=== PATIENT | male | born 1950 | race Caucasian/White ===

== ENCOUNTER → 2018-06-03 13:14 | Outpatient (CLI) | payer MEDICARE, SELFPAY ==
--- NOTE | 2018-06-03 | OV.WND_ITS ---
Progress Note Details Patient Name: Leroy Almonte Patient Number: [id number] PatientPatientDate: 06/03/2018 Clinician: Snow Aguilar Clinician Cosigner: Lily White Physician / Hospital Director: Austin Munoz SUBJECTIVE Chief Complaint This information was obtained from the patient Non-healing wound to right great toe. Allergies azithromycin, lisinopril, simvastatin HPI This information was obtained from the patient 06/03/18. Seen by Dr. Munoz. The patient is new to our clinic and presents with a chronic right 1st toe diabetic ulcer that's been present since about last August. He does not report pain or drainage from the ulcer and feels it's slowly been improving while receiving wound care in [place], [place]. He's also been given an offloading shoe which he states he's not been wearing and he has a vascular intervention/stent placement pending with Dr. Dexter wilkerson for PAD of the right leg. 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 Past Medical History This information was obtained from the patient Patient has a medical history of: A Fib Sleep apnea Abdominal Aortic Aneurysm Diabetes II Hyperlipidemia Hypertension Surgical History This information was obtained from the patient Patient has a surgical history of: cholecystectomy cataract extraction tonsilectomy Complaints and Symptoms This information was obtained from the patient Patient complains of: General Notes: I have reviewed and concur with the Review of Systems and Past Family Social History documents completed by the clinician, I have reviewed and concur with the Wound Assessment document completed by the clinician Cardiovascular (Central/Peripheral): Lower extremity (leg) swelling Hematologic/Lymphatic: Bleeding Tendency Integumentary (Hair/Skin/Nails): Open Sore Musculoskeletal: Assistive Devices Neurological: Loss of Protective Sensation Patient denies complaints or symptoms related to: Cardiovascular (Central/Peripheral): Intermittent Claudication, Lower extremity (leg) resting pain Constitutional Symptoms (General Health): Chills, Fever Ear/Nose/Mouth/Throat: Hearing Loss / Aid Hematologic/Lymphatic: Bleeding / Clotting Disorders Prior Wound History: Drainage, Pain Respiratory: Shortness of Breath General Notes: Up to date per patient Medications gabapentin 800 mg tablet oral tablet oral once daily glipizide 5 mg tablet oral tablet oral once daily Synjardy 12.5 mg-1,000 mg tablet oral tablet oral once daily atorvastatin 40 mg tablet oral tablet oral once daily metoprolol tartrate 50 mg tablet oral tablet oral once daily Xarelto 20 mg tablet oral tablet oral once daily Aspir-81 81 mg tablet,delayed release oral tablet,delayed release (DR/EC) oral once daily omeprazole 20 mg capsule,delayed release oral capsule,delayed release(DR/EC) oral once daily duloxetine 60 mg capsule,delayed release oral capsule,delayed release(DR/EC) oral once daily OBJECTIVE Constitutional Vital signs reviewed and noted. Well developed. Alert. Clean appearing.. Height/ Length: 68 in (172.72 cm), Weight: 204 lbs (92.73 kgs), BMI: 31, Temperature: 98.3 ?F (36.83 ? C), Pulse: 93 bpm, Respiratory Rate: 16 breaths/min, Blood Pressure: 110/77 mmHg, Capillary Blood Glucose: 116 mg/dl, Pulse Oximetry: 98 %. Ears, Nose, Mouth, and Throat: No clinically significant hearing loss on informal examination. Cardiovascular: 1+ dorsalis pedis and posterior tibial on the right. 1+ right lower extremity edema. Musculoskeletal: Approx 4x4mm black, slightly raised irregular lesion over right lateral lower leg. Integumentary (Hair, Skin) Refer to appropriate clinician wound documentation for this visit; right 1st toe ulcer extends to subcut with base partially covered with pink granulation, remainder fibrin and slough. Moderate amount of callus in the periulcer area. Wound #1 Right Great Toe is a chronic Daniel Grade 1 Diabetic Ulcer and has received a status of Not Healed. Initial wound encounter measurements are 0.1cm length x 0.1cm width x 0.1cm depth, with an area of 0.01 sq cm and a volume of 0.001 cubic cm. No tunneling has been noted. No sinus tract has been noted. No undermining has been noted. There is a moderate amount of sanguineous drainage noted which has no odor. The patient reports a wound pain of level 5/10. The wound margin is callus. Wound bed has No epithelialization, No eschar, No slough, No granulation. The periwound skin texture is normal. The periwound skin moisture is normal. The periwound skin color is normal. The temperature of the periwound skin is WNL. Periwound skin does not exhibit signs or symptoms of infection. Local Pulse is Doppler. Neurological: Cranial nerves grossly intact with symmetric function normal by informal observation.. ASSESSMENT Active Problems ICD-10 (Encounter Diagnosis) E11.621 - Type 2 diabetes mellitus with foot ulcer (Encounter Diagnosis) L97.512 - Non-pressure chronic ulcer of other part of right foot with fat layer exposed (Encounter Diagnosis) D48.5 - Neoplasm of uncertain behavior of skin PROCEDURES Wound #1 Wound #1 (Diabetic Ulcer) is located on the right great toe. A skin/ subcutaneous tissue level surgical debridement with a total area debrided of 0.3 sq cm was performed by Austin Munoz MD. Subcutaneous was removed along with devitalized tissue: callus and exudate. The following instrument(s) were used: curette. No anesthetic was required due to loss of sensation. A time out was conducted prior to the start of the procedure. A minimal amount of bleeding was controlled with n/a. The procedure was tolerated well with a loss of sensation throughout and a loss of sensation following the procedure. Post Debridement Measurements: 1cm length x 0.3cm width x 0.2cm depth; with an area of 0.3 sq cm and a volume of 0.06 cubic cm; Additional Information Muscle fascia or bone removed and sent to pathology?: No PLAN Wound Orders: Wound #1 Right Great Toe Cleanser Cleanse Wound: - Normal saline in clinic. May use distilled water at home. May Shower. - Please cover while in shower. Please avoid getting tap water on dressing or in wound. Dressings Primary dressing: - Foam Cover and secure with: - Tape Change Dressing: - Daily Additional Orders: Off-Loading Keep weight off: - Right foot as much as possible. Use/Wear when Walking: - Offloading shoe when walking Follow-Up Appointments Return Appointment: - - One week Other information: If you develop fever, chills, increased pain, drainage, redness or swelling please call our office. If after hours, respond to the ER. Should you experience any significant changes in your wound(s) or have any questions regarding your home care instructions please contact the wound center @ [phone]. If after hours, contact your primary care physician or go to the hospital emergency room. Scribing Attestation I attest, as the nurse, that I scribed these orders for the physician. I've reviewed the clinician's documentation and agree with the evaluation and plan as written. In addition, the patient's ulcer demonstrates evidence of non-viable devitalized tissue which will continue to benefit from sharp debridement to help promote granulation and expedite healing. Also, the patient will be referred to dermatology to review this right lower leg suspicious neoplasm. and he'll follow up with Dr. Renteria as scheduled regarding his PAD. Electronic Signature(s) Signed By: Date: Austin Munoz MD 06/04/2018 09:29:15 Entered By: Austin Munoz on 06/04/2018 09:04:46
== END ==
PROVIDERS: Family Provider Family Medicine; PCP Family Medicine; Visit Provider Internal Medicine
DX: E11.621 Type 2 diabetes mellitus with foot ulcer (principal); L97.512 Non-pressure chronic ulcer of other part of right foot with fat layer exposed; D48.5 Neoplasm of uncertain behavior of skin; I70.238 Atherosclerosis of native arteries of right leg with ulceration of other part of lower leg
CPT/HCPCS: 11042; 99212

== ENCOUNTER → 2018-06-10 10:30 | Outpatient (CLI) | payer MEDICARE, SELFPAY | PROVIDERS: Family Provider Family Medicine; PCP Family Medicine; Visit Provider Internal Medicine | DX: E11.621 Type 2 diabetes mellitus with foot ulcer (principal); L97.512 Non-pressure chronic ulcer of other part of right foot with fat layer exposed; D48.5 Neoplasm of uncertain behavior of skin | CPT/HCPCS: 11042 ==

== ENCOUNTER → 2018-06-17 13:21 | Outpatient (CLI) | payer MEDICARE, SELFPAY ==
--- NOTE | 2018-06-17 | OV.WND_ITS ---
Progress Note Details Patient Name: Leroy Almonte Patient Number: [id number] PatientPatientDate: 06/17/2018 Clinician: Sherron Rao Clinician Cosigner: Lily White Physician / Billposter: Austin Munoz SUBJECTIVE Chief Complaint This information was obtained from the patient Diabetic ulcer to right great toe. Allergies azithromycin, lisinopril, simvastatin HPI This information was obtained from the patient 06/17/18. Seen by Dr. Munoz. The patient does not report increased drainage or pain associated with the chronic right 1st toe diabetic ulcer since his last visit and he's wearing his offloading shoe as recommended. He has a nuclear stress test scheduled next week as pre- surgery screening test prior to possible intervention for his right leg PAD which complicating the healing of the toe ulcer. 06/10/18. Seen by Dr. Munoz. The patient does not report increased drainage or pain associated with the chronic right 1st toe diabetic ulcer since his last visit and he's wearing his offloading shoe as recommended. He's also not yet heard back from dermatology regarding the suspicious right lower leg neoplasm noting his referral was sent after his last visit. 06/03/18. Seen by Dr. Munoz. The patient is new to our clinic and presents with a chronic right 1st toe diabetic ulcer that's been present since about last August. He does not report pain or drainage from the ulcer and feels it's slowly been improving while receiving wound care in [place], [place]. He's also been given an offloading shoe which he states he's not been wearing and he has a vascular intervention/stent placement pending with Dr. Renteria presumably for PAD of the right leg. 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 Past Medical History This information was obtained from the patient Patient has a medical history of: A Fib Sleep apnea Abdominal Aortic Aneurysm Diabetes II Hyperlipidemia Hypertension Complaints and Symptoms This information was obtained from the patient Patient complains of: General Notes: I have reviewed and concur with the Review of Systems and Past Family Social History documents completed by the clinician, I have reviewed and concur with the Wound Assessment document completed by the clinician Cardiovascular (Central/Peripheral): Lower extremity (leg) swelling Hematologic/Lymphatic: Bleeding Tendency Integumentary (Hair/Skin/Nails): Open Sore Musculoskeletal: Assistive Devices Neurological: Loss of Protective Sensation Patient denies complaints or symptoms related to: Cardiovascular (Central/Peripheral): Intermittent Claudication, Lower extremity (leg) resting pain Constitutional Symptoms (General Health): Chills, Fever Ear/Nose/Mouth/Throat: Hearing Loss / Aid Hematologic/Lymphatic: Bleeding / Clotting Disorders Prior Wound History: Drainage, Pain Respiratory: Shortness of Breath OBJECTIVE Constitutional Vital signs reviewed and noted. Well developed. Alert. Clean appearing.. Height/ Length: 68 in (172.72 cm), Weight: 198.4 lbs (90.18 kgs), BMI: 30.2, Temperature: 98.0 ?F ( 36.67 ?C), Pulse: 93 bpm, Respiratory Rate: 16 breaths/min, Blood Pressure: 120/78 mmHg, Capillary Blood Glucose: 121 mg/dl, Pulse Oximetry: 99 %. Vital Signs Notes: Glucose per patient. Cardiovascular: 1+ dorsalis pedis and posterior tibial on the right. Affected extremity exhibits no peripheral edema or cyanosis, is warm, and is well perfused. Capillary refill is less than 2 seconds. Integumentary (Hair, Skin) No periwound erythema, warmth, or significant drainage. No periwound rashes appreciated or noted otherwise.. Refer to appropriate clinician wound documentation for this visit; right 1st toe ulcer extends to subcut with base partially covered with pink granulation, remainder fibrin and slough. Wound #1 Right Great Toe is a chronic Daniel Grade 1 Diabetic Ulcer and has received a status of Not Healed. Subsequent wound encounter measurements are 0.1cm length x 0.1cm width x 0.1cm depth, with an area of 0.01 sq cm and a volume of 0.001 cubic cm. No tunneling has been noted. No sinus tract has been noted. No undermining has been noted. There was no drainage noted. The patient reports a wound pain of level 2/10. The wound margin is callus. Wound bed has Yes epithelialization, No eschar, No slough, No granulation. The periwound skin moisture is normal. The periwound skin color is normal. The periwound skin exhibited: Callus. The periwound skin did not exhibit: Brawny Induration, Edema, Excoriation, Induration, Crepitus, Fluctuance, Friable, Rash. The temperature of the periwound skin is WNL. Periwound skin does not exhibit signs or symptoms of infection. Local Pulse is Doppler. Neurological: Cranial nerves grossly intact with symmetric function normal by informal observation.. ASSESSMENT Active Problems ICD-10 (Encounter Diagnosis) E11.621 - Type 2 diabetes mellitus with foot ulcer (Encounter Diagnosis) L97.512 - Non-pressure chronic ulcer of other part of right foot with fat layer exposed (Encounter Diagnosis) I70.238 - Atherosclerosis of [place] arteries of right leg with ulceration of other part of lower right leg PROCEDURES Wound #1 Wound #1 (Diabetic Ulcer) is located on the right great toe. A skin/ subcutaneous tissue level surgical debridement was performed by Austin Munoz MD. Subcutaneous was removed along with devitalized tissue: callus and exudate. The following instrument(s) were used: curette. No anesthetic was required due to loss of sensation. A time out was conducted prior to the start of the procedure. A minimal amount of bleeding was controlled with pressure. The procedure was tolerated well with a loss of sensation throughout and a loss of sensation following the procedure. Post Debridement Measurements: Additional Information Muscle fascia or bone removed and sent to pathology?: No PLAN Wound Orders: Wound #1 Right Great Toe Anesthetic Topical Xylocaine to wound bed. - Topical lidocaine in clinic. Cleanser Cleanse Wound: - Normal saline in clinic. May use distilled water at home. May Shower. - Please cover while in shower. Please avoid getting tap water on dressing or in wound. Dressings Primary dressing: - [place] donut pad surrounding wound. Cover and secure with: - Telfa to cover, secured with hypafix tape. Change Dressing: - Every 2-3 days. Additional Orders: Off-Loading Keep weight off: - Right foot as much as possible. Use/Wear when Walking: - Offloading shoe when walking. Follow-Up Appointments Return Appointment: - - One week. Other information: If you develop fever, chills, increased pain, drainage, redness or swelling please call our office. If after hours, respond to the ER. Should you experience any significant changes in your wound(s) or have any questions regarding your home care instructions please contact the wound center @ [phone]. If after hours, contact your primary care physician or go to the hospital emergency room. Scribing Attestation I attest, as the nurse, that I scribed these orders for the physician. I've reviewed the clinician's documentation and agree with the evaluation and plan as written. In addition, the patient's ulcer demonstrates evidence of non-viable devitalized tissue which will continue to benefit from sharp debridement to help promote granulation and expedite healing. Also, we'll await feedback from vascular surgery regarding possible intervention for his right leg PAD. Electronic Signature(s) Signed By: Date: Austin Munoz MD 06/18/2018 08:53:09 Entered By: Austin Munoz on 06/18/2018 07:17:54
== END ==
PROVIDERS: Family Provider Family Medicine; PCP Family Medicine; Visit Provider Internal Medicine
DX: E11.621 Type 2 diabetes mellitus with foot ulcer (principal); L97.512 Non-pressure chronic ulcer of other part of right foot with fat layer exposed; I70.238 Atherosclerosis of native arteries of right leg with ulceration of other part of lower leg
CPT/HCPCS: 11042

== ENCOUNTER → 2018-07-06 15:26 | Outpatient (CLI) | payer MEDICARE, SELFPAY ==
--- NOTE | 2018-07-06 | OV.WND_ITS ---
Progress Note Details Patient Name: Leroy Almonte Patient Number: [id number] PatientPatientDate: 07/06/2018 Clinician: Sherron Rao Clinician Cosigner: Lily White Physician / Mining Machinery Assembler: Austin Munoz SUBJECTIVE Chief Complaint This information was obtained from the patient Diabetic ulcer to right great toe. Allergies azithromycin, lisinopril, simvastatin HPI This information was obtained from the patient 07/06/18. Seen by Dr. Munoz. The patient does not report increased drainage or pain associated with the chronic right 1st toe diabetic ulcer since his last visit. 06/17/18. Seen by Dr. Munoz. The patient does not report increased drainage or pain associated with the chronic right 1st toe diabetic ulcer since his last visit and he's wearing his offloading shoe as recommended. He has a nuclear stress test scheduled next week as pre- surgery screening test prior to possible intervention for his right leg PAD which complicating the healing of the toe ulcer. 06/10/18. Seen by Dr. Munoz. The patient does not report increased drainage or pain associated with the chronic right 1st toe diabetic ulcer since his last visit and he's wearing his offloading shoe as recommended. He's also not yet heard back from dermatology regarding the suspicious right lower leg neoplasm noting his referral was sent after his last visit. 06/03/18. Seen by Dr. Munoz. The patient is new to our clinic and presents with a chronic right 1st toe diabetic ulcer that's been present since about last August. He does not report pain or drainage from the ulcer and feels it's slowly been improving while receiving wound care in [place], [place]. He's also been given an offloading shoe which he states he's not been wearing and he has a vascular intervention/stent placement pending with Dr. Renteria presumably for PAD of the right leg. 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 Past Medical History This information was obtained from the patient Patient has a medical history of: A Fib Sleep apnea Abdominal Aortic Aneurysm Diabetes II Hyperlipidemia Hypertension Complaints and Symptoms This information was obtained from the patient Patient complains of: General Notes: I have reviewed and concur with the Review of Systems and Past Family Social History documents completed by the clinician, I have reviewed and concur with the Wound Assessment document completed by the clinician Cardiovascular (Central/Peripheral): Lower extremity (leg) swelling Hematologic/Lymphatic: Bleeding Tendency Integumentary (Hair/Skin/Nails): Open Sore Musculoskeletal: Assistive Devices Neurological: Loss of Protective Sensation Patient denies complaints or symptoms related to: Cardiovascular (Central/Peripheral): Intermittent Claudication, Lower extremity (leg) resting pain Constitutional Symptoms (General Health): Chills, Fever Ear/Nose/Mouth/Throat: Hearing Loss / Aid Hematologic/Lymphatic: Bleeding / Clotting Disorders Prior Wound History: Drainage, Pain Respiratory: Shortness of Breath OBJECTIVE Constitutional Vital signs reviewed and noted. Well developed. Alert. Clean appearing.. Height/ Length: 68 in (172.72 cm), Weight: 198.4 lbs (90.18 kgs), BMI: 30.2, Temperature: 97.4 ?F ( 36.33 ?C), Pulse: 110 bpm, Respiratory Rate: 18 breaths/min, Blood Pressure: 117/77 mmHg, Capillary Blood Glucose: 113 mg/dl, Pulse Oximetry: 98 %. Vital Signs Notes: Glucose per patient. Respiratory: No respiratory distress. Even respirations and without use of accessory muscles.. Integumentary (Hair, Skin) Refer to appropriate clinician wound documentation for this visit.. Wound #1 Right Great Toe is a chronic Adniel Grade 1 Diabetic Ulcer and has received an outcome of Healed - no new wound(s). Subsequent wound encounter measurements are 0cm length x 0cm width x 0cm depth, with an area of 0 sq cm and a volume of 0 cubic cm. No tunneling has been noted. No sinus tract has been noted. No undermining has been noted. There was no drainage noted. The patient reports a wound pain of level 2/10. The wound margin is callus. Wound bed has Yes epithelialization, No eschar, No slough, No granulation. The periwound skin moisture is normal. The periwound skin color is normal. The periwound skin exhibited: Callus. The periwound skin did not exhibit: Brawny Induration, Edema, Excoriation, Induration, Crepitus, Fluctuance, Friable, Rash. The temperature of the periwound skin is WNL. Periwound skin does not exhibit signs or symptoms of infection. Local Pulse is Doppler. General Notes: Dark area noted under callus measures 0.6x0.3cm. Wound healed post mechanical debridement. Neurological: Cranial nerves grossly intact with symmetric function normal by informal observation.. ASSESSMENT Active Problems ICD-10 (Encounter Diagnosis) E11.621 - Type 2 diabetes mellitus with foot ulcer (Encounter Diagnosis) L97.512 - Non-pressure chronic ulcer of other part of right foot with fat layer exposed PROCEDURES Wound #1 Wound #1 (Diabetic Ulcer) is located on the right great toe. A non-selective mechanical debridement with a total area debrided of 0 sq cm was performed by Austin Munoz MD. Non-viable tissue was removed.The procedure was tolerated well with a pain level of 0 throughout and a pain level of 0 following the procedure. Post Debridement Measurements: 0cm length x 0cm width x 0cm depth; with an area of 0 sq cm General Notes: Callus removed, no open area visible post debridement. PLAN Wound Orders: Wound #1 Right Great Toe Anesthetic Topical Xylocaine to wound bed. - Topical lidocaine in clinic. Cleanser Cleanse Wound: - Normal saline in clinic. May use distilled water at home. May Shower. - Please cover while in shower. Please avoid getting tap water on dressing or in wound. Topical Treatments Moisturizing lotion to surround skin. - Kerasal Intensive Foot Repair Ointment to callus (can be purchased at most local pharmacies). Dressings Cover and secure with: - Telfa to cover, secured with hypafix tape. Keep covered for the next week. If no drainage noted on bandage or callus after the week, you may leave uncovered. Change Dressing: - Every other days. Additional Orders: Off-Loading Keep weight off: - Right foot as much as possible. Use/Wear when Walking: - Offloading shoe when walking. Custom diabetic shoes once received. Follow-Up Appointments Discharge from Outpatient Services. - No need for follow-up at this time. If you feel wound has re-opened, please call us. Scribing Attestation I attest, as the nurse, that I scribed these orders for the physician. I've reviewed the clinician's documentation and agree with the evaluation and plan as written. In addition the patient's last remiaining complex wound is now healed. The patient is invited to return to our clinic for treatment of any future complex wounds. Post wound care and strategies to avoid recurrences were discussed. Electronic Signature(s) Signed By: Date: Austin Munoz MD 07/27/2018 08:43:34 Entered By: Austin Munoz on 07/06/2018 16:20:05
== END ==
PROVIDERS: Family Provider Family Medicine; PCP Family Medicine; Visit Provider Internal Medicine
DX: Z48.817 Encounter for surgical aftercare following surgery on the skin and subcutaneous tissue (principal); E11.9 Type 2 diabetes mellitus without complications
CPT/HCPCS: 99212

== ENCOUNTER → 2018-07-27 11:00 | Outpatient (CLI) | payer MEDICARE, SELFPAY ==
--- NOTE | 2018-07-27 | OV.WND_ITS ---
Progress Note Details Patient Name: Leroy Almonte Patient Number: [id number] PatientPatientDate: 07/27/2018 Clinician: Jeniffer Gatica Physician / Lead Enterprise Architect: Austin Munoz SUBJECTIVE Chief Complaint This information was obtained from the patient Diabetic ulcer to right great toe. Allergies azithromycin, lisinopril, simvastatin HPI This information was obtained from the patient 07/27/18. Seen by Dr. Munoz. The patient returns for review of a chronic right 1st toe diabetic ulcer that he wishes to have reviewed prior to leaving for [place] for the next 5 months. 07/06/18. Seen by Dr. Munoz. The patient does not report increased drainage or pain associated with the chronic right 1st toe diabetic ulcer since his last visit. 06/17/18. Seen by Dr. Munoz. The patient does not report increased drainage or pain associated with the chronic right 1st toe diabetic ulcer since his last visit and he's wearing his offloading shoe as recommended. He has a nuclear stress test scheduled next week as pre- surgery screening test prior to possible intervention for his right leg PAD which complicating the healing of the toe ulcer. 06/10/18. Seen by Dr. Munoz. The patient does not report increased drainage or pain associated with the chronic right 1st toe diabetic ulcer since his last visit and he's wearing his offloading shoe as recommended. He's also not yet heard back from dermatology regarding the suspicious right lower leg neoplasm noting his referral was sent after his last visit. 06/03/18. Seen by Dr. Munoz. The patient is new to our clinic and presents with a chronic right 1st toe diabetic ulcer that's been present since about last August. He does not report pain or drainage from the ulcer and feels it's slowly been improving while receiving wound care in [place], [place]. He's also been given an offloading shoe which he states he's not been wearing and he has a vascular intervention/stent placement pending with Dr. Renteria presumably for PAD of the right leg. 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 Past Medical History This information was obtained from the patient Patient has a medical history of: A Fib Sleep apnea Abdominal Aortic Aneurysm Diabetes II Hyperlipidemia Hypertension Complaints and Symptoms This information was obtained from the patient Patient complains of: General Notes: I have reviewed and concur with the Review of Systems and Past Family Social History documents completed by the clinician, I have reviewed and concur with the Wound Assessment document completed by the clinician Cardiovascular (Central/Peripheral): Lower extremity (leg) swelling Hematologic/Lymphatic: Bleeding Tendency Integumentary (Hair/Skin/Nails): Open Sore Musculoskeletal: Assistive Devices Neurological: Loss of Protective Sensation Patient denies complaints or symptoms related to: Cardiovascular (Central/Peripheral): Intermittent Claudication, Lower extremity (leg) resting pain Constitutional Symptoms (General Health): Chills, Fever Ear/Nose/Mouth/Throat: Hearing Loss / Aid Hematologic/Lymphatic: Bleeding / Clotting Disorders Prior Wound History: Drainage, Pain Respiratory: Shortness of Breath OBJECTIVE Constitutional Vital signs reviewed and noted. Well developed. Alert. Clean appearing.. Height/ Length: 68 in (172.72 cm), Weight: 198.4 lbs (90.18 kgs), BMI: 30.2, Temperature: 98.3 ?F ( 36.83 ?C), Pulse: 92 bpm, Respiratory Rate: 18 breaths/min, Blood Pressure: 120/80 mmHg, Capillary Blood Glucose: 128 mg/dl, Pulse Oximetry: 98 %. Vital Signs Notes: Glucose per patient Respiratory: No respiratory distress. Even respirations and without use of accessory muscles.. Cardiovascular: Affected extremity exhibits no peripheral edema or cyanosis, is warm, and is well perfused. Capillary refill is less than 2 seconds. Integumentary (Hair, Skin) Refer to appropriate clinician wound documentation for this visit.. Moderate amount of callus in the now healed periulcer area. Neurological: Cranial nerves grossly intact with symmetric function normal by informal observation.. ASSESSMENT Active Problems ICD-10 (Encounter Diagnosis) E11.621 - Type 2 diabetes mellitus with foot ulcer PLAN Additional Orders: Off-Loading Keep weight off: - Right foot as much as possible. Use/Wear when Walking: - Offloading shoe when walking. Custom diabetic shoes once received. Follow-Up Appointments Discharge from Outpatient Services. - No need for follow-up at this time. If you feel wound has re-opened, please call us. Scribing Attestation I attest, as the nurse, that I scribed these orders for the physician. I've reviewed the clinician's documentation and agree with the evaluation and plan as written. In addition the patient's last remiaining complex wound is now healed. The patient is invited to return to our clinic for treatment of any future complex wounds. Post wound care and strategies to avoid recurrences were discussed. Electronic Signature(s) Signed By: Date: Austin Munoz MD 07/28/2018 06:59:08 Entered By: Austin Munoz on 07/28/2018 06:38:57
== END ==
PROVIDERS: Family Provider Family Medicine; PCP Family Medicine; Visit Provider Internal Medicine
DX: Z48.817 Encounter for surgical aftercare following surgery on the skin and subcutaneous tissue (principal); E11.9 Type 2 diabetes mellitus without complications; L84 Corns and callosities
CPT/HCPCS: 99212

== ENCOUNTER → 2022-04-17 08:43 | Outpatient (CLI) | payer MEDICARE, SELFPAY ==
[2022-04-17 09:20] LABS: Hematocrit 35.9 % (41-53); Mean Corpuscular HGB Conc 33.4 % (30-36); Mean Corpuscular Hemoglobin 28.5 PG (26-34); Mean Corpuscular Volume 85.3 fL (80-100); Platelet Count 163 X10^3/uL (150-400); Red Blood Cell Count 4.21 X10^6/uL (4.5-5.9); Red Cell Distribution Width 18.6 % (11.6-14.8); White Blood Cell Count 6.8 X10^3/uL (4.5-11.0)
[2022-04-17 09:33] LABS: Hemoglobin A1C% w Est Avg Glu 5.9 % (4.0-6.0)
[2022-04-17 09:40] LABS: Alanine Aminotransferase 18 IU/L (<50); Albumin 4.7 g/dL (3.5-5.0); Albumin Globulin Ratio 1.5 (1.0-2.8); Alkaline Phosphatase 72 U/L (38-126); Aspartate Aminotransferase 27 IU/L (17-59); BUN Creatinine Ratio 17.5 (6-22); Blood Urea Nitrogen 14 mg/dL (9-20); Carbon Dioxide 26 mmol/L (22-32); Chloride 103 mmol/L (98-107); Cholesterol 146 mg/dL (140-199); Estimated Glomerular Filt Rate > 60 mL/min (>60); Globulin 3.1 g/dL (1.7-4.1); Glucose 132 mg/dL (80-110); HDL Cholesterol 45 mg/dL (40-60); HEMOLYSIS < 15 (0-50); LDL Cholesterol Calculated 74 mg/dL (<100); Sodium 138 mmol/L (137-145); Total Protein 7.8 g/dL (6.3-8.2); Triglycerides 133 mg/dL (35-150)
[2022-04-17 10:08] LABS: TSH w/ Reflex to FT4 3.15 uIU/mL (0.47-4.68)
[2022-04-17 10:30] LABS: Vitamin B12 338 pg/mL (239-931)
[2022-04-17 10:35] LABS: Creatinine Urine Random 73.7 mg/dL
[2022-04-17 10:39] LABS: Microalbumin Urine Random 3.1 mg/dL (0-1.6)
== END ==
PROVIDERS: Family Provider Family Medicine; PCP Internal Medicine; Referring Provider Internal Medicine; Visit Provider Internal Medicine
DX: I10 Essential (primary) hypertension (principal); E11.42 Type 2 diabetes mellitus with diabetic polyneuropathy; E78.2 Mixed hyperlipidemia; N40.0 Benign prostatic hyperplasia without lower urinary tract symptoms; E53.8 Deficiency of other specified B group vitamins; I48.20 Chronic atrial fibrillation, unspecified
CPT/HCPCS: 36415; 80053; 80061; 82043; 82570; 82607; 83036; 84153; 84443; 85027

== ENCOUNTER → 2022-05-01 12:57 | Outpatient (CLI) | payer MEDICARE, SELFPAY ==
--- NOTE | 2022-05-01 13:00 | DI.CT.S_ITS ---
PROCEDURE: CT ABDOMEN WWO PELVIS W INDICATIONS: AAA follow-up, history of liver mass TECHNIQUE: After the administration of oral contrast, 5 mm thick sections acquired from the diaphragms to the iliac crests. After the administration of intravenous contrast, 5 mm thick sections acquired from the diaphragms to the symphysis. 5 mm thick coronal and sagittal reformats were acquired. For radiation dose reduction, the following was used: automated exposure control, adjustment of mA and/or kV according to patient size. COMPARISON: [facility], , CTA ABDOMEN PELVIS, 05/20/2018, 14:49. FINDINGS: Image quality: Excellent. Lung bases: Lung bases are clear. Heart size is normal. Small left pleural effusion. Solid organs: Liver: The liver has no mass or intrahepatic biliary ductal dilatation. Biliary: Status post cholecystectomy. Pancreas: The pancreas has no mass or ductal dilatation. There is no surrounding inflammation. Spleen: Normal size. There are no masses. Adrenals: No hypertrophy or nodules. Kidneys: No obstructive calculus or hydronephrosis. No solid mass. 1.9 cm exophytic cystic mass of the kidney. Peritoneum and bowel: The distal esophagus and stomach are normal. The small bowel has a normal caliber and appearance. The terminal ileum is normal. The large bowel has a normal caliber and appearance. The appendix is normal. No free fluid or air. Nodes and vessels: No retroperitoneal or mesenteric adenopathy by size criteria. There is an infrarenal abdominal aortic aneurysm measuring 3.9 cm in maximal axial dimension and 4.2 cm in length. On prior CT on 05/20/2018 the aneurysm measured 3.6 cm in maximal axial dimension. Miscellaneous: No abdominal wall mass or hernia. PELVIS: Genitourinary: The bladder has no wall thickening or mass. No bladder calcifications. Bones: No suspicious bony lesions. Healed right-sided rib fractures. No vertebral body compression fractures. IMPRESSION: 1. Infrarenal abdominal aortic aneurysm measuring 3.9 cm in maximal axial dimension compared to 3.6 cm on 05/20/2018. 2. No other significant abnormality. Dictated by: Chaitanya Chavez M.D. on 05/01/2022 at 15:08 Approved by: Chaitanya Chavez M.D. on 05/01/2022 at 15:32
== END ==
PROVIDERS: Family Provider Family Medicine; PCP Internal Medicine; Referring Provider Internal Medicine; Visit Provider Internal Medicine
DX: I71.4 Abdominal aortic aneurysm, without rupture (principal); R16.0 Hepatomegaly, not elsewhere classified; Z90.49 Acquired absence of other specified parts of digestive tract
CPT/HCPCS: 74178; Q9967

== ENCOUNTER → 2022-07-24 14:45 | Outpatient (CLI) | payer MEDICARE, SELFPAY ==
[2022-07-24 17:27] LABS: Hematocrit 33.6 % (41-53); Hemoglobin 10.9 g/dL (13.5-17.5); Mean Corpuscular HGB Conc 32.5 % (30-36); Mean Corpuscular Hemoglobin 28.1 PG (26-34); Mean Corpuscular Volume 86.5 fL (80-100); Platelet Count 152 X10^3/uL (150-400); Red Blood Cell Count 3.88 X10^6/uL (4.5-5.9); Red Cell Distribution Width 17.3 % (11.6-14.8); White Blood Cell Count 6.2 X10^3/uL (4.5-11.0)
[2022-07-24 17:36] LABS: HEMOLYSIS < 15 (0-50); Iron 50 ug/dL (49-181)
[2022-07-24 17:39] LABS: Hemoglobin A1C% w Est Avg Glu 5.7 % (4.0-6.0)
[2022-07-24 17:49] LABS: Percent Iron Saturation 11 % (20-50); Total Iron Binding Capacity 445 ug/dL (261-462); Transferrin 300 mg/dL (206-381)
[2022-07-24 18:08] LABS: Ferritin 15 ng/mL (18-464)
== END ==
PROVIDERS: Family Provider Family Medicine; PCP Internal Medicine; Referring Provider Internal Medicine; Visit Provider Internal Medicine
DX: D64.9 Anemia, unspecified (principal); E11.42 Type 2 diabetes mellitus with diabetic polyneuropathy
CPT/HCPCS: 36415; 82728; 83036; 83540; 83550; 85027

== ENCOUNTER → 2023-04-29 15:08 | Outpatient (CLI) | payer MEDICARE, SELFPAY ==
[2023-04-29 17:21] LABS: Add Manual Diff / Slide Review NO; Basophils Absolute Auto 0 /uL (0-100); Basophils Percent Auto 0.6 % (0-2); Eosinophils Absolute Auto 200 /uL (0-450); Eosinophils Percent Auto 2.6 % (2-4); Hematocrit 35.4 % (41-53); Hemoglobin 11.2 g/dL (13.5-17.5); Lymphocytes Absolute Auto 1400 /uL (1100-4500); Lymphocytes Percent Auto 20.2 % (25-40); Mean Corpuscular HGB Conc 31.8 % (30-36); Mean Corpuscular Hemoglobin 26.3 PG (26-34); Mean Corpuscular Volume 82.8 fL (80-100); Monocytes Absolute Auto 600 /uL (0-900); Monocytes Percent Auto 8.6 % (3-14); Neutrophils Absolute Auto 4900 /uL (1500-7000); Platelet Count 166 X10^3/uL (150-400); Red Blood Cell Count 4.28 X10^6/uL (4.5-5.9); Red Cell Distribution Width 19.4 % (11.6-14.8); White Blood Cell Count 7.1 X10^3/uL (4.5-11.0)
[2023-04-29 18:20] LABS: Alanine Aminotransferase 21 IU/L (<50); Albumin 4.2 g/dL (3.5-5.0); Albumin Globulin Ratio 1.2 (1.0-2.8); Alkaline Phosphatase 80 U/L (38-126); Aspartate Aminotransferase 34 IU/L (17-59); BUN Creatinine Ratio 23.9 (6-22); Blood Urea Nitrogen 16 mg/dL (9-20); Calcium 10.1 mg/dL (8.4-10.2); Carbon Dioxide 29 mmol/L (22-32); Chloride 99 mmol/L (98-107); Cholesterol 164 mg/dL (140-199); Estimated Glomerular Filt Rate > 60 mL/min (>60); Globulin 3.6 g/dL (1.7-4.1); Glucose 101 mg/dL (80-110); HDL Cholesterol 49 mg/dL (40-60); HEMOLYSIS < 15 (0-50); LDL Cholesterol Calculated 71 mg/dL (<100); Potassium 4.6 mmol/L (3.4-5.1); Sodium 138 mmol/L (137-145); Total Protein 7.8 g/dL (6.3-8.2); Triglycerides 221 mg/dL (35-150)
[2023-04-29 18:52] LABS: Creatinine Urine Random 83.5 mg/dL
[2023-04-29 18:57] LABS: Microalbumi Creatinin Ratio Ur 89.8 ug/mg CR (<30); Microalbumin Urine Random 7.5 mg/dL (0-1.6)
[2023-04-30 05:27] LABS: Labcorp Hemoglobin (Hb) A1c 6.1 % (4.8-5.6)
== END ==
PROVIDERS: Family Provider Family Medicine; PCP Internal Medicine; Referring Provider Internal Medicine; Visit Provider Internal Medicine
DX: D64.9 Anemia, unspecified (principal); E11.42 Type 2 diabetes mellitus with diabetic polyneuropathy; I10 Essential (primary) hypertension; E78.2 Mixed hyperlipidemia
CPT/HCPCS: 36415; 80053; 80061; 82043; 82570; 83036; 85025

== ENCOUNTER → 2023-05-19 10:43 | Outpatient (CLI) | payer MEDICARE, SELFPAY ==
[2023-05-19 11:59] LABS: Hematocrit 24.8 % (41-53); Hemoglobin 7.8 g/dL (13.5-17.5); Mean Corpuscular HGB Conc 31.6 % (30-36); Mean Corpuscular Hemoglobin 26.5 PG (26-34); Mean Corpuscular Volume 83.8 fL (80-100); Platelet Count 262 X10^3/uL (150-400); Red Blood Cell Count 2.96 X10^6/uL (4.5-5.9); White Blood Cell Count 10.5 X10^3/uL (4.5-11.0)
[2023-05-19 13:17] LABS: BUN Creatinine Ratio 19.7 (6-22); Blood Urea Nitrogen 14 mg/dL (9-20); Calcium 9.3 mg/dL (8.4-10.2); Carbon Dioxide 25 mmol/L (22-32); Chloride 101 mmol/L (98-107); Estimated Glomerular Filt Rate > 60 mL/min (>60); Glucose 137 mg/dL (80-110); HEMOLYSIS < 15 (0-50); Sodium 134 mmol/L (137-145)
== END ==
PROVIDERS: Family Provider Family Medicine; PCP Internal Medicine; Referring Provider Internal Medicine; Visit Provider Internal Medicine
DX: D64.9 Anemia, unspecified (principal); E11.42 Type 2 diabetes mellitus with diabetic polyneuropathy
CPT/HCPCS: 36415; 80048; 85027

== ENCOUNTER → 2023-05-20 12:11 | Outpatient (CLI) | payer MEDICARE, SELFPAY ==
[2023-05-20 13:00] LABS: HEMOLYSIS < 15 (0-50); Potassium 4.3 mmol/L (3.4-5.1)
== END ==
PROVIDERS: Family Provider Family Medicine; PCP Internal Medicine; Referring Provider Internal Medicine; Visit Provider Internal Medicine
DX: E87.5 Hyperkalemia (principal)
CPT/HCPCS: 36415; 84132

== ENCOUNTER → 2023-05-28 13:08 | Outpatient (CLI) | payer MEDICARE, SELFPAY | PROVIDERS: Family Provider Family Medicine; PCP Internal Medicine; Referring Provider Internal Medicine; Visit Provider Surgery | DX: E11.628 Type 2 diabetes mellitus with other skin complications (principal); S81.811A Laceration without foreign body, right lower leg, initial encounter; R60.0 Localized edema; S81.012A Laceration without foreign body, left knee, initial encounter; E11.621 Type 2 diabetes mellitus with foot ulcer; L97.511 Non-pressure chronic ulcer of other part of right foot limited to breakdown of skin; L53.9 Erythematous condition, unspecified; L84 Corns and callosities | CPT/HCPCS: 11042; 87070; 87075; 87077; 87186; 87205; 99204 ==

== ENCOUNTER → 2023-05-28 15:37 | Outpatient (CLI) | payer MEDICARE, SELFPAY ==
--- NOTE | 2023-05-28 15:40 | DI.US.S_ITS ---
PROCEDURE: US ARTERIAL DUPLEX LE BI INDICATIONS: Non-healing ulcers to bilateral lower extremities TECHNIQUE: Color and pulse Doppler interrogation was performed of both lower extremity arterial systems, with image documentation. COMPARISON: [facility], RG, CTA ABDOMEN PELVIS, 05/20/2018, 14:49. FINDINGS: The patient had bandages at the ankles bilaterally which he did not want to remove. Right lower extremity: Common femoral artery: 240 cm/sec, with triphasic flow. Deep femoral artery: 98 cm/sec, with triphasic flow. Proximal superficial femoral artery: 65 cm/sec, with triphasic flow. Mid superficial femoral artery: 68 cm/sec, with triphasic flow. Distal superficial femoral artery: 38 cm/sec, with triphasic flow. Popliteal artery: 51 cm/sec, with triphasic flow. Posterior tibial artery: Not obtained Anterior tibial artery/dorsalis pedis: Not obtained Jorgensen-scale imaging description: Not obtained Left lower extremity: Common femoral artery: 35 cm/sec, with monophasic flow. Deep femoral artery: 18 cm/sec, with monophasic flow. Proximal superficial femoral artery: 33 cm/sec, with monophasic flow. Mid superficial femoral artery: 29 cm/sec, with monophasic flow. Distal superficial femoral artery: 31 cm/sec, with monophasic flow. Popliteal artery: 21 cm/sec, with monophasic flow. Posterior tibial artery: Not obtained Anterior tibial artery/dorsalis pedis: Not obtained Jorgensen-scale imaging description: Not obtained IMPRESSION: 1. Monophasic waveforms on the left suggest inflow stenosis. No prior CT a in 2018 demonstrated occlusion of the left common iliac artery and external iliac artery. 2. Elevated velocity in the right [employer] may suggest greater than 50 percent stenosis. Dictated by: Chaitanya Chavez M.D. on 05/29/2023 at 15:30 Approved by: Chaitanya Chavez M.D. on 05/29/2023 at 15:38
--- NOTE | 2023-05-28 15:40 | DI.RAD.S_ITS ---
PROCEDURE: XR FOOT RT MIN 3V INDICATIONS: non-healing ulcer right great toe TECHNIQUE: 3 views of the foot were acquired. COMPARISON: None. FINDINGS: Bones: Soft tissue defect in the medial 1st toe noted without soft tissue gas or underlying lytic lesion. No fracture Soft tissues: No tibiotalar joint effusion. Achilles tendon appears normal. IMPRESSION: 1st toe soft tissue ulcer without associated osseous lytic lesion Approved by: Daivd Bauman M.D. on 05/29/2023 at 15:23
[2023-05-28 18:17] LABS: Alanine Aminotransferase 81 IU/L (<50); Albumin 3.9 g/dL (3.5-5.0); Albumin Globulin Ratio 1.3 (1.0-2.8); Alkaline Phosphatase 87 U/L (38-126); Aspartate Aminotransferase 67 IU/L (17-59); BUN Creatinine Ratio 16.9 (6-22); Bilirubin Total 1.3 mg/dL (0.2-1.3); Blood Urea Nitrogen 14 mg/dL (9-20); Calcium 9.1 mg/dL (8.4-10.2); Carbon Dioxide 18 mmol/L (22-32); Chloride 97 mmol/L (98-107); Estimated Glomerular Filt Rate > 60 mL/min (>60); Glucose 94 mg/dL (80-110); HEMOLYSIS < 15 (0-50); Potassium 4.4 mmol/L (3.4-5.1); Sodium 131 mmol/L (137-145); Total Protein 6.9 g/dL (6.3-8.2)
== END ==
PROVIDERS: Family Provider Family Medicine; PCP Internal Medicine; Referring Provider Surgery; Visit Provider Surgery
DX: E11.621 Type 2 diabetes mellitus with foot ulcer (principal); L97.919 Non-pressure chronic ulcer of unspecified part of right lower leg with unspecified severity; L97.829 Non-pressure chronic ulcer of other part of left lower leg with unspecified severity; E11.628 Type 2 diabetes mellitus with other skin complications; S81.811A Laceration without foreign body, right lower leg, initial encounter; S81.012A Laceration without foreign body, left knee, initial encounter; R60.0 Localized edema; L97.511 Non-pressure chronic ulcer of other part of right foot limited to breakdown of skin; L53.9 Erythematous condition, unspecified; L84 Corns and callosities
CPT/HCPCS: 11042; 36415; 73630; 80053; 87070; 87077; 87186; 87205; 93925

== ENCOUNTER → 2023-06-04 13:10 | Outpatient (CLI) | payer MEDICARE, SELFPAY | PROVIDERS: Family Provider Family Medicine; PCP Internal Medicine; Referring Provider Internal Medicine; Visit Provider Surgery | DX: E11.621 Type 2 diabetes mellitus with foot ulcer (principal); E11.628 Type 2 diabetes mellitus with other skin complications; L97.512 Non-pressure chronic ulcer of other part of right foot with fat layer exposed; S81.811A Laceration without foreign body, right lower leg, initial encounter; S81.012A Laceration without foreign body, left knee, initial encounter; R60.0 Localized edema | CPT/HCPCS: 11042; 11045; 97605 ==

== ENCOUNTER → 2023-06-08 09:35 | Outpatient (CLI) | payer MEDICARE, SELFPAY | PROVIDERS: Family Provider Family Medicine; PCP Internal Medicine; Referring Provider Surgery; Visit Provider Surgery | DX: E11.621 Type 2 diabetes mellitus with foot ulcer (principal); L97.512 Non-pressure chronic ulcer of other part of right foot with fat layer exposed | CPT/HCPCS: 97605; 99212 ==

== ENCOUNTER → 2023-06-11 08:41 | Outpatient (CLI) | payer MEDICARE, SELFPAY | PROVIDERS: Family Provider Family Medicine; PCP Internal Medicine; Referring Provider Surgery; Visit Provider Surgery | DX: E11.621 Type 2 diabetes mellitus with foot ulcer (principal); S81.811A Laceration without foreign body, right lower leg, initial encounter; S81.012A Laceration without foreign body, left knee, initial encounter; L97.512 Non-pressure chronic ulcer of other part of right foot with fat layer exposed; L84 Corns and callosities; E11.628 Type 2 diabetes mellitus with other skin complications | CPT/HCPCS: 11042; 11045; 97605; 99214 ==

== ENCOUNTER 2023-06-11 09:38 | Emergency (ER) | payer MEDICARE, SELFPAY ==
[2023-06-11] VITALS (101 sets, daily range): BP systolic 92–159; BP diastolic 54–78; PULSE 99–137; RESP 15–30; TEMP 36.4; O2SAT 91–100; BMI 27.3
--- NOTE | 2023-06-11 09:54 | DI.RAD.S_ITS ---
PROCEDURE: XR CHEST 1V INDICATIONS: Shortness of breath TECHNIQUE: One view of the chest was acquired. COMPARISON: [facility], , CHEST 1 VIEW, 03/12/2016, 18:38. FINDINGS: Surgical changes and devices: None. Lungs and pleura: Lungs are clear. No pleural effusions or pneumothorax. Stable eventration of the left hemidiaphragm. Mediastinum: Mediastinal contours appear normal. Heart size is normal. Bones and chest wall: No suspicious bony lesions. Overlying soft tissues appear unremarkable. IMPRESSION: Stable radiographic evaluation of the chest without acute cardiopulmonary abnormalities or focal airspace disease. Dictated by: Fred Niño M.D. on 06/11/2023 at 10:38 Approved by: Fred Niño M.D. on 06/11/2023 at 10:39
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
[2023-06-11 10:28] LABS: Add Manual Diff / Slide Review NO; Basophils Absolute Auto 100 /uL (0-100); Basophils Percent Auto 0.3 % (0-2); Eosinophils Absolute Auto 100 /uL (0-450); Eosinophils Percent Auto 0.3 % (2-4); Hematocrit 23.6 % (41-53); Hemoglobin 7.1 g/dL (13.5-17.5); Lymphocytes Absolute Auto 1300 /uL (1100-4500); Lymphocytes Percent Auto 5.4 % (25-40); Mean Corpuscular Hemoglobin 23.5 PG (26-34); Mean Corpuscular Volume 78.2 fL (80-100); Monocytes Absolute Auto 900 /uL (0-900); Monocytes Percent Auto 3.7 % (3-14); Neutrophils Absolute Auto 22500 /uL (1500-7000); Neutrophils Percent Auto 90.3 % (50-75); Platelet Count 223 X10^3/uL (150-400); Red Blood Cell Count 3.02 X10^6/uL (4.5-5.9); Red Cell Distribution Width 21.8 % (11.6-14.8)
[2023-06-11 10:42] LABS: Alanine Aminotransferase 33 IU/L (<50); Albumin 3.5 g/dL (3.5-5.0); Alkaline Phosphatase 108 U/L (38-126); Aspartate Aminotransferase 40 IU/L (17-59); BUN Creatinine Ratio 17.5 (6-22); Bilirubin Total 1.6 mg/dL (0.2-1.3); Blood Urea Nitrogen 11 mg/dL (9-20); Calcium 8.7 mg/dL (8.4-10.2); Carbon Dioxide 20 mmol/L (22-32); Chloride 97 mmol/L (98-107); Estimated Glomerular Filt Rate > 60 mL/min (>60); Globulin 3.4 g/dL (1.7-4.1); Glucose 102 mg/dL (80-110); HEMOLYSIS < 15 (0-50); Potassium 3.9 mmol/L (3.4-5.1); Sodium 131 mmol/L (137-145); Total Protein 6.9 g/dL (6.3-8.2)
[2023-06-11 10:47] LABS: INR 6.6 (0.9-1.3); Prothrombin Time 77.3 SECONDS (10.1-12.7)
[2023-06-11 10:50] LABS: Lactate (Lactic Acid) 5.6 mmol/L (0.7-2.1)
[2023-06-11] MEDS: cefTRIAXone 2,000 MG in SODIUM CHLORIDE 0.9% 100 ML 200 MG IV (10:51)
[2023-06-11 10:53] LABS: NT-proBNP (BNP-Adult 18+) 5480 pg/mL (<125); Troponin I < 0.012 ng/mL (0.01-0.034)
[2023-06-11] MEDS: LACTATED RINGERS 2,449.41 ML 816.47 ML IV (10:55)
[2023-06-11 11:04] LABS: Anisocytosis 2+; Microcytosis 1+
[2023-06-11 11:06] LABS: Poikilocytosis 1+
--- NOTE | 2023-06-11 11:32 | DI.RAD.S_ITS ---
PROCEDURE: XR TIBIA FUBULA RT 2V INDICATIONS: wound TECHNIQUE: 2 views of the tibia and fibula were acquired. COMPARISON: None. FINDINGS: Bones: No acute fractures or dislocations. No suspicious bony lesions. No osseous erosions or periosteal reaction. Soft tissues: No suspicious soft tissue calcifications or masses. There is a wound VAC device projecting over the lateral aspect of the right mid calf. No evidence for soft tissue gas. IMPRESSION: Right tibia/fibula without acute fracture or suspicious osseous lesions. No osseous abnormalities underlying area of soft tissue abnormality. Dictated by: Fred Niño M.D. on 06/11/2023 at 12:10 Approved by: Fred Niño M.D. on 06/11/2023 at 12:12
[2023-06-11 12:15] LABS: Bacteria Urine None Seen; Culture Indicated Urine Cult Not Indicated; Hyaline Casts Urine 5-10/LPF; RBC Urine 0-1/HPF (0-5/HPF); Squamous Epithelial Cell Urine 0-1 /HPF (0-5/HPF); WBC Urine 0-1/HPF (0-5/HPF)
[2023-06-11 12:21] LABS: Reflexed Lactate in 2 Hours Y
--- NOTE | 2023-06-11 12:46 | DI.CT.S_ITS ---
PROCEDURE: CT ANGIO LE RT INDICATIONS: NONHEALING WOUND, PAD TECHNIQUE: After the administration of intravenous contrast, 2.5 mm sections acquired from T12 to the feet, with optional delayed image acquisition from the knees to the feet. 3-dimensional maximum intensity projection (MIP) coronal and sagittal reformats, and/or 3-dimensional volume rendering reformatting was then performed. For radiation dose reduction, the following was used: automated exposure control. COMPARISON: [facility], CT, CT ABDOMEN WWO PELVIS W, 05/01/2022, 13:15. FINDINGS: Image quality: Excellent. Extravascular tissues: Limited imaging of the abdomen below the level of the liver and kidney, to the right of midline, not including anterior tissues. No significant abnormality identified in the visualized abdomen and pelvis. Abdominal aorta: Not imaged Right lower extremity: There is a calcified stenosis of the distal common iliac/proximal external iliac which is likely hemodynamically significant. No other common iliac or external iliac lesions. Mild diffuse common femoral disease. Diffuse SFA plaque without focal stenosis. Mild diffuse popliteal stenotic disease. The tibioperoneal trunk has a moderate proximal stenosis just beyond the origin of the anterior tibial artery. The anterior tibial may occlude distally or may be, a diminutive vessel. Posterior tibial is the dominant vessel below the ankle to feed the foot. Posterior tibial and peroneal are continuous runoff vessels. There is diffuse edematous change in the subcutaneous tissues. No soft tissue gas. No abscess. IMPRESSION: 1. There is likely hemodynamically significant stenosis of the distal right common iliac/proximal right external iliac artery. 2. At least 2 vessel continuous runoff. 3. Mild diffuse disease from the common femoral through the popliteal. Moderate proximal tibioperoneal trunk stenosis. 4. Findings consistent with cellulitis. Dictated by: Rip Madera M.D. on 06/11/2023 at 13:55 Approved by: Rip Madera M.D. on 06/11/2023 at 14:00
[2023-06-11 13:13] LABS: Lactate 2HR (Lactic Acid Rflx) 4.7 mmol/L (0.7-2.1)
[2023-06-11 13:24] LABS: Creatine Kinase 50 U/L (55-170)
--- NOTE | 2023-06-11 13:59 | PC.NURSE ---
Able to find dorsal pulse in right foot using doppler and posterior tibial pulse in left foot using doppler.
--- NOTE | 2023-06-11 14:17 | PC.NURSE ---
Pt feeling nauseous, physician aware.
[2023-06-11] MEDS: ONDANSETRON 4 MG/2 ML INJ IV (14:41)
[2023-06-11 15:35] LABS: Lactate (Lactic Acid) 3.4 mmol/L (0.7-2.1)
[2023-06-11 17:17] LABS: Reflexed Lactate in 2 Hours Y
[2023-06-11 17:46] LABS: Ammonia (NH3) 13 umol/L (9-30)
[2023-06-11] MEDS: LACTATED RINGERS 1,000 ML 100 ML IV (21:58)
[2023-06-11] MEDS: VANCOMYCIN 1,000 MG/200 ML PIGGYBACK 200 MG IV (22:06)
[2023-06-11 22:24] LABS: Add Manual Diff / Slide Review NO; Basophils Absolute Auto 100 /uL (0-100); Basophils Percent Auto 0.5 % (0-2); Eosinophils Absolute Auto 0 /uL (0-450); Eosinophils Percent Auto 0.2 % (2-4); Hematocrit 23.1 % (41-53); Hemoglobin 7.3 g/dL (13.5-17.5); Lymphocytes Absolute Auto 1100 /uL (1100-4500); Lymphocytes Percent Auto 6.6 % (25-40); Mean Corpuscular HGB Conc 31.6 % (30-36); Mean Corpuscular Hemoglobin 24.3 PG (26-34); Mean Corpuscular Volume 76.7 fL (80-100); Monocytes Absolute Auto 900 /uL (0-900); Monocytes Percent Auto 4.9 % (3-14); Neutrophils Absolute Auto 15300 /uL (1500-7000); Neutrophils Percent Auto 87.8 % (50-75); Platelet Count 187 X10^3/uL (150-400); Red Blood Cell Count 3.01 X10^6/uL (4.5-5.9); Red Cell Distribution Width 20.7 % (11.6-14.8); White Blood Cell Count 17.4 X10^3/uL (4.5-11.0)
[2023-06-11 22:29] LABS: Fibrinogen 415 mg/dL (211-428); Lactate 2HR (Lactic Acid Rflx) 1.9 mmol/L (0.7-2.1)
[2023-06-11 22:30] LABS: D Dimer 2957 ng/ml (<500)
[2023-06-12] VITALS (7 sets, daily range): BP systolic 118–135; BP diastolic 66–87; PULSE 108–113; RESP 22–25; TEMP 36.8; O2SAT 93–100
[2023-06-12] MEDS: CEFEPIME 2 GM in SODIUM CHLORIDE 0.9% 100 ML IV (02:20)
== END 2023-06-12 03:21 | disposition short-term general hospital (02) ==
PROVIDERS: Emergency Medicine; Emergency Provider Emergency Medicine; Family Provider Family Medicine; PCP Internal Medicine
DX: E11.621 Type 2 diabetes mellitus with foot ulcer (principal); E11.628 Type 2 diabetes mellitus with other skin complications; L97.512 Non-pressure chronic ulcer of other part of right foot with fat layer exposed; S81.811A Laceration without foreign body, right lower leg, initial encounter; S81.012A Laceration without foreign body, left knee, initial encounter; S81.801A Unspecified open wound, right lower leg, initial encounter; A41.9 Sepsis, unspecified organism; D64.9 Anemia, unspecified; G62.9 Polyneuropathy, unspecified; L84 Corns and callosities; Z79.899 Other long term (current) drug therapy
CPT/HCPCS: 11042; 11045; 36415; 36430; 51701; 71045; 73590; 73706; 80053; 81003; 81015; 82140; 82550; 83605; 83880; 84484; 85025; 85379; 85384; 85610; 86850; 86900; 86901; 87040; 93005; 96365; 96367; 96375; 97605; 99285; P9016; J0692; J0696; J2405; Q9967

== ENCOUNTER → 2023-07-09 14:31 | Outpatient (CLI) | payer MEDICARE, SELFPAY | PROVIDERS: Family Provider Family Medicine; PCP Internal Medicine; Referring Provider Surgery; Visit Provider Surgery | DX: E11.621 Type 2 diabetes mellitus with foot ulcer (principal); E11.628 Type 2 diabetes mellitus with other skin complications; L97.512 Non-pressure chronic ulcer of other part of right foot with fat layer exposed; S81.811A Laceration without foreign body, right lower leg, initial encounter; S81.012A Laceration without foreign body, left knee, initial encounter; Z79.01 Long term (current) use of anticoagulants; E11.51 Type 2 diabetes mellitus with diabetic peripheral angiopathy without gangrene; R60.0 Localized edema | CPT/HCPCS: 11042; 99214 ==

== ENCOUNTER 2023-07-09 14:51 | Emergency (ER) | payer MEDICARE, SELFPAY ==
[2023-07-09] VITALS (20 sets, daily range): BP systolic 113–164; BP diastolic 59–91; PULSE 104–143; RESP 20–35; TEMP 36.4; O2SAT 87–98; BMI 25.8
--- NOTE | 2023-07-09 15:18 | DI.RAD.S_ITS ---
PROCEDURE: XR CHEST 1V INDICATIONS: chest pain TECHNIQUE: One view of the chest was acquired. COMPARISON: [facility], CR, CHEST 1 VIEW, 03/12/2016, 18:38. [facility], CT, CT HEAD/BRAIN WO CON, 07/09/2023, 15:26. [facility], CT, CT CERVICAL SPINE WO CON, 07/09/2023, 15:26. [facility], CR, XR CHEST 1V, 06/11/2023, 10:14. FINDINGS: Surgical changes and devices: None. Lungs and pleura: An incomplete inspiratory result is noted, causing a crowded appearance to the lung markings. No pneumothorax or large pleural effusions are seen. Generalized interstitial prominence can be seen. Mediastinum: The cardiac contours are mildly to moderately enlarged. The aorta demonstrates calcification and tortuosity. Bones and chest wall: No suspicious bony lesions. Age-appropriate bony degenerative changes are seen. Overlying soft tissues appear unremarkable. IMPRESSION: [id number] cardiomegaly with generalized interstitial prominence. Please consider mild/early CHF. Dictated by: Vincent Lauren M.D. on 07/09/2023 at 14:45 Approved by: Vincent Lauren M.D. on 07/09/2023 at 14:46
--- NOTE | 2023-07-09 15:19 | DI.CT.S_ITS ---
PROCEDURE: CT CERVICAL SPINE WO CON INDICATIONS: fall on thinners TECHNIQUE: Noncontrast 3 mm thick sections acquired from the skull base to the T4 level. Sagittal and coronal reformats were then constructed. For radiation dose reduction, the following was used: automated exposure control, adjustment of mA and/or kV according to patient size. COMPARISON: [facility], CT, CT HEAD/BRAIN WO CON, 07/09/2023, 15:26. [facility], CR, XR CHEST 1V, 07/09/2023, 15:22. FINDINGS: Image quality: This examination is limited by involuntary motion artifact. Bones: No fractures or dislocations. Visualized superior ribs are intact. Age-appropriate bony degenerative changes are seen. Soft tissues: Prevertebral soft tissues are normal in thickness. No paravertebral hematomas. No apical pneumothoraces. Atherosclerotic calcification is noted. There is partial visualization of a small left-sided pleural effusion. IMPRESSION: Negative for acute fracture. Dictated by: Vincent Lauren M.D. on 07/09/2023 at 14:43 Approved by: Vincent Lauren M.D. on 07/09/2023 at 14:45
--- NOTE | 2023-07-09 15:19 | DI.CT.S_ITS ---
PROCEDURE: CT HEAD/BRAIN WO CON INDICATIONS: fall on thinners TECHNIQUE: Noncontrast 4.5 mm thick angled axial sections acquired from the foramen magnum to the vertex, with coronal and sagittal reformats. For radiation dose reduction, the following was used: automated exposure control, adjustment of mA and/or kV according to patient size. COMPARISON: [facility], CT, CT CERVICAL SPINE WO CON, 07/09/2023, 15:26. [facility], CR, XR CHEST 1V, 07/09/2023, 15:22. FINDINGS: Image quality: Mild streak artifact can be seen through the skull base. CSF spaces: Basal cisterns are patent. No extra-axial fluid collections. The ventricles are symmetric in size and shape. Brain: No intracranial bleeds or masses. There is cerebral volume loss for age, with resultant ventricular and sulcal prominence. There are periventricular and deep white matter chronic small vessel ischemic changes. There is intracranial internal carotid artery atherosclerosis. Skull and face: Calvarium and visualized facial bones appear intact, without suspicious lesions. Sinuses: Visualized sinuses and mastoids are clear. IMPRESSION: No acute intracranial hemorrhage is seen. No acute intracranial process is seen. Dictated by: Vincent Lauren M.D. on 07/09/2023 at 14:41 Approved by: Vincent Lauren M.D. on 07/09/2023 at 14:43
--- NOTE | 2023-07-09 15:39 | DI.CT.S_ITS ---
PROCEDURE: CT FACIAL BONES WO CON INDICATIONS: Right side pain/fall/injury TECHNIQUE: Noncontrast 2.5 mm thick axial images acquired from the mandible through the frontal sinuses, with coronal and sagittal reformatting. For radiation dose reduction, the following was used: automated exposure control, adjustment of mA and/or kV according to patient size. COMPARISON: [facility], CT, CT HEAD/BRAIN WO CON, 07/09/2023, 15:26. [facility], CT, CT CERVICAL SPINE WO CON, 07/09/2023, 15:26. [facility], CR, XR CHEST 1V, 07/09/2023, 15:22. FINDINGS: Image quality: This examination is limited by involuntary motion artifact. There is artifact associated with the metallic hardware. Bones and teeth: Orbital gutiérrez are intact. Sinus gutiérrez show no fracture or deformity. Nasal bones are intact. There is partial absence of the nasal septum anteriorly, as on series 2 image 55. No nasal septal fracture is seen. Chronic mild leftward nasal septal deviation can be seen. Visualized portions of the mandible demonstrate no fractures or subluxation. Zygomatic arches are intact. Pterygoid plates are intact. Visualized portions of the skull base and auditory canals are intact. Sinuses: Paranasal sinuses are aerated, without fluid levels, mucosal thickening, or mucoceles. Mastoid air cells are aerated. Soft tissues: No edema, masses, or fluid collections. No enlarged lymph nodes. No soft tissue lacerations or debris. Vascular: Visualized vascular structures appear normal in the absence of contrast. Bony vascular foramina and canals are intact. Atherosclerotic calcification is noted. IMPRESSION: Motion limited study, without an acute fracture identified. Dictated by: Vincent Lauren M.D. on 07/09/2023 at 15:05 Approved by: Vincent Lauren M.D. on 07/09/2023 at 15:10
[2023-07-09 15:40] LABS: Basophils Absolute Auto 100 /uL (0-100); Basophils Percent Auto 1.3 % (0-2); Eosinophils Absolute Auto 0 /uL (0-450); Eosinophils Percent Auto 0.5 % (2-4); Hematocrit 29.3 % (41-53); Hemoglobin 9.2 g/dL (13.5-17.5); Lymphocytes Absolute Auto 1000 /uL (1100-4500); Lymphocytes Percent Auto 15.1 % (25-40); Mean Corpuscular HGB Conc 31.4 % (30-36); Mean Corpuscular Hemoglobin 25.7 PG (26-34); Mean Corpuscular Volume 81.9 fL (80-100); Monocytes Absolute Auto 800 /uL (0-900); Monocytes Percent Auto 11.9 % (3-14); Neutrophils Absolute Auto 4700 /uL (1500-7000); Neutrophils Percent Auto 71.2 % (50-75); Platelet Count 187 X10^3/uL (150-400); Red Blood Cell Count 3.58 X10^6/uL (4.5-5.9); Red Cell Distribution Width 24.6 % (11.6-14.8); White Blood Cell Count 6.6 X10^3/uL (4.5-11.0)
--- NOTE | 2023-07-09 15:43 | ED.ARRPALP ---
HPI - Arrhythmia/Palpitations <Austin Ochoa MD - Last Filed: 07/24/23 09:03> General Chief Complaint: Arrhythmia/Palpitations Stated Complaint: heart rate high PCP ref needs to be stabilized Time Seen by Provider: 07/09/23 15:32 Source: patient Mode of arrival: Wheelchair History of Present Illness HPI narrative: Patient brought here by from wound care clinic. Patient has been lightheaded dizzy for the past couple of days. He fell yesterday and does not recall how or why. Does not recall awakening up. Patient discharged from [facility] about 1 week ago for skin care while he was there he received mitral clip. Patient uncertain if he has been taking his Xarelto for atrial fibrillation or not. He is not taken his metoprolol today. He is not sure the last time he took Xarelto. He has bruising to the right shoulder and right face. Denies any pain with this. Wound care provider in the office sent patient here for his vital signs and the way patient was feeling. Patient states he does not not not want to be cardioverted. Cardiology service has been paged given EKG does show atrial fibrillation with RVR rate 129. Blood pressure is stable. Patient in no distress Patient denies denies any chest pain or shortness of breath Related Data Home Medications Medication Instructions Recorded Confirmed multivitamin (Multiple Vitamins 1 tab PO QDAY #0 tabs 05/15/16 07/22/23 tablet) ferrous sulfate 325 mg (65 mg 325 mg PO DAILY 07/09/23 07/22/23 iron) tablet,delayed release furosemide 40 mg tablet 40 mg PO BID 07/09/23 07/22/23 magnesium oxide 400 mg (241.3 mg 400 mg PO 2XD 07/09/23 07/22/23 magnesium) tablet potassium chloride 10 mEq 20 meq PO BID 07/09/23 07/22/23 tablet,extended release cyanocobalamin (vitamin B-12) 1,000 mcg PO DAILY 07/22/23 07/22/23 1,000 mcg capsule metoprolol succinate 100 mg 100 mg PO QAM 07/22/23 07/22/23 tablet,extended release 24 hr metoprolol succinate 50 mg 50 mg PO QPM 07/22/23 07/22/23 tablet,extended release 24 hr Previous Rx's Medication Instructions Recorded atorvastatin 80 mg tablet 80 mg PO DAILY #90 tabs 07/23/22 duloxetine 60 mg capsule,delayed 60 mg PO QDAY #90 caps 07/23/22 release (Cymbalta) gabapentin 800 mg tablet 800 mg PO TID #270 tabs 07/23/22 omeprazole 20 mg tablet,delayed 20 mg PO DAILY #90 tabs 07/23/22 release rivaroxaban 20 mg tablet (Xarelto) 20 mg PO QDAY #90 tabs 07/23/22 empagliflozin 12.5 mg-metformin 1 tab PO BID #180 tabs 09/18/22 1,000 mg tablet (Synjardy) levofloxacin 750 mg tablet 750 mg PO DAILY 5 days #5 tabs 07/23/23 Allergies Allergy/AdvReac Type Severity Reaction Status Date / Time azithromycin [AZITHROMYCIN] Allergy Mild RASH Verified 07/22/23 09:28 lisinopril [LISINOPRIL] Allergy Mild COUGH Verified 07/22/23 09:28 simvastatin [SIMVASTATIN] Allergy Mild MYALGIA Verified 07/22/23 09:28 Review of Systems <Austin Ochoa MD - Last Filed: 07/24/23 09:03> Review of Systems Narrative: GENERAL: negative chills, positive fatigue, malaise, negative fever, sweats. HEENT: negative sinus pain, ear pain, sore throat RESPIRATORY: negative dyspnea, cough CARDIOVASCULAR: negative chest pain, positive palpitations GASTROINTESTINAL: negative nausea, vomiting, abdominal pain : negative dysuria, frequency, hematuria MUSCULOSKELETAL: negative muscle or bony pain SKIN: negative rash, skin lesions, positive ecchymosis NEUROLOGIC: negative weakness, numbness ROS Unobtainable: All systems reviewed & are unremarkable except as noted in HPI and below Patient History <Austin Ochoa MD - Last Filed: 07/24/23 09:03> Medical History Renal mass Chronic diastolic (congestive) heart failure Alcohol use disorder Anemia Mumps Measles Chicken pox Peripheral arterial disease AAA (abdominal aortic aneurysm) GERD without esophagitis Diabetic toe ulcer Polyneuropathy, unspecified Type 2 diabetes mellitus with polyneuropathy Surgical History S/P mitral valve repair History of cataract removal with insertion of prosthetic lens Social History details: Partner (Yadi Dong) Smoking Status: Current every day smoker Smoking Status: Current every day smoker tobacco type: cigarettes alcohol intake frequency: holidays/special occasions only Substance Use Type: does not use Exam <Austin Ochoa MD - Last Filed: 07/24/23 09:03> Narrative Exam Narrative: GENERAL: in no distress, not toxic not dyspneic HEAD: Normocephalic. Bruising to the right lateral periorbital and right cheek area. EYES: Pupils equal round PERRLA/EOMI no double vision or blurry vision ENT: Mucous membranes moist. NECK: Trachea midline. CARDIOVASCULAR: Tachycardia with irregular irregular rate and rhythm RESPIRATORY: Clear to auscultation. Breath sounds equal bilaterally. No wheezes, rales, or rhonchi. GASTROINTESTINAL: Abdomen soft, non-tender EXTREMITIES: No gross deformities. There is bruising to the right deltoid area but nontender shoulder. There is a skin tear on the deltoid as well. Has full active range of motion of the right upper extremity shoulder elbow wrist without difficulty or pain. BACK: No flank tenderness. NEURO: AOx4. Clear speech no facial droop light touch intact bilateral face hands and legs strong equal [employer] SKIN: Warm and dry PSYCH: Not anxious, is cooperative Initial Vital Signs Initial Vital Signs: Vital Signs Temperature 97.5 F L 07/09/23 15:10 Pulse Rate 130 H 07/09/23 15:10 Respiratory Rate 07/09/23 15:10 Blood Pressure 113/59 L 07/09/23 15:10 Pulse Oximetry 97 07/09/23 15:10 Oxygen Delivery Method Room Air 07/09/23 15:10 <Zelda Lewis DO - Last Filed: 07/10/23 04:29> Initial Vital Signs Initial Vital Signs: Vital Signs Temperature 97.5 F L 07/09/23 15:10 Pulse Rate 130 H 07/09/23 15:10 Respiratory Rate 07/09/23 15:10 Blood Pressure 113/59 L 07/09/23 15:10 Pulse Oximetry 97 07/09/23 15:10 Oxygen Delivery Method Room Air 07/09/23 15:10 Course <Austin Ochoa MD - Last Filed: 07/24/23 09:03> Orders Ordered: Discontinued Medications Metoprolol Succinate (Metoprolol Er 50 Mg Tablet) 100 mg PO NOW ONE Stop: 07/09/23 15:43 Last Admin: 07/09/23 16:01 Dose: 100 mg Documented By: MINISTERIO Metoprolol Tartrate (Metoprolol Tartrate 5 Mg/5 Ml Inj) 5 mg IV NOW ONE Stop: 07/09/23 15:52 Last Admin: 07/09/23 16:13 Dose: 5 mg Documented By: MINISTERIO Rivaroxaban (Rivaroxaban 10 Mg Tablet) 20 mg PO NOW ONE Stop: 07/09/23 19:55 Last Admin: 07/09/23 20:07 Dose: 20 mg Documented By: MINISTERIO Vital Signs Vital signs: Vital Signs - 8 hr 07/09/23 15:10 07/09/23 15:12 07/09/23 15:13 Temperature 97.5 F L Pulse Rate 130 H 143 H 138 H Respiratory Rate 22 Blood Pressure 113/59 L Pulse Oximetry 97 98 87 L Oxygen Delivery Method Room Air 07/09/23 15:13 07/09/23 15:32 07/09/23 15:33 Temperature Pulse Rate 135 H 134 H Respiratory Rate 25 H 26 H Blood Pressure 132/78 Pulse Oximetry 98 98 Oxygen Delivery Method 07/09/23 15:33 07/09/23 15:50 07/09/23 15:50 Temperature Pulse Rate 133 H Respiratory Rate 22 Blood Pressure 164/68 H 130/81 Pulse Oximetry 98 Oxygen Delivery Method 07/09/23 16:00 07/09/23 16:30 07/09/23 16:30 Temperature Pulse Rate 131 H 112 H Respiratory Rate 23 26 H Blood Pressure 128/74 Pulse Oximetry 98 97 Oxygen Delivery Method 07/09/23 17:00 07/09/23 17:01 07/09/23 17:01 Temperature Pulse Rate 112 H 113 H Respiratory Rate 26 H 35 H Blood Pressure 122/69 Pulse Oximetry 96 95 Oxygen Delivery Method 07/09/23 17:20 07/09/23 17:20 07/09/23 17:30 Temperature Pulse Rate 131 H Respiratory Rate 20 Blood Pressure 146/91 H 135/69 Pulse Oximetry 96 Oxygen Delivery Method 07/09/23 17:30 07/09/23 18:00 07/09/23 18:01 Temperature Pulse Rate 110 H 104 H Respiratory Rate 23 Blood Pressure 164/75 H Pulse Oximetry 98 96 Oxygen Delivery Method 07/09/23 18:01 07/09/23 18:30 Temperature Pulse Rate 104 H 114 H Respiratory Rate 23 Blood Pressure Pulse Oximetry 97 97 Oxygen Delivery Method <Zelda Lewis, - Last Filed: 07/10/23 04:29> Orders Ordered: Discontinued Medications Metoprolol Succinate (Metoprolol Er 50 Mg Tablet) 100 mg PO NOW ONE Stop: 07/09/23 15:43 Last Admin: 07/09/23 16:01 Dose: 100 mg Documented By: MINISTERIO Metoprolol Tartrate (Metoprolol Tartrate 5 Mg/5 Ml Inj) 5 mg IV NOW ONE Stop: 07/09/23 15:52 Last Admin: 07/09/23 16:13 Dose: 5 mg Documented By: MINISTERIO Rivaroxaban (Rivaroxaban 10 Mg Tablet) 20 mg PO NOW ONE Stop: 07/09/23 19:55 Last Admin: 07/09/23 20:07 Dose: 20 mg Documented By: MINISTERIO Vital Signs Vital signs: Vital Signs - 8 hr 07/09/23 15:10 07/09/23 15:12 07/09/23 15:13 Temperature 97.5 F L Pulse Rate 130 H 143 H 138 H Respiratory Rate 22 Blood Pressure 113/59 L Pulse Oximetry 97 98 87 L Oxygen Delivery Method Room Air 07/09/23 15:13 07/09/23 15:32 07/09/23 15:33 Temperature Pulse Rate 135 H 134 H Respiratory Rate 25 H 26 H Blood Pressure 132/78 Pulse Oximetry 98 98 Oxygen Delivery Method 07/09/23 15:33 07/09/23 15:50 07/09/23 15:50 Temperature Pulse Rate 133 H Respiratory Rate 22 Blood Pressure 164/68 H 130/81 Pulse Oximetry 98 Oxygen Delivery Method 07/09/23 16:00 07/09/23 16:30 07/09/23 16:30 Temperature Pulse Rate 131 H 112 H Respiratory Rate 23 26 H Blood Pressure 128/74 Pulse Oximetry 98 97 Oxygen Delivery Method 07/09/23 17:00 07/09/23 17:01 07/09/23 17:01 Temperature Pulse Rate 112 H 113 H Respiratory Rate 26 H 35 H Blood Pressure 122/69 Pulse Oximetry 96 95 Oxygen Delivery Method 07/09/23 17:20 07/09/23 17:20 07/09/23 17:30 Temperature Pulse Rate 131 H Respiratory Rate 20 Blood Pressure 146/91 H 135/69 Pulse Oximetry 96 Oxygen Delivery Method 07/09/23 17:30 07/09/23 18:00 07/09/23 18:01 Temperature Pulse Rate 110 H 104 H Respiratory Rate 23 Blood Pressure 164/75 H Pulse Oximetry 98 96 Oxygen Delivery Method 07/09/23 18:01 07/09/23 18:30 Temperature Pulse Rate 104 H 114 H Respiratory Rate 23 Blood Pressure Pulse Oximetry 97 97 Oxygen Delivery Method MDM - Arrhythmia/Palpitations <Austin Ochoa MD - Last Filed: 07/24/23 09:03> Lab Data 07/09/23 15:20 07/09/23 15:20 Labs: Lab Results 07/09/23 07/09/23 Range/Units 15:20 16:31 WBC 6.6 (4.5-11.0) X10^3/uL RBC 3.58 L (4.5-5.9) X10^6/uL Hgb 9.2 L (13.5-17.5) g/dL Hct 29.3 L (41-53) % MCV 81.9 (80-100) fL MCH 25.7 L (26-34) PG MCHC 31.4 (30-36) % RDW 24.6 H (11.6-14.8) % Plt Count 187 (150-400) X10^3/uL Neut % (Auto) 71.2 (50-75) % Lymph % (Auto) 15.1 L (25-40) % [place] % (Auto) 11.9 (3-14) % Eos % (Auto) 0.5 L (2-4) % Baso % (Auto) 1.3 (0-2) % Neut # (Auto) 4700 (0078-1444) /uL Lymph # (Auto) 1000 L (0860-3177) /uL [place] # (Auto) 800 (0-900) /uL Eos # (Auto) 0 (0-450) /uL Baso # (Auto) 100 (0-100) /uL RBC Morphology See below Polychromasia 1+ H Hypochromasia 1+ H Anisocytosis 2+ H Microcytosis 1+ H Macrocytosis 1+ H Target Cells 1+ H Ovalocytes 1+ H PT 14.6 H (10.1-12.7) SECONDS INR 1.3 (0.9-1.3) APTT 28 (26-36) SECONDS Sodium 137 (137-145) mmol/L Potassium 3.9 (3.4-5.1) mmol/L Chloride 102 (98-107) mmol/L Carbon Dioxide 26 (22-32) mmol/L BUN 17 (9-20) mg/dL Creatinine 0.59 L (0.66-1.25) mg/dL Estimated GFR > 60 (>60) mL/min BUN/Creatinine Ratio 28.8 H (6-22) Glucose 128 H (80-110) mg/dL Calcium 10.1 (8.4-10.2) mg/dL Magnesium 1.9 (1.6-2.3) mg/dL Total Bilirubin 1.2 (0.2-1.3) mg/dL AST 31 (17-59) IU/L ALT 19 (<50) IU/L Alkaline Phosphatase 62 (38-126) U/L Total Creatine Kinase 78 (55-170) U/L Troponin I < 0.012 (0.01-0.034) ng/mL Total Protein 7.6 (6.3-8.2) g/dL Albumin 4.2 (3.5-5.0) g/dL Globulin 3.4 (1.7-4.1) g/dL Albumin/Globulin Ratio 1.2 (1.0-2.8) Lipase 123 (23-300) U/L TSH 3.21 (0.47-4.68) uIU/mL Imaging Data CT facial bones: Radiologist[facility] Impresson: [place] [address] CT Scan Report Signed Patient: Lreoy Almonte V MR#: [id number] : 1950 Acct:[id number] Age/Sex: 73 / M Date of Service: 07/09/23 Loc: ED Accession Number: [id number] ?? Procedure: CT facial bones wo con Ordering Provider: Austin Ochoa MD PROCEDURE:? CT FACIAL BONES WO CON ? INDICATIONS:? Right side pain/fall/injury ? TECHNIQUE:? Noncontrast 2.5 mm thick axial images acquired from the mandible through the frontal sinuses, with coronal and sagittal reformatting.? For radiation dose reduction, the following was used:? automated exposure control, adjustment of mA and/or kV according to patient size.? ? COMPARISON:? [facility], CT, CT HEAD/BRAIN WO CON, 07/09/2023, 15:26.? [facility], CT, CT CERVICAL SPINE WO CON, 07/09/2023, 15:26.? [facility], CR, XR CHEST 1V, 07/09/2023, 15:22. ? FINDINGS:? Image quality:? This examination is limited by involuntary motion artifact.? ? There is artifact associated with the metallic hardware. ? ? Bones and teeth:? Orbital gutiérrez are intact.? Sinus gutiérrez show no fracture or deformity.? Nasal bones are intact.? There is partial absence of the nasal septum anteriorly, as on series 2 image 55. No nasal septal fracture is seen.? Chronic mild leftward nasal septal deviation can be seen.? Visualized portions of the mandible demonstrate no fractures or subluxation.? Zygomatic arches are intact.? Pterygoid plates are intact.? Visualized portions of the skull base and auditory canals are intact.? ? Sinuses:? Paranasal sinuses are aerated, without fluid levels, mucosal thickening, or mucoceles.? Mastoid air cells are aerated.? ? Soft tissues:? No edema, masses, or fluid collections.? No enlarged lymph nodes.? No soft tissue lacerations or debris.? ? Vascular:? Visualized vascular structures appear normal in the absence of contrast.? Bony vascular foramina and canals are intact.? Atherosclerotic calcification is noted.? ? ? IMPRESSION:? Motion limited study, without an acute fracture identified. ? ? Dictated by: Vincent Lauren M.D. on 07/09/2023 at 15:05 ? ? Approved by: Vincent Lauren M.D. on 07/09/2023 at 15:10 ? CT scan - head: [facility]: [address] [address] [address] Scan Report Signed Patient: Leroy Almonte V MR#: [id number] : 1950 Acct:[id number] Age/Sex: 73 / M Date of Service: 07/09/23 Loc: ED Accession Number: [id number] ?? Procedure: CT head/brain wo con Ordering Provider: Austin Ochoa MD PROCEDURE:? CT HEAD/BRAIN WO CON ? INDICATIONS:? fall on thinners ? TECHNIQUE:? Noncontrast 4.5 mm thick angled axial sections acquired from the foramen magnum to the vertex, with coronal and sagittal reformats.? For radiation dose reduction, the following was used:? automated exposure control, adjustment of mA and/or kV according to patient size.? ? COMPARISON:? [facility], CT, CT CERVICAL SPINE WO CON, 07/09/2023, 15:26.? [facility], CR, XR CHEST 1V, 07/09/2023, 15:22. ? FINDINGS:? Image quality:? Mild streak artifact can be seen through the skull base. ? CSF spaces:? Basal cisterns are patent.? No extra-axial fluid collections.? The ventricles are symmetric in size and shape.? ? Brain:? No intracranial bleeds or masses.? There is cerebral volume loss for age, with resultant ventricular and sulcal prominence.? There are periventricular and deep white matter chronic small vessel ischemic changes.? There is intracranial internal carotid artery atherosclerosis.? ? Skull and face:? Calvarium and visualized facial bones appear intact, without suspicious lesions.? ? Sinuses:? Visualized sinuses and mastoids are clear.? IMPRESSION:? No acute intracranial hemorrhage is seen. ? No acute intracranial process is seen. ? Dictated by: Vincent Lauren M.D. on 07/09/2023 at 14:41 ? ? Approved by: Vincent Lauren M.D. on 07/09/2023 at 14:43 ? CT - cervical spine: Rad[facility]: [address] [address] [address] Scan Report Signed Patient: Leroy Almonte V MR#: [id number] : 1950 Acct:[id number] Age/Sex: 73 / M Date of Service: 07/09/23 Loc: ED Accession Number: [id number] ?? Procedure: CT cervical spine wo con Ordering Provider: Austin Ochoa MD PROCEDURE:? CT CERVICAL SPINE WO CON ? INDICATIONS:? fall on thinners ? TECHNIQUE:? Noncontrast 3 mm thick sections acquired from the skull base to the T4 level.? Sagittal and coronal reformats were then constructed.? For radiation dose reduction, the following was used:? automated exposure control, adjustment of mA and/or kV according to patient size.? ? COMPARISON:? [facility], CT, CT HEAD/BRAIN WO CON, 07/09/2023, 15:26.? [facility], CR, XR CHEST 1V, 07/09/2023, 15:22. ? FINDINGS:? Image quality:? This examination is limited by involuntary motion artifact.? ? Bones:? No fractures or dislocations.? Visualized superior ribs are intact.? Age-appropriate bony degenerative changes are seen.? ? Soft tissues:? Prevertebral soft tissues are normal in thickness.? No paravertebral hematomas.? No apical pneumothoraces.? Atherosclerotic calcification is noted.? ? There is partial visualization of a small left-sided pleural effusion. ? ? IMPRESSION:? Negative for acute fracture. ? ? ? Dictated by: Vincent Lauren M.D. on 07/09/2023 at 14:43 ? ? Approved by: Vincent Lauren M.D. on 07/09/2023 at 14:45 ? Chest x-ray: Radiologist's Impresson: [place] [address] XRay Report Signed Patient: Leroy Almonte V MR#: [id number] : 1950 Acct:[id number] Age/Sex: 73 / M Date of Service: 07/09/23 Loc: ED Accession Number: [id number] ?? Procedure: XR chest 1V Ordering Provider: Austin Ochoa MD PROCEDURE:? XR CHEST 1V ? INDICATIONS:? chest pain ? TECHNIQUE:? One view of the chest was acquired.? ? COMPARISON:? [facility], CR, CHEST 1 VIEW, 03/12/2016, 18:38.? [facility], CT, CT HEAD/BRAIN WO CON, 07/09/2023, 15:26.? [facility], CT, CT CERVICAL SPINE WO CON, 07/09/2023, 15:26.? [facility], CR, XR CHEST 1V, 06/11/2023, 10:14. ? FINDINGS:? ? Surgical changes and devices:? None.? ? Lungs and pleura:? An incomplete inspiratory result is noted, causing a crowded appearance to the lung markings.? No pneumothorax or large pleural effusions are seen. ? Generalized interstitial prominence can be seen. ? Mediastinum:? The cardiac contours are mildly to moderately enlarged. The aorta demonstrates calcification and tortuosity. ? Bones and chest wall:? No suspicious bony lesions.? Age-appropriate bony degenerative changes are seen.? Overlying soft tissues appear unremarkable.? ? ? IMPRESSION:? [id number] cardiomegaly with generalized interstitial prominence.? Please consider mild/early CHF. ? ? Dictated by: Vincent Lauren M.D. on 07/09/2023 at 14:45 ? ? Approved by: Vincent Lauren M.D. on 07/09/2023 at 14:46 ? MDM Narrative Medical decision making narrative: Patient brought here by from wound care clinic. Patient has been lightheaded dizzy for the past couple of days. He fell yesterday and does not recall how or why. Does not recall awakening up. Patient discharged from [facility] about 1 week ago for skin care while he was there he received mitral clip. Patient uncertain if he has been taking his Xarelto for atrial fibrillation or not. He is not taken his metoprolol today. He is not sure the last time he took Xarelto. He has bruising to the right shoulder and right face. Denies any pain with this. Wound care provider in the office sent patient here for his vital signs and the way patient was feeling. Patient states he does not not not want to be cardioverted. Cardiology service has been paged given EKG does show atrial fibrillation with RVR rate 129. Blood pressure is stable. Patient in no distress. Patient denies denies any chest pain or shortness of breath After history and exam CBC CMP magnesium TSH EKG chest x-ray metoprolol cardiology consult, CT head CT cervical spine CT facial bone [facility] CC: Weakness dizziness palpitation Complicating co-morbidities: AFib/anticoagulation Data collected from: Patient and Medical records reviewed: No recent visit for this complaint. There is discharge summary I have reviewed from [facility] from last week Differential considered: Includes but not limited to AFib RVR/noncompliant/electrolyte imbalance Exam documented above, pertinent findings include: Tachycardia , magnesium 1.9 Lab Test results independently reviewed as above. Pertinent findings: WBC 6.6 hemoglobin 9.2 platelets 187 sodium 137 potassium 3.9 BUN 17 GFR greater than 60 calcium 10.1 troponin less than 0.012 Independently reviewed EKG AFib with RVR rate 129 Imaging studies independently reviewed: Chest x-ray CT head CT face CT cervical spine no acute finding Consultations: For p.m., spoke with Dr. Arce, [facility] Cardiology on-call, recommends rate control with metoprolol 5 mg IV and metoprolol p.o. 100 mg p.o. extended release, patient does not need admission, rate control and can be discharged home and follow up with his Cardiology with Catina phillips. No echocardiogram indicated at this time. Treatments: Metoprolol IV metoprolol p.o. Re-evaluations: Discussion: Diagnosis: Atrial fibrillation facial contusion shoulder contusion 6:00 p.m.. Brennick: Sign out to Dr Lewis, I have spoken with cardiology and possibly discharge home if rate controlled. <Zelda Lewis, - Last Filed: 07/10/23 04:29> Lab Data Labs: Lab Results 07/09/23 07/09/23 Range/Units 15:20 16:31 WBC 6.6 (4.5-11.0) X10^3/uL RBC 3.58 L (4.5-5.9) X10^6/uL Hgb 9.2 L (13.5-17.5) g/dL Hct 29.3 L (41-53) % MCV 81.9 (80-100) fL MCH 25.7 L (26-34) PG MCHC 31.4 (30-36) % RDW 24.6 H (11.6-14.8) % Plt Count 187 (150-400) X10^3/uL Neut % (Auto) 71.2 (50-75) % Lymph % (Auto) 15.1 L (25-40) % [place] % (Auto) 11.9 (3-14) % Eos % (Auto) 0.5 L (2-4) % Baso % (Auto) 1.3 (0-2) % Neut # (Auto) 4700 (2591-6032) /uL Lymph # (Auto) 1000 L (5098-8013) /uL [place] # (Auto) 800 (0-900) /uL Eos # (Auto) 0 (0-450) /uL Baso # (Auto) 100 (0-100) /uL RBC Morphology See below Polychromasia 1+ H Hypochromasia 1+ H Anisocytosis 2+ H Microcytosis 1+ H Macrocytosis 1+ H Target Cells 1+ H Ovalocytes 1+ H PT 14.6 H (10.1-12.7) SECONDS INR 1.3 (0.9-1.3) APTT 28 (26-36) SECONDS Sodium 137 (137-145) mmol/L Potassium 3.9 (3.4-5.1) mmol/L Chloride 102 (98-107) mmol/L Carbon Dioxide 26 (22-32) mmol/L BUN 17 (9-20) mg/dL Creatinine 0.59 L (0.66-1.25) mg/dL Estimated GFR > 60 (>60) mL/min BUN/Creatinine Ratio 28.8 H (6-22) Glucose 128 H (80-110) mg/dL Calcium 10.1 (8.4-10.2) mg/dL Magnesium 1.9 (1.6-2.3) mg/dL Total Bilirubin 1.2 (0.2-1.3) mg/dL AST 31 (17-59) IU/L ALT 19 (<50) IU/L Alkaline Phosphatase 62 (38-126) U/L Total Creatine Kinase 78 (55-170) U/L Troponin I < 0.012 (0.01-0.034) ng/mL Total Protein 7.6 (6.3-8.2) g/dL Albumin 4.2 (3.5-5.0) g/dL Globulin 3.4 (1.7-4.1) g/dL Albumin/Globulin Ratio 1.2 (1.0-2.8) Lipase 123 (23-300) U/L TSH 3.21 (0.47-4.68) uIU/mL MDM Narrative Medical decision making narrative: Patient brought here by from wound care clinic. Patient has been lightheaded dizzy for the past couple of days. He fell yesterday and does not recall how or why. Does not recall awakening up. Patient discharged from [facility] about 1 week ago for skin care while he was there he received mitral clip. Patient uncertain if he has been taking his Xarelto for atrial fibrillation or not. He is not taken his metoprolol today. He is not sure the last time he took Xarelto. He has bruising to the right shoulder and right face. Denies any pain with this. Wound care provider in the office sent patient here for his vital signs and the way patient was feeling. Patient states he does not not not want to be cardioverted. Cardiology service has been paged given EKG does show atrial fibrillation with RVR rate 129. Blood pressure is stable. Patient in no distress. Patient denies denies any chest pain or shortness of breath After history and exam CBC CMP magnesium TSH EKG chest x-ray metoprolol cardiology consult, CT head CT cervical spine CT facial bone MDM CC: Weakness dizziness palpitation Complicating co-morbidities: AFib/anticoagulation Data collected from: Patient and Medical records reviewed: No recent visit for this complaint. There is discharge summary I have reviewed from [facility] from last week Differential considered: Includes but not limited to AFib RVR/noncompliant/electrolyte imbalance Exam documented above, pertinent findings include: Tachycardia , magnesium 1.9 Lab Test results independently reviewed as above. Pertinent findings: WBC 6.6 hemoglobin 9.2 platelets 187 sodium 137 potassium 3.9 BUN 17 GFR greater than 60 calcium 10.1 troponin less than 0.012 Independently reviewed EKG AFib with RVR rate 129 Imaging studies independently reviewed: Chest x-ray CT head CT face CT cervical spine no acute finding Consultations: For p.m., spoke with Dr. Arce, [facility] on-call, recommends rate control with metoprolol 5 mg IV and metoprolol p.o. 100 mg p.o. extended release, patient does not need admission, rate control and can be discharged home and follow up with his Cardiology with Catina phillips. No echocardiogram indicated at this time. Treatments: Metoprolol IV metoprolol p.o. Re-evaluations: Discussion: Diagnosis: Atrial fibrillation facial contusion shoulder contusion 6:00 p.m.. Gabriela: Sign out to Dr Lewis, I have spoken with cardiology and possibly discharge home if rate controlled. 20:00 Dr. Lewis received sign-out from Dr. Ochoa. I have seen evaluated patient myself. His heart rate is variable but stable. He is completely asymptomatic he has been given metoprolol both IV and p.o. he is given his night dose of Xarelto. He reports that he is not taken his medication for 2 days he does not know why report does indicate alcohol use disorder. No indication of acute intoxication at this time clinically sober. No indication for admission. Cardiology has already been consulted. Patient is quite anxious and ready to go Discharge Plan Departure Patient Disposition: Home Clinical Impression: Atrial fibrillation with RVR Instructions: DI for Atrial Fibrillation Activity Restrictions/Additional Instructions: *You have been diagnosed with atrial fibrillation *What to do: You must take her medication so that your heart rate is controlled *Continue to take medications as directed Please start your medication as previously prescribed tomorrow. You were given a dose of Xarelto tonight. *Follow up with your primary care provider in 2-3 days or call [phone] *Return to ER if you should have increasing chest pain dizziness lightheadedness falling or any new, worsening or concerning symptoms Prescriptions: No Action multivitamin [Multiple Vitamins] 1 EACH tablet 1 tab PO QDAY Qty: 0 Synjardy 12.5-1,000 mg tablet 1 tab PO BID Qty: 180 3RF duloxetine [Cymbalta] 60 mg capsule,delayed release(DR/EC) 60 mg PO QDAY Qty: 90 3RF Xarelto 20 mg tablet 20 mg PO QDAY Qty: 90 3RF gabapentin 800 mg tablet 800 mg PO TID Qty: 270 3RF atorvastatin 80 mg tablet 80 mg PO DAILY Qty: 90 3RF omeprazole 20 mg tablet,delayed release (DR/EC) 20 mg PO DAILY Qty: 90 3RF metoprolol succinate 100 mg tablet extended release 24 hr 100 mg PO QAM metoprolol succinate 50 mg tablet extended release 24 hr 50 mg PO QPM cyanocobalamin (vitamin B-12) 1,000 mcg capsule 1,000 mcg PO DAILY levofloxacin 750 mg tablet 750 mg PO DAILY 5 Days Qty: 5 0RF furosemide 40 mg tablet 40 mg PO BID potassium chloride 10 mEq tablet extended release 20 meq PO BID magnesium oxide 400 mg (241.3 mg magnesium) Tablet 400 mg PO 2XD ferrous sulfate 325 mg (65 mg iron) Tablet,Delayed Release (Dr/Ec) 325 mg PO DAILY Referrals: Freeman Chao MD [Primary Care Provider] - Stand Alone Forms: Patient Portal/API
[2023-07-09 15:46] LABS: INR 1.3 (0.9-1.3); Prothrombin Time 14.6 SECONDS (10.1-12.7)
[2023-07-09 15:49] LABS: PTT Partial Thromboplastin Tim 28 SECONDS (26-36)
[2023-07-09 15:54] LABS: Add Manual Diff / Slide Review SLIDE REVIEW
[2023-07-09 15:57] LABS: Alanine Aminotransferase 19 IU/L (<50); Albumin 4.2 g/dL (3.5-5.0); Albumin Globulin Ratio 1.2 (1.0-2.8); Alkaline Phosphatase 62 U/L (38-126); Aspartate Aminotransferase 31 IU/L (17-59); BUN Creatinine Ratio 28.8 (6-22); Bilirubin Total 1.2 mg/dL (0.2-1.3); Blood Urea Nitrogen 17 mg/dL (9-20); Calcium 10.1 mg/dL (8.4-10.2); Carbon Dioxide 26 mmol/L (22-32); Chloride 102 mmol/L (98-107); Creatine Kinase 78 U/L (55-170); Estimated Glomerular Filt Rate > 60 mL/min (>60); Globulin 3.4 g/dL (1.7-4.1); Glucose 128 mg/dL (80-110); HEMOLYSIS < 15 (0-50); Lipase 123 U/L (23-300); Magnesium 1.9 mg/dL (1.6-2.3); Potassium 3.9 mmol/L (3.4-5.1); Sodium 137 mmol/L (137-145); Total Protein 7.6 g/dL (6.3-8.2)
[2023-07-09] MEDS: METOPROLOL ER 50 MG TABLET 100 MG PO (16:01)
[2023-07-09 16:04] LABS: Anisocytosis 2+; Macrocytosis 1+
[2023-07-09 16:05] LABS: Microcytosis 1+; Ovalocytes 1+
[2023-07-09 16:06] LABS: Hypochromasia 1+; Polychromasia 1+; Target Cells 1+; Troponin I < 0.012 ng/mL (0.01-0.034)
[2023-07-09] MEDS: METOPROLOL TARTRATE 5 MG/5 ML INJ IV (16:13)
[2023-07-09 17:21] LABS: Thyroid Stimulating Hormone 3.21 uIU/mL (0.47-4.68)
[2023-07-09] MEDS: RIVAROXABAN 10 MG TABLET 20 MG PO (20:07)
== END 2023-07-09 20:26 | disposition home or self-care (01) ==
PROVIDERS: Emergency Medicine; Emergency Provider Emergency Medicine; Family Provider Family Medicine; PCP Internal Medicine
DX: I48.20 Chronic atrial fibrillation, unspecified (principal); Z79.01 Long term (current) use of anticoagulants; R00.2 Palpitations; R07.9 Chest pain, unspecified; S09.90XA Unspecified injury of head, initial encounter; W19.XXXA Unspecified fall, initial encounter; E11.621 Type 2 diabetes mellitus with foot ulcer; E11.628 Type 2 diabetes mellitus with other skin complications; L97.512 Non-pressure chronic ulcer of other part of right foot with fat layer exposed; S81.811A Laceration without foreign body, right lower leg, initial encounter; S81.012A Laceration without foreign body, left knee, initial encounter; E11.51 Type 2 diabetes mellitus with diabetic peripheral angiopathy without gangrene; R60.0 Localized edema
CPT/HCPCS: 11042; 36415; 70450; 70486; 71045; 72125; 80053; 82550; 83690; 83735; 84443; 84484; 85025; 85610; 85730; 93005; 96374; 99284

== ENCOUNTER → 2023-07-15 15:05 | Outpatient (CLI) | payer MEDICARE, SELFPAY | PROVIDERS: Family Provider Family Medicine; PCP Internal Medicine; Referring Provider Surgery; Visit Provider Surgery | DX: E11.621 Type 2 diabetes mellitus with foot ulcer (principal); L97.512 Non-pressure chronic ulcer of other part of right foot with fat layer exposed; L84 Corns and callosities; S81.811A Laceration without foreign body, right lower leg, initial encounter; S81.012A Laceration without foreign body, left knee, initial encounter; S80.811A Abrasion, right lower leg, initial encounter; R60.0 Localized edema; E11.40 Type 2 diabetes mellitus with diabetic neuropathy, unspecified; E11.51 Type 2 diabetes mellitus with diabetic peripheral angiopathy without gangrene; I70.203 Unspecified atherosclerosis of native arteries of extremities, bilateral legs; D64.9 Anemia, unspecified; I48.91 Unspecified atrial fibrillation; F17.210 Nicotine dependence, cigarettes, uncomplicated; Z79.01 Long term (current) use of anticoagulants | CPT/HCPCS: 11042; 99212; 99213 ==

== ENCOUNTER → 2023-07-22 10:32 | Outpatient (CLI) | payer MEDICARE, SELFPAY ==
[2023-07-22 12:34] LABS: Hematocrit 33.7 % (41-53); Hemoglobin 10.5 g/dL (13.5-17.5); Mean Corpuscular HGB Conc 31.3 % (30-36); Mean Corpuscular Hemoglobin 26.8 PG (26-34); Mean Corpuscular Volume 85.5 fL (80-100); Platelet Count 198 X10^3/uL (150-400); Red Blood Cell Count 3.94 X10^6/uL (4.5-5.9); Red Cell Distribution Width 25.1 % (11.6-14.8); White Blood Cell Count 6.9 X10^3/uL (4.5-11.0)
[2023-07-22 12:47] LABS: BUN Creatinine Ratio 21.2 (6-22); Blood Urea Nitrogen 14 mg/dL (9-20); Calcium 10.1 mg/dL (8.4-10.2); Carbon Dioxide 24 mmol/L (22-32); Chloride 99 mmol/L (98-107); Estimated Glomerular Filt Rate > 60 mL/min (>60); Glucose 108 mg/dL (80-110); HEMOLYSIS 16 (0-50); Potassium 4.7 mmol/L (3.4-5.1); Sodium 133 mmol/L (137-145)
[2023-07-22 13:00] LABS: Erythrocyte Sedimentation Rate 42 MM/HR (0-15)
== END ==
PROVIDERS: Family Provider Family Medicine; PCP Internal Medicine; Referring Provider Internal Medicine; Visit Provider Internal Medicine
DX: I50.32 Chronic diastolic (congestive) heart failure (principal); D64.9 Anemia, unspecified; B99.9 Unspecified infectious disease
CPT/HCPCS: 36415; 80048; 85027; 85651; 86140

== ENCOUNTER → 2023-07-23 14:12 | Outpatient (CLI) | payer MEDICARE, SELFPAY | PROVIDERS: Family Provider Family Medicine; PCP Internal Medicine; Referring Provider Surgery; Visit Provider Surgery | DX: E11.628 Type 2 diabetes mellitus with other skin complications (principal); E11.621 Type 2 diabetes mellitus with foot ulcer; E11.622 Type 2 diabetes mellitus with other skin ulcer; S81.012A Laceration without foreign body, left knee, initial encounter; S81.811A Laceration without foreign body, right lower leg, initial encounter; L97.812 Non-pressure chronic ulcer of other part of right lower leg with fat layer exposed; S80.811A Abrasion, right lower leg, initial encounter; Z79.01 Long term (current) use of anticoagulants; E11.40 Type 2 diabetes mellitus with diabetic neuropathy, unspecified | CPT/HCPCS: 11042; 97597 ==

== ENCOUNTER 2023-07-23 14:44 | Emergency (ER) | payer MEDICARE, SELFPAY ==
[2023-07-23] VITALS (21 sets, daily range): BP systolic 97–122; BP diastolic 60–72; PULSE 101–126; RESP 18–30; TEMP 36.4; O2SAT 92–98; BMI 26.6
--- NOTE | 2023-07-23 15:01 | DI.RAD.S_ITS ---
PROCEDURE: XR KNEE LT 3V INDICATIONS: knee pain/wound TECHNIQUE: 3 views of the knee were acquired. COMPARISON: None. FINDINGS: Bones: No fractures or dislocations. No suspicious bony lesions. Soft tissues: No joint effusion. No suspicious soft tissue calcifications. Prepatellar soft tissue swelling and laceration. No radiodense foreign body. IMPRESSION: No fracture. No osseous lesion. If symptoms and/or clinical suspicion for pathology persists, further assessment with repeat radiographs (7-10 days) or advanced imaging (e.g. CT, MRI or bone scan) should be considered. Dictated by: Haley Daley MD, PhD on 07/23/2023 at 16:06 Approved by: Haley Daley MD, PhD on 07/23/2023 at 16:07
--- NOTE | 2023-07-23 15:12 | DI.RAD.S_ITS ---
PROCEDURE: XR CHEST 1V INDICATIONS: suspected sepsis TECHNIQUE: One view of the chest was acquired. COMPARISON: [facility], CR, XR CHEST 1V, 06/11/2023, 10:14. [facility], CR, XR CHEST 1V, 07/09/2023, 15:22. FINDINGS: Surgical changes and devices: None. Lungs and pleura: Small left pleural effusion. Left basilar consolidation. Mild bilateral lung interstitial prominence. Mediastinum: Mediastinal contours appear normal. Heart is enlarged. Bones and chest wall: No suspicious bony lesions. Overlying soft tissues appear unremarkable. IMPRESSION: Small left pleural effusion. Left basilar atelectasis, aspiration or pneumonia. Mild bilateral lung interstitial prominence which could represent chronic lung disease or CHF/fluid overload. Cardiomegaly. Dictated by: Haley Daley MD, PhD on 07/23/2023 at 16:04 Approved by: Haley Daley MD, PhD on 07/23/2023 at 16:06
[2023-07-23] MEDS: SODIUM CHLORIDE 0.9% 1,000 ML 1000 ML IV (15:40)
[2023-07-23 16:04] LABS: Add Manual Diff / Slide Review NO; Basophils Absolute Auto 100 /uL (0-100); Basophils Percent Auto 0.8 % (0-2); Eosinophils Absolute Auto 100 /uL (0-450); Eosinophils Percent Auto 0.7 % (2-4); Hematocrit 30.1 % (41-53); Hemoglobin 9.6 g/dL (13.5-17.5); Lymphocytes Absolute Auto 900 /uL (1100-4500); Lymphocytes Percent Auto 12.3 % (25-40); Mean Corpuscular HGB Conc 31.8 % (30-36); Mean Corpuscular Hemoglobin 26.7 PG (26-34); Mean Corpuscular Volume 84.1 fL (80-100); Monocytes Absolute Auto 600 /uL (0-900); Monocytes Percent Auto 7.6 % (3-14); Neutrophils Absolute Auto 5800 /uL (1500-7000); Neutrophils Percent Auto 78.6 % (50-75); Platelet Count 183 X10^3/uL (150-400); Red Blood Cell Count 3.58 X10^6/uL (4.5-5.9); Red Cell Distribution Width 25.5 % (11.6-14.8); White Blood Cell Count 7.4 X10^3/uL (4.5-11.0)
[2023-07-23 16:05] LABS: Alanine Aminotransferase 19 IU/L (<50); Albumin 3.8 g/dL (3.5-5.0); Albumin Globulin Ratio 1.2 (1.0-2.8); Alkaline Phosphatase 66 U/L (38-126); Aspartate Aminotransferase 28 IU/L (17-59); BUN Creatinine Ratio 23.4 (6-22); Blood Urea Nitrogen 15 mg/dL (9-20); Calcium 9.8 mg/dL (8.4-10.2); Carbon Dioxide 23 mmol/L (22-32); Chloride 100 mmol/L (98-107); Estimated Glomerular Filt Rate > 60 mL/min (>60); Globulin 3.2 g/dL (1.7-4.1); Glucose 115 mg/dL (80-110); HEMOLYSIS < 15 (0-50); INR 2.7 (0.9-1.3); Lipase 116 U/L (23-300); Prothrombin Time 31.8 SECONDS (10.1-12.7); Sodium 134 mmol/L (137-145)
[2023-07-23 16:07] LABS: Lactate (Lactic Acid) 4.2 mmol/L (0.7-2.1)
[2023-07-23 16:08] LABS: PTT Partial Thromboplastin Tim 43 SECONDS (26-36)
--- NOTE | 2023-07-23 16:16 | ED_ITS ---
HPI - Extremity Problem General Chief complaint: Extremity Problem,Nontraumatic Stated complaint: sent by wound care Time Seen by Provider: 07/23/23 15:10 Source: patient Mode of arrival: Wheelchair History of Present Illness HPI Narrative: Patient is a 73-year-old male. Wqz-aoyslej-[id number] diabetic. Multiple other chronic medical issues. Several weeks/months ago he sustained a fall where he had some abrasions/cuts to his right banda and left knee. He is being followed by wound care for this. He stated over the past several days he is had increased swelling and redness and pain to the wound above his left knee. He went to the wound care clinic today as a routine visit. He was sent to the emergency department for concerns of cellulitis. He is not currently on antibiotics. He does report left leg swelling. No chest pain or shortness of breath or abdominal pain. Related Data Home Medications Medication Instructions Recorded Confirmed multivitamin (Multiple Vitamins 1 tab PO QDAY #0 tabs 05/15/16 07/22/23 tablet) ferrous sulfate 325 mg (65 mg 325 mg PO DAILY 07/09/23 07/22/23 iron) tablet,delayed release furosemide 40 mg tablet 40 mg PO BID 07/09/23 07/22/23 magnesium oxide 400 mg (241.3 mg 400 mg PO 2XD 07/09/23 07/22/23 magnesium) tablet potassium chloride 10 mEq 20 meq PO BID 07/09/23 07/22/23 tablet,extended release cyanocobalamin (vitamin B-12) 1,000 mcg PO DAILY 07/22/23 07/22/23 1,000 mcg capsule metoprolol succinate 100 mg 100 mg PO QAM 07/22/23 07/22/23 tablet,extended release 24 hr metoprolol succinate 50 mg 50 mg PO QPM 07/22/23 07/22/23 tablet,extended release 24 hr Previous Rx's Medication Instructions Recorded atorvastatin 80 mg tablet 80 mg PO DAILY #90 tabs 07/23/22 duloxetine 60 mg capsule,delayed 60 mg PO QDAY #90 caps 07/23/22 release (Cymbalta) gabapentin 800 mg tablet 800 mg PO TID #270 tabs 07/23/22 omeprazole 20 mg tablet,delayed 20 mg PO DAILY #90 tabs 07/23/22 release rivaroxaban 20 mg tablet (Xarelto) 20 mg PO QDAY #90 tabs 07/23/22 empagliflozin 12.5 mg-metformin 1 tab PO BID #180 tabs 09/18/22 1,000 mg tablet (Synjardy) levofloxacin 750 mg tablet 750 mg PO DAILY 5 days #5 tabs 07/23/23 Allergies Allergy/AdvReac Type Severity Reaction Status Date / Time azithromycin [AZITHROMYCIN] Allergy Mild RASH Verified 07/22/23 09:28 lisinopril [LISINOPRIL] Allergy Mild COUGH Verified 07/22/23 09:28 simvastatin [SIMVASTATIN] Allergy Mild MYALGIA Verified 07/22/23 09:28 Review of Systems Constitutional Constitutional: Reports system reviewed and no additional complaints, except as documented Cardiovascular Cardiovascular: Reports system reviewed and no additional complaints, except as documented Respiratory Respiratory: Reports system reviewed and no additional complaints, except as documented Musculoskeletal Musculoskeletal: Reports system reviewed and no additional complaints, except as documented Integumentary/Breasts Skin/Breast: Reports system reviewed and no additional complaints, except as documented Neurologic Neurologic: Reports system reviewed and no additional complaints, except as documented Hematologic/Lymphatic On Anticoagulants: No Patient History Medical History Renal mass Chronic diastolic (congestive) heart failure Alcohol use disorder Anemia Mumps Measles Chicken pox Peripheral arterial disease AAA (abdominal aortic aneurysm) GERD without esophagitis Diabetic toe ulcer Polyneuropathy, unspecified Type 2 diabetes mellitus with polyneuropathy Surgical History S/P mitral valve repair History of cataract removal with insertion of prosthetic lens Social History details: Partner (Yadi Dong) Smoking Status: Current every day smoker Smoking Status: Current every day smoker tobacco type: cigarettes alcohol intake frequency: holidays/special occasions only Substance Use Type: does not use Exam Initial Vital Signs Initial Vital Signs: Vital Signs Temperature 97.6 F 07/23/23 14:53 Pulse Rate 115 H 07/23/23 14:53 Respiratory Rate 18 07/23/23 14:53 Blood Pressure 106/71 07/23/23 14:53 Pulse Oximetry 98 07/23/23 14:53 Oxygen Delivery Method Room Air 07/23/23 14:53 Const General: cooperative and comfortable HENMT Head: normal to inspection and normocephalic Resp Effort & Inspection: normal respiratory effort Cardio Rate: tachycardic Rhythm: abnormal rhythm Skin Other: Redness and fullness to the anterior portion of the left knee. There was also a 2 cm wound to the anterior left knee that is covered with a bandage from wound care. He also has several superficial wounds to his right anterior banda. No surrounding redness from these areas. Neuro Sensory Exam: no sensory deficits noted Extrem Other: Circumferential swelling left lower extremity. Scores GCS [place] coma scale eye opening: Spontaneous [place] coma scale verbal response: Orientated [place] coma scale motor response: Obey commands [place] coma scale total score: 15 Course Orders Ordered: ED Orders 07/23/23 15:01 XR knee LT 3V Stat 07/23/23 15:12 XR chest 1V Stat EKG-12 Lead Stat RT Consult Eval and Treat NOW 07/23/23 15:36 Complete Blood Count AUTO DIFF Stat Comprehensive Metabolic Panel Stat Lactate (Lactic Acid) Stat Lipase Stat PTT Partial Thromboplastin Bib Stat Procalcitonin Stat Prothrombin Time INR Stat 07/23/23 15:45 Blood Culture Stat 07/23/23 16:12 Urinalysis and Microscopic Stat 07/23/23 16:16 US periph venous low extrem lt Stat 07/23/23 16:49 Wound Culture and Gram Stain Stat Sodium Chloride (Normal Saline 0.9%) 1,000 mls @ 125 mls/hr IV CONT VONDA Last Admin: 07/23/23 17:52 Dose: 125 mls/hr Documented By: RAMÓN Ondansetron HCl (Ondansetron 4 Mg/2 Ml Inj) 4 mg IV NOW PRN PRN Reason: Nausea And Vomiting Ondansetron HCl (Ondansetron 4 Mg Odt) 4 mg SL NOW PRN PRN Reason: Nausea And Vomiting Discontinued Medications Sodium Chloride (Normal Saline 0.9%) 1,000 mls @ 1,000 mls/hr IV BOLUS ONE Stop: 07/23/23 16:11 Last Infusion: 07/23/23 17:05 Dose: Infused Documented By: Admin: 07/23/23 15:40 Dose: 1,000 mls/hr Documented By: RAMÓN Ceftriaxone Sodium 1,000 mg/ (Sodium Chloride) 100 mls @ 200 mls/hr IV NOW ONE Stop: 07/23/23 16:15 Last Infusion: 07/23/23 16:59 Dose: Infused Documented By: Admin: 07/23/23 16:21 Dose: 200 mls/hr Documented By: RAMÓN Vancomycin HCl (Vancomycin) 1,000 mg in 200 mls @ 200 mls/hr IV NOW ONE Stop: 07/23/23 17:13 Last Infusion: 07/23/23 18:10 Dose: Infused Documented By: Admin: 07/23/23 16:59 Dose: 200 mls/hr Documented By: RAMÓN Morphine Sulfate (Morphine 4 Mg/Ml Inj) 4 mg IV NOW ONE Stop: 07/23/23 16:25 Last Admin: 07/23/23 16:31 Dose: 4 mg Documented By: RAMÓN Vital Signs Vital signs: Vital Signs - 8 hr 07/23/23 14:53 07/23/23 15:10 07/23/23 15:11 Temperature 97.6 F Pulse Rate 115 H 111 H Respiratory Rate 18 22 Blood Pressure 106/71 97/61 Pulse Oximetry 98 96 Oxygen Delivery Method Room Air 07/23/23 15:15 07/23/23 15:15 07/23/23 15:30 Temperature Pulse Rate 109 H 107 H Respiratory Rate Blood Pressure 109/72 Pulse Oximetry 95 Oxygen Delivery Method 07/23/23 15:30 07/23/23 15:45 07/23/23 16:00 Temperature Pulse Rate 111 H Respiratory Rate 26 H Blood Pressure 102/65 109/70 Pulse Oximetry 96 Oxygen Delivery Method 07/23/23 16:00 07/23/23 16:15 07/23/23 16:30 Temperature Pulse Rate 110 H 113 H 107 H Respiratory Rate 26 H 24 26 H Blood Pressure Pulse Oximetry 96 98 95 Oxygen Delivery Method 07/23/23 16:30 07/23/23 16:45 07/23/23 17:00 Temperature Pulse Rate 105 H 104 H Respiratory Rate 28 H 21 Blood Pressure 110/66 Pulse Oximetry 94 95 Oxygen Delivery Method 07/23/23 17:00 07/23/23 17:15 07/23/23 17:30 Temperature Pulse Rate 102 H Respiratory Rate 22 Blood Pressure 115/67 110/72 Pulse Oximetry 93 Oxygen Delivery Method 07/23/23 17:30 07/23/23 17:45 07/23/23 18:00 Temperature Pulse Rate 101 H 103 H 105 H Respiratory Rate 22 24 26 H Blood Pressure Pulse Oximetry 93 93 93 Oxygen Delivery Method 07/23/23 18:01 07/23/23 18:01 07/23/23 18:15 Temperature Pulse Rate 104 H 101 H Respiratory Rate 29 H 21 Blood Pressure 122/60 Pulse Oximetry 92 93 Oxygen Delivery Method Room Air 07/23/23 18:29 07/23/23 18:29 07/23/23 18:30 Temperature Pulse Rate 126 H Respiratory Rate 30 H Blood Pressure 116/67 119/60 Pulse Oximetry 96 Oxygen Delivery Method 07/23/23 18:30 Temperature Pulse Rate 123 H Respiratory Rate 29 H Blood Pressure Pulse Oximetry 96 Oxygen Delivery Method MDM - Extremity (Nontraumatic) Lab Data 07/23/23 15:36 07/23/23 15:36 Labs: Lab Results 07/23/23 07/23/23 07/23/23 Range/Units 15:36 16:12 18:10 WBC 7.4 (4.5-11.0) X10^3/uL RBC 3.58 L (4.5-5.9) X10^6/uL Hgb 9.6 L (13.5-17.5) g/dL Hct 30.1 L (41-53) % MCV 84.1 (80-100) fL MCH 26.7 (26-34) PG MCHC 31.8 (30-36) % RDW 25.5 H (11.6-14.8) % Plt Count 183 (150-400) X10^3/uL Neut % (Auto) 78.6 H (50-75) % Lymph % (Auto) 12.3 L (25-40) % [place] % (Auto) 7.6 (3-14) % Eos % (Auto) 0.7 L (2-4) % Baso % (Auto) 0.8 (0-2) % Neut # (Auto) 5800 (6658-9103) /uL Lymph # (Auto) 900 L (0037-5670) /uL [place] # (Auto) 600 (0-900) /uL Eos # (Auto) 100 (0-450) /uL Baso # (Auto) 100 (0-100) /uL RBC Morphology See below Dimorphic RBCs Present Polychromasia 1+ H Hypochromasia 1+ H Microcytosis 1+ H Macrocytosis 1+ H Acanthocytes (Spur) 1+ PT 31.8 H (10.1-12.7) SECONDS INR 2.7 H (0.9-1.3) APTT 43 H (26-36) SECONDS Sodium 134 L (137-145) mmol/L Potassium 4.0 (3.4-5.1) mmol/L Chloride 100 (98-107) mmol/L Carbon Dioxide 23 (22-32) mmol/L BUN 15 (9-20) mg/dL Creatinine 0.64 L (0.66-1.25) mg/dL Estimated GFR > 60 (>60) mL/min BUN/Creatinine Ratio 23.4 H (6-22) Glucose 115 H (80-110) mg/dL Lactate 4.2 H* 2.7 H (0.7-2.1) mmol/L Calcium 9.8 (8.4-10.2) mg/dL Total Bilirubin 1.0 (0.2-1.3) mg/dL AST 28 (17-59) IU/L ALT 19 (<50) IU/L Alkaline Phosphatase 66 (38-126) U/L Total Protein 7.0 (6.3-8.2) g/dL Albumin 3.8 (3.5-5.0) g/dL Globulin 3.2 (1.7-4.1) g/dL Albumin/Globulin Ratio 1.2 (1.0-2.8) Lipase 116 (23-300) U/L Procalcitonin 0.07 (<0.5) ng/mL Urine Color Yellow Urine Appearance Clear Urine pH 5.0 (4.5-8.0) Ur Specific [place] 1.015 (1.000-1.035) Urine Protein Negative (Negative) Urine Glucose (UA) 2+ H (Negative) g/dL Urine Ketones Negative (NEGATIVE) Urine Occult Blood Negative (Negative) Urine Nitrate Negative (Negative) Urine Bilirubin Negative (NEGATIVE) Urine Urobilinogen 0.2 (0.2) E.U./dL Ur Leukocyte Esterase Negative (NEGATIVE) Urine RBC None seen (0-5/HPF) Urine WBC None seen (0-5/HPF) Ur Squamous Epith Cells None seen (0-5/HPF) Urine Bacteria None seen (None) Urine Mucus 1+ H (Negative) Ur Culture Indicated? Cult not indicated Imaging Data Chest x-ray: Radiologist's Impression: PROCEDURE: XR KNEE LT 3V INDICATIONS: knee pain/wound TECHNIQUE: 3 views of the knee were acquired. COMPARISON: None. FINDINGS: Bones: No fractures or dislocations. No suspicious bony lesions. Soft tissues: No joint effusion. No suspicious soft tissue calcifications. Prepatellar soft tissue swelling and laceration. No radiodense foreign body. IMPRESSION: No fracture. No osseous lesion. If symptoms and/or clinical suspicion for pathology persists, further assessment with repeat radiographs (7-10 days) or advanced imaging (e.g. CT, MRI or bone scan) should be considered. Extremity x-ray #1: Radiologist's Impression: ROCEDURE: XR CHEST 1V INDICATIONS: suspected sepsis TECHNIQUE: One view of the chest was acquired. COMPARISON: [facility], CR, XR CHEST 1V, 06/11/2023, 10:14. [facility], CR, XR CHEST 1V, 07/09/2023, 15:22. FINDINGS: Surgical changes and devices: None. Lungs and pleura: Small left pleural effusion. Left basilar consolidation. Mild bilateral lung interstitial prominence. Mediastinum: Mediastinal contours appear normal. Heart is enlarged. Bones and chest wall: No suspicious bony lesions. Overlying soft tissues appear unremarkable. IMPRESSION: Small left pleural effusion. Left basilar atelectasis, aspiration or pneumonia. Mild bilateral lung interstitial prominence which could represent chronic lung disease or CHF/fluid overload. Cardiomegaly. US - DVT: Radiologist's Impression: PROCEDURE: US PERIPH VENOUS LOW EXTREM LT INDICATIONS: Eval for DVT TECHNIQUE: Real-time imaging, as well as color and pulse Doppler interrogation, were performed of the lower extremity deep veins from the inguinal ligament to the popliteal fossa, with documentation of the visualized calf veins. COMPARISON: None. FINDINGS: The common femoral, femoral, popliteal, and the visualized calf veins are normally compressible, and free of intraluminal thrombus. Color and pulse Doppler demonstrate normal phasic intraluminal flow. There is normal augmentation response to distal compression maneuver. There is prominent swelling seen within the region of the distal femoral vein through the popliteal fossa. IMPRESSION: No findings of lower extremity deep venous thrombosis. MDM Narrative Medical decision making narrative: Patient does have what appears to be a cellulitis in his left anterior knee. I have low suspicion for septic bursitis or infected joint. There is no drainage from the area. No defined abscess felt. There has been no wound culture this at least in the medical records that I have access to. The wound cultures from his right leg show Klebsiella and Enterobacter. We did culture his left knee today. Patient was tachycardic but also has AFib. He is at baseline tachycardic. He is never been hypotensive. Initial lactate was elevated. Negative white blood cell count. His lactate improved with fluids and antibiotics. Patient was seen here in the emergency department by Dr. Yoder hospitalist on-call. Patient reports that with the fluids in the antibiotics his symptoms have actually improved somewhat. We had a long discussion with the patient. We did offer admission to the hospital for further evaluation versus discharge home. We discussed risks and benefits of this. After this discussion the patient opted to be discharged. Based on the cultures from his right leg will place him on Levaquin. He is tolerating oral intake. He ambulated. Patient was given strict return precautions. He expressed understanding and agreement with plan. 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 If you start to feel worse, have fevers, worsening pain then you do need to be re-evaluated at the nearest emergency department. Keep all of your scheduled medical appointments. Contact your primary doctor for a follow- up. Prescriptions: New levofloxacin 750 mg tablet 750 mg PO DAILY 5 Days Qty: 5 0RF No Action multivitamin [Multiple Vitamins] 1 EACH tablet 1 tab PO QDAY Qty: 0 Synjardy 12.5-1,000 mg tablet 1 tab PO BID Qty: 180 3RF duloxetine [Cymbalta] 60 mg capsule,delayed release(DR/EC) 60 mg PO QDAY Qty: 90 3RF Xarelto 20 mg tablet 20 mg PO QDAY Qty: 90 3RF gabapentin 800 mg tablet 800 mg PO TID Qty: 270 3RF atorvastatin 80 mg tablet 80 mg PO DAILY Qty: 90 3RF omeprazole 20 mg tablet,delayed release (DR/EC) 20 mg PO DAILY Qty: 90 3RF metoprolol succinate 100 mg tablet extended release 24 hr 100 mg PO QAM metoprolol succinate 50 mg tablet extended release 24 hr 50 mg PO QPM cyanocobalamin (vitamin B-12) 1,000 mcg capsule 1,000 mcg PO DAILY furosemide 40 mg tablet 40 mg PO BID potassium chloride 10 mEq tablet extended release 20 meq PO BID magnesium oxide 400 mg (241.3 mg magnesium) Tablet 400 mg PO 2XD ferrous sulfate 325 mg (65 mg iron) Tablet,Delayed Release (Dr/Ec) 325 mg PO DAILY Referrals: Freeman Chao MD [Primary Care Provider] - Stand Alone Forms: Patient Portal/API
[2023-07-23 16:21] LABS: Procalcitonin 0.07 ng/mL (<0.5)
[2023-07-23] MEDS: cefTRIAXone 1,000 MG in SODIUM CHLORIDE 0.9% 100 ML 200 MG IV (16:21)
[2023-07-23] MEDS: MORPHINE 4 MG/ML INJ IV (16:31)
[2023-07-23 16:49] LABS: Appearance Urine UA CLEAR; Bilirubin Urine UA NEGATIVE (NEGATIVE); Color Urine UA YELLOW; Glucose Urine UA 2+ g/dL (Negative); Ketones Urine UA NEGATIVE (NEGATIVE); Leukocyte Esterase Urine UA NEGATIVE (NEGATIVE); Nitrite Urine UA NEGATIVE (Negative); Occult Blood Urine UA NEGATIVE (Negative); Protein Urine UA NEGATIVE (Negative); Specific Gravity Urine UA 1.015 (1.000-1.035); Urobilinogen Urine UA 0.2 E.U./dL (0.2)
[2023-07-23 16:53] LABS: Acanthocytes 1+; Dimorphic RBC PRESENT; Hypochromasia 1+; Macrocytosis 1+; Microcytosis 1+; Polychromasia 1+
[2023-07-23] MEDS: VANCOMYCIN 1,000 MG/200 ML PIGGYBACK 200 MG IV (16:59)
[2023-07-23 17:09] LABS: Bacteria Urine None Seen; RBC Urine None Seen (0-5/HPF); Squamous Epithelial Cell Urine None Seen (0-5/HPF); WBC Urine None Seen (0-5/HPF)
[2023-07-23 17:10] LABS: Culture Indicated Urine Cult Not Indicated; Mucus Urine 1+ (Negative)
[2023-07-23 17:51] LABS: Reflexed Lactate in 2 Hours Y
[2023-07-23] MEDS: SODIUM CHLORIDE 0.9% 1,000 ML 125 ML IV (17:52)
[2023-07-23 18:31] LABS: Lactate 2HR (Lactic Acid Rflx) 2.7 mmol/L (0.7-2.1)
--- NOTE | 2023-07-23 18:34 | PC.NURSE ---
pt ambulated with walker. Steady gait. denies SOB and pain.
--- NOTE | 2023-07-23 18:39 | PM.CN ---
History of Present Illness Consult details Date Patient Seen: 07/23/23 Time Patient Seen: 18:00 Chief complaint: sent by wound care Reason for consult: left knee cellulitis Requesting provider: Adan Menon Narrative: 73 M with PMH of afib with difficult to control rate (previously in the ER and did not require admission for rate control within the last few week per cardiology), CHFpEF (with mitraclip), chronic toe wounds on the R, alcohol use, DM with neuropathy, HTN, HLD, venous insufficiency, PAD, GERD, AAA, AGNIESZKA who was sent to the ER for evaluation of a left knee reported cellulitis. Patient did not recall any injury, however per PCP note recently there is documentation of a fall with L knee injury. He reported increasing pain over the last few days. He does not report any drainage but did report difficulty walking. Denies fever, chills, nausea, vomiting, chest pain, palpitations, worsening edema or dyspnea. Meds Home Medications and Allergies Home Medications Medication Instructions Recorded Confirmed Type multivitamin (Multiple Vitamins 1 tab PO QDAY #0 tabs 05/15/16 07/22/23 History tablet) atorvastatin 80 mg tablet 80 mg PO DAILY #90 tabs 07/23/22 07/22/23 Rx duloxetine 60 mg capsule,delayed 60 mg PO QDAY #90 caps 07/23/22 07/22/23 Rx release (Cymbalta) gabapentin 800 mg tablet 800 mg PO TID #270 tabs 07/23/22 07/22/23 Rx omeprazole 20 mg tablet,delayed 20 mg PO DAILY #90 tabs 07/23/22 07/22/23 Rx release rivaroxaban 20 mg tablet (Xarelto) 20 mg PO QDAY #90 tabs 07/23/22 07/22/23 Rx empagliflozin 12.5 mg-metformin 1 tab PO BID #180 tabs 09/18/22 07/22/23 Rx 1,000 mg tablet (Synjardy) ferrous sulfate 325 mg (65 mg 325 mg PO DAILY 07/09/23 07/22/23 History iron) tablet,delayed release furosemide 40 mg tablet 40 mg PO BID 07/09/23 07/22/23 History magnesium oxide 400 mg (241.3 mg 400 mg PO 2XD 07/09/23 07/22/23 History magnesium) tablet potassium chloride 10 mEq 20 meq PO BID 07/09/23 07/22/23 History tablet,extended release cyanocobalamin (vitamin B-12) 1,000 mcg PO DAILY 07/22/23 07/22/23 History 1,000 mcg capsule metoprolol succinate 100 mg 100 mg PO QAM 07/22/23 07/22/23 History tablet,extended release 24 hr metoprolol succinate 50 mg 50 mg PO QPM 07/22/23 07/22/23 History tablet,extended release 24 hr levofloxacin 750 mg tablet 750 mg PO DAILY 5 days #5 tabs 07/23/23 Rx Allergies Allergy/AdvReac Type Severity Reaction Status Date / Time azithromycin [AZITHROMYCIN] Allergy Mild RASH Verified 07/22/23 09:28 lisinopril [LISINOPRIL] Allergy Mild COUGH Verified 07/22/23 09:28 simvastatin [SIMVASTATIN] Allergy Mild MYALGIA Verified 07/22/23 09:28 Review of Systems Review of Systems Narrative: All other systems reviewed with the patient and are negative unless otherwise stated. Exam Vital Signs (past 8 hours): - 07/23/23 14:53 07/23/23 15:10 07/23/23 15:11 Temperature 97.6 F Pulse Rate 115 H 111 H Respiratory Rate 18 22 Blood Pressure 106/71 97/61 Pulse Oximetry 98 96 Oxygen Delivery Method Room Air 07/23/23 15:15 07/23/23 15:15 07/23/23 15:30 Temperature Pulse Rate 109 H 107 H Respiratory Rate Blood Pressure 109/72 Pulse Oximetry 95 Oxygen Delivery Method 07/23/23 15:30 07/23/23 15:45 07/23/23 16:00 Temperature Pulse Rate 111 H Respiratory Rate 26 H Blood Pressure 102/65 109/70 Pulse Oximetry 96 Oxygen Delivery Method 07/23/23 16:00 07/23/23 16:15 07/23/23 16:30 Temperature Pulse Rate 110 H 113 H 107 H Respiratory Rate 26 H 24 26 H Blood Pressure Pulse Oximetry 96 98 95 Oxygen Delivery Method 07/23/23 16:30 07/23/23 16:45 07/23/23 17:00 Temperature Pulse Rate 105 H 104 H Respiratory Rate 28 H 21 Blood Pressure 110/66 Pulse Oximetry 94 95 Oxygen Delivery Method 07/23/23 17:00 07/23/23 17:15 07/23/23 17:30 Temperature Pulse Rate 102 H Respiratory Rate 22 Blood Pressure 115/67 110/72 Pulse Oximetry 93 Oxygen Delivery Method 07/23/23 17:30 07/23/23 17:45 07/23/23 18:00 Temperature Pulse Rate 101 H 103 H 105 H Respiratory Rate 22 24 26 H Blood Pressure Pulse Oximetry 93 93 93 Oxygen Delivery Method 07/23/23 18:01 07/23/23 18:01 07/23/23 18:15 Temperature Pulse Rate 104 H 101 H Respiratory Rate 29 H 21 Blood Pressure 122/60 Pulse Oximetry 92 93 Oxygen Delivery Method Room Air 07/23/23 18:29 07/23/23 18:29 07/23/23 18:30 Temperature Pulse Rate 126 H Respiratory Rate 30 H Blood Pressure 116/67 119/60 Pulse Oximetry 96 Oxygen Delivery Method 07/23/23 18:30 Temperature Pulse Rate 123 H Respiratory Rate 29 H Blood Pressure Pulse Oximetry 96 Oxygen Delivery Method Oxygen Delivery Method Room Air Narrative Exam Narrative: General:? Patient is well developed and well nourished, in no distress at this time. HEENT:? Normocephalic, atraumatic, extraocular muscles intact, oral pharynx is clear and mucous membranes are moist. Neck: supple and symmetric, trachea is midline, no cervical adenopathy. Negative for JVD Chest:? Normal AP diameter and contour without kyphoscoliosis, no tachypnea, equal chest rise bilaterally. Lungs:? CTA b/l no wheezing rhonchi or rales. Cardio:?mildly tachy, irregularly irregular. Abdomen: S NT ND. No CVA tenderness. Musculoskeletal:? Muscle strength and tone are equal within normal limits, no deformity. Extremities: Left leg edema, 1+ pitting, worse than R leg. L knee bandaged, there is bruising of the left knee anteriorly, small laceration appears a few days old, no purulence, very minimal surrounding erythema, knee is boggy. There is no proximal or distal erythema. R leg with chronic wounds, also bandaged and patient reports no symptoms. Skin:? Pale,? Warm to touch,dry and intact without rashes, ulcerations or petechiae except as noted above. Neuro:? Alert and orientated x3,? sensation to touch intact in all extremities, no gross deficits noted of cranial nerves. Psych:? Patient has a well-kept appearance, appropriate affect, mental status attitude thought context and judgment are appropriate for age. Objective Labs 07/23/23 15:36 07/23/23 15:36 Labs: Laboratory Results - last 24 hr 07/23/23 07/23/23 07/23/23 15:36 16:12 18:10 WBC 7.4 RBC 3.58 L Hgb 9.6 L Hct 30.1 L MCV 84.1 MCH 26.7 MCHC 31.8 RDW 25.5 H Plt Count 183 Neut % (Auto) 78.6 H Lymph % (Auto) 12.3 L [place] % (Auto) 7.6 Eos % (Auto) 0.7 L Baso % (Auto) 0.8 Neut # (Auto) 5800 Lymph # (Auto) 900 L [place] # (Auto) 600 Eos # (Auto) 100 Baso # (Auto) 100 RBC Morphology See below Dimorphic RBCs Present Polychromasia 1+ H Hypochromasia 1+ H Microcytosis 1+ H Macrocytosis 1+ H Acanthocytes (Spur) 1+ PT 31.8 H INR 2.7 H APTT 43 H Sodium 134 L Potassium 4.0 Chloride 100 Carbon Dioxide 23 BUN 15 Creatinine 0.64 L Estimated GFR > 60 BUN/Creatinine Ratio 23.4 H Glucose 115 H Lactate 4.2 H* 2.7 H Calcium 9.8 Total Bilirubin 1.0 AST 28 ALT 19 Alkaline Phosphatase 66 Total Protein 7.0 Albumin 3.8 Globulin 3.2 Albumin/Globulin Ratio 1.2 Lipase 116 Procalcitonin 0.07 Urine Color Yellow Urine Appearance Clear Urine pH 5.0 Ur Specific [place] 1.015 Urine Protein Negative Urine Glucose (UA) 2+ H Urine Ketones Negative Urine Occult Blood Negative Urine Nitrate Negative Urine Bilirubin Negative Urine Urobilinogen 0.2 Ur Leukocyte Esterase Negative Urine RBC None seen Urine WBC None seen Ur Squamous Epith Cells None seen Urine Bacteria None seen Urine Mucus 1+ H Ur Culture Indicated? Cult not indicated PFSH Medical History Renal mass Chronic diastolic (congestive) heart failure Alcohol use disorder Anemia Mumps Measles Chicken pox Peripheral arterial disease AAA (abdominal aortic aneurysm) GERD without esophagitis Diabetic toe ulcer Polyneuropathy, unspecified Type 2 diabetes mellitus with polyneuropathy Surgical History S/P mitral valve repair History of cataract removal with insertion of prosthetic lens Social History details: Partner (Yadi Dong) Tobacco & Substance Use Smoking Status: Current every day smoker Assessment & Plan Assessment & Plan narrative: 73 year old male with many chronic medical conditions who presented for evaluation from wound care for a possible L knee cellulitis. Labs were unremarkable with no leukocytosis. He has no evidence for sepsis as he has chronic difficult to control afib with RVR for which he was in the ER recently and not recommended for admission at that time due to lack of symptoms and chronic difficulty controlling rate. Lactate was elevated but markedly improved with fluids. On my evaluation, there is minimal erythema and warmth, and he has not had any antibiotics recently. Patient was able to ambulate in the emergency room and was agreeable with discharge home after discussion. He had no knee pain on palpation and exam was not consistent with septic joint. I do not believe there is benefit at this time for observation admission and can discharge home with outpatient treatment for L knee cellulitis with oral antibiotic therapy. Recommend discharge on cefpodoxime based on prior wound cultures for mild L knee cellulitis. If heart rate continues to be elevated, he could go up on his metoprolol as an outpatient. active problems addressed this visit: #L knee cellulitis #chronic atrial fibrillation with RVR. #CHFpEF, no acute component I have utilized all available immediate resources to obtain, update, or review the patient's current medications. Code: Full, surrogate is patient's spouse Dispo: discharge from ER
== END 2023-07-23 19:00 | disposition home or self-care (01) ==
PROVIDERS: Emergency Provider Emergency Medicine; Family Provider Family Medicine; PCP Internal Medicine
DX: L03.115 Cellulitis of right lower limb (principal); Z79.899 Other long term (current) drug therapy
CPT/HCPCS: 36415; 71045; 73562; 80053; 81001; 83605; 83690; 84145; 85025; 85610; 85730; 87040; 87070; 87075; 87077; 87147; 87186; 87205; 93005; 93971; 99284; J0696; J2270

== ENCOUNTER 2023-07-26 12:33 | Inpatient (IN) | payer MEDICARE, SELFPAY ==
[2023-07-26] VITALS (23 sets, daily range): BP systolic 102–128; BP diastolic 58–83; PULSE 91–121; RESP 18–27; TEMP 35.7–36.4; O2SAT 87–99; BMI 25.8
--- NOTE | 2023-07-26 13:03 | DI.RAD.S_ITS ---
PROCEDURE: XR CHEST 1V INDICATIONS: suspected sepsis TECHNIQUE: One view of the chest was acquired. COMPARISON: [facility], , XR CHEST 1V, 07/09/2023, 15:22. [facility], CR, XR CHEST 1V, 07/23/2023, 15:34. FINDINGS: Surgical changes and devices: Clips are seen overlying the heart. Lungs and pleura: On this semiupright portable chest examination, no large pneumothorax can be seen. There is blunting of the left costophrenic angle. Low lung volumes are noted. This causes a crowded appearance to the lung markings and limits evaluation. Mediastinum: Mediastinal contours appear normal. Heart size is normal. Atherosclerotic calcification of the aortic arch is noted. Bones and chest wall: No suspicious bony lesions. Age-appropriate bony degenerative changes are seen. Overlying soft tissues appear unremarkable. IMPRESSION: Low lung volumes with a small left-sided pleural effusion. Dictated by: Vincent Lauren M.D. on 07/26/2023 at 12:30 Approved by: Vincent Lauren M.D. on 07/26/2023 at 12:32
--- NOTE | 2023-07-26 13:33 | ED_ITS ---
HPI - Extremity Problem General Chief complaint: Extremity Problem,Nontraumatic Stated complaint: cellulitis in lt knee Time Seen by Provider: 07/26/23 13:07 Source: patient and family Mode of arrival: Wheelchair History of Present Illness HPI Narrative: 73-year-old gentleman with a history of diabetes, coronary artery disease with valvular disease as well, peripheral vascular disease with poor blood flow to the entire left lower extremity, his a slowly healing wound over his left patella that has been followed by wound care recently concern for cellulitis was seen in the emergency department on July 23 was started on levofloxacin after ceftriaxone and vancomycin were given. There was low suspicion for infected patellar bursa or septic joint. The patient has taken 2 doses of Levaquin since discharge from the hospital on the and is concerned that the pain is getting worse. He is not noticing significantly increased redness. He is in atrial fibrillation and does not have any sensation of his heart rate going fast. He is chronically anticoagulated on rivaroxaban. He does take metoprolol for rate control and was recently increased to 100 mg of metoprolol succinate daily to 100 in the morning and 50 in the evening. He did take his morning metoprolol. He is not complaining of fevers, weakness, palpitation, dyspnea. Related Data Home Medications Medication Instructions Recorded Confirmed multivitamin (Multiple Vitamins 1 tab PO QDAY #0 tabs 05/15/16 07/22/23 tablet) ferrous sulfate 325 mg (65 mg 325 mg PO DAILY 07/09/23 07/22/23 iron) tablet,delayed release furosemide 40 mg tablet 40 mg PO BID 07/09/23 07/22/23 magnesium oxide 400 mg (241.3 mg 400 mg PO 2XD 07/09/23 07/22/23 magnesium) tablet potassium chloride 10 mEq 20 meq PO BID 07/09/23 07/22/23 tablet,extended release cyanocobalamin (vitamin B-12) 1,000 mcg PO DAILY 07/22/23 07/22/23 1,000 mcg capsule metoprolol succinate 100 mg 100 mg PO QAM 07/22/23 07/22/23 tablet,extended release 24 hr metoprolol succinate 50 mg 50 mg PO QPM 07/22/23 07/22/23 tablet,extended release 24 hr Previous Rx's Medication Instructions Recorded atorvastatin 80 mg tablet 80 mg PO DAILY #90 tabs 07/23/22 duloxetine 60 mg capsule,delayed 60 mg PO QDAY #90 caps 07/23/22 release (Cymbalta) gabapentin 800 mg tablet 800 mg PO TID #270 tabs 07/23/22 omeprazole 20 mg tablet,delayed 20 mg PO DAILY #90 tabs 07/23/22 release rivaroxaban 20 mg tablet (Xarelto) 20 mg PO QDAY #90 tabs 07/23/22 empagliflozin 12.5 mg-metformin 1 tab PO BID #180 tabs 09/18/22 1,000 mg tablet (Synjardy) levofloxacin 750 mg tablet 750 mg PO DAILY 5 days #5 tabs 07/23/23 Allergies Allergy/AdvReac Type Severity Reaction Status Date / Time azithromycin [AZITHROMYCIN] Allergy Mild RASH Verified 07/26/23 12:50 lisinopril [LISINOPRIL] Allergy Mild COUGH Verified 07/26/23 12:50 simvastatin [SIMVASTATIN] Allergy Mild MYALGIA Verified 07/26/23 12:50 Review of Systems Review of Systems Narrative: Pertinent positive and negative findings as per HPI Patient History Medical History Renal mass Chronic diastolic (congestive) heart failure Alcohol use disorder Anemia Mumps Measles Chicken pox Peripheral arterial disease AAA (abdominal aortic aneurysm) GERD without esophagitis Diabetic toe ulcer Polyneuropathy, unspecified Type 2 diabetes mellitus with polyneuropathy Surgical History S/P mitral valve repair History of cataract removal with insertion of prosthetic lens Social History details: Partner (Yadi Dong) Smoking Status: Current every day smoker Smoking Status: Current every day smoker tobacco type: cigarettes alcohol intake frequency: holidays/special occasions only Substance Use Type: does not use Exam Initial Vital Signs Initial Vital Signs: Vital Signs Temperature 97.5 F L 07/26/23 12:52 Pulse Rate 120 H 07/26/23 12:52 Respiratory Rate 20 07/26/23 12:52 Blood Pressure 120/73 07/26/23 12:52 Pulse Oximetry 97 07/26/23 12:52 Oxygen Delivery Method Room Air 07/26/23 12:52 General: Chronically ill-appearing but in no acute distress. Able to give a complete and coherent history. Well-nourished well-developed HEENT: Moist mucous membranes, normal sclera with reactive pupils, cheeks are flushed Neck: No JVD, supple Respiratory: Lungs are clear to auscultation, no wheezing no rales no rhonchi. Full and symmetrical air movement Cardiac: Rapid and irregular but otherwise no murmurs no bruits Abdomen: Soft, nontender, good bowel tones, no flank pain Skin: Warm and dry, Neurologic: Grossly neurologically intact with no obvious asymmetries or abnormalities Extremities: He has a small healing wound on the right banda with wound care dressing in place, no sign of infection. He has a 1.5 cm wound over the left patella with nice granulation at the base no significant surrounding erythema. His entire left leg is swollen in comparison to the right leg. He is a moderate left knee effusion with out exquisite tenderness. There is no tenderness with manipulation of his patella. He is able to flex and extend the knee with a mild amount of pain as would be expected secondary to the effusion, far less than 1 would expect should he have a septic joint Psych: Cooperative, appropriate insight and affect Course Orders Ordered: ED Orders 07/26/23 13:03 XR chest 1V Stat EKG-12 Lead Stat RT Consult Eval and Treat NOW 07/26/23 13:55 US periph venous low extrem lt Stat Blood Culture Stat CRP [C-Reactive Protein Quant] Stat Complete Blood Count AUTO DIFF Stat Comprehensive Metabolic Panel Stat Erythrocyte Sedimentation Rate Stat Lactate (Lactic Acid) Stat Lipase Stat PTT Partial Thromboplastin Bib Stat Procalcitonin Stat Prothrombin Time INR Stat 07/26/23 14:23 CT LE LT w con Stat 07/26/23 18:30 Lactate (Lactic Acid) Stat 07/27/23 BMP [Basic Metabolic Panel] Routine 07/28/23 03:30 Vancomycin Trough Urgent 07/28/23 06:00 Vancomycin Peak Urgent Vancomycin HCl (Vancomycin) 1,250 mg in 250 mls @ 250 mls/hr IV Q12H VONDA Ondansetron HCl (Ondansetron 4 Mg/2 Ml Inj) 4 mg IV NOW PRN PRN Reason: Nausea And Vomiting Ondansetron HCl (Ondansetron 4 Mg Odt) 4 mg SL NOW PRN PRN Reason: Nausea And Vomiting Vancomycin HCl (Vancomycin Trough) 1 request MISC NOW ONE Stop: 07/28/23 03:31 Vancomycin HCl (Vancomycin Peak) 1 request MISC NOW ONE Stop: 07/28/23 06:01 Discontinued Medications Acetaminophen (Acetaminophen 325 Mg Tablet) 650 mg PO NOW ONE Stop: 07/26/23 13:43 Last Admin: 07/26/23 14:08 Dose: 650 mg Documented By: SHIVAM Hydrocodone Bitart/Acetaminophen (Hydrocodone/Acet 5/325 Tablet) 1 tab PO NOW ONE Stop: 07/26/23 13:43 Last Admin: 07/26/23 14:09 Dose: 1 tab Documented By: SHIVAM Sodium Chloride (Normal Saline 0.9%) 1,000 mls @ 1,000 mls/hr IV BOLUS ONE Stop: 07/26/23 14:02 Last Infusion: 07/26/23 15:39 Dose: Infused Documented By: Infusion: 07/26/23 15:00 Dose: 1,000 mls/hr Documented By: Admin: 07/26/23 13:47 Dose: 1,000 mls/hr Documented By: AILIN Ceftriaxone Sodium 2,000 mg/ (Sodium Chloride) 100 mls @ 200 mls/hr IV NOW ONE Stop: 07/26/23 14:27 Last Infusion: 07/26/23 15:30 Dose: Infused Documented By: Admin: 07/26/23 14:52 Dose: 200 mls/hr Documented By: SHIVAM Vancomycin HCl/Dextrose (Vancomycin) 1,500 mg in 300 mls @ 200 mls/hr IV NOW ONE Stop: 07/26/23 16:29 Last Admin: 07/26/23 15:30 Dose: 200 mls/hr Documented By: SHIVAM Vancomycin HCl (Vancomycin Per Pharmacy) 1 request MISC NOW ONE Stop: 07/26/23 14:28 Last Admin: 07/26/23 15:39 Dose: Not Given Documented By: SHIVAM Vital Signs Vital signs: Vital Signs - 8 hr 07/26/23 12:52 07/26/23 13:16 07/26/23 13:19 Temperature 97.5 F L Pulse Rate 120 H 116 H 116 H Respiratory Rate 20 26 H Blood Pressure 120/73 Pulse Oximetry 97 97 97 Oxygen Delivery Method Room Air Oxygen Flow Rate 07/26/23 13:19 07/26/23 13:30 07/26/23 13:30 Temperature Pulse Rate 109 H Respiratory Rate 25 H Blood Pressure 103/58 L 108/68 Pulse Oximetry 96 Oxygen Delivery Method Room Air Oxygen Flow Rate 07/26/23 14:00 07/26/23 14:58 07/26/23 15:00 Temperature Pulse Rate 110 H 96 H 100 H Respiratory Rate 27 H 26 H Blood Pressure Pulse Oximetry 96 90 L 91 Oxygen Delivery Method Room Air Room Air Oxygen Flow Rate 07/26/23 15:00 07/26/23 15:10 07/26/23 15:13 Temperature Pulse Rate Respiratory Rate Blood Pressure 128/78 Pulse Oximetry 87 L 94 Oxygen Delivery Method Room Air Nasal Cannula Oxygen Flow Rate 2 07/26/23 15:30 Temperature Pulse Rate 98 H Respiratory Rate 24 Blood Pressure Pulse Oximetry 96 Oxygen Delivery Method Nasal Cannula Oxygen Flow Rate 2 MDM - Extremity (Nontraumatic) Lab Data 07/26/23 13:55 07/26/23 13:55 Labs: Lab Results 07/26/23 07/26/23 Range/Units 13:55 16:25 WBC 6.8 (4.5-11.0) X10^3/uL RBC 3.45 L (4.5-5.9) X10^6/uL Hgb 9.2 L (13.5-17.5) g/dL Hct 29.1 L (41-53) % MCV 84.3 (80-100) fL MCH 26.6 (26-34) PG MCHC 31.6 (30-36) % RDW 24.2 H (11.6-14.8) % Plt Count 208 (150-400) X10^3/uL Neut % (Auto) Not Reportable Lymph % (Auto) Not Reportable [place] % (Auto) Not Reportable Eos % (Auto) Not Reportable Baso % (Auto) Not Reportable Lymph # (Auto) Not Reportable [place] # (Auto) Not Reportable Baso # (Auto) Not Reportable Total Counted 100 Seg Neutrophils % 79.0 H (38-70) % Lymphocytes % (Manual) 17.0 L (25-45) % Monocytes % (Manual) 3.0 (2-11) % Basophils % (Manual) 1.0 (0-1) % Neutrophils # (Manual) 5372 ([id number]) /uL RBC Morphology Not Reportable Poikilocytosis 1+ H Anisocytosis 1+ H ESR 56 H (0-15) MM/HR PT 43.9 H D (10.1-12.7) SECONDS INR 3.8 H (0.9-1.3) APTT 42 H (26-36) SECONDS Sodium 134 L (137-145) mmol/L Potassium 3.6 (3.4-5.1) mmol/L Chloride 99 (98-107) mmol/L Carbon Dioxide 19 L (22-32) mmol/L BUN 23 H (9-20) mg/dL Creatinine 0.65 L (0.66-1.25) mg/dL Estimated GFR > 60 (>60) mL/min BUN/Creatinine Ratio 35.4 H (6-22) Glucose 135 H (80-110) mg/dL Lactate 4.9 H* 3.2 H (0.7-2.1) mmol/L Calcium 9.9 (8.4-10.2) mg/dL Total Bilirubin 1.0 (0.2-1.3) mg/dL AST 29 (17-59) IU/L ALT 21 (<50) IU/L Alkaline Phosphatase 61 (38-126) U/L C-Reactive Protein 2.7 H (<1.0) mg/dL Total Protein 7.1 (6.3-8.2) g/dL Albumin 3.9 (3.5-5.0) g/dL Globulin 3.2 (1.7-4.1) g/dL Albumin/Globulin Ratio 1.2 (1.0-2.8) Lipase 82 (23-300) U/L Procalcitonin 0.08 (<0.5) ng/mL MDM Narrative Medical decision making narrative: CC: Left leg pain Complicating co-morbidities: 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 Congestive heart failure with preserved ejection fraction. Recent admission to [facility] for cardiac surgery with what sounds like a mitral valve repair consideration of a TAVR however with the knee infection appreciated they did not want to put a graft in place. Records for this are not immediately available to me Data collected from: patient, Medical records reviewed: Primary care notes, recent ER note and hospitalist consultation are all reviewed Differential considered: DVT, worsening infection, patellar bursal infection, septic joint, Exam documented above, pertinent findings include: Left leg is somewhat swollen. The wound over the knee does actually appear to be healing nicely with minor erythema, no drainage and based on his exam I do not suspect bursal involvement or septic joint Lab Test results independently reviewed as above. Pertinent findings: Wound culture from July 23 is reviewed he has group G strep as well as E coli light growth of both. Both both are sensitive to levofloxacin. Independently reviewed EKG atrial fibrillation at a rate of 114, nonspecific STT wave abnormality. No acute ischemia Imaging studies independently reviewed: Vascular study on July 23 noted no DVT but also noted prominent swelling within the region of the distal femoral vein through the popliteal fossa. Chest x-ray from today as well as July 23 are both reviewed. Both show a small and unchanging left-sided pleural effusion, no other severe abnormalities Consultations:Dr Mcnulty, orthopedic surgeon will consult in the morning. CT scan and initial presentations are reviewed with him. He did not feel that debridement would likely be necessary and certainly not required this evening. Discussion with hospitalist. Will admit for cellulitis presumably of the left knee without septic joint or septic arthritis, failed outpatient antibiotics Treatments: IV fluids, vancomycin, ondansetron, ceftriaxone, Tylenol and Vicodin for pain control Re-evaluations: As labs returning, his lactic acid elevated at 4.9. He is tachycardic but does have a history of atrial fibrillation with rapid ventricular response. Concerning for deeper infection in the left knee but clinical exam is not as concerning. He did have a DVT study a couple of days ago will repeat that today. X-rays were unremarkable who a couple of days ago. Will extend this to a CT scan of the left lower extremity with contrast to see if there is an abscess that we are not picking up clinically. At this time I am reluctant to try tapping the knee or the patellar bursa. He is meeting criteria for sepsis without severe shock. Because of his history of congestive heart failure morbid reluctant to overload him with fluid but I believe 1 L of fluid to see how he responds with his heart rate rather than adding metoprolol for rate control is going to be appropriate. Antibiotics have already been initiated. Discussion: 73-year-old gentleman with known peripheral vascular disease poor arterial flow to the left leg as a chronic problem with a wound to the prepatellar area back in April. He had been following with [facility] felt that it was getting worse was evaluated in the ER on the and decided against hospitalization at that time. He was given IV antibiotics in the ER and discharged home with Levaquin and in the 48-72 hours since discharge pain has increased, swelling is increased he is feeling worse and he comes in for further evaluation. In the meantime the wound has grown out group G strep and E coli both of which should be sensitive to the Levaquin. He does not have a DVT. His initial lactic acid was significantly elevated and did come down with a L of fluid. He has complicating congestive heart failure so large volumes of fluid are not going to be appropriate. He has chronic COPD as well as atherosclerotic and vascular cardiac disease. Antibiotics were initiated in the emergency department with ceftriaxone and vancomycin. Ceftriaxone is chosen based on cultures available and vancomycin is should MRSA eventually be identified. Patient is amenable to hospitalization at this time MIPS: Severe Sepsis Criteria [ x ] bacterial source of infection suspected and documented [ x] 2 SIRS Criteria met [ ] HR >90 [ ] RR >20 [ ] fever or hypothermia [ ] leukocytosis/leukopenia/bandemia [ ] Evidence of at least 1 organ system dysfunction [ x ] Lactate > 2 [ ] BP < 90 or MAP <65, >40mm decrease from normal baseline [ ] Creat > 2.0 [ ] T. Bili > 2.0 [ ] platelet count < 100k [ ] altered mental status [ ] mechanical ventilation [ ] provider documentation of severe sepsis Severe Sepsis Determination. the patient has been screened and [ x] DOES meet criteria for severe sepsis [ ] DOES NOT meet criteria for severe sepsis Goal directed treatment Within 3 hours [ x ] blood cx drawn prior to abx [ x] broad spectrum abx started [ x] lactic acid level checked [ ] lactic redrawn within 6 hours if >2.0 Septic Shock Criteria [ ] lactic > 4 at any time [ ] SBP ,90 or MAP , 65 [ ] documentation of septic shock Time Septic Shock diagnosed: [ ] Septic Shock Determination. the patient has been screened and [ ] DOES meet criteria for septic shock [ x ] DOES NOT meet criteria for septic shock Discharge Plan Departure Patient Disposition: Admitted As Inpatient Clinical Impression: Abscess or cellulitis of knee, Chronic atrial fibrillation Chronic CHF Qualifiers: Heart failure type: unspecified Qualified Code(s): I50.9 - Heart failure, unspecified Sepsis Qualifiers: Sepsis type: sepsis due to unspecified organism Sepsis acute organ dysfunction status: unspecified Qualified Code(s): A41.9 - Sepsis, unspecified organism Prescriptions: No Action multivitamin [Multiple Vitamins] 1 EACH tablet 1 tab PO QDAY Qty: 0 Synjardy 12.5-1,000 mg tablet 1 tab PO BID Qty: 180 3RF duloxetine [Cymbalta] 60 mg capsule,delayed release(DR/EC) 60 mg PO QDAY Qty: 90 3RF Xarelto 20 mg tablet 20 mg PO QDAY Qty: 90 3RF gabapentin 800 mg tablet 800 mg PO TID Qty: 270 3RF atorvastatin 80 mg tablet 80 mg PO DAILY Qty: 90 3RF omeprazole 20 mg tablet,delayed release (DR/EC) 20 mg PO DAILY Qty: 90 3RF metoprolol succinate 100 mg tablet extended release 24 hr 100 mg PO QAM metoprolol succinate 50 mg tablet extended release 24 hr 50 mg PO QPM cyanocobalamin (vitamin B-12) 1,000 mcg capsule 1,000 mcg PO DAILY levofloxacin 750 mg tablet 750 mg PO DAILY 5 Days Qty: 5 0RF furosemide 40 mg tablet 40 mg PO BID potassium chloride 10 mEq tablet extended release 20 meq PO BID magnesium oxide 400 mg (241.3 mg magnesium) Tablet 400 mg PO 2XD ferrous sulfate 325 mg (65 mg iron) Tablet,Delayed Release (Dr/Ec) 325 mg PO DAILY Referrals: Freeman Chao MD [Primary Care Provider] - Admit Date/Time: 07/26/23 17:19 Admit Provider: Duong Burnett
[2023-07-26] MEDS: SODIUM CHLORIDE 0.9% 1,000 ML 1000 ML IV (13:47)
--- NOTE | 2023-07-26 13:55 | DI.US.S_ITS ---
PROCEDURE: US PERIP VENOUS LOW EXTREM LT INDICATIONS: Lower extremity edema, please evaluate for DVT TECHNIQUE: Real-time imaging, as well as color and pulse Doppler interrogation, were performed of the lower extremity deep veins from the inguinal ligament to the popliteal fossa, with documentation of the visualized calf veins. COMPARISON: [facility], [facility] VENOUS LOW EXTREM LT, 07/23/2023, 16:28. FINDINGS: The common femoral, femoral, popliteal, and the visualized calf veins are normally compressible, and free of intraluminal thrombus. Color and pulse Doppler demonstrate normal phasic intraluminal flow. There is normal augmentation response to distal compression maneuver. IMPRESSION: No findings of lower extremity deep venous thrombosis. Dictated by: Vincent Lauren M.D. on 07/26/2023 at 14:09 Approved by: Vincent Lauren M.D. on 07/26/2023 at 14:10
[2023-07-26] MEDS: ACETAMINOPHEN 325 MG TABLET 650 MG PO (14:08)
[2023-07-26 14:09] LABS: Hematocrit 29.1 % (41-53); Hemoglobin 9.2 g/dL (13.5-17.5); Mean Corpuscular HGB Conc 31.6 % (30-36); Mean Corpuscular Hemoglobin 26.6 PG (26-34); Mean Corpuscular Volume 84.3 fL (80-100); Platelet Count 208 X10^3/uL (150-400); Red Blood Cell Count 3.45 X10^6/uL (4.5-5.9); Red Cell Distribution Width 24.2 % (11.6-14.8); White Blood Cell Count 6.8 X10^3/uL (4.5-11.0)
[2023-07-26] MEDS: HYDROCODONE/ACET 5/325 TABLET 1 TAB PO (14:09)
[2023-07-26 14:10] LABS: Add Manual Diff / Slide Review YES
[2023-07-26 14:15] LABS: INR 3.8 (0.9-1.3); Prothrombin Time 43.9 SECONDS (10.1-12.7)
[2023-07-26 14:18] LABS: PTT Partial Thromboplastin Tim 42 SECONDS (26-36)
[2023-07-26 14:20] LABS: Alanine Aminotransferase 21 IU/L (<50); Albumin 3.9 g/dL (3.5-5.0); Albumin Globulin Ratio 1.2 (1.0-2.8); Alkaline Phosphatase 61 U/L (38-126); Aspartate Aminotransferase 29 IU/L (17-59); BUN Creatinine Ratio 35.4 (6-22); Blood Urea Nitrogen 23 mg/dL (9-20); Calcium 9.9 mg/dL (8.4-10.2); Carbon Dioxide 19 mmol/L (22-32); Chloride 99 mmol/L (98-107); Estimated Glomerular Filt Rate > 60 mL/min (>60); Globulin 3.2 g/dL (1.7-4.1); Glucose 135 mg/dL (80-110); HEMOLYSIS < 15 (0-50); Lactate (Lactic Acid) 4.9 mmol/L (0.7-2.1); Lipase 82 U/L (23-300); Potassium 3.6 mmol/L (3.4-5.1); Sodium 134 mmol/L (137-145); Total Protein 7.1 g/dL (6.3-8.2)
--- NOTE | 2023-07-26 14:23 | DI.CT.S_ITS ---
PROCEDURE: CT LE LT W CON INDICATIONS: knee infection, sepsis TECHNIQUE: After the administration of intravenous contrast, 3 mm axial sections acquired of the left knee, with coronal and sagittal reformats. COMPARISON: [facility], CR, XR KNEE LT 3V, 07/23/2023, 15:34. FINDINGS: Image quality: Excellent. Bones: In this patient with this given history, scrutiny is given to bony involvement within the infection. No findings of lytic lesions or periosteal reactions can be seen. Mild generalized degenerative changes are seen. There is moderate medial femorotibial joint space narrowing seen, with associated remodeling changes including subchondral sclerosis and osteophyte formation along the jointline. No fractures are seen. Soft tissues: Just superficial to the patella, there is focal bony irregularity seen, with poorly defined soft tissue fluid, measuring 25 x 5 mm, as on series 8, image 219. No dong drainable abscess can be seen. Generalized soft tissue swelling can be seen elsewhere within the subcutaneous fat, particularly along the anterior aspect of the patella. No definite underlying muscular involvement is seen. No soft tissue gas is seen. No significant joint effusion. IMPRESSION: Likely phlegmon seen anterior to the patella. Generalized soft tissue cellulitis can be seen, without soft tissue gas or muscular involvement. No findings of osteomyelitis can be seen by CT. If there is strong suspicion for developing osteomyelitis, please consider a dedicated MRI without and with contrast for further evaluation (assuming that there is no contraindication to MRI). Dictated by: Vincent Lauren M.D. on 07/26/2023 at 13:56 Approved by: Vincent Lauren M.D. on 07/26/2023 at 13:59
[2023-07-26 14:24] LABS: Neutrophils Absolute Manual 5372 /uL (3000-5900); Total Cells Counted 100
[2023-07-26 14:25] LABS: Anisocytosis 1+; Poikilocytosis 1+
[2023-07-26 14:36] LABS: Procalcitonin 0.08 ng/mL (<0.5)
[2023-07-26 14:45] LABS: C-Reactive Protein Quant 2.7 mg/dL (<1.0)
[2023-07-26 14:52] LABS: Erythrocyte Sedimentation Rate 56 MM/HR (0-15)
[2023-07-26] MEDS: cefTRIAXone 2,000 MG in SODIUM CHLORIDE 0.9% 100 ML 200 MG IV (14:52)
[2023-07-26] MEDS: VANCOMYCIN 1,500 MG/300 ML PIGGYBACK 200 MG IV (15:30)
[2023-07-26 16:03] LABS: Reflexed Lactate in 2 Hours Y
[2023-07-26 16:44] LABS: Lactate 2HR (Lactic Acid Rflx) 3.2 mmol/L (0.7-2.1)
--- NOTE | 2023-07-26 17:12 | PM.HP.1 ---
History of Present Illness History of Present Illness Chief complaint: celullitis in lt knee Narrative: 73 M with PMH of afib with difficult to control rate (previously in the ER and did not require admission for rate control within the last few week per cardiology), CHFpEF (with mitraclip), chronic toe wounds on the R, alcohol use, DM with neuropathy, HTN, HLD, venous insufficiency, PAD, GERD, AAA, AGNIESZKA who comes back to the ED for ongoing L knee pain after being sent home on po abx for cellulitis on 07/23. Per last medicine note, patient did not recall any injury, however per PCP note recently there is documentation of a fall with L knee injury. He reported increasing pain over the last few days. He does not report any drainage but did report difficulty walking. Denies fever, chills, nausea, vomiting, chest pain, palpitations, worsening edema or dyspnea. Sent home on po levaquin but his L knee continues to bother him so he came back to the ED today. Will be admitted for IV abx. [facility] Medical History Renal mass Chronic diastolic (congestive) heart failure Alcohol use disorder Anemia Mumps Measles Chicken pox Peripheral arterial disease AAA (abdominal aortic aneurysm) GERD without esophagitis Diabetic toe ulcer Polyneuropathy, unspecified Type 2 diabetes mellitus with polyneuropathy Surgical History S/P mitral valve repair History of cataract removal with insertion of prosthetic lens Social History details: Partner (Yadi Dong) household members: significant other Smoking Status: Current every day smoker alcohol intake: current Meds Home Medications and Allergies Home Medications Medication Instructions Recorded Confirmed Type multivitamin (Multiple Vitamins 1 tab PO QDAY #0 tabs 05/15/16 07/22/23 History tablet) atorvastatin 80 mg tablet 80 mg PO DAILY #90 tabs 07/23/22 07/22/23 Rx duloxetine 60 mg capsule,delayed 60 mg PO QDAY #90 caps 07/23/22 07/22/23 Rx release (Cymbalta) gabapentin 800 mg tablet 800 mg PO TID #270 tabs 07/23/22 07/22/23 Rx omeprazole 20 mg tablet,delayed 20 mg PO DAILY #90 tabs 07/23/22 07/22/23 Rx release rivaroxaban 20 mg tablet (Xarelto) 20 mg PO QDAY #90 tabs 07/23/22 07/22/23 Rx empagliflozin 12.5 mg-metformin 1 tab PO BID #180 tabs 09/18/22 07/22/23 Rx 1,000 mg tablet (Synjardy) ferrous sulfate 325 mg (65 mg 325 mg PO DAILY 07/09/23 07/22/23 History iron) tablet,delayed release furosemide 40 mg tablet 40 mg PO BID 07/09/23 07/22/23 History magnesium oxide 400 mg (241.3 mg 400 mg PO 2XD 07/09/23 07/22/23 History magnesium) tablet potassium chloride 10 mEq 20 meq PO BID 07/09/23 07/22/23 History tablet,extended release cyanocobalamin (vitamin B-12) 1,000 mcg PO DAILY 07/22/23 07/22/23 History 1,000 mcg capsule metoprolol succinate 100 mg 100 mg PO QAM 07/22/23 07/22/23 History tablet,extended release 24 hr metoprolol succinate 50 mg 50 mg PO QPM 07/22/23 07/22/23 History tablet,extended release 24 hr levofloxacin 750 mg tablet 750 mg PO DAILY 5 days #5 tabs 07/23/23 Rx Allergies Allergy/AdvReac Type Severity Reaction Status Date / Time azithromycin [AZITHROMYCIN] Allergy Mild RASH Verified 07/26/23 12:50 lisinopril [LISINOPRIL] Allergy Mild COUGH Verified 07/26/23 12:50 simvastatin [SIMVASTATIN] Allergy Mild MYALGIA Verified 07/26/23 12:50 Review of Systems Review of Systems Narrative: All other systems reviewed with the patient and are negative unless otherwise stated. Exam Vital Signs (past 8 hours): - 07/26/23 12:52 07/26/23 13:16 07/26/23 13:19 Temperature 97.5 F L Pulse Rate 120 H 116 H 116 H Respiratory Rate 20 26 H Blood Pressure 120/73 Pulse Oximetry 97 97 97 Oxygen Delivery Method Room Air Oxygen Flow Rate 07/26/23 13:19 07/26/23 13:30 07/26/23 13:30 Temperature Pulse Rate 109 H Respiratory Rate 25 H Blood Pressure 103/58 L 108/68 Pulse Oximetry 96 Oxygen Delivery Method Room Air Oxygen Flow Rate 07/26/23 14:00 07/26/23 14:58 07/26/23 15:00 Temperature Pulse Rate 110 H 96 H 100 H Respiratory Rate 27 H 26 H Blood Pressure Pulse Oximetry 96 90 L 91 Oxygen Delivery Method Room Air Room Air Oxygen Flow Rate 07/26/23 15:00 07/26/23 15:10 07/26/23 15:13 Temperature Pulse Rate Respiratory Rate Blood Pressure 128/78 Pulse Oximetry 87 L 94 Oxygen Delivery Method Room Air Nasal Cannula Oxygen Flow Rate 2 07/26/23 15:30 Temperature Pulse Rate 98 H Respiratory Rate 24 Blood Pressure Pulse Oximetry 96 Oxygen Delivery Method Nasal Cannula Oxygen Flow Rate 2 Oxygen Delivery Method Nasal Cannula Oxygen Flow Rate 2 Narrative Exam Narrative: General:? Patient is well developed and well nourished, in no distress at this time. HEENT:? Normocephalic, atraumatic, extraocular muscles intact, oral pharynx is clear and mucous membranes are moist. Neck: supple and symmetric, trachea is midline, no cervical adenopathy. Negative for JVD Chest:? Normal AP diameter and contour without kyphoscoliosis, no tachypnea, equal chest rise bilaterally. Lungs:? CTA b/l no wheezing rhonchi or rales. Cardio:?mildly tachy, irregularly irregular. Abdomen: S NT ND. No CVA tenderness. Musculoskeletal:? Muscle strength and tone are equal within normal limits, no deformity. Extremities: Left patellar wound with surrounding swelling, increased warmth, erythema and very painful to touch. Right lateral leg wound is without erythema or pain. Skin:? Pale,? Warm to touch,dry and intact without rashes, ulcerations or petechiae except as noted above. Neuro:? Alert and orientated x3,? sensation to touch intact in all extremities, no gross deficits noted of cranial nerves. Psych:? Patient has a well-kept appearance, appropriate affect, mental status attitude thought context and judgment are appropriate for age. Objective Labs 07/26/23 13:55 07/26/23 13:55 Labs: Laboratory Results - last 24 hr 07/26/23 07/26/23 13:55 16:25 WBC 6.8 RBC 3.45 L Hgb 9.2 L Hct 29.1 L MCV 84.3 MCH 26.6 MCHC 31.6 RDW 24.2 H Plt Count 208 Neut % (Auto) Not Reportable Lymph % (Auto) Not Reportable [place] % (Auto) Not Reportable Eos % (Auto) Not Reportable Baso % (Auto) Not Reportable Lymph # (Auto) Not Reportable [place] # (Auto) Not Reportable Baso # (Auto) Not Reportable Total Counted 100 Seg Neutrophils % 79.0 H Lymphocytes % (Manual) 17.0 L Monocytes % (Manual) 3.0 Basophils % (Manual) 1.0 Neutrophils # (Manual) 5372 RBC Morphology Not Reportable Poikilocytosis 1+ H Anisocytosis 1+ H ESR 56 H PT 43.9 H D INR 3.8 H APTT 42 H Sodium 134 L Potassium 3.6 Chloride 99 Carbon Dioxide 19 L BUN 23 H Creatinine 0.65 L Estimated GFR > 60 BUN/Creatinine Ratio 35.4 H Glucose 135 H Lactate 4.9 H* 3.2 H Calcium 9.9 Total Bilirubin 1.0 AST 29 ALT 21 Alkaline Phosphatase 61 C-Reactive Protein 2.7 H Total Protein 7.1 Albumin 3.9 Globulin 3.2 Albumin/Globulin Ratio 1.2 Lipase 82 Procalcitonin 0.08 Assessment & Plan Assessment & Plan narrative: #L knee cellulitis -failed outpatient po abx with levaquin, hot/red/swollen and very painful to touch on exam -rocephin and vanc ordered -no joint involvement per CT -f/up blood cultures # lactic acidosis -LA 4.9 -improved to 3.2 with IVF #chronic atrial fibrillation with RVR. -continue metoprolol and xarelto #CHFpEF, no acute component -metop, potassium supp -lasix and empagliflozin/metformin held # HLD -statin # hypomagnesemia -mag 1.4, given IV mag -replete and monitor # GERD -PPI # depression -continue cymbalta Code status is Full code. DVT prophylaxis with xarelto. Proxy is Dinorah. I have reviewed home meds and used all available resources to reconcile the home meds. Case discussed with ED physician/APC and patient will be admitted to the hospitalist service for further workup and management. This patient will be admitted as obs and will require less than 2 midnights of hospital time to treat L knee cellulitis.
[2023-07-26 17:34] LABS: Magnesium 1.4 mg/dL (1.6-2.3)
[2023-07-26 19:03] LABS: Lactate (Lactic Acid) 1.9 mmol/L (0.7-2.1)
[2023-07-26] MEDS: SODIUM CHLORIDE 0.9% 500 ML IV (19:15)
[2023-07-26] MEDS: OXYCODONE IR 5 MG TABLET PO (19:15)
--- NOTE | 2023-07-26 19:41 | PC.WOUNDPHOT ---
wounds visualized by and yelena dressing applied. Pt states goes to wound care every thursday.
[2023-07-26] MEDS: MAGNESIUM SULFATE 4 GM/100 ML PIGGYBACK IV (19:50)
[2023-07-26] MEDS: METOPROLOL ER 50 MG TABLET PO (22:02)
[2023-07-26] MEDS: ATORVASTATIN 20 MG TABLET 80 MG PO (22:03)
[2023-07-26] MEDS: POTASSIUM CHLORIDE 10 MEQ TAB 20 MEQ PO (22:03)
[2023-07-26] MEDS: GABAPENTIN 400 MG CAPSULE 800 MG PO (22:06)
[2023-07-26] MEDS: MELATONIN 3 MG TABLET 6 MG PO (22:07)
[2023-07-26] MEDS: HYDROMORPHONE 0.5 MG INJ IV (22:19)
[2023-07-27] VITALS (11 sets, daily range): BP systolic 110–133; BP diastolic 73–86; PULSE 83–102; RESP 18–22; TEMP 35.7–36.7; O2SAT 1–95
[2023-07-27] MEDS: VANCOMYCIN 1,250 MG/250 ML PIGGYBACK 250 MG IV ×2 (04:00→15:43)
--- NOTE | 2023-07-27 04:50 | PC.NURSE ---
pt pulled at right sed high school teacher told me to take it the rest of the way out. cath tip intact.
[2023-07-27 05:56] LABS: Basophils Absolute Auto 100 /uL (0-100); Basophils Percent Auto 0.9 % (0-2); Eosinophils Absolute Auto 0 /uL (0-450); Eosinophils Percent Auto 0.5 % (2-4); Hematocrit 30.9 % (41-53); Hemoglobin 9.6 g/dL (13.5-17.5); Lymphocytes Absolute Auto 900 /uL (1100-4500); Lymphocytes Percent Auto 11.8 % (25-40); Mean Corpuscular HGB Conc 31.2 % (30-36); Mean Corpuscular Hemoglobin 26.3 PG (26-34); Mean Corpuscular Volume 84.3 fL (80-100); Monocytes Absolute Auto 500 /uL (0-900); Monocytes Percent Auto 7.3 % (3-14); Neutrophils Absolute Auto 6000 /uL (1500-7000); Neutrophils Percent Auto 79.5 % (50-75); Platelet Count 179 X10^3/uL (150-400); Red Blood Cell Count 3.67 X10^6/uL (4.5-5.9); Red Cell Distribution Width 24.6 % (11.6-14.8); White Blood Cell Count 7.5 X10^3/uL (4.5-11.0)
[2023-07-27 05:59] LABS: Add Manual Diff / Slide Review SLIDE REVIEW
[2023-07-27 06:23] LABS: BUN Creatinine Ratio 35.9 (6-22); Blood Urea Nitrogen 23 mg/dL (9-20); Calcium 9.5 mg/dL (8.4-10.2); Carbon Dioxide 22 mmol/L (22-32); Chloride 101 mmol/L (98-107); Estimated Glomerular Filt Rate > 60 mL/min (>60); Glucose 105 mg/dL (80-110); HEMOLYSIS < 15 (0-50); Magnesium 2.5 mg/dL (1.6-2.3); Potassium 3.7 mmol/L (3.4-5.1); Sodium 135 mmol/L (137-145)
[2023-07-27 07:03] LABS: Anisocytosis 1+
[2023-07-27 07:04] LABS: Poikilocytosis 1+
--- NOTE | 2023-07-27 07:21 | P.PN_ITS ---
Subjective Subjective Interval history: Patient's left knee cellulitis somewhat improved. Less pain and warmth today. Spouse asking about possible osteomyelitis, which CT didn't show. Exam Vital Signs (past 8 hours): - 07/26/23 23:46 07/26/23 23:47 07/27/23 00:12 Temperature 96.3 F L Pulse Rate 121 H 121 H 97 H Respiratory Rate 19 18 Blood Pressure 102/79 102/79 Pulse Oximetry 93 92 Oxygen Delivery Method Room Air Oxygen Flow Rate 2 07/27/23 04:00 Temperature 98.0 F Pulse Rate 102 H Respiratory Rate 22 Blood Pressure 133/86 Pulse Oximetry 93 Oxygen Delivery Method Oxygen Flow Rate 2 Oxygen Delivery Method Room Air Oxygen Flow Rate 2 Narrative Exam Narrative: General:? Patient is well developed and well nourished, in no distress at this time. HEENT:? Normocephalic, atraumatic, extraocular muscles intact, oral pharynx is clear and mucous membranes are moist. Neck: supple and symmetric, trachea is midline, no cervical adenopathy. Negative for JVD Chest:? Normal AP diameter and contour without kyphoscoliosis, no tachypnea, equal chest rise bilaterally. Lungs:? CTA b/l no wheezing rhonchi or rales. Cardio:?mildly tachy, irregularly irregular. Abdomen: S NT ND. No CVA tenderness. Musculoskeletal:? Muscle strength and tone are equal within normal limits, no deformity. Extremities: Left patellar wound with surrounding swelling, warmth, erythema and painful to touch all improving. Right lateral leg wound is without erythema or pain. Skin:? Pale,? Warm to touch,dry and intact without rashes, ulcerations or petechiae except as noted above. Neuro:? Alert and orientated x3,? sensation to touch intact in all extremities, no gross deficits noted of cranial nerves. Psych:? Patient has a well-kept appearance, appropriate affect, mental status attitude thought context and judgment are appropriate for age. Objective Labs 07/27/23 05:34 07/27/23 05:34 Labs: Laboratory Results - last 24 hr 07/26/23 07/26/23 07/26/23 13:55 16:25 18:43 WBC 6.8 RBC 3.45 L Hgb 9.2 L Hct 29.1 L MCV 84.3 MCH 26.6 MCHC 31.6 RDW 24.2 H Plt Count 208 Neut % (Auto) Not Reportable Lymph % (Auto) Not Reportable [place] % (Auto) Not Reportable Eos % (Auto) Not Reportable Baso % (Auto) Not Reportable Neut # (Auto) Lymph # (Auto) Not Reportable [place] # (Auto) Not Reportable Eos # (Auto) Baso # (Auto) Not Reportable Total Counted 100 Seg Neutrophils % 79.0 H Lymphocytes % (Manual) 17.0 L Monocytes % (Manual) 3.0 Basophils % (Manual) 1.0 Neutrophils # (Manual) 5372 RBC Morphology Not Reportable Poikilocytosis 1+ H Anisocytosis 1+ H ESR 56 H PT 43.9 H D INR 3.8 H APTT 42 H Sodium 134 L Potassium 3.6 Chloride 99 Carbon Dioxide 19 L BUN 23 H Creatinine 0.65 L Estimated GFR > 60 BUN/Creatinine Ratio 35.4 H Glucose 135 H Lactate 4.9 H* 3.2 H 1.9 Calcium 9.9 Magnesium 1.4 L Total Bilirubin 1.0 AST 29 ALT 21 Alkaline Phosphatase 61 C-Reactive Protein 2.7 H Total Protein 7.1 Albumin 3.9 Globulin 3.2 Albumin/Globulin Ratio 1.2 Lipase 82 Procalcitonin 0.08 07/27/23 05:34 WBC 7.5 RBC 3.67 L Hgb 9.6 L Hct 30.9 L MCV 84.3 MCH 26.3 MCHC 31.2 RDW 24.6 H Plt Count 179 Neut % (Auto) 79.5 H Lymph % (Auto) 11.8 L [place] % (Auto) 7.3 Eos % (Auto) 0.5 L Baso % (Auto) 0.9 Neut # (Auto) 6000 Lymph # (Auto) 900 L [place] # (Auto) 500 Eos # (Auto) 0 Baso # (Auto) 100 Total Counted Seg Neutrophils % Lymphocytes % (Manual) Monocytes % (Manual) Basophils % (Manual) Neutrophils # (Manual) RBC Morphology See below Poikilocytosis 1+ H Anisocytosis 1+ H ESR PT INR APTT Sodium 135 L Potassium 3.7 Chloride 101 Carbon Dioxide 22 BUN 23 H Creatinine 0.64 L Estimated GFR > 60 BUN/Creatinine Ratio 35.9 H Glucose 105 Lactate Calcium 9.5 Magnesium 2.5 H Total Bilirubin AST ALT Alkaline Phosphatase C-Reactive Protein Total Protein Albumin Globulin Albumin/Globulin Ratio Lipase Procalcitonin REPLACED BY [facility] Medical History Renal mass Chronic diastolic (congestive) heart failure Alcohol use disorder Anemia Mumps Measles Chicken pox Peripheral arterial disease AAA (abdominal aortic aneurysm) GERD without esophagitis Diabetic toe ulcer Polyneuropathy, unspecified Type 2 diabetes mellitus with polyneuropathy Surgical History S/P mitral valve repair History of cataract removal with insertion of prosthetic lens Social History details: Partner (Yadi Dong) household members: significant other Smoking Status: Current every day smoker alcohol intake: current Assessment & Plan Assessment & Plan narrative: #L knee cellulitis, improving -failed outpatient po abx with levaquin, hot/red/swollen and very painful to touch on exam -rocephin and vanc ordered -no joint involvement per CT -blood cultures NG at 24 hours # lactic acidosis, resolved -LA 4.9 -improved to normal with IVF #chronic atrial fibrillation with RVR -continue metoprolol and xarelto #CHFpEF, no acute component -metop, potassium supp -lasix and empagliflozin/metformin held # HLD -statin # hypomagnesemia -mag 1.4, given IV mag -replete and monitor # GERD -PPI # depression -continue cymbalta Code status is Full code. DVT prophylaxis with xarelto. Proxy is Dinorah. I have reviewed home meds and used all available resources to reconcile the home meds. Dispo: Home vs SNF in 1-2 days. Quality VTE Deep Vein Thrombosis/Pulmonary Embolism Present on Admission: No
[2023-07-27] MEDS: POTASSIUM CHLORIDE 10 MEQ TAB 20 MEQ PO ×2 (08:41→21:00)
[2023-07-27] MEDS: GABAPENTIN 400 MG CAPSULE 800 MG PO ×3 (08:41→21:00)
[2023-07-27] MEDS: METOPROLOL ER 50 MG TABLET 100 MG PO (08:41)
[2023-07-27] MEDS: PANTOPRAZOLE DR 20 MG TABLET PO (08:41)
[2023-07-27] MEDS: DULOXETINE 30 MG CAPSULE 60 MG PO (08:41)
[2023-07-27] MEDS: cefTRIAXone 2,000 MG in SODIUM CHLORIDE 0.9% 100 ML 200 MG IV (08:50)
[2023-07-27] MEDS: OXYCODONE IR 5 MG TABLET PO ×2 (13:39→21:00)
--- NOTE | 2023-07-27 13:50 | CM.DANOTE ---
Addendum entered by MARCUS Anne 07/27/23 14:46: ADD: Patient does not have [facility] MCR, he has MCR/AARP. Patient is inpatient from time of admission. March at [facility] following for review of PT notes. GEN Original Note: Initial DCP Assessment Note Pt is a 73 yo male, resident of [place] , arrives w/ongoing L knee pain after being sent home on po abx for cellulitis on 07/23, admitted for IV abx. OBS status expected per Dr Burnett. PCP: Freeman Chao Payer: [facility] Met w/patient and his SO Priscilla P [phone] at bedside, introduced self and role. Patient and SO do not have a home together but have been together for 15+ years and SO visits patient daily. Patient and SO are soon to per SO Priscilla. patient has a brother in law, William, that lives in [place]. No children. No DPOA at this time. Patient completes most ADLs independently, he receives assist with meals, AM/PM meds and driving. SO also assists with wound care which is needed 3 days a week. Patient attends wound care outpatient once a week. SO Priscilla is scheduled to have hip surgery August 04 at . Her daughter will be driving her and assisting in her recovery. SO placed call to [facility] this morning to inquire about a respite stay for patient during this time. Discussed [facility] vs SNF, patient agreeable to either option and requests referral to [facility]. Explained patient would need to be accepted and insurance auth obtained. Meanwhile, requested that SO Priscilla attempt contact again w/[facility] to research this as an option in case SNF does not work. Also discussed patient paying privately at SNF if insurance does not auth. Quoted approx $400 daily and need for one month deposit down. Referral discussed with March at [facility]. PT order entered. Awaiting SNF review and PT recs Plan: Patient may benefit from SNF stay vs Home w/HH and SO w/ patient/family to follow up re respite stay at [facility] CM team will need to follow closely for coordination of DCP. 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 No Advance Directives on File No History Provided By Patient,Significant Other Prior Living Arrangements House Household Members significant other Type of transporation used prior to Relies on Others admit Independent with ADL's Yes: Mod Indp. SO visits daily Is patient alert and oriented? Yes: Some mild confusion noted during assessment Needs Assistance With Managing Medications,Home Chores / Shopping Caregiver for Another No Patient/Family Preference Long-Term Facility Barriers to Discharge Yes Comment Patient typically has assistance from his SO Priscilla. Priscilla is scheduled for hip surgery Aug 04 here at . Patient and SO state he has no one else to assist at this time. Transportation Arrangement TBD Referrals Initiated Long-Term Additional Comment [facility] per patient preference. Medicare Choice List Provided Yes Medicare choice list reviewed on patient,family electronic tablet with SNF/HH Preference [facility]. Has Agency SNF been contacted Yes
[2023-07-27] MEDS: RIVAROXABAN 10 MG TABLET 20 MG PO (16:46)
[2023-07-27] MEDS: ATORVASTATIN 20 MG TABLET 80 MG PO (21:00)
[2023-07-27] MEDS: METOPROLOL ER 50 MG TABLET PO (21:01)
[2023-07-27] MEDS: MELATONIN 3 MG TABLET 6 MG PO (21:06)
[2023-07-28] VITALS (13 sets, daily range): BP systolic 109–130; BP diastolic 64–92; PULSE 78–98; RESP 17–20; TEMP 35.8–36.6; O2SAT 90–94
[2023-07-28] MEDS: VANCOMYCIN TROUGH 1 REQUEST MISC (03:41)
[2023-07-28] MEDS: ACETAMINOPHEN 325 MG TABLET 650 MG PO ×2 (03:41→15:39)
[2023-07-28] MEDS: OXYCODONE IR 5 MG TABLET PO ×3 (03:41→21:23)
[2023-07-28] MEDS: VANCOMYCIN 1,250 MG/250 ML PIGGYBACK 250 MG IV (03:42)
[2023-07-28 04:10] LABS: Basophils Absolute Auto 100 /uL (0-100); Basophils Percent Auto 1.5 % (0-2); Eosinophils Absolute Auto 100 /uL (0-450); Eosinophils Percent Auto 1.7 % (2-4); Hematocrit 30.9 % (41-53); Hemoglobin 9.7 g/dL (13.5-17.5); Lymphocytes Absolute Auto 1200 /uL (1100-4500); Lymphocytes Percent Auto 16.8 % (25-40); Mean Corpuscular HGB Conc 31.4 % (30-36); Mean Corpuscular Hemoglobin 26.2 PG (26-34); Mean Corpuscular Volume 83.4 fL (80-100); Monocytes Absolute Auto 500 /uL (0-900); Monocytes Percent Auto 7.5 % (3-14); Neutrophils Absolute Auto 5000 /uL (1500-7000); Neutrophils Percent Auto 72.5 % (50-75); Platelet Count 194 X10^3/uL (150-400); Red Cell Distribution Width 24.4 % (11.6-14.8); White Blood Cell Count 6.9 X10^3/uL (4.5-11.0)
[2023-07-28 04:12] LABS: Add Manual Diff / Slide Review SLIDE REVIEW
[2023-07-28 04:13] LABS: BUN Creatinine Ratio 32.4 (6-22); Blood Urea Nitrogen 23 mg/dL (9-20); Calcium 9.8 mg/dL (8.4-10.2); Carbon Dioxide 20 mmol/L (22-32); Chloride 101 mmol/L (98-107); Estimated Glomerular Filt Rate > 60 mL/min (>60); Glucose 126 mg/dL (80-110); HEMOLYSIS < 15 (0-50); Potassium 4.4 mmol/L (3.4-5.1); Sodium 131 mmol/L (137-145)
[2023-07-28 05:41] LABS: Anisocytosis 3+
[2023-07-28 05:42] LABS: Ovalocytes 1+
[2023-07-28] MEDS: VANCOMYCIN PEAK 1 REQUEST MISC (05:54)
[2023-07-28 06:43] LABS: Vancomycin Peak 35.1 ug/mL (20-40)
[2023-07-28] MEDS: METOPROLOL ER 50 MG TABLET 100 MG PO (08:34)
[2023-07-28] MEDS: cefTRIAXone 2,000 MG in SODIUM CHLORIDE 0.9% 100 ML 200 MG IV (08:34)
[2023-07-28] MEDS: SENNOSIDES 8.6 MG TABLET PO ×2 (08:34→21:25)
[2023-07-28] MEDS: DULOXETINE 30 MG CAPSULE 60 MG PO (08:35)
[2023-07-28] MEDS: polyethylene glycoL 3350 17 GM POWD.PACK PO (08:35)
[2023-07-28] MEDS: PANTOPRAZOLE DR 20 MG TABLET PO (08:35)
[2023-07-28] MEDS: POTASSIUM CHLORIDE 10 MEQ TAB 20 MEQ PO ×2 (08:35→21:25)
[2023-07-28] MEDS: GABAPENTIN 400 MG CAPSULE 800 MG PO ×3 (08:35→21:24)
[2023-07-28] MEDS: SODIUM CHLORIDE 0.9% FLUSH 10 ML IV ×2 (08:36→21:30)
--- NOTE | 2023-07-28 09:41 | PT.IIE ---
Current Diagnoses Cellulitis of left lower limb (07/26/23) Surgical History (Last Reviewed 07/26/23 @ 13:49 by Brenda Yost MD) History of cataract removal with insertion of prosthetic lens S/P mitral valve repair Medical History (Last Reviewed 07/26/23 @ 13:49 by Brenda Yost MD) AAA (abdominal aortic aneurysm) Alcohol use disorder Anemia Chicken pox Chronic diastolic (congestive) heart failure Diabetic toe ulcer GERD without esophagitis Measles Mumps Peripheral arterial disease Polyneuropathy, unspecified Renal mass Type 2 diabetes mellitus with polyneuropathy Physical Therapy Inpatient Evaluation/Re-Eval M1 PT/OT-IP Prior Functional Status Start: 07/28/23 10:14 Freq: NEEDED Status: Active Protocol: Document 07/28/23 10:14 AB (Rec: 07/28/23 10:38 AB [id number]) Medical Review Prior Functional Status Medical History Reviewed Yes Communication Pt is able to express all needs. Mobility and Gait Pt ambulates with FWW at baseline for both household and community distances. Activities of Daily Living and IADL's Pt reports being IND with ADLs , but requires assistance with IADLs such as cooking and cleaning. Prior Functional Level (Other details) Per pt's partner: pt requires assistance for wound care management, meals and taking medications. Social History Household Members significant other Living Arrangements House Number of Floors (Floors) Two Floors Number of Stairs To Enter/Railing? 4 SARITA without hand rails Home Environment Standard Height Toilet,Walk in Shower Home Equipment Front Wheel Walker,Straight Cane,Raised Toilet Seat Without Armrests,Hand Held Shower Additional Social History Comment Pt reports he and his partner live on first floor and have no needs on second floor, however, his partner is not currently living with him as she is helping to take care of her mother and also has upcoming hip surgery. He also reports he sleeps in a hospital bed. Does not use O2 at baseline. M2 PT-IP Current Condition Start: 07/28/23 10:14 Freq: NEEDED Status: Active Protocol: Document 07/28/23 10:14 AB (Rec: 07/28/23 10:38 AB [id number]) Physical Therapy Current Condition Current Condition Evaluation Date 07/28/23 Treatment Diagnosis cellulitis in left knee; weakness Onset Date 07/26/23 M3 PT-IP Subjective Start: 07/28/23 10:14 Freq: NEEDED Status: Active Protocol: Document 07/28/23 10:14 AB (Rec: 07/28/23 10:38 AB [id number]) Subjective Physical Therapy Visit Type Type Initial Evaluation Visit Start Time 08:58 Visit Stop Time 09:41 Total Visit Minutes 43 Physical Therapy Visit Comments Patient Comments Pt presents seated in recliner chair with 2L of O2 via nasal cannula. He reports having pain in left knee due to wound , but is agreeable to PT evaluation. Therapy Pain Assessment Pain When Pain Assessed At Rest Pain Present Pain Present Pain Reported Location left knee Intensity 8 Scale Used Numeric (0 - 10) M4 PT-IP Mobility and Gait Start: 07/28/23 10:14 Freq: NEEDED Status: Active Protocol: Document 07/28/23 10:14 AB (Rec: 07/28/23 10:38 AB [id number]) PT-Bed Mobility Assessment Rolling Type of Rolling Bilateral Level of Assist Standby Assistance Supine to Sit Supine to Sit Standby Assistance,Head of Bed Elevated Sit to Supine Sit to Supine Contact Guard Assistance,Head of Bed Elevated Scooting Scooting to Edge of Bed Standby Assistance PT-Transfer Assessment Sit to and From Stand Sit to and from Stand Contact Guard Assistance,Use of Upper Extremities Equipment Transfer Assistive Device Gait Belt,Front Wheeled Walker Transfers Transfer Destination Bed,Chair Transfer Technique Stand Step Pivot Transfer Ability Level of Assist Contact Guard Assistance Comments Mobility Comments At rest, pt's O2 desaturates to 87% on RA with increased SOB reported, but improves to 94% on 2L of O2, therefore supplemental O2 was used throughout mobility. Pt is able to perform bed mobility with HOB elevated 15 degrees, as this is typical for his bed at home. He is able to perform STS with CGA, but heavy use of UEs and requires cues for proper hand placement ; no symptoms reported in standing. Pt transfered also with FWW and CGA using stand step pivot. Pt then ambulated as below. At end of session, pt returned to chair with all needs met and call light within reach. Gait Assessment Gait Gait Assistance Required: Contact Guard Assist Distance (Feet) 15 Assistive Devices Assistive Device Gait Belt,Front Wheeled Walker Orthotic/Prosthetic Devices or Brace: No Gait Deviations General Gait Pattern Antalgic,Decreased Stride Length,Decreased Feet Clearance Factors Limiting Gait Function Factors Limiting Gait Function Decreased Activity Tolerance, Decreased Strength,Pain Comments Gait Comments Pt is able to ambulate 15ft in room with FWW and CGA. Decreased stride length and step length are noted, with RLE significantly externally rotated. He requires minor cues for proper use of FWW, specifically to maintain FWW near him. No instances of LOB or imbalance were noted during ambulation this morning. He denies an increase in pain symptoms with ambulation, or an increase in SOB. However, he reports being limited by fatigue, stating that he needs to sit and rest. Stair Climbing Assessment Comments Stair Climbing Comments Not assessed due to weakness and fatigue. PT-Balance Assessment Sitting Balance and Reactions Static Sitting Balance Ability Normal Dynamic Sitting Balance Ability Good Standing Balance and Reactions Static Standing Balance Ability Good Dynamic Standing Balance Ability Good Device Used FWW M5 PT-IP Objective Assessments Start: 07/28/23 10:14 Freq: NEEDED Status: Active Protocol: Document 07/28/23 10:14 AB (Rec: 07/28/23 10:38 AB [id number]) Orientation Orientation/Cognition Level of Alertness Alert Orientation Name,Age,Birthday,Month,Date, Year,Day of Week,Place, Situation Language Function Ability No Deficits Noted Safety Awareness Understands Safety Issues Memory Description No Deficits Noted Gross Range of Motion Upper Extremity ROM Assessment Within Functional Limits Lower Extremity ROM Assessment Left Impaired Strength Upper Extremity Strength Assessment Within Functional Limits Lower Extremity Strength Assessment Left Impaired M6 PT-IP Treatment Start: 07/28/23 10:14 Freq: NEEDED Status: Active Protocol: Document 07/28/23 10:14 AB (Rec: 07/28/23 10:38 AB [id number]) Physical Therapy Treatment Education Education Provided Safety Brace Education Patient M7 PT-IP Assessment and Plan Start: 07/28/23 10:14 Freq: NEEDED Status: Active Protocol: Document 07/28/23 10:14 AB (Rec: 07/28/23 10:38 AB [id number]) PT Summary Assessment and Plan Potential Rehabilitation Potential Good Status of Condition at Evaluation Stable Summary Impairments Pain,ROM,Strength,Balance,Bed Mobility,Transfers,Gait, Activity Tolerance Assessment Summary Leroy Almonte is a 73 year old male patient presenting with increased weakness and mobility deficits secondary to cellulitis in left knee. Today's PT evaluation revealed muscular weakness and endurance impairments which are limiting his ability to perform functional mobility and ADLs independently and safely. The pt currently requires CGA for all functional mobility, and is only able to ambulate 15ft with FWW at this time. He was unable to ascend/descend any steps this session due to weakness and fatigue. Based on these findings and the pt's other medical cormorbidities, PT recommends discharge to SNF to improve his level of function. However, this is subject to change based on progress made during his hospitalization. Goals Bed Mobility Goal Independent Transfer Goal Independent,Front Wheeled Walker Gait Goal Standby Assistance,Front Wheel Walker Gait Distance 100 Other Goals Pt to be able to ascend/ descend 4 steps without use of hand rails and with SBA in order to discharge to home. Pt to be able to ambulate 50ft independently with FWW to show improving tolerance to activity. Days to Meet Goals 10 Frequency of Treatment Frequency Of Treatment Once a Day Treatment Plan Physical Therapy Treatment Plan Bed Mobility Training,Transfer Training,Gait Training, Therapeutic Exercise,Balance Retraining,Post Op Education, Discharge Planning,Hot or Cold Pack,Neuromuscular Re-ed, Coordination Retraining,Manual Therapy Other Recommendations and Next Treatment Assess ability to perform Focus stairs, increase ambulation distance, and trial titrating O2 during mobility. OT evaluation is also recommended and was communicated to keycase assembler. Recommendations To Nursing Amount of Assist Needed Standby Assistance Discharge Recommendations PT Discharge Recommendations SNF Rehab Transportation Needs at Discharge Private Vehicle,Wheelchair/ Cabulance
--- NOTE | 2023-07-28 14:16 | CM.DPC ---
DCP Cont. Reviewed chart for status updates. [facility] reviewing for SNF acceptance, left message for her to call us and update if he's accepted, and that he's anticipated to be inpt 1-2 more days for cont. ABO's and woundcare. Cont. to monitor. PASSAR with facesheet.
[2023-07-28] MEDS: VANCOMYCIN 1,000 MG/200 ML PIGGYBACK 200 MG IV (15:24)
--- NOTE | 2023-07-28 15:28 | PM.PN.1 ---
Subjective Subjective Interval history: Patient sleeping but at bedside and questions were answered. Worked with PT and SNF rec. Warmth and swelling of L kneecap is improving. Exam Vital Signs (past 8 hours): - 07/28/23 07:31 07/28/23 08:00 07/28/23 08:30 Temperature 97.1 F L Pulse Rate 86 Respiratory Rate 17 Blood Pressure 118/92 H Pulse Oximetry 94 92 Oxygen Delivery Method Nasal Cannula Nasal Cannula Oxygen Flow Rate 2 2 Fraction of Inspired Oxygen 28 07/28/23 08:30 07/28/23 08:34 07/28/23 12:00 Temperature 97.0 F L Pulse Rate 93 H 85 Respiratory Rate 17 Blood Pressure 118/92 H 109/75 Pulse Oximetry 94 94 Oxygen Delivery Method Nasal Cannula Oxygen Flow Rate 2 2 Fraction of Inspired Oxygen Fraction of Inspired Oxygen 28 SaO2/FiO2 Ratio 335 Oxygen Delivery Method Nasal Cannula Oxygen Flow Rate 2 Narrative Exam Narrative: General:? Patient is well developed and well nourished, in no distress at this time. HEENT:? Normocephalic, atraumatic, extraocular muscles intact, oral pharynx is clear and mucous membranes are moist. Neck: supple and symmetric, trachea is midline, no cervical adenopathy. Negative for JVD Chest:? Normal AP diameter and contour without kyphoscoliosis, no tachypnea, equal chest rise bilaterally. Lungs:? CTA b/l no wheezing rhonchi or rales. Cardio:?mildly tachy, irregularly irregular. Abdomen: S NT ND. No CVA tenderness. Musculoskeletal:? Muscle strength and tone are equal within normal limits, no deformity. Extremities: Left patellar wound with surrounding swelling, warmth, erythema and painful to touch all improving. Right lateral leg wound is without erythema or pain. Skin:? Pale,? Warm to touch,dry and intact without rashes, ulcerations or petechiae except as noted above. Neuro:? Alert and orientated x3,? sensation to touch intact in all extremities, no gross deficits noted of cranial nerves. Psych:? Patient has a well-kept appearance, appropriate affect, mental status attitude thought context and judgment are appropriate for age. Objective Labs 07/28/23 03:53 07/28/23 03:53 Labs: Laboratory Results - last 24 hr 07/28/23 07/28/23 03:53 05:54 WBC 6.9 RBC 3.70 L Hgb 9.7 L Hct 30.9 L MCV 83.4 MCH 26.2 MCHC 31.4 RDW 24.4 H Plt Count 194 Neut % (Auto) 72.5 Lymph % (Auto) 16.8 L Barron % (Auto) 7.5 Eos % (Auto) 1.7 L Baso % (Auto) 1.5 Neut # (Auto) 5000 Lymph # (Auto) 1200 Barron # (Auto) 500 Eos # (Auto) 100 Baso # (Auto) 100 RBC Morphology See below Anisocytosis 3+ H D Ovalocytes 1+ H Sodium 131 L Potassium 4.4 Chloride 101 Carbon Dioxide 20 L BUN 23 H Creatinine 0.71 Estimated GFR > 60 BUN/Creatinine Ratio 32.4 H Glucose 126 H Calcium 9.8 Magnesium 2.0 Vancomycin Peak 35.1 Vancomycin Trough 15.0 PFSH Medical History Renal mass Chronic diastolic (congestive) heart failure Alcohol use disorder Anemia Mumps Measles Chicken pox Peripheral arterial disease AAA (abdominal aortic aneurysm) GERD without esophagitis Diabetic toe ulcer Polyneuropathy, unspecified Type 2 diabetes mellitus with polyneuropathy Surgical History S/P mitral valve repair History of cataract removal with insertion of prosthetic lens Social History details: Partner (Yadi Dong) household members: significant other Smoking Status: Current every day smoker alcohol intake: current Assessment & Plan Assessment & Plan narrative: #L knee cellulitis, improving -failed outpatient po abx with levaquin, hot/red/swollen and very painful to touch on exam -rocephin and vanc ordered -no joint involvement per CT -blood cultures NG at 24 hours # lactic acidosis, resolved -LA 4.9 -improved to normal with IVF #chronic atrial fibrillation with RVR -continue metoprolol and xarelto #CHFpEF, no acute component -metop, potassium supp -lasix and empagliflozin/metformin held # HLD -statin # hypomagnesemia -mag 1.4, given IV mag -replete and monitor # GERD -PPI # depression -continue cymbalta Code status is Full code. DVT prophylaxis with xarelto. Proxy is Dinorah. I have reviewed home meds and used all available resources to reconcile the home meds. Dispo: [facility] auth. Quality VTE Deep Vein Thrombosis/Pulmonary Embolism Present on Admission: No
--- NOTE | 2023-07-28 15:35 | OT.IP.EVAL ---
Current Diagnoses Cellulitis of left lower limb (07/26/23) Past Medical History (Last Reviewed 07/26/23 @ 13:49 by Brenda Yost MD) AAA (abdominal aortic aneurysm) Alcohol use disorder Anemia Chicken pox Chronic diastolic (congestive) heart failure Diabetic toe ulcer GERD without esophagitis Measles Mumps Peripheral arterial disease Polyneuropathy, unspecified Renal mass Type 2 diabetes mellitus with polyneuropathy Surgical History (Last Reviewed 07/26/23 @ 13:49 by Brenda Yost MD) History of cataract removal with insertion of prosthetic lens S/P mitral valve repair Occupational Therapy Inpatient Evaluation/Re-Eval M1 PT/OT-IP Prior Functional Status Start: 07/28/23 15:36 Freq: NEEDED Status: Active Protocol: Document 07/28/23 15:35 [facility] (Rec: 07/28/23 15:52 [facility] [id number]) Medical Review Prior Functional Status Medical History Reviewed Yes Communication Pt is able to express all needs. Mobility and Gait Pt ambulates with FWW at baseline for both household and community distances. Activities of Daily Living and IADL's Pt reports being IND with ADLs , but requires assistance with IADLs such as cooking, meds, bills, driving and cleaning. Prior Functional Level (Other details) Per pt's partner: pt requires assistance for wound care management, meals and taking medications. Social History Household Members significant other Living Arrangements House Number of Floors (Floors) Two Floors Number of Stairs To Enter/Railing? 4 SARITA without hand rails Home Environment Standard Height Toilet,Walk in Shower,Built-In Shower Seat Home Equipment Front Wheel Walker,Straight Cane,Raised Toilet Seat Without Armrests,Hand Held Shower Additional Social History Comment Pt reports he and his partner live on first floor and have no needs on second floor, however, his partner is not currently living with him as she is helping to take care of her mother and also has upcoming hip surgery. He also reports he sleeps in a hospital bed. Does not use O2 at baseline. M2 OT-IP Current Condition Start: 07/28/23 15:36 Freq: Status: Active Protocol: Document 07/28/23 15:35 [facility] (Rec: 07/28/23 15:52 [facility] [id number]) Occupational Therapy Current Condition Current Condition Evaluation Date 07/28/23 Treatment Diagnosis Cellulutilis of Left lower limb, weakness Diagnosis Onset Date 07/26/23 M3 OT- IP Subjective and Pain Start: 07/28/23 15:36 Freq: Status: Active Protocol: Document 07/28/23 15:35 [facility] (Rec: 07/28/23 15:52 [facility] [id number]) OT- Subjective Occupational Therapy Visit Type Type Initial Evaluation Visit Start Time 15:10 Visit Stop Time 15:35 Total Visit Minutes 25 Occupational Therapy Visit Comments Patient Comments Pt agreed to get up to use the bathroom. OT Pain Assessment Pain When Pain Assessed At Rest Pain Present Pain Present Pain Reported Location left knee Intensity 5 Scale Used Numeric (0 - 10) M4 OT- IP ADL's Start: 07/28/23 15:36 Freq: Status: Active Protocol: Document 07/28/23 15:35 [facility] (Rec: 07/28/23 15:52 [facility] [id number]) OT [id number] Comments OT Self-Feeding Comments Not at meal time. OT ADL-Grooming General Evaluation Grooming Ability Standby Assistance Comments OT Grooming Comments Able to do while standing at the sink with FWW. OT ADL-Oral Care Comments Oral Care Comments Pt states did already. OT ADL-Dressing General Eval Lower Body Dressing Ability Moderate Assistance Comments OT Dressing Comments Pt needing assist to himanshu the brief over his feet and socks on his feet. OT ADL-Toileting General Evaluation Toileting Ability Minimal Assistance Comments OT Toileting Comments Assist for brief management as pt not able to get it over his feet. Pt states usually stands when urinating. OT ADL-Bathing Comments OT Bathing Comments NOt performed. M5 OT- IP IADL's Start: 07/28/23 15:36 Freq: Status: Active Protocol: Document 07/28/23 15:35 [facility] (Rec: 07/28/23 15:52 [facility] [id number]) OT-Instrumental Activities of Daily Living Home Safety Awareness Awareness of Need for Assistance at Home Good Awareness Home Safety Comments At this time pt would need assist especially for FWW and O2 tubing safety and management. Medication Management Medication Management Caregiver Administers Money Management Money Management Caregiver Provides Assistance Meal Preparation Meal Preparation Caregiver Provides Assist Deputy Chief Executive Deputy Chief Executive Caregiver Provides Assist Driving Driving Comments Pt states does not drive anymore. M6 OT- IP Functional Cognition Start: 07/28/23 15:36 Freq: Status: Active Protocol: Document 07/28/23 15:35 [facility] (Rec: 07/28/23 15:52 [facility] [id number]) Cognitive Factors Limiting Selfcare Function Cognitive Ability Level of Alertness Alert Patient Orientation Name,Place,Situation Attention Span Ability Capable of Focused Attention, Capable of Sustained Attention Ability to Follow Commands Able to Follow One Step Commands Memory Description Short Term Impaired Safety Awareness Underestimates Need for Assistance Cognitive Comments Cognitive Assessment Comments Pt states is forgetful and that his significant other is able to assist especially with IADL needs. Pt needing cues to keep the FWW in front of him at all times. Pt needing assist for O2 tubing management needs. OT- Vision and Hearing OT- Vision Assessment Visual Acuity Glasses For Reading M7 OT- IP Mobility and Balance Start: 07/28/23 15:36 Freq: Status: Active Protocol: Document 07/28/23 15:35 [facility] (Rec: 07/28/23 15:52 [facility] [id number]) OT-Transfer Assessment Sit to and From Stand Sit to and from Stand Moderate Assistance Transfers Transfer Ability Standby Assistance,Contact Guard Assistance Technique Transfer Destination Chair,Toilet Transfer Technique Stand Step Pivot Devices Transfer Assistive Devices Gait Belt,Front Wheeled Walker Comments Mobility Comments Pt MODA to stand from lower surfaces and tends to lean on his heel when coming to stand to the FWW. CGA to close SBA with FWW. AT times needing assist to keep the FWW closer to him. Pt on 2L of O2 from 91 -94%. OT- Balance Assessment Sitting Balance and Reactions Static Sitting Balance Ability Normal Dynamic Sitting Balance Ability Good Standing Balance and Reactions Static Standing Balance Ability Good Dynamic Standing Balance Ability Fair M8 OT- IP Objective Assessments Start: 07/28/23 15:36 Freq: Status: Active Protocol: Document 07/28/23 15:35 [facility] (Rec: 07/28/23 15:52 [facility] [id number]) OT Gross Range of Motion Upper Extremity Range of Motion Assessment Within Functional Limits OT Strength Upper Extremity Strength Assessment Within Functional Limits M9 OT- IP Assessment and Plan Start: 07/28/23 15:36 Freq: Status: Active Protocol: Document 07/28/23 15:35 [facility] (Rec: 07/28/23 15:52 [facility] [id number]) OT Summary Assessment and Plan Potential Rehabilitation Potential Good Analytic Complexity at Evaluation Moderate Summary OT Impairments Pain,Strength,Balance, Functional Cognition, Functional Mobility,Dressing, Toileting,Bathing,Toilet Transfers,Shower Transfers, Activity Tolerance Progress Towards Goals Progressing Toward Goals Assessment Summary Pt MOD complexity and main barriers are pain, decreased activity tolerance, needing assist for lower body dressing needs and needing cues for FWW and O2 tubing management needs. At this time pt would benefit from skilled rehab. Goals Self-Feeding Goal Independent Grooming Goal Independent Dressing Goal Independent Toileting Goal Independent Bathing Goal Independent Toilet Transfer Goal Independent Shower Transfer Goal Independent Days to Meet Goals 15 Frequency of Treatment Frequency Of Treatment Once a Day Treatment Plan OT Treatment Plan ADL Training,Functional Cognition Training,Functional Mobility,Patient/Family Education,Discharge Planning Other Treatment Recommendations and Next shower if appropriate Treatment Focus Discharge Recommendations OT Discharge Recommendations SNF Rehab Transportation Needs at Discharge Wheelchair/Cabulance
[2023-07-28] MEDS: RIVAROXABAN 10 MG TABLET 20 MG PO (17:24)
[2023-07-28] MEDS: ATORVASTATIN 20 MG TABLET 80 MG PO (21:23)
[2023-07-28] MEDS: MELATONIN 3 MG TABLET 6 MG PO (21:24)
[2023-07-28] MEDS: METOPROLOL ER 50 MG TABLET PO (21:24)
[2023-07-29] VITALS (11 sets, daily range): BP systolic 115–130; BP diastolic 76–90; PULSE 80–96; RESP 18–22; TEMP 35.7–36.3; O2SAT 91–98
[2023-07-29] MEDS: VANCOMYCIN 1,000 MG/200 ML PIGGYBACK 200 MG IV ×2 (04:18→15:33)
[2023-07-29] MEDS: SODIUM CHLORIDE 0.9% FLUSH 10 ML IV ×3 (04:20→23:00)
[2023-07-29 06:26] LABS: Basophils Absolute Auto 100 /uL (0-100); Basophils Percent Auto 1.1 % (0-2); Eosinophils Absolute Auto 100 /uL (0-450); Eosinophils Percent Auto 1.8 % (2-4); Hemoglobin 10.1 g/dL (13.5-17.5); Lymphocytes Absolute Auto 1300 /uL (1100-4500); Lymphocytes Percent Auto 19.8 % (25-40); Mean Corpuscular HGB Conc 31.6 % (30-36); Mean Corpuscular Hemoglobin 26.4 PG (26-34); Mean Corpuscular Volume 83.4 fL (80-100); Monocytes Absolute Auto 700 /uL (0-900); Monocytes Percent Auto 10.5 % (3-14); Neutrophils Absolute Auto 4300 /uL (1500-7000); Neutrophils Percent Auto 66.8 % (50-75); Platelet Count 173 X10^3/uL (150-400); Red Blood Cell Count 3.84 X10^6/uL (4.5-5.9); Red Cell Distribution Width 24.2 % (11.6-14.8); White Blood Cell Count 6.5 X10^3/uL (4.5-11.0)
[2023-07-29 06:34] LABS: Add Manual Diff / Slide Review SLIDE REVIEW
[2023-07-29 06:40] LABS: BUN Creatinine Ratio 36.2 (6-22); Blood Urea Nitrogen 25 mg/dL (9-20); Calcium 9.8 mg/dL (8.4-10.2); Carbon Dioxide 21 mmol/L (22-32); Chloride 100 mmol/L (98-107); Estimated Glomerular Filt Rate > 60 mL/min (>60); Glucose 96 mg/dL (80-110); HEMOLYSIS < 15 (0-50); Potassium 4.6 mmol/L (3.4-5.1); Sodium 131 mmol/L (137-145)
[2023-07-29 07:04] LABS: Magnesium 1.8 mg/dL (1.6-2.3)
[2023-07-29] MEDS: GABAPENTIN 400 MG CAPSULE 800 MG PO ×3 (08:07→21:19)
[2023-07-29] MEDS: cefTRIAXone 2,000 MG in SODIUM CHLORIDE 0.9% 100 ML 200 MG IV (08:07)
[2023-07-29] MEDS: POTASSIUM CHLORIDE 10 MEQ TAB 20 MEQ PO ×2 (08:07→21:18)
[2023-07-29] MEDS: PANTOPRAZOLE DR 20 MG TABLET PO (08:08)
[2023-07-29] MEDS: METOPROLOL ER 50 MG TABLET 100 MG PO (08:08)
[2023-07-29] MEDS: DULOXETINE 30 MG CAPSULE 60 MG PO (08:08)
[2023-07-29 08:30] LABS: Anisocytosis 2+; Ovalocytes 1+
--- NOTE | 2023-07-29 10:25 | PT.IPTN ---
Current Diagnoses Cellulitis of left lower limb (07/28/23) Physical Therapy Treatment Note M2 PT-IP Current Condition Start: 07/28/23 10:14 Freq: NEEDED Status: Active Protocol: Document 07/28/23 10:14 AB (Rec: 07/28/23 10:38 AB [id number]) Physical Therapy Current Condition Current Condition Evaluation Date 07/28/23 Treatment Diagnosis cellulitis in left knee; weakness Onset Date 07/26/23 M3 PT-IP Subjective Start: 07/28/23 10:14 Freq: NEEDED Status: Active Protocol: Document 07/29/23 11:12 TS (Rec: 07/29/23 11:31 TS [id number]) Subjective Physical Therapy Visit Type Type Treatment Note Visit Start Time 10:25 Visit Stop Time 10:50 Total Visit Minutes 25 Number of COOK FISH EGGS Visits 1 Physical Therapy Visit Comments Patient Comments Pt found resting in bed on 3L of o2. Reports he is feeling tired this morning but is agreeable to PT. Therapy Pain Assessment Pain When Pain Assessed During Mobility Pain Present Pain Present Pain Reported M4 PT-IP Mobility and Gait Start: 07/28/23 10:14 Freq: NEEDED Status: Active Protocol: Document 07/29/23 11:12 TS (Rec: 07/29/23 11:31 TS [id number]) PT-Bed Mobility Assessment Supine to Sit Supine to Sit Standby Assistance,Head of Bed Elevated Sit to Supine Sit to Supine Standby Assistance,Head of Bed Elevated Scooting Scooting to Edge of Bed Standby Assistance PT-Transfer Assessment Sit to and From Stand Sit to and from Stand Contact Guard Assistance,1 Person Assistance,Use of Upper Extremities Equipment Transfer Assistive Device Gait Belt,Front Wheeled Walker Orthotic/Prosthetic Devices or Brace: No Comments Mobility Comments Pt is resting on 3L of o2 at 94% prior to mobility. Supine to sit SBA with HOB elevated and BUE support for uprighting trunk. Sit to stand w/FWW CGA , pt required cues for pushing up from bed not grabbing FWW. He ambulated ~15'CGA/SBA w/ FWW, pt c/o increasing pain in R knee and some dizziness, pt requested to sit in chair. Before pt sat down he was impulsive to sit before it was safe to do so and required cues to keep FWW close. BP taken in sitting 118/76. Pt agreed to ambulate more. He ambulated another ~15' in room with FWW, pt tends to ambulate with L knee ext rotated making him unsteady with gait, Spo2 93%. He requested to use toilet before returning to bed. Sit to supine into bed SBA with use of BUE support. Pt was left back in bed on 3L of o2, bed alarm on, all needs met. Gait Assessment Gait Gait Assistance Required: Contact Guard Assist Distance (Feet) 40 Assistive Devices Assistive Device Gait Belt,Front Wheeled Walker Orthotic/Prosthetic Devices or Brace: No Gait Deviations General Gait Pattern Antalgic,Decreased Stride Length,Decreased Feet Clearance Factors Limiting Gait Function Factors Limiting Gait Function Decreased Activity Tolerance, Decreased Strength,Pain,Poor Balance,Poor Safety Awareness Comments Gait Comments See mobility comments PT-Balance Assessment Sitting Balance and Reactions Static Sitting Balance Ability Normal Dynamic Sitting Balance Ability Good Standing Balance and Reactions Static Standing Balance Ability Good Dynamic Standing Balance Ability Fair Device Used FWW M5 PT-IP Objective Assessments Start: 07/28/23 10:14 Freq: NEEDED Status: Active Protocol: Document 07/28/23 10:14 AB (Rec: 07/28/23 10:38 AB [id number]) Orientation Orientation/Cognition Level of Alertness Alert Orientation Name,Age,Birthday,Month,Date, Year,Day of Week,Place, Situation Language Function Ability No Deficits Noted Safety Awareness Understands Safety Issues Memory Description No Deficits Noted Gross Range of Motion Upper Extremity ROM Assessment Within Functional Limits Lower Extremity ROM Assessment Left Impaired Strength Upper Extremity Strength Assessment Within Functional Limits Lower Extremity Strength Assessment Left Impaired M6 PT-IP Treatment Start: 07/28/23 10:14 Freq: NEEDED Status: Active Protocol: Document 07/29/23 11:12 TS (Rec: 07/29/23 11:31 TS [id number]) Physical Therapy Treatment Education Education Provided Safety M7 PT-IP Assessment and Plan Start: 07/28/23 10:14 Freq: NEEDED Status: Active Protocol: Document 07/29/23 11:12 TS (Rec: 07/29/23 11:31 TS [id number]) PT Summary Assessment and Plan Potential Rehabilitation Potential Good Summary Impairments Pain,ROM,Strength,Balance,Bed Mobility,Transfers,Gait, Activity Tolerance Progress Towards Goals Progressing Toward Goals Assessment Summary Sushil is making some progress with his mobility this session . He continues to bed SBA for bed mobility and CGA for sit to stands w/FWW. He progressed his gait to ~40'CGA/SBA. He continues to ambulate with LLE ext rotated making him unsteady and with poor balance . He lacks good safety awareness with his mobility, requires cues to keep FWW close before sitting down. His activity tolerance remains low due to onging respiratory issues and pain in L knee. Spo2 remained in low 90's throughout session on 3L of o2 with minor complaints of SOB. PT continues to recommend SNF rehab at this time to progress functional mobility and activity tolerance. Goals Bed Mobility Goal Independent Transfer Goal Independent,Front Wheeled Walker Gait Goal Standby Assistance,Front Wheel Walker Gait Distance 100 Other Goals Pt to be able to ascend/ descend 4 steps without use of hand rails and with SBA in order to discharge to home. Pt to be able to ambulate 50ft independently with FWW to show improving tolerance to activity. Days to Meet Goals 10 Frequency of Treatment Frequency Of Treatment Once a Day Treatment Plan Physical Therapy Treatment Plan Bed Mobility Training,Transfer Training,Gait Training, Therapeutic Exercise,Balance Retraining,Post Op Education, Discharge Planning,Hot or Cold Pack,Neuromuscular Re-ed, Coordination Retraining,Manual Therapy Other Recommendations and Next Treatment Assess ability to perform Focus stairs, increase ambulation distance, and trial titrating O2 during mobility. Recommendations To Nursing Amount of Assist Needed Standby Assistance Discharge Recommendations PT Discharge Recommendations SNF Rehab Transportation Needs at Discharge Private Vehicle,Wheelchair/ Cabulance
--- NOTE | 2023-07-29 11:17 | DI.RAD.S_ITS ---
PROCEDURE: XR CHEST 1V INDICATIONS: hypoxia, on 4L TECHNIQUE: One view of the chest was acquired. COMPARISON: [facility], CR, XR CHEST 1V, 07/26/2023, 13:07. FINDINGS: Surgical changes and devices: None. Lungs and pleura: Slightly more prominent appearance of left effusion. Mediastinum: Mediastinal contours appear normal. Heart size is large. Bones and chest wall: No suspicious bony lesions. Overlying soft tissues appear unremarkable. IMPRESSION: Mild left effusion slightly more prominent. Dictated by: Charlotte Wagner M.D. on 07/29/2023 at 11:40 Approved by: Charlotte Wagner M.D. on 07/29/2023 at 11:41
[2023-07-29] MEDS: FUROSEMIDE 40 MG/4 ML VIAL IV (12:47)
--- NOTE | 2023-07-29 14:28 | PM.PN.1 ---
Subjective Subjective Interval history: Patient now on 4L today. Rales on exam and CXR with pleural effusion. Started lasix. Patient L knee still very painful, so will obtain MRI knee to r/o osteo. Exam Vital Signs (past 8 hours): - 07/29/23 07:18 07/29/23 08:00 07/29/23 08:08 Temperature 96.5 F L Pulse Rate 81 83 Respiratory Rate 18 Blood Pressure 119/76 Pulse Oximetry 91 92 Oxygen Delivery Method Nasal Cannula Nasal Cannula Oxygen Flow Rate 4 4 Fraction of Inspired Oxygen 36 07/29/23 08:08 07/29/23 10:45 Temperature Pulse Rate Respiratory Rate Blood Pressure 118/76 Pulse Oximetry 95 Oxygen Delivery Method Nasal Cannula Oxygen Flow Rate 4 Fraction of Inspired Oxygen Fraction of Inspired Oxygen 36 SaO2/FiO2 Ratio 252 Oxygen Delivery Method Nasal Cannula Oxygen Flow Rate 4 Narrative Exam Narrative: General:? Patient is well developed and well nourished, in no distress at this time. HEENT:? Normocephalic, atraumatic, extraocular muscles intact, oral pharynx is clear and mucous membranes are moist. Neck: supple and symmetric, trachea is midline, no cervical adenopathy. Negative for JVD Chest:? Normal AP diameter and contour without kyphoscoliosis, no tachypnea, equal chest rise bilaterally. Lungs:?rales present bilaterally, no wheezes, distant breath sounds Cardio:?mildly tachy, irregularly irregular. Abdomen: S NT ND. No CVA tenderness. Musculoskeletal:? Muscle strength and tone are equal within normal limits, no deformity. Extremities: Left patellar wound with surrounding swelling, warmth, erythema and painful to touch all improving. Right lateral leg wound is without erythema or pain. Skin:? Pale,? Warm to touch,dry and intact without rashes, ulcerations or petechiae except as noted above. Neuro:? Alert and orientated x3,? sensation to touch intact in all extremities, no gross deficits noted of cranial nerves. Psych:? Patient has a well-kept appearance, appropriate affect, mental status attitude thought context and judgment are appropriate for age. Objective Labs 07/29/23 05:53 07/29/23 05:53 Labs: Laboratory Results - last 24 hr 07/29/23 05:53 WBC 6.5 RBC 3.84 L Hgb 10.1 L Hct 32.0 L MCV 83.4 MCH 26.4 MCHC 31.6 RDW 24.2 H Plt Count 173 Neut % (Auto) 66.8 Lymph % (Auto) 19.8 L Hettinger % (Auto) 10.5 Eos % (Auto) 1.8 L Baso % (Auto) 1.1 Neut # (Auto) 4300 Lymph # (Auto) 1300 Hettinger # (Auto) 700 Eos # (Auto) 100 Baso # (Auto) 100 RBC Morphology See below Anisocytosis 2+ H Ovalocytes 1+ H Sodium 131 L Potassium 4.6 Chloride 100 Carbon Dioxide 21 L BUN 25 H Creatinine 0.69 Estimated GFR > 60 BUN/Creatinine Ratio 36.2 H Glucose 96 Calcium 9.8 Magnesium 1.8 PFSH Medical History Renal mass Chronic diastolic (congestive) heart failure Alcohol use disorder Anemia Mumps Measles Chicken pox Peripheral arterial disease AAA (abdominal aortic aneurysm) GERD without esophagitis Diabetic toe ulcer Polyneuropathy, unspecified Type 2 diabetes mellitus with polyneuropathy Surgical History S/P mitral valve repair History of cataract removal with insertion of prosthetic lens Social History details: Partner (Yadi Dong) household members: significant other Smoking Status: Current every day smoker alcohol intake: current Assessment & Plan Assessment & Plan narrative: #L knee cellulitis, improving -failed outpatient po abx with levaquin, hot/red/swollen and very painful to touch on exam -rocephin and vanc ordered -no joint involvement per CT -blood cultures NG at 24 hours -obtain MRI knee w contrast to r/o osteo as knee still painful # acute hypoxic resp failure, not present on admission -likely from volume overload from excess IVF, on 4L NC -start lasix 40mg IV daily -wean O2 as able # lactic acidosis, resolved -LA 4.9 -improved to normal with IVF #chronic atrial fibrillation with RVR -continue metoprolol and xarelto #CHFpEF, no acute component -metop, potassium supp -lasix and empagliflozin/metformin held # HLD -statin # hypomagnesemia -mag 1.4, given IV mag -replete and monitor # GERD -PPI # depression -continue cymbalta Code status is Full code. DVT prophylaxis with xarelto. Proxy is Dinorah. I have reviewed home meds and used all available resources to reconcile the home meds. Dispo: SNF on 07/30. Quality VTE Deep Vein Thrombosis/Pulmonary Embolism Present on Admission: No
--- NOTE | 2023-07-29 14:49 | OT.IPNOTE ---
Attempted OT treatment and pt is bed and wanting to rest, pt on 4L of O2. To check on the pt tomorrow, no charge.
[2023-07-29] MEDS: OXYCODONE IR 5 MG TABLET PO ×2 (15:30→21:19)
[2023-07-29] MEDS: RIVAROXABAN 10 MG TABLET 20 MG PO (17:41)
--- NOTE | 2023-07-29 18:08 | PC.NURSE ---
pt impulsive, takes off his oxygen and goes to the bathroom. voiding but only 100-150cc at a time.
[2023-07-29] MEDS: METOPROLOL ER 50 MG TABLET PO (21:17)
[2023-07-29] MEDS: ATORVASTATIN 20 MG TABLET 80 MG PO (21:18)
[2023-07-30] VITALS (12 sets, daily range): BP systolic 92–147; BP diastolic 42–92; PULSE 83–102; RESP 17–23; TEMP 35.7–36.6; O2SAT 91–97
[2023-07-30] MEDS: VANCOMYCIN TROUGH 1 REQUEST MISC (03:56)
[2023-07-30] MEDS: VANCOMYCIN 1,000 MG/200 ML PIGGYBACK 200 MG IV (03:56)
[2023-07-30 04:00] LABS: Add Manual Diff / Slide Review NO; Basophils Absolute Auto 100 /uL (0-100); Basophils Percent Auto 0.9 % (0-2); Eosinophils Absolute Auto 100 /uL (0-450); Eosinophils Percent Auto 1.2 % (2-4); Hematocrit 34.8 % (41-53); Hemoglobin 10.8 g/dL (13.5-17.5); Lymphocytes Absolute Auto 1200 /uL (1100-4500); Lymphocytes Percent Auto 11.4 % (25-40); Mean Corpuscular HGB Conc 30.9 % (30-36); Mean Corpuscular Hemoglobin 25.9 PG (26-34); Mean Corpuscular Volume 83.9 fL (80-100); Monocytes Absolute Auto 1100 /uL (0-900); Monocytes Percent Auto 10.6 % (3-14); Neutrophils Absolute Auto 7800 /uL (1500-7000); Neutrophils Percent Auto 75.9 % (50-75); Platelet Count 209 X10^3/uL (150-400); Red Blood Cell Count 4.15 X10^6/uL (4.5-5.9); Red Cell Distribution Width 24.1 % (11.6-14.8); White Blood Cell Count 10.2 X10^3/uL (4.5-11.0)
[2023-07-30 04:03] LABS: BUN Creatinine Ratio 34.3 (6-22); Blood Urea Nitrogen 24 mg/dL (9-20); Calcium 9.7 mg/dL (8.4-10.2); Carbon Dioxide 22 mmol/L (22-32); Chloride 98 mmol/L (98-107); Estimated Glomerular Filt Rate > 60 mL/min (>60); Glucose 110 mg/dL (80-110); HEMOLYSIS 31 (0-50); Potassium 4.4 mmol/L (3.4-5.1); Sodium 132 mmol/L (137-145)
[2023-07-30 05:05] LABS: Vancomycin Trough 18.9 ug/mL (10-20)
[2023-07-30] MEDS: OXYCODONE IR 5 MG TABLET PO ×2 (05:26→14:24)
[2023-07-30 06:29] LABS: Vancomycin Peak 30.3 ug/mL (20-40)
[2023-07-30 07:10] LABS: Anisocytosis 2+; Poikilocytosis 1+
[2023-07-30] MEDS: VANCOMYCIN PEAK 1 REQUEST MISC (07:50)
[2023-07-30] MEDS: cefTRIAXone 2,000 MG in SODIUM CHLORIDE 0.9% 100 ML 200 MG IV (08:17)
[2023-07-30] MEDS: DULOXETINE 30 MG CAPSULE 60 MG PO (09:34)
[2023-07-30] MEDS: PANTOPRAZOLE DR 20 MG TABLET PO (09:34)
[2023-07-30] MEDS: GABAPENTIN 400 MG CAPSULE 800 MG PO ×3 (09:34→21:22)
[2023-07-30] MEDS: POTASSIUM CHLORIDE 10 MEQ TAB 20 MEQ PO ×2 (09:35→21:22)
[2023-07-30] MEDS: FUROSEMIDE 40 MG/4 ML VIAL IV (09:35)
[2023-07-30] MEDS: METOPROLOL ER 50 MG TABLET 100 MG PO (09:35)
[2023-07-30] MEDS: SODIUM CHLORIDE 0.9% FLUSH 10 ML IV ×2 (09:36→21:22)
--- NOTE | 2023-07-30 11:56 | PT-IP ANOTE ---
Per RN pt is receiving shower currently, PT will attempt to see later in afternoon.
--- NOTE | 2023-07-30 12:47 | DI.MRI.S_ITS ---
PROCEDURE: MR KNEE LT WO/W CON INDICATIONS: r/o osteo of patella TECHNIQUE: Noncontrast sagittal PD fast spin echo and T2 fast spin echo with fat saturation, sagittal 3-D FLASH with fat saturation; coronal T1 spin echo and PD fast spin echo with fat saturation, and axial T1 spin echo and PD fast spin echo with fat saturation through the knee. Post-contrast axial, coronal, and sagittal T1 spin echo with fat saturation through the knee. COMPARISON: [facility], CT, CT LE LT W CON, 07/26/2023, 14:27. FINDINGS: Image quality: Images are mildly degraded by patient motion despite repeat sequences being acquired. Diagnostic information is obtained. Anterior Cruciate Ligament: Intact. Posterior Cruciate Ligament: Intact. Medial Collateral Ligament: Intact. Lateral Collateral Ligament: Intact. Medial Meniscus: Intact. Lateral Meniscus: Intact. Medial and Lateral Tendons: The semimembranosus tendon insertions and meniscocapsular junction appear intact. Visualized portions of the pes anserinus tendons appear normal. No abnormal bursal fluid. The long and short heads of the biceps femoris tendon appear intact. The popliteus tendon appears intact. No signs of posterolateral corner injury. Iliotibial band appears normal. Anterior Structures: The quadriceps and patellar tendons appear intact. No patellar subluxation. No femoral trochlear dysplasia or ventral trochlear prominence. No edema in the infrapatellar fat pad. Bones: A geographic area of osteonecrosis is seen at the posterior aspect of the medial tibial plateau with peripheral [id number] signal in central fat signal intensity. No collapse of the overlying articular surface. Mild osseous edema and enhancement is seen within the anterior aspect of the patella adjacent to the prepatellar fluid collection. Precontrast T1 images demonstrate normal fatty signal in this location. Articular cartilages: Tricompartmental chondromalacia is seen without a focal full-thickness defect. Soft Tissues: A small amount of joint fluid is present. Small medial popliteal cyst. The musculature surrounding the knee is normal in bulk. Diffuse subcutaneous edema is seen surrounding the knee. A peripherally enhancing prepatellar fluid collection is seen measuring 3.6 x 3.8 x 0.3 cm, suspicious for a small abscess or infected prepatellar bursal effusion. No significant intermuscular fascial edema is seen. No obvious soft tissue gas, although MRI is relatively insensitive for the presence of gas. IMPRESSION: 1. Diffuse subcutaneous edema is seen surrounding the knee, consistent with cellulitis. A small peripherally enhancing fluid collection in the prepatellar subcutaneous tissues may represent an abscess or presumably infected prepatellar bursal effusion. 2. Mild osseous edema and enhancement within the anterior patella without intrinsic T1-weighted signal abnormality or cortical destruction, which are favored to represent reactive osseous edema rather than osteomyelitis. Clinical correlation and follow-up are recommended. 3. Small area of bone infarct at the posterior medial tibial plateau. The overlying subchondral plate is intact. 4. Small knee joint effusion. Small medial popliteal cyst. Approved by: Jose Sharif M.D. on 07/30/2023 at 15:47
--- NOTE | 2023-07-30 13:08 | PT.IPTN ---
Current Diagnoses Cellulitis of left lower limb (07/28/23) Physical Therapy Treatment Note M2 PT-IP Current Condition Start: 07/28/23 10:14 Freq: NEEDED Status: Active Protocol: Document 07/28/23 10:14 AB (Rec: 07/28/23 10:38 AB [id number]) Physical Therapy Current Condition Current Condition Evaluation Date 07/28/23 Treatment Diagnosis cellulitis in left knee; weakness Onset Date 07/26/23 M3 PT-IP Subjective Start: 07/28/23 10:14 Freq: NEEDED Status: Active Protocol: Document 07/30/23 13:34 TS (Rec: 07/30/23 13:51 TS [id number]) Subjective Physical Therapy Visit Type Type Treatment Note Visit Start Time 13:08 Visit Stop Time 13:32 Total Visit Minutes 24 Number of SPR[employer] G[employer] 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 Therapy Pain Assessment Pain When Pain Assessed During Mobility Pain Present Pain Present Pain Reported M4 PT-IP Mobility and Gait Start: 07/28/23 10:14 Freq: NEEDED Status: Active Protocol: Document 07/30/23 13:34 TS (Rec: 07/30/23 13:51 TS [id number]) PT-Bed Mobility Assessment Supine to Sit Supine to Sit Standby Assistance,Head of Bed Elevated Sit to Supine Sit to Supine Standby Assistance,Head of Bed Elevated Scooting Scooting to Edge of Bed Standby Assistance PT-Transfer Assessment Sit to and From Stand Sit to and from Stand Standby Assistance,Use of Upper Extremities Equipment Transfer Assistive Device Gait Belt,Front Wheeled Walker Orthotic/Prosthetic Devices or Brace: No Comments Mobility Comments Pt on RA, Spo2 90% at rest. Pt performed supine to sit SBA with use of handrails. Sit to stand SBA with FWW and BUE support. He ambulated ~100 CGA w/FWW. He ambulates with RLE ext rotated at baseline, he required cues to keep FWW close and to stay inside FWW. Pt c/o some SOB, ambulated back to room, Spo2 high 80's recovered to 94% after ~15 secs. Pt was left sitting EOB with spouse, all needs met. Gait Assessment Gait Gait Assistance Required: Contact Guard Assist Distance (Feet) 100 Assistive Devices Assistive Device Gait Belt,Front Wheeled Walker Orthotic/Prosthetic Devices or Brace: No Gait Deviations General Gait Pattern Antalgic,Decreased Stride Length,Decreased Feet Clearance Factors Limiting Gait Function Factors Limiting Gait Function Decreased Activity Tolerance, Decreased Strength,Pain,Poor Balance,Poor Safety Awareness Comments Gait Comments See mobility comments PT-Balance Assessment Sitting Balance and Reactions Static Sitting Balance Ability Normal Dynamic Sitting Balance Ability Good Standing Balance and Reactions Static Standing Balance Ability Good Dynamic Standing Balance Ability Fair Device Used FWW M5 PT-IP Objective Assessments Start: 07/28/23 10:14 Freq: NEEDED Status: Active Protocol: Document 07/28/23 10:14 AB (Rec: 07/28/23 10:38 AB [id number]) Orientation Orientation/Cognition Level of Alertness Alert Orientation Name,Age,Birthday,Month,Date, Year,Day of Week,Place, Situation Language Function Ability No Deficits Noted Safety Awareness Understands Safety Issues Memory Description No Deficits Noted Gross Range of Motion Upper Extremity ROM Assessment Within Functional Limits Lower Extremity ROM Assessment Left Impaired Strength Upper Extremity Strength Assessment Within Functional Limits Lower Extremity Strength Assessment Left Impaired M6 PT-IP Treatment Start: 07/28/23 10:14 Freq: NEEDED Status: Active Protocol: Document 07/30/23 13:34 TS (Rec: 07/30/23 13:51 TS [id number]) Physical Therapy Treatment Education Education Provided Safety M7 PT-IP Assessment and Plan Start: 07/28/23 10:14 Freq: NEEDED Status: Active Protocol: Document 07/30/23 13:34 TS (Rec: 07/30/23 13:51 TS [id number]) PT Summary Assessment and Plan Potential Rehabilitation Potential Good Summary Impairments Pain,ROM,Strength,Balance,Bed Mobility,Transfers,Gait, Activity Tolerance Progress Towards Goals Progressing Toward Goals Assessment Summary Sushil continues to make progress with his mobility. He continues to be SBA for all for bed mobility. He progressed his gait to ~100' CGA w/FWW. He is unsteady with gait and lacks good safety awareness. He requires cues to stay inside of the FWW and keep it close. He is currently on RA with Spo2 ranging from high 80's to mid 90's, he does have some SOB with gait and required a standing resting break before continuing back to room. PT continues to recommend SNF rehab progress functional mobility and activity tolerance. Goals Bed Mobility Goal Independent Transfer Goal Independent,Front Wheeled Walker Gait Goal Standby Assistance,Front Wheel Walker Gait Distance 100 Other Goals Pt to be able to ascend/ descend 4 steps without use of hand rails and with SBA in order to discharge to home. Pt to be able to ambulate 50ft independently with FWW to show improving tolerance to activity. Days to Meet Goals 10 Frequency of Treatment Frequency Of Treatment Once a Day Treatment Plan Physical Therapy Treatment Plan Bed Mobility Training,Transfer Training,Gait Training, Therapeutic Exercise,Balance Retraining,Post Op Education, Discharge Planning,Hot or Cold Pack,Neuromuscular Re-ed, Coordination Retraining,Manual Therapy Other Recommendations and Next Treatment Assess ability to perform Focus stairs, increase ambulation distance. Recommendations To Nursing Amount of Assist Needed Standby Assistance Discharge Recommendations PT Discharge Recommendations SNF Rehab Transportation Needs at Discharge Private Vehicle,Wheelchair/ Cabulance
[2023-07-30] MEDS: LORazepam 1 MG TABLET PO (13:56)
--- NOTE | 2023-07-30 15:50 | OT.IPNOTE ---
Pt tired from going to get an MRI for his knee, and just wanting to rest. TO check on the pt tomorrow for OT.
--- NOTE | 2023-07-30 16:51 | PC.NURSE ---
when awake pt was on RA 91%. goal is 90% or greater. while sleeping tho, he was in the low 80's. he does snore. probably nehemiah, placed patient on 3.5L NC 89-91% while sleeping.
--- NOTE | 2023-07-30 16:56 | P.PN_ITS ---
Subjective Subjective Interval history: He was on 4L O2, appeared comfortable and cannula was out of his nose. No longer requiring supplemental oxygen this afternoon. Continues to have L knee pain. He did not stay still for MRI, had some anxiety. Able to obtain later with ativan ordered. Shows probable bursitis but no osteo likely. Exam Vital Signs (past 8 hours): - 07/30/23 09:02 07/30/23 09:35 07/30/23 12:00 Temperature 96.2 F L Pulse Rate 89 Respiratory Rate 17 Blood Pressure 113/63 Pulse Oximetry 93 91 Oxygen Delivery Method Nasal Cannula Nasal Cannula Oxygen Flow Rate 4 0 Fraction of Inspired Oxygen 36 07/30/23 16:00 Temperature 97.1 F L Pulse Rate 89 Respiratory Rate 19 Blood Pressure 123/66 Pulse Oximetry 92 Oxygen Delivery Method Oxygen Flow Rate 0 Fraction of Inspired Oxygen Fraction of Inspired Oxygen 36 SaO2/FiO2 Ratio 258 Oxygen Delivery Method Nasal Cannula Oxygen Flow Rate 0 Narrative Exam Narrative: General:? Patient is well developed and well nourished, in no distress at this time. HEENT:? Normocephalic, atraumatic, extraocular muscles intact, oral pharynx is clear and mucous membranes are moist. Neck: supple and symmetric, trachea is midline, no cervical adenopathy. Negative for JVD Chest:? Normal AP diameter and contour without kyphoscoliosis, no tachypnea, equal chest rise bilaterally. Lungs:?rales present bilaterally, no wheezes, distant breath sounds Cardio:?mildly tachy, irregularly irregular. Abdomen: S NT ND. No CVA tenderness. Musculoskeletal:? Muscle strength and tone are equal within normal limits, no deformity. Extremities: Left patellar wound with surrounding swelling, warmth, erythema and painful to touch all improving. Right lateral leg wound is without erythema or pain. Skin:? Pale,? Warm to touch,dry and intact without rashes, ulcerations or petechiae except as noted above. Neuro:? Alert and orientated x3,? sensation to touch intact in all extremities, no gross deficits noted of cranial nerves. Psych:? Patient has a well-kept appearance, appropriate affect, mental status attitude thought context and judgment are appropriate for age. Objective Labs 07/30/23 03:36 07/30/23 03:36 Labs: Laboratory Results - last 24 hr 07/30/23 07/30/23 03:36 05:59 WBC 10.2 D RBC 4.15 L Hgb 10.8 L Hct 34.8 L MCV 83.9 MCH 25.9 L MCHC 30.9 RDW 24.1 H Plt Count 209 Neut % (Auto) 75.9 H Lymph % (Auto) 11.4 L [place] % (Auto) 10.6 Eos % (Auto) 1.2 L Baso % (Auto) 0.9 Neut # (Auto) 7800 H Lymph # (Auto) 1200 [place] # (Auto) 1100 H Eos # (Auto) 100 Baso # (Auto) 100 RBC Morphology See below Poikilocytosis 1+ H Anisocytosis 2+ H Sodium 132 L Potassium 4.4 Chloride 98 Carbon Dioxide 22 BUN 24 H Creatinine 0.70 Estimated GFR > 60 BUN/Creatinine Ratio 34.3 H Glucose 110 Calcium 9.7 Vancomycin Peak 30.3 Vancomycin Trough 18.9 PFSH Medical History Renal mass Chronic diastolic (congestive) heart failure Alcohol use disorder Anemia Mumps Measles Chicken pox Peripheral arterial disease AAA (abdominal aortic aneurysm) GERD without esophagitis Diabetic toe ulcer Polyneuropathy, unspecified Type 2 diabetes mellitus with polyneuropathy Surgical History S/P mitral valve repair History of cataract removal with insertion of prosthetic lens Social History details: Partner (Yadi Dong) household members: significant other Smoking Status: Current every day smoker alcohol intake: current Assessment & Plan Assessment & Plan narrative: #L knee cellulitis with pre-patellar bursitis, improving -failed outpatient po abx with levaquin, hot/red/swollen and very painful to touch on exam -rocephin and vanc ordered -no joint involvement per CT -blood cultures NG at 24 hours -MRI showed no osteo, but probable bursitis. -will treat with 21 days of total therapy upon discharge as long as continued improvement. If lack of improvement as outpatient, should follow up with orthopedics for possible drainage. # acute hypoxic resp failure, not present on admission -likely from volume overload from excess IVF, on 4L NC yesterday. -started lasix 40mg IV daily -wean O2 as able # lactic acidosis, resolved -LA 4.9 -improved to normal with IVF #chronic atrial fibrillation with RVR -continue metoprolol and xarelto #CHFpEF, no acute component -metop, potassium supp -lasix and empagliflozin/metformin initially. Now resumed. # HLD -statin # hypomagnesemia -mag 1.4, given IV mag -replete and monitor # GERD -PPI # depression -continue cymbalta Code status is Full code. DVT prophylaxis with xarelto. Proxy is Dinorah. I have reviewed home meds and used all available resources to reconcile the home meds. Dispo: SNF, likely tomorrow. Quality VTE Deep Vein Thrombosis/Pulmonary Embolism Present on Admission: No
[2023-07-30] MEDS: RIVAROXABAN 10 MG TABLET 20 MG PO (17:06)
[2023-07-30] MEDS: ACETAMINOPHEN 325 MG TABLET 650 MG PO (17:06)
[2023-07-30] MEDS: METOPROLOL ER 50 MG TABLET PO (21:21)
[2023-07-30] MEDS: ATORVASTATIN 20 MG TABLET 80 MG PO (21:22)
[2023-07-31] VITALS (10 sets, daily range): BP systolic 111–139; BP diastolic 69–94; PULSE 85–97; RESP 19–26; TEMP 35.8–36.6; O2SAT 88–98
[2023-07-31 06:57] LABS: Add Manual Diff / Slide Review NO; Basophils Absolute Auto 100 /uL (0-100); Eosinophils Absolute Auto 100 /uL (0-450); Eosinophils Percent Auto 1.9 % (2-4); Hematocrit 31.8 % (41-53); Lymphocytes Absolute Auto 800 /uL (1100-4500); Lymphocytes Percent Auto 11.2 % (25-40); Mean Corpuscular HGB Conc 31.4 % (30-36); Mean Corpuscular Hemoglobin 26.3 PG (26-34); Mean Corpuscular Volume 83.6 fL (80-100); Monocytes Absolute Auto 800 /uL (0-900); Monocytes Percent Auto 11.1 % (3-14); Neutrophils Absolute Auto 5400 /uL (1500-7000); Neutrophils Percent Auto 74.8 % (50-75); Platelet Count 170 X10^3/uL (150-400); Red Cell Distribution Width 23.9 % (11.6-14.8); White Blood Cell Count 7.2 X10^3/uL (4.5-11.0)
[2023-07-31 07:29] LABS: BUN Creatinine Ratio 30.2 (6-22); Blood Urea Nitrogen 19 mg/dL (9-20); Calcium 10.2 mg/dL (8.4-10.2); Carbon Dioxide 23 mmol/L (22-32); Chloride 100 mmol/L (98-107); Estimated Glomerular Filt Rate > 60 mL/min (>60); Glucose 104 mg/dL (80-110); HEMOLYSIS < 15 (0-50); Potassium 4.9 mmol/L (3.4-5.1); Sodium 134 mmol/L (137-145)
[2023-07-31 07:42] LABS: Magnesium 1.7 mg/dL (1.6-2.3)
[2023-07-31 08:11] LABS: Anisocytosis 2+
[2023-07-31] MEDS: cefTRIAXone 2,000 MG in SODIUM CHLORIDE 0.9% 100 ML 200 MG IV (08:32)
[2023-07-31] MEDS: GABAPENTIN 400 MG CAPSULE 800 MG PO ×3 (08:33→21:15)
[2023-07-31] MEDS: PANTOPRAZOLE DR 20 MG TABLET PO (08:33)
[2023-07-31] MEDS: DULOXETINE 30 MG CAPSULE 60 MG PO (08:33)
[2023-07-31] MEDS: SODIUM CHLORIDE 0.9% FLUSH 10 ML IV (08:34)
[2023-07-31] MEDS: POTASSIUM CHLORIDE 10 MEQ TAB 20 MEQ PO (08:34)
[2023-07-31] MEDS: METOPROLOL ER 50 MG TABLET 100 MG PO (08:34)
[2023-07-31] MEDS: FUROSEMIDE 40 MG/4 ML VIAL IV (08:34)
[2023-07-31] MEDS: OXYCODONE IR 5 MG TABLET PO ×3 (08:52→22:38)
[2023-07-31] MEDS: ACETAMINOPHEN 325 MG TABLET 650 MG PO ×2 (08:52→15:23)
--- NOTE | 2023-07-31 11:03 | PT.IPTN ---
Current Diagnoses Cellulitis of left lower limb (07/28/23) Physical Therapy Treatment Note M2 PT-IP Current Condition Start: 07/28/23 10:14 Freq: NEEDED Status: Active Protocol: Document 07/28/23 10:14 AB (Rec: 07/28/23 10:38 AB [id number]) Physical Therapy Current Condition Current Condition Evaluation Date 07/28/23 Treatment Diagnosis cellulitis in left knee; weakness Onset Date 07/26/23 M3 PT-IP Subjective Start: 07/28/23 10:14 Freq: NEEDED Status: Active Protocol: Document 07/31/23 11:28 TS (Rec: 07/31/23 11:48 TS [id number]) Subjective Physical Therapy Visit Type Type Treatment Note Visit Start Time 11:03 Visit Stop Time 11:27 Total Visit Minutes 24 Notes Spo2 90% on RA. 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 Still has some confusion with responses to questions, agreeable to PT. Therapy Pain Assessment Pain When Pain Assessed During Mobility Pain Present Pain Present Pain Reported M4 PT-IP Mobility and Gait Start: 07/28/23 10:14 Freq: NEEDED Status: Active Protocol: Document 07/31/23 11:28 TS (Rec: 07/31/23 11:48 TS [id number]) PT-Bed Mobility Assessment Supine to Sit Supine to Sit Standby Assistance,Head of Bed Elevated Sit to Supine Sit to Supine Standby Assistance,Head of Bed Elevated Scooting Scooting to Edge of Bed Standby Assistance Scooting Up and Down in Bed Standby Assistance PT-Transfer Assessment Sit to and From Stand Sit to and from Stand Contact Guard Assistance,1 Person Assistance,Use of Upper Extremities Equipment Transfer Assistive Device Gait Belt,Front Wheeled Walker Orthotic/Prosthetic Devices or Brace: No Comments Mobility Comments Spo2 90% on RA prior to mobility. Supine to sit SBA with HOB elevated and BUE support. He performed sit to stand x1 with BUE support on FWW, pt tipping FWW backwards. He attempted sit to stand x1 with FWW and cues for pushing up from bed CGA, pt is more stable coming into standing. He ambulated ~2x75' in hallway with FWW. He requires cues to stay in FWW and to keep close throughout session, demonstrated some improvements in stability with increased gait. Sit to supine into bed SBA with use of handrails and HOB elevated. pt was left in bed with SO in room, all needs met, RN notified of confusion . Gait Assessment Gait Gait Assistance Required: Contact Guard Assist Distance (Feet) 150 Assistive Devices Assistive Device Gait Belt,Front Wheeled Walker Orthotic/Prosthetic Devices or Brace: No Gait Deviations General Gait Pattern Antalgic,Decreased Stride Length,Decreased Feet Clearance,Flexed Trunk,Wide Based Gait Factors Limiting Gait Function Factors Limiting Gait Function Decreased Activity Tolerance, Decreased Strength,Difficulty Following Directions,Pain,Poor Balance,Poor Safety Awareness Comments Gait Comments See mobility comments PT-Balance Assessment Sitting Balance and Reactions Static Sitting Balance Ability Normal Dynamic Sitting Balance Ability Good Standing Balance and Reactions Static Standing Balance Ability Good Dynamic Standing Balance Ability Fair Device Used FWW M5 PT-IP Objective Assessments Start: 07/28/23 10:14 Freq: NEEDED Status: Active Protocol: Document 07/28/23 10:14 AB (Rec: 07/28/23 10:38 AB [id number]) Orientation Orientation/Cognition Level of Alertness Alert Orientation Name,Age,Birthday,Month,Date, Year,Day of Week,Place, Situation Language Function Ability No Deficits Noted Safety Awareness Understands Safety Issues Memory Description No Deficits Noted Gross Range of Motion Upper Extremity ROM Assessment Within Functional Limits Lower Extremity ROM Assessment Left Impaired Strength Upper Extremity Strength Assessment Within Functional Limits Lower Extremity Strength Assessment Left Impaired M6 PT-IP Treatment Start: 07/28/23 10:14 Freq: NEEDED Status: Active Protocol: Document 07/31/23 11:28 TS (Rec: 07/31/23 11:48 TS [id number]) Physical Therapy Treatment Education Education Provided Safety M7 PT-IP Assessment and Plan Start: 07/28/23 10:14 Freq: NEEDED Status: Active Protocol: Document 07/31/23 11:28 TS (Rec: 07/31/23 11:48 TS [id number]) PT Summary Assessment and Plan Potential Rehabilitation Potential Good Summary Impairments Pain,ROM,Strength,Balance,Bed Mobility,Transfers,Gait, Activity Tolerance Progress Towards Goals Progressing Toward Goals Assessment Summary Sushil continues to make some progress with his mobility. He continues to be SBA for all bed mobility with HOB elevated . He performed sit to stand x2 with FWW, has poor balance on first attempt requiring cues to push off from bed instead of grasping onto FWW. He progressed his ambulation to 2x75'. He lacks good safety awareness with gait and FWW management. He requires cues to stay close to FWW and keep inside for improved gait. PT continues to recommend SNF to progress functional mobility and activity tolerance. Goals Bed Mobility Goal Independent Transfer Goal Independent,Front Wheeled Walker Gait Goal Standby Assistance,Front Wheel Walker Gait Distance 100 Other Goals Pt to be able to ascend/ descend 4 steps without use of hand rails and with SBA in order to discharge to home. Pt to be able to ambulate 50ft independently with FWW to show improving tolerance to activity. Days to Meet Goals 10 Frequency of Treatment Frequency Of Treatment Once a Day Treatment Plan Physical Therapy Treatment Plan Bed Mobility Training,Transfer Training,Gait Training, Therapeutic Exercise,Balance Retraining,Post Op Education, Discharge Planning,Hot or Cold Pack,Neuromuscular Re-ed, Coordination Retraining,Manual Therapy Other Recommendations and Next Treatment Assess ability to perform Focus stairs, increase ambulation distance. Recommendations To Nursing Amount of Assist Needed 1 Person Assist Discharge Recommendations PT Discharge Recommendations SNF Rehab Transportation Needs at Discharge Private Vehicle,Wheelchair/ Cabulance
--- NOTE | 2023-07-31 12:54 | PM.DS.1 ---
History of Present Illness History of Present Illness Date Patient Seen: 07/31/23 Time Patient Seen: 12:55 Chief complaint: celullitis in lt knee Narrative: 73 M with PMH of afib with difficult to control rate (previously in the ER and did not require admission for rate control within the last few week per cardiology), CHFpEF (with mitraclip), chronic toe wounds on the R, alcohol use, DM with neuropathy, HTN, HLD, venous insufficiency, PAD, GERD, AAA, AGNIESZKA who comes back to the ED for ongoing L knee pain after being sent home on po abx for cellulitis on 07/23. Per last medicine note, patient did not recall any injury, however per PCP note recently there is documentation of a fall with L knee injury. He reported increasing pain over the last few days. He does not report any drainage but did report difficulty walking. Denies fever, chills, nausea, vomiting, chest pain, palpitations, worsening edema or dyspnea. Sent home on po levaquin but his L knee continues to bother him so he came back to the ED today. Will be admitted for IV abx. Discharge Providers Provider Date of admission: 07/28/23 09:55 Primary care physician: Freeman Chao MD Consults: 07/26/23 17:25 Consult to Orthopedic Surgery Routine Comment: Consulting Provider: Petros Mcnulty Reason for consultation: knee cellulitis Has provider been notified: Yes 07/27/23 13:41 Consult to Physical Therapy Evaluate & Treat Comment: Physician Instructions: Evaluate and Treat 07/28/23 12:11 Consult to Occupational Therapy Evaluate & Treat Comment: Physician Instructions: Evaluate and treat Discharge provider: Mirza Yoder DO Summary Hospital Course Discharge Diagnosis: #L knee cellulitis with pre-patellar bursitis, improving -failed outpatient po abx with levaquin, hot/red/swollen and very painful to touch on exam -rocephin and vanc ordered -no joint involvement per CT -blood cultures NG at 24 hours -MRI showed no osteo, but probable bursitis. -will treat with 21 days of total therapy upon discharge as long as continued improvement. If lack of improvement as outpatient, should follow up with orthopedics for possible drainage. # acute hypoxic resp failure, not present on admission -likely from volume overload from excess IVF, on 4L NC yesterday. -started lasix 40mg IV daily -wean O2 as able # lactic acidosis, resolved -LA 4.9 -improved to normal with IVF #chronic atrial fibrillation with RVR -continue metoprolol and xarelto #CHFpEF, no acute component -metop, potassium supp -lasix and empagliflozin/metformin initially. Now resumed. # HLD -statin # hypomagnesemia -mag 1.4, given IV mag -replete and monitor # GERD -PPI # depression -continue cymbalta Exam Vital Signs (past 8 hours): - 07/31/23 07:30 07/31/23 08:21 07/31/23 12:00 Temperature 97 F L 97 F L Pulse Rate 97 H 90 Respiratory Rate 19 19 Blood Pressure 129/81 111/69 Pulse Oximetry 98 98 92 Oxygen Delivery Method Nasal Cannula Oxygen Flow Rate 4 4 0 Fraction of Inspired Oxygen 36 SaO2/FiO2 Ratio 258 Oxygen Delivery Method Nasal Cannula Oxygen Flow Rate 0 Objective Labs 07/31/23 06:30 07/31/23 06:30 Labs: Laboratory Results - last 24 hr 07/31/23 06:30 WBC 7.2 RBC 3.80 L Hgb 10.0 L Hct 31.8 L MCV 83.6 MCH 26.3 MCHC 31.4 RDW 23.9 H Plt Count 170 Neut % (Auto) 74.8 Lymph % (Auto) 11.2 L [place] % (Auto) 11.1 Eos % (Auto) 1.9 L Baso % (Auto) 1.0 Neut # (Auto) 5400 Lymph # (Auto) 800 L [place] # (Auto) 800 Eos # (Auto) 100 Baso # (Auto) 100 RBC Morphology See below Anisocytosis 2+ H Sodium 134 L Potassium 4.9 Chloride 100 Carbon Dioxide 23 BUN 19 Creatinine 0.63 L Estimated GFR > 60 BUN/Creatinine Ratio 30.2 H Glucose 104 Calcium 10.2 Magnesium 1.7 PFSH Medical History Renal mass Chronic diastolic (congestive) heart failure Alcohol use disorder Anemia Mumps Measles Chicken pox Peripheral arterial disease AAA (abdominal aortic aneurysm) GERD without esophagitis Diabetic toe ulcer Polyneuropathy, unspecified Type 2 diabetes mellitus with polyneuropathy Surgical History S/P mitral valve repair History of cataract removal with insertion of prosthetic lens Social History details: Partner (Yadi Dong) household members: significant other Smoking Status: Current every day smoker alcohol intake: current Discharge Plan Discharge orders & Medications Prescriptions: No Action Synjardy 12.5-1,000 mg tablet 1 tab PO BID Qty: 180 3RF duloxetine [Cymbalta] 60 mg capsule,delayed release(DR/EC) 60 mg PO QDAY Qty: 90 3RF Xarelto 20 mg tablet 20 mg PO QDAY Qty: 90 3RF gabapentin 800 mg tablet 800 mg PO TID Qty: 270 3RF atorvastatin 80 mg tablet 80 mg PO DAILY Qty: 90 3RF cyanocobalamin (vitamin B-12) 1,000 mcg capsule 1,000 mcg PO DAILY furosemide 40 mg tablet 40 mg PO BID potassium chloride 10 mEq tablet extended release 20 meq PO BID magnesium oxide 400 mg (241.3 mg magnesium) Tablet 400 mg PO 2XD ferrous sulfate 325 mg (65 mg iron) Tablet,Delayed Release (Dr/Ec) 325 mg PO DAILY metoprolol succinate 100 mg tablet extended release 24 hr 100 mg PO DAILY Follow up/Referrals: Freeman Chao MD [Primary Care Provider] - Discharge Data Primary Care Provider: Freeman Chao V Quality VTE Deep Vein Thrombosis/Pulmonary Embolism Present on Admission: No
--- NOTE | 2023-07-31 13:02 | PM.PN.1 ---
Subjective Subjective Interval history: Having hallucinations overnight and into the morning, he is getting put on supplemental oxygen overnight. After I remove it he begins to improve, his O2 saturations are typically in the mid 90s on room air.. He has improved this morning. I suspect this is related to either hospital delirium, medication effects, or transient hypercapnea in setting of over oxygenation. Exam Vital Signs (past 8 hours): - 07/31/23 07:30 07/31/23 07:40 07/31/23 07:40 Temperature Pulse Rate Respiratory Rate Blood Pressure Pulse Oximetry 98 94 Oxygen Delivery Method Nasal Cannula Nasal Cannula Nasal Cannula Oxygen Flow Rate 4 2 07/31/23 08:21 07/31/23 12:00 Temperature 97 F L 97 F L Pulse Rate 97 H 90 Respiratory Rate 19 19 Blood Pressure 129/81 111/69 Pulse Oximetry 98 92 Oxygen Delivery Method Oxygen Flow Rate 4 0 Fraction of Inspired Oxygen 36 SaO2/FiO2 Ratio 258 Oxygen Delivery Method Nasal Cannula Oxygen Flow Rate 0 Narrative Exam Narrative: General:? Patient is well developed and well nourished, in no distress at this time. HEENT:? Normocephalic, atraumatic, extraocular muscles intact, oral pharynx is clear and mucous membranes are moist. Neck: supple and symmetric, trachea is midline, no cervical adenopathy. Negative for JVD Chest:? Normal AP diameter and contour without kyphoscoliosis, no tachypnea, equal chest rise bilaterally. Lungs:?rales present bilaterally, no wheezes, distant breath sounds Cardio:regular rate, irregularly irregular. Abdomen: S NT ND. No CVA tenderness. Musculoskeletal:? Muscle strength and tone are equal within normal limits, no deformity. Extremities: Left patellar wound with no surrounding erythema, mildly swollen, no warmth. Improving daily. Skin:? Pale,? Warm to touch,dry and intact without rashes, ulcerations or petechiae except as noted above. Neuro:? Alert and orientated x3,? sensation to touch intact in all extremities, no gross deficits noted of cranial nerves. Psych:? Patient has a well-kept appearance, appropriate affect, mental status attitude thought context and judgment are appropriate for age. Objective Labs 07/31/23 06:30 07/31/23 06:30 Labs: Laboratory Results - last 24 hr 07/31/23 06:30 WBC 7.2 RBC 3.80 L Hgb 10.0 L Hct 31.8 L MCV 83.6 MCH 26.3 MCHC 31.4 RDW 23.9 H Plt Count 170 Neut % (Auto) 74.8 Lymph % (Auto) 11.2 L [place] % (Auto) 11.1 Eos % (Auto) 1.9 L Baso % (Auto) 1.0 Neut # (Auto) 5400 Lymph # (Auto) 800 L [place] # (Auto) 800 Eos # (Auto) 100 Baso # (Auto) 100 RBC Morphology See below Anisocytosis 2+ H Sodium 134 L Potassium 4.9 Chloride 100 Carbon Dioxide 23 BUN 19 Creatinine 0.63 L Estimated GFR > 60 BUN/Creatinine Ratio 30.2 H Glucose 104 Calcium 10.2 Magnesium 1.7 PFSH Medical History Renal mass Chronic diastolic (congestive) heart failure Alcohol use disorder Anemia Mumps Measles Chicken pox Peripheral arterial disease AAA (abdominal aortic aneurysm) GERD without esophagitis Diabetic toe ulcer Polyneuropathy, unspecified Type 2 diabetes mellitus with polyneuropathy Surgical History S/P mitral valve repair History of cataract removal with insertion of prosthetic lens Social History details: Partner (Yadi Dong) household members: significant other Smoking Status: Current every day smoker alcohol intake: current Assessment & Plan Assessment & Plan narrative: #L knee cellulitis with pre-patellar bursitis, improving -failed outpatient po abx with levaquin, hot/red/swollen and very painful to touch on exam -rocephin and vanc ordered, will narrow to cefdinir based on recent cultures with strep and e.coli -no joint involvement per CT -blood cultures NG at 24 hours -MRI showed no osteo, but probable bursitis. -will treat with 21 days of total therapy upon discharge for bursitis given presentation, as long as continued improvement. If lack of improvement as outpatient, should follow up with orthopedics for possible drainage. # acute hypoxic resp failure, not present on admission -likely from volume overload from excess IVF, on 4L NC but suspect more waveform related. #acute metabolic vs toxic encephalopathy - patient with confusion and hallucinations this morning (unclear if actual hallucinations vs confusion) - improved over the course of the day, and after oxygen removed - may be component of over oxygenation with hypercapnea, pain medication, or hospital delirium - continue to monitor - no supplemental O2 unless oxygenation is persistently below 88% with good waveform. - try to limit pain medications overnight. - consider seroquel at night # lactic acidosis, resolved -LA 4.9 -improved to normal with IVF #chronic atrial fibrillation with RVR -continue metoprolol and xarelto #CHFpEF, no acute component -metop, potassium supp -lasix and empagliflozin/metformin initially. Now resumed. # HLD -statin # hypomagnesemia -mag 1.4, given IV mag -replete and monitor # GERD -PPI # depression -continue cymbalta Code status is Full code. DVT prophylaxis with xarelto. Proxy is Dinorah. Dispo: SNF, ready today but no bed available until tomorrow now. Quality VTE Deep Vein Thrombosis/Pulmonary Embolism Present on Admission: No
--- NOTE | 2023-07-31 13:06 | CM.DPNOTE ---
DCP Note According to Glenis at [facility], bed will be available for patient tomorrow. Updated DR Yoder. P: Discharge to [facility] via wheelchair van expected tomorrow. GEN
--- NOTE | 2023-07-31 13:33 | OT.IP.TRT ---
Current Diagnoses Cellulitis of left lower limb (07/28/23) Occupational Therapy Treatment Note M2 OT-IP Current Condition Start: 07/28/23 15:36 Freq: Status: Active Protocol: Document 07/28/23 15:35 [facility] (Rec: 07/28/23 15:52 [facility] [id number]) Occupational Therapy Current Condition Current Condition Evaluation Date 07/28/23 Treatment Diagnosis Cellulutilis of Left lower limb, weakness Diagnosis Onset Date 07/26/23 M3 OT- IP Subjective and Pain Start: 07/28/23 15:36 Freq: Status: Active Protocol: Document 07/31/23 13:48 [facility] (Rec: 07/31/23 13:59 [facility] [id number]) OT- Subjective Occupational Therapy Visit Type Type Treatment Note Visit Start Time 13:15 Visit Stop Time 13:33 Total Visit Minutes 18 Occupational Therapy Visit Comments Patient Comments Pt wanting to get up to use the bathroom. Patient/Caregiver Goals TO get better. OT Pain Assessment Pain When Pain Assessed At Rest Pain Present Pain Present Pain Reported M4 OT- IP ADL's Start: 07/28/23 15:36 Freq: Status: Active Protocol: Document 07/31/23 13:48 [facility] (Rec: 07/31/23 13:59 [facility] [id number]) OT [id number] Comments OT Self-Feeding Comments Not at meal time. OT ADL-Grooming General Evaluation Grooming Ability Standby Assistance Comments OT Grooming Comments Pt needing cues to point out items on the sink for grooming needs. OT ADL-Oral Care General Eval Oral Care Ability Standby Assistance Comments Oral Care Comments Pt able to do while standing at this the sink with FWW. OT ADL-Dressing General Eval Lower Body Dressing Ability Moderate Assistance Comments OT Dressing Comments Assist to himanshu the brief over his feet, and pull up over his hips. OT ADL-Toileting General Evaluation Toileting Ability Minimal Assistance Areas Needing Assistance Manage Clothing Comments OT Toileting Comments Pt needing assist for completeness as pt appears groggy today. OT ADL-Bathing Comments OT Bathing Comments NOt performed. M5 OT- IP IADL's Start: 07/28/23 15:36 Freq: Status: Active Protocol: Document 07/28/23 15:35 [facility] (Rec: 07/28/23 15:52 [facility] [id number]) OT-Instrumental Activities of Daily Living Home Safety Awareness Awareness of Need for Assistance at Home Good Awareness Home Safety Comments At this time pt would need assist especially for FWW and O2 tubing safety and management. Medication Management Medication Management Caregiver Administers Money Management Money Management Caregiver Provides Assistance Meal Preparation Meal Preparation Caregiver Provides Assist Primary Substance Abuse Counselor Primary Substance Abuse Counselor Caregiver Provides Assist Driving Driving Comments Pt states does not drive anymore. M6 OT- IP Functional Cognition Start: 07/28/23 15:36 Freq: Status: Active Protocol: Document 07/31/23 13:48 [facility] (Rec: 07/31/23 13:59 [facility] [id number]) Cognitive Factors Limiting Selfcare Function Cognitive Ability Level of Alertness Alert,Confusional State Attention Span Ability Capable of Focused Attention, Unable to Sustain Attention Ability to Follow Commands Able to Follow One Step Commands with Increased Time, Able to Follow One Step Commands with Repetition Memory Description Short Term Impaired,Working Impaired Safety Awareness Underestimates Need for Assistance Cognitive Comments Cognitive Assessment Comments Pt needing more step by step instructions for grooming and toileting needs today. Pt needing increased time to figure out the hair brush was not the toothbrush. Increased time to find the appropriate items to use for oral care needs. M7 OT- IP Mobility and Balance Start: 07/28/23 15:36 Freq: Status: Active Protocol: Document 07/31/23 13:48 [facility] (Rec: 07/31/23 13:59 [facility] [id number]) OT- Bed Mobility Assessment Supine to Sit Supine to Sit Assist Standby Assistance OT-Transfer Assessment Sit to and From Stand Sit to and from Stand Minimal Assistance,Moderate Assistance Transfers Transfer Ability Contact Guard Assistance Technique Transfer Destination Bed,Toilet Transfer Technique Stand Step Pivot Devices Transfer Assistive Devices Gait Belt,Front Wheeled Walker Comments Mobility Comments Pt continues to need cues to scoot forwards, to be sure his feet are on the ground, and push up from surfaces to sit up. MODA from lower surfaces to stand.CGA with FWW for his balance as at times the FWW is too far away from him. Pt appears SOB but not able to get a reading from his hand. left pt with nursing aid. OT- Balance Assessment Sitting Balance and Reactions Static Sitting Balance Ability Good Dynamic Sitting Balance Ability Fair Standing Balance and Reactions Static Standing Balance Ability Fair Dynamic Standing Balance Ability Fair M8 OT- IP Objective Assessments Start: 07/28/23 15:36 Freq: Status: Active Protocol: Document 07/28/23 15:35 [facility] (Rec: 07/28/23 15:52 [facility] [id number]) OT Gross Range of Motion Upper Extremity Range of Motion Assessment Within Functional Limits OT Strength Upper Extremity Strength Assessment Within Functional Limits M9 OT- IP Assessment and Plan Start: 07/28/23 15:36 Freq: Status: Active Protocol: Document 07/31/23 13:48 [facility] (Rec: 07/31/23 13:59 [facility] [id number]) OT Summary Assessment and Plan Potential Rehabilitation Potential Good Analytic Complexity at Evaluation Moderate Summary OT Impairments Pain,Strength,Balance, Functional Cognition, Functional Mobility,Dressing, Toileting,Bathing,Toilet Transfers,Shower Transfers, Activity Tolerance Progress Towards Goals Slow Progress due to Pain,Slow Progress due to Activity Tolerance,Slow Progress due to Cognition Assessment Summary Pt MOD complexity and a bit groggy today but with assist able to use the bathroom and do oral care needs. Pt needing more assist with cues to help sequence through ADL needs today. Pt to go to skilled rehab when medically stable. Goals Self-Feeding Goal Independent Grooming Goal Independent Dressing Goal Independent Toileting Goal Independent Bathing Goal Independent Toilet Transfer Goal Independent Shower Transfer Goal Independent Days to Meet Goals 15 Frequency of Treatment Frequency Of Treatment Once a Day Treatment Plan OT Treatment Plan ADL Training,Functional Cognition Training,Functional Mobility,Patient/Family Education,Discharge Planning Other Treatment Recommendations and Next shower if appropriate Treatment Focus Discharge Recommendations OT Discharge Recommendations SNF Rehab Transportation Needs at Discharge Wheelchair/Cabulance
[2023-07-31] MEDS: RIVAROXABAN 10 MG TABLET 20 MG PO (18:23)
[2023-07-31] MEDS: METOPROLOL ER 50 MG TABLET PO (21:15)
[2023-07-31] MEDS: CEFDINIR 300 MG CAPSULE PO (21:15)
[2023-07-31] MEDS: ATORVASTATIN 20 MG TABLET 80 MG PO (21:15)
[2023-08-01] VITALS: BP 126/64; PULSE 84; RESP 24; TEMP 36.4; O2SAT 89
[2023-08-01 04:00] VITALS: BP 116/86; PULSE 86; RESP 18; TEMP 36.2; O2SAT 90
[2023-08-01 06:45] LABS: Add Manual Diff / Slide Review NO; Basophils Absolute Auto 100 /uL (0-100); Basophils Percent Auto 0.8 % (0-2); Eosinophils Absolute Auto 100 /uL (0-450); Eosinophils Percent Auto 1.4 % (2-4); Hematocrit 32.5 % (41-53); Hemoglobin 10.2 g/dL (13.5-17.5); Lymphocytes Absolute Auto 900 /uL (1100-4500); Lymphocytes Percent Auto 11.4 % (25-40); Mean Corpuscular HGB Conc 31.5 % (30-36); Mean Corpuscular Hemoglobin 26.1 PG (26-34); Mean Corpuscular Volume 82.8 fL (80-100); Monocytes Absolute Auto 800 /uL (0-900); Neutrophils Absolute Auto 5900 /uL (1500-7000); Neutrophils Percent Auto 76.4 % (50-75); Platelet Count 183 X10^3/uL (150-400); Red Blood Cell Count 3.92 X10^6/uL (4.5-5.9); Red Cell Distribution Width 23.3 % (11.6-14.8); White Blood Cell Count 7.7 X10^3/uL (4.5-11.0)
[2023-08-01 07:36] LABS: BUN Creatinine Ratio 33.3 (6-22); Blood Urea Nitrogen 21 mg/dL (9-20); Carbon Dioxide 23 mmol/L (22-32); Chloride 98 mmol/L (98-107); Estimated Glomerular Filt Rate > 60 mL/min (>60); Glucose 128 mg/dL (80-110); HEMOLYSIS < 15 (0-50); Sodium 132 mmol/L (137-145)
[2023-08-01 07:37] LABS: Magnesium 1.6 mg/dL (1.6-2.3)
[2023-08-01 07:38] LABS: Potassium 5.9 mmol/L (3.4-5.1)
[2023-08-01 07:49] LABS: Anisocytosis 2+
[2023-08-01 07:50] LABS: Poikilocytosis 1+
[2023-08-01 08:00] VITALS: BP 124/89; PULSE 87; RESP 18; TEMP 35.9; O2SAT 97
[2023-08-01 08:38] VITALS: O2SAT 90
[2023-08-01] MEDS: CEFDINIR 300 MG CAPSULE PO (08:40)
[2023-08-01] MEDS: PANTOPRAZOLE DR 20 MG TABLET PO (08:40)
[2023-08-01] MEDS: OXYCODONE IR 5 MG TABLET PO (08:40)
[2023-08-01] MEDS: ACETAMINOPHEN 325 MG TABLET 650 MG PO (08:40)
[2023-08-01] MEDS: METOPROLOL ER 50 MG TABLET 100 MG PO (08:40)
[2023-08-01] MEDS: GABAPENTIN 400 MG CAPSULE 800 MG PO (08:41)
[2023-08-01] MEDS: DULOXETINE 30 MG CAPSULE 60 MG PO (08:41)
[2023-08-01 08:46] LABS: HEMOLYSIS 17 (0-50); Potassium 4.4 mmol/L (3.4-5.1)
[2023-08-01] MEDS: FUROSEMIDE 40 MG TABLET PO (08:53)
--- NOTE | 2023-08-01 12:27 | CM.DPNOTE ---
DC Note Discharge to [facility] today, w/c van grape picker arranged for 1300. RN and patient updated, agreeable to plan. RN to call report. Faxed completed and signed DC med list, Rx and PASRR to March at [facility]. GEN
--- NOTE | 2023-08-01 12:46 | PT-IP ANOTE ---
Pt not appropriate for PT at this time. Pt is having confusion, appears lethargic and delirious. PT will check back in later in the afternoon.
[2023-08-01] MEDS: MAGNESIUM CHLORIDE 64 MG TABLET 128 MG PO (13:18)
--- NOTE | 2023-08-01 13:26 | PM.DS.1 ---
History of Present Illness History of Present Illness Date Patient Seen: 08/01/23 Time Patient Seen: 13:26 Chief complaint: celullitis in lt knee Narrative: 73 M with PMH of afib with difficult to control rate (previously in the ER and did not require admission for rate control within the last few week per cardiology), CHFpEF (with mitraclip), chronic toe wounds on the R, alcohol use, DM with neuropathy, HTN, HLD, venous insufficiency, PAD, GERD, AAA, AGNIESZKA who comes back to the ED for ongoing L knee pain after being sent home on po abx for cellulitis on 07/23. Per last medicine note, patient did not recall any injury, however per PCP note recently there is documentation of a fall with L knee injury. He reported increasing pain over the last few days. He does not report any drainage but did report difficulty walking. Denies fever, chills, nausea, vomiting, chest pain, palpitations, worsening edema or dyspnea. Sent home on po levaquin but his L knee continues to bother him so he came back to the ED today. Will be admitted for IV abx. Discharge Providers Provider Date of admission: 07/28/23 09:55 Discharge Date: 08/01/23 Primary care physician: Freeman Chao MD Consults: 07/26/23 17:25 Consult to Orthopedic Surgery Routine Comment: Consulting Provider: Petros Mcnulty Reason for consultation: knee cellulitis Has provider been notified: Yes 07/27/23 13:41 Consult to Physical Therapy Evaluate & Treat Comment: Physician Instructions: Evaluate and Treat 07/28/23 12:11 Consult to Occupational Therapy Evaluate & Treat Comment: Physician Instructions: Evaluate and treat Discharge provider: Mirza Yoder DO Summary Hospital Course Discharge Diagnosis: Please see hospital course by problem list noted below Hospital Course: #L knee cellulitis with pre-patellar bursitis, improving -failed outpatient po abx with levaquin, hot/red/swollen and very painful to touch on exam initially. He was started on rocephin and vanc initially and narrowed to cefdinir based on recent cultures with strep and e.coli and after MRI results noted below. -no joint involvement per CT imaging. -blood cultures were without growth this admission. -MRI performed for ongoing pain showed no osteo, but probable bursitis. -will continue to treat with 21 days of total therapy upon discharge for bursitis with the above antibiotics given presentation, as long as continued improvement. If lack of improvement as outpatient, should follow up with orthopedics for possible drainage. # acute hypoxic resp failure, not present on admission -likely from volume overload from excess IVF, on 4L NC but suspect more waveform related. He improved and was no longer requiring oxygen supplementation at the time of discharge. #acute metabolic vs toxic encephalopathy - patient with confusion and hallucinations for 3 consecutive mornings (unclear if actual hallucinations vs confusion) prior to discharge - each day he improved over the course of the day, and after oxygen removed - may be component of over oxygenation with hypercapnea, pain medication, or hospital delirium. Infectious etiologies were not apparent and his knee continued to improve. - no supplemental O2 unless oxygenation is persistently below 88% with good waveform. - try to limit pain medications overnight, and discontinued opiates on discharge. - consider seroquel at night if this continues at SNF. # lactic acidosis, resolved -LA 4.9 -improved to normal with IVF #chronic atrial fibrillation with RVR -continue metoprolol and xarelto #CHFpEF, no acute component -metop, potassium supp -lasix and empagliflozin/metformin held initially. Now resumed. # HLD -statin # hypomagnesemia -mag 1.4, given IV mag x1 with improvement. # GERD - continued on home PPI # depression -continued cymbalta He was discharged with Time Spent with Patient Time spent: Greater than 30 minutes Exam Vital Signs (past 8 hours): - 08/01/23 08:00 Temperature 96.7 F L Pulse Rate 87 Respiratory Rate 18 Blood Pressure 124/89 Pulse Oximetry 97 Oxygen Flow Rate 0 Fraction of Inspired Oxygen 36 SaO2/FiO2 Ratio 258 Oxygen Delivery Method Room Air Oxygen Flow Rate 0 Narrative Exam Narrative: General:? Patient is well developed and well nourished, in no distress at this time. HEENT:? Normocephalic, atraumatic, extraocular muscles intact, oral pharynx is clear and mucous membranes are moist. Neck: supple and symmetric, trachea is midline, no cervical adenopathy. Negative for JVD Chest:? Normal AP diameter and contour without kyphoscoliosis, no tachypnea, equal chest rise bilaterally. Lungs:?rales present bilaterally, no wheezes, distant breath sounds Cardio:regular rate, irregularly irregular. Abdomen: S NT ND. No CVA tenderness. Musculoskeletal:? Muscle strength and tone are equal within normal limits, no deformity. Extremities: Left patellar wound with no surrounding erythema, mildly swollen, no warmth. Improving daily. Skin:? Pale,? Warm to touch,dry and intact without rashes, ulcerations or petechiae except as noted above. Neuro:? Alert and orientated x3,? sensation to touch intact in all extremities, no gross deficits noted of cranial nerves. Psych:? Patient has a well-kept appearance, appropriate affect, mental status attitude thought context and judgment are appropriate for age. Objective Labs 08/01/23 06:30 08/01/23 08:30 Labs: Laboratory Results - last 24 hr 08/01/23 08/01/23 06:30 08:30 WBC 7.7 RBC 3.92 L Hgb 10.2 L Hct 32.5 L MCV 82.8 MCH 26.1 MCHC 31.5 RDW 23.3 H Plt Count 183 Neut % (Auto) 76.4 H Lymph % (Auto) 11.4 L [place] % (Auto) 10.0 Eos % (Auto) 1.4 L Baso % (Auto) 0.8 Neut # (Auto) 5900 Lymph # (Auto) 900 L [place] # (Auto) 800 Eos # (Auto) 100 Baso # (Auto) 100 RBC Morphology See below Poikilocytosis 1+ H Anisocytosis 2+ H Sodium 132 L Potassium 5.9 H 4.4 D Chloride 98 Carbon Dioxide 23 BUN 21 H Creatinine 0.63 L Estimated GFR > 60 BUN/Creatinine Ratio 33.3 H Glucose 128 H Calcium 10.0 Magnesium 1.6 PFSH Medical History Renal mass Chronic diastolic (congestive) heart failure Alcohol use disorder Anemia Mumps Measles Chicken pox Peripheral arterial disease AAA (abdominal aortic aneurysm) GERD without esophagitis Diabetic toe ulcer Polyneuropathy, unspecified Type 2 diabetes mellitus with polyneuropathy Surgical History S/P mitral valve repair History of cataract removal with insertion of prosthetic lens Social History details: Partner (Yadi Dong) household members: significant other Smoking Status: Current every day smoker alcohol intake: current Discharge Plan Discharge Plan Patient Disposition: SNF Transfer to: [facility] Rehabilitation and Healthcare Provider Discharge Comment: 73 M admitted with L knee pain. Diagnosed with L knee cellulitis and MRI showed pre-patellar bursitis. Overall slow improvement with antibiotics. Keep on antibiotics for 3 week total course with cefdinir based on wound culture from recent ER visit. He is confused during the morning. This has been consistent over the past 3 days. No infectious etiologies or metabolic etiologies have been apparent. This is likely due to a hospital delirium or non-compliance with sleep apnea. I have stopped his narcotic pain medications to see if this will help. Discharge orders & Medications Prescriptions: New polyethylene glycol 3350 17 gram Powder In Packet 17 g PO DAILY PRN (Reason: Constipation) 7 Days Qty: 14 0RF sennosides [senna] 8.6 mg Tablet 8.6 mg PO BID PRN (Reason: Constipation) Qty: 30 0RF acetaminophen 325 mg Tablet 650 mg PO Q6H PRN (Reason: Fever/Mild Pain (1-3)) Qty: 30 0RF metoprolol succinate 50 mg Tablet Extended Release 24 Hr 50 mg PO BEDTIME Qty: 30 0RF pantoprazole 20 mg Tablet,Delayed Release (Dr/Ec) 20 mg PO DAILY Qty: 30 0RF cefdinir 300 mg capsule 300 mg PO BID 15 Days Qty: 30 0RF empagliflozin 25 mg tablet 25 mg PO DAILY 30 Days Qty: 30 0RF metformin 1,000 mg tablet 1,000 mg PO BIDWMEAL 30 Days Qty: 60 0RF Continued duloxetine [Cymbalta] 60 mg capsule,delayed release(DR/EC) 60 mg PO QDAY Qty: 90 3RF Xarelto 20 mg tablet 20 mg PO QDAY Qty: 90 3RF gabapentin 800 mg tablet 800 mg PO TID Qty: 270 3RF atorvastatin 80 mg tablet 80 mg PO DAILY Qty: 90 3RF cyanocobalamin (vitamin B-12) 1,000 mcg capsule 1,000 mcg PO DAILY furosemide 40 mg tablet 40 mg PO BID potassium chloride 10 mEq tablet extended release 20 meq PO BID magnesium oxide 400 mg (241.3 mg magnesium) Tablet 400 mg PO 2XD ferrous sulfate 325 mg (65 mg iron) Tablet,Delayed Release (Dr/Ec) 325 mg PO DAILY metoprolol succinate 100 mg tablet extended release 24 hr 100 mg PO DAILY Discontinued Synjardy 12.5-1,000 mg tablet 1 tab PO BID Qty: 180 3RF Follow up/Referrals: Freeman Chao MD [Primary Care Provider] - Diet/Activity/Treatments Diet: Diet as Tolerated and Carb-consistent/Diabetic Liquid consistency: Normal/Thin Food texture: Regular Activity: As tolerated, no restrictions Visit Report/Discharge Packet Stand Alone Forms: Patient Portal/API Discharge Data Primary Care Provider: Freeman Chao V Discharges patient from system. Discharge Date/Time: 08/01/23 13:30 Quality VTE Deep Vein Thrombosis/Pulmonary Embolism Present on Admission: No
--- NOTE | 2023-08-01 14:06 | PC.NURSE ---
Transfer: Pt Transfered to Rehab and reports given to Izzy, admitting nurse. Reviewed mental status, pt having auditory and visual hallucinations. Yesterday he though a murder occured in his room, today he is more oriented than yesterday but still thought he saw and heard his Priscilla. Discussed mobility, pt is able to amb with a fww and assist of one. had various concerns about pt's LOC and did speak with Dr. Yoder for a long time. She is in agreement with the transfer. Reviewed pt's adl's and hospital course. Pt transfered to facility via there van.
== END 2023-08-01 13:30 | DRG 602 ==
LOC: ED 13:07 → AC 17:25
PROVIDERS: Internal Medicine; Admitting Provider Student in an Organized Health Care Education/Training Program; Emergency Provider Emergency Medicine; Family Provider Family Medicine; PCP Internal Medicine; Referring Provider Emergency Medicine; Visit Provider Student in an Organized Health Care Education/Training Program
DX: L03.116 Cellulitis of left lower limb (principal); G92.8 Other toxic encephalopathy; J96.01 Acute respiratory failure with hypoxia; E87.20 Acidosis, unspecified; I48.20 Chronic atrial fibrillation, unspecified; I50.32 Chronic diastolic (congestive) heart failure; I11.0 Hypertensive heart disease with heart failure; E78.5 Hyperlipidemia, unspecified; E83.42 Hypomagnesemia; K21.9 Gastro-esophageal reflux disease without esophagitis; F32.A Depression, unspecified; M70.42 Prepatellar bursitis, left knee; D64.9 Anemia, unspecified; F17.210 Nicotine dependence, cigarettes, uncomplicated; Z79.899 Other long term (current) drug therapy; Z79.01 Long term (current) use of anticoagulants
CPT/HCPCS: 36415; 71045; 73562; 73701; 73723; 80048; 80053; 80202; 81001; 81003; 83605; 83690; 83735; 84132; 84145; 85007; 85025; 85610; 85651; 85730; 86140; 87040; 87070; 87075; 87077; 87147; 87186; 87205; 93005; 93971; 94760; 96365; 96367; 96375; 97116; 97162; 97166; 97530; 97535; 99284; 99285; G0378; J0696; J1170; J1940; J2270; J3475; Q9967

== ENCOUNTER 2023-08-02 12:36 | Inpatient (IN) | payer MEDICARE, SELFPAY ==
[2023-07-26 17:35] VITALS: BMI 25.8
[2023-08-02] VITALS (49 sets, daily range): BP systolic 102–155; BP diastolic 62–101; PULSE 65–98; RESP 15–35; TEMP 36.1–36.3; O2SAT 81–100; BMI 30.4
--- NOTE | 2023-08-02 12:54 | DI.CT.S_ITS ---
PROCEDURE: CT HEAD/BRAIN WO CON INDICATIONS: confusion TECHNIQUE: Noncontrast 4.5 mm thick angled axial sections acquired from the foramen magnum to the vertex, with coronal and sagittal reformats. For radiation dose reduction, the following was used: automated exposure control, adjustment of mA and/or kV according to patient size. COMPARISON: [facility], CT, CT HEAD/BRAIN WO CON, 07/09/2023, 15:26. FINDINGS: Image quality: Mild streak artifact can be seen through the skull base. CSF spaces: Basal cisterns are patent. No extra-axial fluid collections. The ventricles are symmetric in size and shape. Brain: No intracranial bleeds or masses. There is cerebral volume loss for age, with resultant ventricular and sulcal prominence. There are periventricular and deep white matter chronic small vessel ischemic changes. There is intracranial internal carotid artery atherosclerosis. Skull and face: Calvarium and visualized facial bones appear intact, without suspicious lesions. Sinuses: Visualized sinuses and mastoids are clear. IMPRESSION: Unremarkable noncontrast head CT for age, stable from prior. Dictated by: Vincent Lauren M.D. on 08/02/2023 at 13:32 Approved by: Vincent Lauren M.D. on 08/02/2023 at 13:32
--- NOTE | 2023-08-02 12:54 | DI.RAD.S_ITS ---
PROCEDURE: XR CHEST 1V INDICATIONS: confusion TECHNIQUE: One view of the chest was acquired. COMPARISON: [facility], CT, CT HEAD/BRAIN WO CON, 08/02/2023, 13:53. [facility], CR, XR CHEST 1V, 07/26/2023, 13:07. [facility], CR, XR CHEST 1V, 07/29/2023, 11:19. FINDINGS: Surgical changes and devices: None. Lungs and pleura: Generalized interstitial prominence can be seen. No pneumothorax is seen. Blunting of the costophrenic angles can be seen, Mediastinum: Mediastinal contours appear normal. Heart size is moderately enlarged. Bones and chest wall: No suspicious bony lesions. Age-appropriate bony degenerative changes are seen. Overlying soft tissues appear unremarkable. IMPRESSION: Cardiomegaly and interstitial prominence, with small bilateral pleural effusions. Please consider CHF. Dictated by: Vincent Lauren M.D. on 08/02/2023 at 13:33 Approved by: Vincent Lauren M.D. on 08/02/2023 at 13:34
--- NOTE | 2023-08-02 12:57 | ED_ITS ---
HPI - Altered Mental Status General Chief Complaint: Altered Mental Status Stated Complaint: confusion Time Seen by Provider: 08/02/23 12:52 Source: patient, family, EMS and old records reviewed Mode of arrival: EMS History of Present Illness HPI narrative: 73-year-old male with history of atrial fibrillation to quite on Xarelto, prior ablation, CHF with mitraclip, chronic wounds of the right calf and left knee, diabetes with neuropathy, hypertension, dyslipidemia, PND, GERD, AAA, AGNIESZKA who presents for confusion. Patient denies fevers, he denies headache denies chest pain or shortness of breath, denies abdominal back or flank pain, denies any nausea or vomiting, denies any diarrhea constipation. States he has been stooling. Denies dysuria urgency or frequency. States his wounds have been healing well. States he feels confused his speech is off. He states he feels lightheaded like he might pass out. Patient denies any injuries or falls. Home medication list from we [facility] facility is negative for any narcotics. Patient was discharged home yesterday from our facility for no left knee cellulitis with prepatellar bursitis and changed to cefdinir based on cultures, acute hypoxic respiratory failure likely from volume overload, acute metabolic versus toxic encephalopathy with 3 days of consecutive hallucinations versus confusion and would improve over the course of the day and when oxygen was removed. Appears they suspected hypercapnia, pain medication or hospital delirium. Patient states he is had prior tonsil surgery. Had prior cardiac surgery. Has allergies to azithromycin, lisinopril and simvastatin. States he was smoking before it is hospitalizations, was drinking regularly prior to hospitalizations but not since, no recreational drugs. Primary care is Dr. Chao lives on [place]. Dr. Ron Bah at [facility] is his amusement park ride mechanic/interventionalist who placed his mitraclip. Related Data Home Medications Medication Instructions Recorded Confirmed ferrous sulfate 325 mg (65 mg 325 mg PO DAILY 07/09/23 08/02/23 iron) tablet,delayed release furosemide 40 mg tablet 40 mg PO BID 07/09/23 08/02/23 magnesium oxide 400 mg (241.3 mg 400 mg PO 2XD 07/09/23 08/02/23 magnesium) tablet potassium chloride 10 mEq 20 meq PO BID 07/09/23 08/02/23 tablet,extended release cyanocobalamin (vitamin B-12) 1,000 mcg PO DAILY 07/22/23 08/02/23 1,000 mcg capsule metoprolol succinate 100 mg 100 mg PO DAILY 07/27/23 08/02/23 tablet,extended release 24 hr Previous Rx's Medication Instructions Recorded atorvastatin 80 mg tablet 80 mg PO DAILY #90 tabs 07/23/22 duloxetine 60 mg capsule,delayed 60 mg PO QDAY #90 caps 07/23/22 release (Cymbalta) gabapentin 800 mg tablet 800 mg PO TID #270 tabs 07/23/22 rivaroxaban 20 mg tablet (Xarelto) 20 mg PO QDAY #90 tabs 07/23/22 acetaminophen 325 mg tablet 650 mg (2 x 325 mg) PO Q6H PRN 07/31/23 Fever/Mild Pain (1-3) #30 tabs polyethylene glycol 3350 17 gram 17 g PO DAILY PRN Constipation 7 07/31/23 oral powder packet days #14 ea sennosides 8.6 mg tablet (senna) 8.6 mg PO BID PRN Constipation #30 07/31/23 tabs cefdinir 300 mg capsule 300 mg PO BID 15 days #30 caps 08/01/23 empagliflozin 25 mg tablet 25 mg PO DAILY 30 days #30 tabs 08/01/23 metformin 1,000 mg tablet 1,000 mg PO BIDWMEAL 30 days #60 08/01/23 tabs metoprolol succinate 50 mg 50 mg PO BEDTIME #30 tabs 08/01/23 tablet,extended release 24 hr pantoprazole 20 mg tablet,delayed 20 mg PO DAILY #30 tabs 08/01/23 release Allergies Allergy/AdvReac Type Severity Reaction Status Date / Time azithromycin [AZITHROMYCIN] Allergy Mild RASH Verified 08/02/23 13:04 lisinopril [LISINOPRIL] AdvReac Mild COUGH Verified 08/02/23 13:39 simvastatin [SIMVASTATIN] AdvReac Mild MYALGIA Verified 08/02/23 13:39 Review of Systems Review of Systems ROS Unobtainable: All systems reviewed & are unremarkable except as noted in HPI and below Patient History Medical History Renal mass Chronic diastolic (congestive) heart failure Alcohol use disorder Anemia Mumps Measles Chicken pox Peripheral arterial disease AAA (abdominal aortic aneurysm) GERD without esophagitis Diabetic toe ulcer Polyneuropathy, unspecified Type 2 diabetes mellitus with polyneuropathy Surgical History S/P mitral valve repair History of cataract removal with insertion of prosthetic lens Social History details: Partner (Yadi Dong) household members: significant other Smoking Status: Current every day smoker alcohol intake: current Smoking Status: Current every day smoker tobacco type: cigarettes alcohol intake frequency: a few times a month Substance Use Type: does not use Exam Narrative Exam Narrative: GEN: Ill-appearing male, alert and oriented to self and able to answer medical questions, confused about the year and knows he is at a hospital but not which 1, patient appears to be in mild distress. HEENT: Atraumatic, pupils are equal round reactive to light, extraocular movements are intact, nares are clear, TMs are clear with no fluid, there is no conjunctival pallor. Throat is clear without any exudates, erythema, tonsillar enlargement or uvular deviation, no facial droop. HEART: Regular rate and rhythm without murmur, clicks, rubs. Pulses are equal in upper and lower extremities LUNGS:Lungs clear to auscultation, no wheezes, rales, crackles, chest moves symmetrically, no tachypnea, no accessory muscle use ABD:bowel sounds normal, soft, non-tender, no guarding, rebound, rigidity, no masses noted, no hepatosplenomegaly :No CVA tenderness MSCL: Non-tender, no muscle atrophy, muscles strength 5/5 upper and lower extremities, full range of motion, normal gait NEURO:CN 2-12 intact, sensation normal, reflexes 2/4 upper and lower extremities. finger nose finger test abnormal bilaterally, little worse on the right, patient has difficulty with heel-banda and slight weakness left lower extremity compared to right. Patient has some dysarthria but no aphasia. Is conversant on examination. Initial Vital Signs Initial Vital Signs: Vital Signs Pulse Rate 88 08/02/23 12:39 Blood Pressure 140/87 08/02/23 12:39 Pulse Oximetry 98 08/02/23 12:39 Scores GCS Pino coma scale eye opening: Spontaneous Pino coma scale verbal response: Confused Pino coma scale motor response: Obey commands Pino coma scale total score: 14 Course Orders Ordered: ED Orders 08/02/23 12:45 Urinalysis and Microscopic Stat Urine Culture Stat Urine Drug Screen, Rapid Stat 08/02/23 12:54 CT head/brain wo con Stat XR chest 1V Stat 08/02/23 13:15 ABG [Arterial Blood Gas] Stat 08/02/23 13:17 Respiratory Panel (Film Array) Stat 08/02/23 13:21 EKG-12 Lead Stat 08/02/23 13:30 Acetaminophen Stat Ammonia (NH3) Stat Complete Blood Count AUTO DIFF Stat Comprehensive Metabolic Panel Stat Ethanol (ETOH) Stat Free T4, Direct Thyroxine Stat Lactate (Lactic Acid) Stat Lipase Stat PTT Partial Thromboplastin Bib Stat Procalcitonin Stat Prolactin Stat Prothrombin Time INR Stat Salicylate Stat Thyroid Stimulating Hormone Stat Troponin & CK Cardiac Panel Stat 08/02/23 14:05 BNP [NT-proBNP (BNP-Adult 18+)] Stat Blood Culture Stat Prothrombin Time INR Stat 08/02/23 16:23 Consult to Occupational Therapy Evaluate & Treat Consult to Physical Therapy Evaluate & Treat 08/03/23 05:00 Complete Blood Count AUTO DIFF DAILY Comprehensive Metabolic Panel DAILY Magnesium DAILY 08/04/23 05:00 Complete Blood Count AUTO DIFF DAILY Comprehensive Metabolic Panel DAILY Magnesium DAILY 08/05/23 05:00 Complete Blood Count AUTO DIFF DAILY Comprehensive Metabolic Panel DAILY Magnesium DAILY Acetaminophen (Acetaminophen 325 Mg Tablet) 650 mg PO Q6H PRN PRN Reason: Fever/Mild Pain (1-3) Amoxicillin/Clavulanate Potassium (Amoxicillin/Clav 875/125 Mg) 1 tab PO BID [facility] Cyanocobalamin (Cyanocobalamin (Vitamin B-12) 500 Mcg Tablet) 1,000 mcg PO DAILY VONDA Duloxetine HCl (Duloxetine 30 Mg Capsule) 60 mg PO DAILY VONDA Ferrous Sulfate (Ferrous Sulfate 325 Mg Tablet) 325 mg PO DAILY@1200 VONDA Furosemide 60 mg/ Sodium (Chloride) 56 mls @ 112 mls/hr IV 0800,1700 VONDA Furosemide 60 mg/ Sodium (Chloride) 56 mls @ 112 mls/hr IV 2000 ONE Stop: 08/02/23 20:01 Lactulose (Lactulose 20 Gm/30 Ml Solution) 10 gm PO BID [facility] Metoprolol Succinate (Metoprolol Er 50 Mg Tablet) 100 mg PO DAILY [facility] Metoprolol Succinate (Metoprolol Er 50 Mg Tablet) 50 mg PO BEDTIME VONDA Naloxone HCl (Naloxone 0.4 Mg/Ml Vial) 0.2 mg IV Q2MIN PRN PRN Reason: Opiate Reversal Empagliflozin 25 Mg (Tablet) 25 mg PO DAILY [facility] Ondansetron HCl (Ondansetron 4 Mg Odt) 4 mg PO Q8HR PRN PRN Reason: Nausea And Vomiting Pantoprazole Sodium (Pantoprazole Dr 20 Mg Tablet) 20 mg PO 0700 [facility] Quetiapine Fumarate (Quetiapine 25 Mg Tablet) 12.5 mg PO BEDTIME VONDA Discontinued Medications Cefdinir (Cefdinir 300 Mg Capsule) 300 mg PO BID VONDA Stop: 08/16/23 20:59 Furosemide (Furosemide 40 Mg/4 Ml Vial) 40 mg IV NOW ONE Stop: 08/02/23 13:37 Last Admin: 08/02/23 14:02 Dose: 40 mg Documented By: DANYA Vital Signs Vital signs: Vital Signs - 8 hr 08/02/23 12:39 08/02/23 12:39 08/02/23 12:40 Temperature Pulse Rate 88 85 Respiratory Rate Blood Pressure 140/87 Pulse Oximetry 98 95 Oxygen Delivery Method Oxygen Flow Rate 08/02/23 12:41 08/02/23 12:45 08/02/23 12:50 Temperature 97.1 F L Pulse Rate 80 80 83 Respiratory Rate 20 19 20 Blood Pressure 140/87 Pulse Oximetry 87 L 88 L 89 L Oxygen Delivery Method Room Air Room Air Nasal Cannula Oxygen Flow Rate 08/02/23 12:55 08/02/23 13:00 08/02/23 13:03 Temperature Pulse Rate 82 80 82 Respiratory Rate 20 20 21 Blood Pressure Pulse Oximetry 96 81 L 89 L Oxygen Delivery Method Nasal Cannula Room Air Oxygen Flow Rate 4 4 08/02/23 13:03 08/02/23 13:05 08/02/23 13:10 Temperature Pulse Rate 79 80 Respiratory Rate 20 21 Blood Pressure 128/71 Pulse Oximetry 94 92 Oxygen Delivery Method Oxygen Flow Rate 4 08/02/23 13:15 08/02/23 13:16 08/02/23 13:16 Temperature Pulse Rate 88 85 Respiratory Rate 24 21 Blood Pressure 153/87 H Pulse Oximetry 89 L 88 L Oxygen Delivery Method Nasal Cannula Oxygen Flow Rate 4 08/02/23 13:20 08/02/23 13:25 08/02/23 13:30 Temperature Pulse Rate 83 82 Respiratory Rate 21 20 Blood Pressure 124/101 H Pulse Oximetry 88 L 94 Oxygen Delivery Method Oxygen Flow Rate 4 4 08/02/23 13:30 08/02/23 13:35 08/02/23 13:40 Temperature Pulse Rate 82 85 87 Respiratory Rate 19 27 H 22 Blood Pressure Pulse Oximetry 97 99 94 Oxygen Delivery Method Oxygen Flow Rate 4 4 08/02/23 13:45 08/02/23 13:50 08/02/23 13:52 Temperature Pulse Rate 86 84 87 Respiratory Rate 23 21 26 H Blood Pressure Pulse Oximetry 94 95 94 Oxygen Delivery Method Oxygen Flow Rate 4 08/02/23 13:52 08/02/23 13:55 08/02/23 14:00 Temperature Pulse Rate 82 80 Respiratory Rate 19 19 Blood Pressure 143/100 H Pulse Oximetry 95 95 Oxygen Delivery Method Nasal Cannula Oxygen Flow Rate 4 08/02/23 14:21 08/02/23 14:25 08/02/23 14:26 Temperature Pulse Rate 91 H 84 Respiratory Rate 19 Blood Pressure 152/76 H Pulse Oximetry 98 97 Oxygen Delivery Method Oxygen Flow Rate 08/02/23 14:26 08/02/23 14:30 08/02/23 14:35 Temperature Pulse Rate 84 98 H 88 Respiratory Rate 22 25 H 24 Blood Pressure Pulse Oximetry 97 92 93 Oxygen Delivery Method Nasal Cannula Oxygen Flow Rate 4 08/02/23 14:38 08/02/23 14:38 08/02/23 14:40 Temperature Pulse Rate 84 83 Respiratory Rate 22 20 Blood Pressure 135/65 Pulse Oximetry 95 95 Oxygen Delivery Method Oxygen Flow Rate 4 08/02/23 14:45 08/02/23 14:50 08/02/23 14:55 Temperature Pulse Rate 93 H 93 H 82 Respiratory Rate 24 27 H 17 Blood Pressure Pulse Oximetry 92 93 97 Oxygen Delivery Method Oxygen Flow Rate 4 4 MDM - Altered Mental Status Lab Data 08/02/23 13:30 08/02/23 13:30 Labs: Lab Results 08/02/23 08/02/23 08/02/23 Range/Units 12:45 13:15 13:17 WBC (4.5-11.0) X10^3/uL RBC (4.5-5.9) X10^6/uL Hgb (13.5-17.5) g/dL Hct (41-53) % MCV (80-100) fL MCH (26-34) PG MCHC (30-36) % RDW (11.6-14.8) % Plt Count (150-400) X10^3/uL Neut % (Auto) (50-75) % Lymph % (Auto) (25-40) % [place] % (Auto) (3-14) % Eos % (Auto) (2-4) % Baso % (Auto) (0-2) % Neut # (Auto) (7341-2987) /uL Lymph # (Auto) (6104-1531) /uL [place] # (Auto) (0-900) /uL Eos # (Auto) (0-450) /uL Baso # (Auto) (0-100) /uL RBC Morphology Poikilocytosis Anisocytosis PT (10.1-12.7) SECONDS INR (0.9-1.3) APTT (26-36) SECONDS ABG Sample Site Right radial ABG pH 7.43 (7.35-7.45) ABG pCO2 30.0 L (35-45) mmHg ABG pO2 55 L (80-100) mmHg ABG HCO3 20 L (23-27) mmol/L ABG Total CO2 21 L (23-27) mmol/L ABG O2 Saturation 90 L (95-100) % ABG Base Excess -4.0 L (-2-3) mmol/L FiO2 21 Sodium (137-145) mmol/L Potassium (3.4-5.1) mmol/L Chloride (98-107) mmol/L Carbon Dioxide (22-32) mmol/L BUN (9-20) mg/dL Creatinine (0.66-1.25) mg/dL Estimated GFR (>60) mL/min BUN/Creatinine Ratio (6-22) Glucose (80-110) mg/dL Serum Osmolality Lactate (0.7-2.1) mmol/L Calcium (8.4-10.2) mg/dL Total Bilirubin (0.2-1.3) mg/dL AST (17-59) IU/L ALT (<50) IU/L Alkaline Phosphatase (38-126) U/L Ammonia (9-30) umol/L Total Creatine Kinase (55-170) U/L Troponin I (0.01-0.034) ng/mL NT-Pro-B Natriuret Pep (<450) pg/mL Total Protein (6.3-8.2) g/dL Albumin (3.5-5.0) g/dL Globulin (1.7-4.1) g/dL Albumin/Globulin Ratio (1.0-2.8) Lipase (23-300) U/L Procalcitonin (<0.5) ng/mL TSH (0.47-4.68) uIU/mL Free T4 (0.78-2.19) ng/dL Prolactin (3.7-17.9) ng/mL Urine Color Yellow Urine Appearance Clear Urine pH 5.5 (4.5-8.0) Ur Specific [place] 1.020 (1.000-1.035) Urine Protein Negative (Negative) Urine Glucose (UA) Trace H (Negative) g/dL Urine Ketones Negative (NEGATIVE) Urine Occult Blood Negative (Negative) Urine Nitrate Negative (Negative) Urine Bilirubin Negative (NEGATIVE) Urine Urobilinogen 0.2 (0.2) E.U./dL Ur Leukocyte Esterase Negative (NEGATIVE) Urine RBC 0-1/hpf (0-5/HPF) Urine WBC 1-5/hpf (0-5/HPF) Ur Squamous Epith Cells 0-1 /hpf (0-5/HPF) Urine Bacteria Occasional (0-1) (None) Salicylates (<20) mg/dL U Opiates 300ng/mL cut Negative (Negative) Ur Oxycodone Screen Positive H (Negative) Urine Methadone Screen Negative (Negative) Acetaminophen (10-30) ug/mL Ur Barbiturates Screen Negative (Negative) U Tricyclic Antidepress Negative (Negative) Ur Phencyclidine Scrn Negative (Negative) Ur Amphetamines Screen Negative (Negative) U Methamphetamines Scrn Negative (Negative) Ur MDMA Scrn (Ecstasy) Negative (Negative) U Benzodiazepines Scrn Negative (Negative) Urine Cocaine Screen Negative (Negative) U Marijuana (THC) Screen Negative (Negative) Ethyl Alcohol ( - 10) mg/dL Chlamy pneumoniae PCR Not detected (Not Detect) Adenovirus (PCR) Not detected (Not Detect) B.parapertussis DNA PCR Not detected (Not Detecte) Coronavirus OC43 (PCR) Not detected (Not Detect) Coronavirus HKU1 (PCR) Not detected (Not Detect) Coronavirus 229E (PCR) Not detected (Not Detect) SARS-CoV-2 (PCR) Not detected (Not Detecte) Coronavirus NL63 (PCR) Not detected (Not Detect) Human Metapneumovir PCR Not detected (Not Detect) Influenza Type A (PCR) Not detected (Not Detect) Influenza Type B (PCR) Not detected (Not Detect) M. pneumoniae (PCR) Not detected (Not Detect) Parainfluenza 1 (PCR) Not detected (Not Detect) Parainfluenza 2 (PCR) Not detected (Not Detect) Parainfluenza 3 (PCR) Not detected (Not Detect) Parainfluenza 4 (PCR) Not detected (Not Detect) RSV (PCR) Not detected (Not Detect) Entero/Rhino (PCR) Not detected (Not Detect) 08/02/23 08/02/23 Range/Units 13:30 14:05 WBC 7.4 (4.5-11.0) X10^3/uL RBC 4.09 L (4.5-5.9) X10^6/uL Hgb 10.6 L (13.5-17.5) g/dL Hct 33.9 L (41-53) % MCV 82.9 (80-100) fL MCH 26.0 (26-34) PG MCHC 31.4 (30-36) % RDW 23.3 H (11.6-14.8) % Plt Count 188 (150-400) X10^3/uL Neut % (Auto) 69.0 (50-75) % Lymph % (Auto) 15.7 L (25-40) % [place] % (Auto) 12.4 (3-14) % Eos % (Auto) 2.0 (2-4) % Baso % (Auto) 0.9 (0-2) % Neut # (Auto) 5100 (9211-4717) /uL Lymph # (Auto) 1200 (6956-6954) /uL [place] # (Auto) 900 (0-900) /uL Eos # (Auto) 200 (0-450) /uL Baso # (Auto) 100 (0-100) /uL RBC Morphology See below Poikilocytosis 1+ H Anisocytosis 2+ H PT 74.9 H D 80.1 H D (10.1-12.7) SECONDS INR 6.4 H* 6.8 H* (0.9-1.3) APTT 48 H (26-36) SECONDS ABG Sample Site ABG pH (7.35-7.45) ABG pCO2 (35-45) mmHg ABG pO2 (80-100) mmHg ABG HCO3 (23-27) mmol/L ABG Total CO2 (23-27) mmol/L ABG O2 Saturation (95-100) % ABG Base Excess (-2-3) mmol/L FiO2 Sodium 133 L (137-145) mmol/L Potassium 4.7 (3.4-5.1) mmol/L Chloride 99 (98-107) mmol/L Carbon Dioxide 20 L (22-32) mmol/L BUN 22 H (9-20) mg/dL Creatinine 0.67 (0.66-1.25) mg/dL Estimated GFR > 60 (>60) mL/min BUN/Creatinine Ratio 32.8 H (6-22) Glucose 107 (80-110) mg/dL Serum Osmolality Cancelled Lactate 2.0 (0.7-2.1) mmol/L Calcium 10.2 (8.4-10.2) mg/dL Total Bilirubin 1.2 (0.2-1.3) mg/dL AST 407 H (17-59) IU/L ALT 242 H (<50) IU/L Alkaline Phosphatase 111 D (38-126) U/L Ammonia < 9 L (9-30) umol/L Total Creatine Kinase 60 (55-170) U/L Troponin I < 0.012 (0.01-0.034) ng/mL NT-Pro-B Natriuret Pep 4080 H (<450) pg/mL Total Protein 7.5 (6.3-8.2) g/dL Albumin 4.0 (3.5-5.0) g/dL Globulin 3.5 (1.7-4.1) g/dL Albumin/Globulin Ratio 1.1 (1.0-2.8) Lipase 44 (23-300) U/L Procalcitonin 0.12 (<0.5) ng/mL TSH 7.26 H (0.47-4.68) uIU/mL Free T4 1.30 (0.78-2.19) ng/dL Prolactin 10.2 (3.7-17.9) ng/mL Urine Color Urine Appearance Urine pH (4.5-8.0) Ur Specific [place] (1.000-1.035) Urine Protein (Negative) Urine Glucose (UA) (Negative) g/dL Urine Ketones (NEGATIVE) Urine Occult Blood (Negative) Urine Nitrate (Negative) Urine Bilirubin (NEGATIVE) Urine Urobilinogen (0.2) E.U./dL Ur Leukocyte Esterase (NEGATIVE) Urine RBC (0-5/HPF) Urine WBC (0-5/HPF) Ur Squamous Epith Cells (0-5/HPF) Urine Bacteria (None) Salicylates < 1.0 (<20) mg/dL U Opiates 300ng/mL cut (Negative) Ur Oxycodone Screen (Negative) Urine Methadone Screen (Negative) Acetaminophen < 10 (10-30) ug/mL Ur Barbiturates Screen (Negative) U Tricyclic Antidepress (Negative) Ur Phencyclidine Scrn (Negative) Ur Amphetamines Screen (Negative) U Methamphetamines Scrn (Negative) Ur MDMA Scrn (Ecstasy) (Negative) U Benzodiazepines Scrn (Negative) Urine Cocaine Screen (Negative) U Marijuana (THC) Screen (Negative) Ethyl Alcohol < 10 ( - 10) mg/dL Chlamy pneumoniae PCR (Not Detect) Adenovirus (PCR) (Not Detect) B.parapertussis DNA PCR (Not Detecte) Coronavirus OC43 (PCR) (Not Detect) Coronavirus HKU1 (PCR) (Not Detect) Coronavirus 229E (PCR) (Not Detect) SARS-CoV-2 (PCR) (Not Detecte) Coronavirus NL63 (PCR) (Not Detect) Human Metapneumovir PCR (Not Detect) Influenza Type A (PCR) (Not Detect) Influenza Type B (PCR) (Not Detect) M. pneumoniae (PCR) (Not Detect) Parainfluenza 1 (PCR) (Not Detect) Parainfluenza 2 (PCR) (Not Detect) Parainfluenza 3 (PCR) (Not Detect) Parainfluenza 4 (PCR) (Not Detect) RSV (PCR) (Not Detect) Entero/Rhino (PCR) (Not Detect) Point of Care Testing Glucose POC [address] scan - head: Radiologist's Impression: [address] [address] [address] Scan Report Signed Patient: Leroy Almonte V MR#: [id number] : 1950 Acct:[id number] Age/Sex: 73 / M Date of Service: 08/02/23 Loc: ED Accession Number: [id number] Procedure: CT head/brain wo con Ordering Provider: Jodi Ignacio D.O. PROCEDURE: CT HEAD/BRAIN WO CON INDICATIONS: confusion TECHNIQUE: Noncontrast 4.5 mm thick angled axial sections acquired from the foramen magnum to the vertex, with coronal and sagittal reformats. For radiation dose reduction, the following was used: automated exposure control, adjustment of mA and/or kV according to patient size. COMPARISON: [facility], CT, CT HEAD/BRAIN WO CON, 07/09/2023, 15:26. FINDINGS: Image quality: Mild streak artifact can be seen through the skull base. CSF spaces: Basal cisterns are patent. No extra-axial fluid collections. The ventricles are symmetric in size and shape. Brain: No intracranial bleeds or masses. There is cerebral volume loss for age, with resultant ventricular and sulcal prominence. There are periventricular and deep white matter chronic small vessel ischemic changes. There is intracranial internal carotid artery atherosclerosis. Skull and face: Calvarium and visualized facial bones appear intact, without suspicious lesions. Sinuses: Visualized sinuses and mastoids are clear. IMPRESSION: Unremarkable noncontrast head CT for age, stable from prior. Dictated by: Vincent Lauren M.D. on 08/02/2023 at 13:32 Approved by: Vincent Lauren M.D. on 08/02/2023 at 13:32 Chest x-ray: Radiologist's Impression: Close Head CT (Signed) Vincent Lauren - 08/02/23 Chest X-Ray (Signed) Vincent Lauren - 08/02/23 Knee MRI (Signed) Jose Sharif - 07/30/23 Chest X-Ray (Signed) Charlotte Wagner - 07/29/23 Telemetry Strips 07/28/[address] (Signed) Vincent Lauren - 07/26/23 Vascular Ultrasound (Signed) Vincent Lauren - 07/26/23 Chest X-Ray (Signed) Vincent Lauren - 07/26/23 Vascular Ultrasound (Signed) Vincent Lauren - 07/23/23 Chest X-Ray (Signed) Haley Daley - 07/23/23 Knee X-Ray (Signed) Haley Daley - 07/23/[address] (Signed) Vincent Lauren - 07/09/[address] (Signed) Leonidas,Vincent - 07/09/[address] (Signed) Vincent Lauren - 07/09/23 Chest X-Ray (Signed) Vincent Lauren - 07/09/23 Lower Extremity CTA (Signed) SantyRip - 06/11/23 Tibia/Fibula X-Ray (Signed) Fred Niño - 06/11/23 Chest X-Ray (Signed) NiñoFred - 06/11/23 Foot X-Ray (Signed) David Bauman - 05/28/23 Duplex Scan Lower Extremity Artery (Signed) Chaitanya Chavez - 05/28/23 Abdomen/Pelvis CT (Signed) Chaitanya Chavez - 05/01/22 Launch?[place] [address] XRay Report Signed Patient: Leroy Almonte V MR#: [id number] : 1950 Acct:[id number] Age/Sex: 73 / M Date of Service: 08/02/23 Loc: ED Accession Number: [id number] Procedure: XR chest 1V Ordering Provider: Jodi Ignacio D.O. PROCEDURE: XR CHEST 1V INDICATIONS: confusion TECHNIQUE: One view of the chest was acquired. COMPARISON: [facility], CT, CT HEAD/BRAIN WO CON, 08/02/2023, 13:53. [facility], CR, XR CHEST 1V, 07/26/2023, 13:07. [facility], CR, XR CHEST 1V, 07/29/2023, 11:19. FINDINGS: Surgical changes and devices: None. Lungs and pleura: Generalized interstitial prominence can be seen. No pneumothorax is seen. Blunting of the costophrenic angles can be seen, Mediastinum: Mediastinal contours appear normal. Heart size is moderately enlarged. Bones and chest wall: No suspicious bony lesions. Age-appropriate bony degenerative changes are seen. Overlying soft tissues appear unremarkable. IMPRESSION: Cardiomegaly and interstitial prominence, with small bilateral pleural effusions. Please consider CHF. Dictated by: Vincent Lauren M.D. on 08/02/2023 at 13:33 Approved by: Vincent Lauren M.D. on 08/02/2023 at 13:34 ECG Data Attestation: I personally reviewed and interpreted this ECG as follows: Prior ECG tracings: available for review Interpretation: Atrial fibrillation rate of 79. He 6 QRS of 444. No acute ST elevation depression noted. Lead V2 has what appears to be motion artifact. MDM Narrative Medical decision making narrative: 73-year-old male who presents with increased confusion, after discussion with he is had possibly delirium versus other causes for several days prior to his discharge but improved typically during the day. notes that this has not always been the case he also had episodes when he was at [facility]. She thought it might be medications causing symptoms and she notes patient receiving oral narcotics here in the hospital but was discharged to rehab without any narcotics. She also notes his legs are significantly more swollen today and his weight has gone up and she is concerned about fluid overload as well. Patient clinically does appear fluid overloaded. Fluids for medics were stopped. Patient given a dose of Lasix, is hypoxic, they noted patient has sometimes seemed to have increased confusion with oxygen so ABG was obtained to evaluate for hypercapnia. Patient has a mcc smoker and quit during his most recent hospitalizations. and patient both note that he was drinking regularly but has not since he has been hospitalized. Discussed with will evaluate for multiple causes for his altered mental although sounds like this has been waxing and waning intermittently. He does not appear fluid overloaded, imaging, labs, EKG, ABG, Lasix and O2 restarted. CT shows no acute change, chest x-ray shows changes consistent with CHF, hemoglobin stable at 10, no leukocytosis normal platelets. INR is trending upwards and 6 today was repeated in his 6.8 from a separate blood draws. Patient scant sequela of Xarelto in the hospital, was discharged yesterday even if given the wrong medication for at outside facility would not be this elevated suspect possible hepatic disease. AST ALT are elevated at 407 and 242 but normal bilirubin, alk-phos 111- ammonia, lipase is negative. Sodium is 133 with a CO2 of 28 BUN 22, negative troponin BNP of 4000, procalcitonin 0.12 with a negative prolactin. Urine shows trace glucose, positive for oxycodone on tox screen, negative Tylenol and salicylate. Respiratory panel is negative. ABG patient is 7.43 pCO2 of 30, PO2 is 55 on room air was placed on 4 L patient does not appear to be hypercapnic. Spoke with Dr. Yoder hospitalist: Accepts for admission. Suspects hepatic issue secondary to congestive heart failure. We will keep for inpatient admission for diuresis, monitoring of LFTs. Patient's ammonia is not elevated but he has been getting some oxycodone prior to discharge and if his liver function is not working appropriately this might be contributing to his altered mental status no other clear source is found currently. Reviewed all findings with patient as well as his bedside. He is full code at this time. Patient did have several bowel movements they have been well formed not black not bloody. Patient's state he typically will have a bowel movement when he receives Lasix. Patient has had 1025mL out since arrival with some also in his brief. Discharge Plan Departure Patient Disposition: Admitted As Inpatient Clinical Impression: Congestive heart failure (CHF), Elevated INR Admit Date/Time: 08/02/23 15:27 Admit Provider: Mirza Yoder
[2023-08-02 13:09] LABS: Appearance Urine UA CLEAR; Bilirubin Urine UA NEGATIVE (NEGATIVE); Color Urine UA YELLOW; Glucose Urine UA TRACE g/dL (Negative); Ketones Urine UA NEGATIVE (NEGATIVE); Leukocyte Esterase Urine UA NEGATIVE (NEGATIVE); Nitrite Urine UA NEGATIVE (Negative); Occult Blood Urine UA NEGATIVE (Negative); Protein Urine UA NEGATIVE (Negative); Urobilinogen Urine UA 0.2 E.U./dL (0.2); pH Urine UA 5.5 (4.5-8.0)
[2023-08-02 13:14] LABS: UR Morphine/Opiate cutoff 300 Negative (Negative); Ur Creatinine Normal (Normal); Ur Specific Gravity Normal (Normal); Urine Amphetamines Negative (Negative); Urine Barbiturates Negative (Negative); Urine Benzodiazepines Negative (Negative); Urine Cocaine Negative (Negative); Urine MDMA Negative (Negative); Urine Methadone Negative (Negative); Urine Methamphetamines Negative (Negative); Urine Phencyclidine Negative (Negative); Urine Tetrahydrocannabinol Negative (Negative); Urine Tricyclic Antidepressant Negative (Negative); Urine pH Normal (Normal)
[2023-08-02 13:24] LABS: WBC Urine 1-5/HPF (0-5/HPF)
[2023-08-02 13:25] LABS: RBC Urine 0-1/HPF (0-5/HPF)
[2023-08-02 13:26] LABS: Bacteria Urine Occasional (0-1)
[2023-08-02 13:27] LABS: Squamous Epithelial Cell Urine 0-1 /HPF (0-5/HPF)
[2023-08-02 13:45] LABS: Fractionated Inspired Oxygen 21; HCO3 ABG 20 mmol/L (23-27); Oxygen Saturation ABG 90 % (95-100); PO2 ABG 55 mmHg (80-100); TCO2 ABG 21 mmol/L (23-27); pH ABG 7.43 (7.35-7.45)
[2023-08-02 13:46] LABS: Allen Test for ABG Passed? Yes, Passed; Blood Gas Collection Site Right Radial
[2023-08-02 13:58] LABS: Add Manual Diff / Slide Review NO; Basophils Absolute Auto 100 /uL (0-100); Basophils Percent Auto 0.9 % (0-2); Eosinophils Absolute Auto 200 /uL (0-450); Hematocrit 33.9 % (41-53); Hemoglobin 10.6 g/dL (13.5-17.5); Lymphocytes Absolute Auto 1200 /uL (1100-4500); Lymphocytes Percent Auto 15.7 % (25-40); Mean Corpuscular HGB Conc 31.4 % (30-36); Mean Corpuscular Volume 82.9 fL (80-100); Monocytes Absolute Auto 900 /uL (0-900); Monocytes Percent Auto 12.4 % (3-14); Neutrophils Absolute Auto 5100 /uL (1500-7000); Platelet Count 188 X10^3/uL (150-400); Red Blood Cell Count 4.09 X10^6/uL (4.5-5.9); Red Cell Distribution Width 23.3 % (11.6-14.8); White Blood Cell Count 7.4 X10^3/uL (4.5-11.0)
[2023-08-02 13:58] LABS: Urine Oxycodone Positive (Negative)
--- NOTE | 2023-08-02 13:59 | PC.NURSE ---
corrected urine tox (+ oxy) reported to Dr. Ignacio.
[2023-08-02 14:01] LABS: Ammonia (NH3) < 9 umol/L (9-30)
[2023-08-02] MEDS: FUROSEMIDE 40 MG/4 ML VIAL IV (14:02)
[2023-08-02 14:06] LABS: PTT Partial Thromboplastin Tim 48 SECONDS (26-36)
[2023-08-02 14:10] LABS: Alanine Aminotransferase 242 IU/L (<50); Albumin Globulin Ratio 1.1 (1.0-2.8); Alkaline Phosphatase 111 U/L (38-126); Aspartate Aminotransferase 407 IU/L (17-59); BUN Creatinine Ratio 32.8 (6-22); Bilirubin Total 1.2 mg/dL (0.2-1.3); Blood Urea Nitrogen 22 mg/dL (9-20); Calcium 10.2 mg/dL (8.4-10.2); Carbon Dioxide 20 mmol/L (22-32); Chloride 99 mmol/L (98-107); Creatine Kinase 60 U/L (55-170); Estimated Glomerular Filt Rate > 60 mL/min (>60); Ethanol (ETOH) < 10 mg/dL; Globulin 3.5 g/dL (1.7-4.1); Glucose 107 mg/dL (80-110); HEMOLYSIS 19 (0-50); Potassium 4.7 mmol/L (3.4-5.1); Sodium 133 mmol/L (137-145); Total Protein 7.5 g/dL (6.3-8.2)
[2023-08-02 14:11] LABS: Acetaminophen < 10 ug/mL (10-30); Prothrombin Time 74.9 SECONDS (10.1-12.7); Salicylate < 1.0 mg/dL (<20)
[2023-08-02 14:12] LABS: INR 6.4 (0.9-1.3)
[2023-08-02 14:19] LABS: Anisocytosis 2+; Lipase 44 U/L (23-300); Poikilocytosis 1+
[2023-08-02 14:22] LABS: Prothrombin Time 80.1 SECONDS (10.1-12.7)
[2023-08-02 14:23] LABS: Troponin I < 0.012 ng/mL (0.01-0.034)
[2023-08-02 14:24] LABS: INR 6.8 (0.9-1.3)
[2023-08-02 14:27] LABS: Procalcitonin 0.12 ng/mL (<0.5); Prolactin 10.2 ng/mL (3.7-17.9)
[2023-08-02 14:31] LABS: NT-proBNP (BNP-Adult 18+) 4080 pg/mL (<450)
[2023-08-02 14:40] LABS: Thyroid Stimulating Hormone 7.26 uIU/mL (0.47-4.68)
[2023-08-02 15:12] LABS: Adenovirus Not Detected (Not Detect); B. parapertussis Not Detected (Not Detecte); Bordetella pertussis Not Detected (Not Detect); Chlamydophila pneumoniae Not Detected (Not Detect); Coronavirus 229E Not Detected (Not Detect); Coronavirus HKU1 Not Detected (Not Detect); Coronavirus NL 63 Not Detected (Not Detect); Coronavirus OC43 Not Detected (Not Detect); Human Metapneumovirus Not Detected (Not Detect); Human Rhinovirus/Enterovirus Not Detected (Not Detect); Influenza A Not Detected (Not Detect); Influenza B Not Detected (Not Detect); Mycoplasma pneumoniae Not Detected (Not Detect); Parainfluenza Virus 1 Not Detected (Not Detect); Parainfluenza Virus 2 Not Detected (Not Detect); Parainfluenza Virus 3 Not Detected (Not Detect); Parainfluenza Virus 4 Not Detected (Not Detect); Respiratory Syncytial Virus Not Detected (Not Detect); SARS- CoV-2 Not Detected (Not Detecte)
--- NOTE | 2023-08-02 15:16 | PC.NURSE ---
PREHEMMER note: this cigarette lighter repairer and rachael Palacios assisted pt. with elimination. pt stated i need to use both. pt. placed on bedpan while this cigarette lighter repairer and rachael palacios stayed at bedside. after two minutes pt. rolled towards the right side with rachael palacios assistance as this cigarette lighter repairer wiped pt. prabhakar area and bottom until clean with wipes. this cigarette lighter repairer removed bedpan from under pt. with rachael palacios assistance rotated pt. to put new lg brief on pt. boosted pt up in the bed. lowered the bed to the lowest position, [address], blankets applied to pt. left call light within reach and encouraged pt to use call light for needs or assistance.
--- NOTE | 2023-08-02 15:54 | P.HP_ITS ---
History of Present Illness History of Present Illness Date Patient Seen: 08/02/23 Time Patient Seen: 15:54 Chief complaint: confusion Narrative: 73 M with PMH of afib with difficult to control rate (previously in the ER and did not require admission for rate control within the last few week per cardiology), CHFpEF (with mitraclip), chronic toe wounds on the R, alcohol use, DM with neuropathy, HTN, HLD, venous insufficiency, PAD, GERD, AAA, AGNIESZKA who was discharged yesterday to SNF after admission for pre-patellar bursitis. During that admission he had waxing and waning confusion for which hypoxia due to AGNIESZKA, encephalopathy due to pain medication, and hospital delirium were considered. His confused worsened even further according to his spouse today and he was sent to the ER for further evaluation. He was noted to be hypoxic, with worsened edema compared to prior days. His chest xray was consistent with volume overload. He was given 40 mg IV lasix in the ER. Labs were notable for elevated ast/alt and INR. He was re-admitted for acute on chronic diastolic heart failure. [facility] Medical History Renal mass Chronic diastolic (congestive) heart failure Alcohol use disorder Anemia Mumps Measles Chicken pox Peripheral arterial disease AAA (abdominal aortic aneurysm) GERD without esophagitis Diabetic toe ulcer Polyneuropathy, unspecified Type 2 diabetes mellitus with polyneuropathy Surgical History S/P mitral valve repair History of cataract removal with insertion of prosthetic lens Social History details: Partner (Yadi Dong) household members: significant other Smoking Status: Current every day smoker alcohol intake: current Meds Home Medications and Allergies Home Medications Medication Instructions Recorded Confirmed Type atorvastatin 80 mg tablet 80 mg PO DAILY #90 tabs 07/23/22 08/02/23 Rx duloxetine 60 mg capsule,delayed 60 mg PO QDAY #90 caps 07/23/22 08/02/23 Rx release (Cymbalta) gabapentin 800 mg tablet 800 mg PO TID #270 tabs 07/23/22 08/02/23 Rx rivaroxaban 20 mg tablet (Xarelto) 20 mg PO QDAY #90 tabs 07/23/22 07/27/23 Rx ferrous sulfate 325 mg (65 mg 325 mg PO DAILY 07/09/23 08/02/23 History iron) tablet,delayed release furosemide 40 mg tablet 40 mg PO BID 07/09/23 08/02/23 History magnesium oxide 400 mg (241.3 mg 400 mg PO 2XD 07/09/23 08/02/23 History magnesium) tablet potassium chloride 10 mEq 20 meq PO BID 07/09/23 07/27/23 History tablet,extended release cyanocobalamin (vitamin B-12) 1,000 mcg PO DAILY 07/22/23 08/02/23 History 1,000 mcg capsule metoprolol succinate 100 mg 100 mg PO DAILY 07/27/23 08/02/23 History tablet,extended release 24 hr acetaminophen 325 mg tablet 650 mg (2 x 325 mg) PO Q6H PRN 07/31/23 08/02/23 Rx Fever/Mild Pain (1-3) #30 tabs polyethylene glycol 3350 17 gram 17 g PO DAILY PRN Constipation 7 07/31/23 Rx oral powder packet days #14 ea sennosides 8.6 mg tablet (senna) 8.6 mg PO BID PRN Constipation #30 07/31/23 Rx tabs cefdinir 300 mg capsule 300 mg PO BID 15 days #30 caps 08/01/23 08/02/23 Rx empagliflozin 25 mg tablet 25 mg PO DAILY 30 days #30 tabs 08/01/23 08/02/23 Rx metformin 1,000 mg tablet 1,000 mg PO BIDWMEAL 30 days #60 08/01/23 08/02/23 Rx tabs metoprolol succinate 50 mg 50 mg PO BEDTIME #30 tabs 08/01/23 08/02/23 Rx tablet,extended release 24 hr pantoprazole 20 mg tablet,delayed 20 mg PO DAILY #30 tabs 08/01/23 Rx release Allergies Allergy/AdvReac Type Severity Reaction Status Date / Time azithromycin [AZITHROMYCIN] Allergy Mild RASH Verified 08/02/23 13:04 lisinopril [LISINOPRIL] AdvReac Mild COUGH Verified 08/02/23 13:39 simvastatin [SIMVASTATIN] AdvReac Mild MYALGIA Verified 08/02/23 13:39 Review of Systems Review of Systems Narrative: All other systems reviewed with the patient and are negative unless otherwise stated. Exam Vital Signs (past 8 hours): - 08/02/23 12:39 08/02/23 12:39 08/02/23 12:40 Temperature Pulse Rate 88 85 Respiratory Rate Blood Pressure 140/87 Pulse Oximetry 98 95 Oxygen Delivery Method Oxygen Flow Rate 08/02/23 12:41 08/02/23 12:45 08/02/23 12:50 Temperature 97.1 F L Pulse Rate 80 80 83 Respiratory Rate 20 19 20 Blood Pressure 140/87 Pulse Oximetry 87 L 88 L 89 L Oxygen Delivery Method Room Air Room Air Nasal Cannula Oxygen Flow Rate 08/02/23 12:55 08/02/23 13:00 08/02/23 13:03 Temperature Pulse Rate 82 80 82 Respiratory Rate 20 20 21 Blood Pressure Pulse Oximetry 96 81 L 89 L Oxygen Delivery Method Nasal Cannula Room Air Oxygen Flow Rate 4 4 08/02/23 13:03 08/02/23 13:05 08/02/23 13:10 Temperature Pulse Rate 79 80 Respiratory Rate 20 21 Blood Pressure 128/71 Pulse Oximetry 94 92 Oxygen Delivery Method Oxygen Flow Rate 4 08/02/23 13:15 08/02/23 13:16 08/02/23 13:16 Temperature Pulse Rate 88 85 Respiratory Rate 24 21 Blood Pressure 153/87 H Pulse Oximetry 89 L 88 L Oxygen Delivery Method Nasal Cannula Oxygen Flow Rate 4 08/02/23 13:20 08/02/23 13:25 08/02/23 13:30 Temperature Pulse Rate 83 82 Respiratory Rate 21 20 Blood Pressure 124/101 H Pulse Oximetry 88 L 94 Oxygen Delivery Method Oxygen Flow Rate 4 4 08/02/23 13:30 08/02/23 13:35 08/02/23 13:40 Temperature Pulse Rate 82 85 87 Respiratory Rate 19 27 H 22 Blood Pressure Pulse Oximetry 97 99 94 Oxygen Delivery Method Oxygen Flow Rate 4 4 08/02/23 13:45 08/02/23 13:50 08/02/23 13:52 Temperature Pulse Rate 86 84 87 Respiratory Rate 23 21 26 H Blood Pressure Pulse Oximetry 94 95 94 Oxygen Delivery Method Oxygen Flow Rate 4 08/02/23 13:52 08/02/23 13:55 08/02/23 14:00 Temperature Pulse Rate 82 80 Respiratory Rate 19 19 Blood Pressure 143/100 H Pulse Oximetry 95 95 Oxygen Delivery Method Nasal Cannula Oxygen Flow Rate 4 08/02/23 14:21 08/02/23 14:25 08/02/23 14:26 Temperature Pulse Rate 91 H 84 Respiratory Rate 19 Blood Pressure 152/76 H Pulse Oximetry 98 97 Oxygen Delivery Method Oxygen Flow Rate 08/02/23 14:26 08/02/23 14:30 08/02/23 14:35 Temperature Pulse Rate 84 98 H 88 Respiratory Rate 22 25 H 24 Blood Pressure Pulse Oximetry 97 92 93 Oxygen Delivery Method Nasal Cannula Oxygen Flow Rate 4 08/02/23 14:38 08/02/23 14:38 08/02/23 14:40 Temperature Pulse Rate 84 83 Respiratory Rate 22 20 Blood Pressure 135/65 Pulse Oximetry 95 95 Oxygen Delivery Method Oxygen Flow Rate 4 08/02/23 14:45 08/02/23 14:50 08/02/23 14:55 Temperature Pulse Rate 93 H 93 H 82 Respiratory Rate 24 27 H 17 Blood Pressure Pulse Oximetry 92 93 97 Oxygen Delivery Method Oxygen Flow Rate 4 4 Oxygen Delivery Method Nasal Cannula Oxygen Flow Rate 4 Narrative Exam Narrative: General:? Patient is well developed and well nourished, in no distress at this time. HEENT:? Normocephalic, atraumatic, extraocular muscles intact, oral pharynx is clear and mucous membranes are moist. Neck: supple and symmetric, trachea is midline, no cervical adenopathy. Negative for JVD Chest:? Normal AP diameter and contour without kyphoscoliosis, no tachypnea, equal chest rise bilaterally. Lungs:?rales present bilaterally (worsened compared to yesterday), no wheezes, distant breath sounds Cardio:regular rate, irregularly irregular. Abdomen: S NT ND. No CVA tenderness. Musculoskeletal:? Muscle strength and tone are equal within normal limits, no deformity. Extremities: Left patellar wound with no surrounding erythema, mildly swollen, no warmth Extremities with 2 + pitting edema. Skin:? Pale,? Warm to touch,dry and intact without rashes, ulcerations or petechiae except as noted above. Neuro:? Alert and orientated to name, confused,?slightly slurred speech, sensation to touch intact in all extremities, no gross deficits noted of cranial nerves. Psych:? Patient has a well-kept appearance, appropriate affect, mental status attitude thought context and judgment are appropriate for age. Objective Labs 08/02/23 13:30 08/02/23 13:30 Labs: Laboratory Results - last 24 hr 08/02/23 08/02/23 08/02/23 12:45 13:15 13:17 WBC RBC Hgb Hct MCV MCH MCHC RDW Plt Count Neut % (Auto) Lymph % (Auto) Stephenson % (Auto) Eos % (Auto) Baso % (Auto) Neut # (Auto) Lymph # (Auto) Stephenson # (Auto) Eos # (Auto) Baso # (Auto) RBC Morphology Poikilocytosis Anisocytosis PT INR APTT ABG Sample Site Right radial ABG pH 7.43 ABG pCO2 30.0 L ABG pO2 55 L ABG HCO3 20 L ABG Total CO2 21 L ABG O2 Saturation 90 L ABG Base Excess -4.0 L FiO2 21 Sodium Potassium Chloride Carbon Dioxide BUN Creatinine Estimated GFR BUN/Creatinine Ratio Glucose Serum Osmolality Lactate Calcium Total Bilirubin AST ALT Alkaline Phosphatase Ammonia Total Creatine Kinase Troponin I NT-Pro-B Natriuret Pep Total Protein Albumin Globulin Albumin/Globulin Ratio Lipase Procalcitonin TSH Free T4 Prolactin Urine Color Yellow Urine Appearance Clear Urine pH 5.5 Ur Specific [place] 1.020 Urine Protein Negative Urine Glucose (UA) Trace H Urine Ketones Negative Urine Occult Blood Negative Urine Nitrate Negative Urine Bilirubin Negative Urine Urobilinogen 0.2 Ur Leukocyte Esterase Negative Urine RBC 0-1/hpf Urine WBC 1-5/hpf Ur Squamous Epith Cells 0-1 /hpf Urine Bacteria Occasional (0-1) Salicylates U Opiates 300ng/mL cut Negative Ur Oxycodone Screen Positive H Urine Methadone Screen Negative Acetaminophen Ur Barbiturates Screen Negative U Tricyclic Antidepress Negative Ur Phencyclidine Scrn Negative Ur Amphetamines Screen Negative U Methamphetamines Scrn Negative Ur MDMA Scrn (Ecstasy) Negative U Benzodiazepines Scrn Negative Urine Cocaine Screen Negative U Marijuana (THC) Screen Negative Ethyl Alcohol Chlamy pneumoniae PCR Not detected Adenovirus (PCR) Not detected B.parapertussis DNA PCR Not detected Coronavirus OC43 (PCR) Not detected Coronavirus HKU1 (PCR) Not detected Coronavirus 229E (PCR) Not detected SARS-CoV-2 (PCR) Not detected Coronavirus NL63 (PCR) Not detected Human Metapneumovir PCR Not detected Influenza Type A (PCR) Not detected Influenza Type B (PCR) Not detected M. pneumoniae (PCR) Not detected Parainfluenza 1 (PCR) Not detected Parainfluenza 2 (PCR) Not detected Parainfluenza 3 (PCR) Not detected Parainfluenza 4 (PCR) Not detected RSV (PCR) Not detected Entero/Rhino (PCR) Not detected 08/02/23 08/02/23 13:30 14:05 WBC 7.4 RBC 4.09 L Hgb 10.6 L Hct 33.9 L MCV 82.9 MCH 26.0 MCHC 31.4 RDW 23.3 H Plt Count 188 Neut % (Auto) 69.0 Lymph % (Auto) 15.7 L Stephenson % (Auto) 12.4 Eos % (Auto) 2.0 Baso % (Auto) 0.9 Neut # (Auto) 5100 Lymph # (Auto) 1200 Stephenson # (Auto) 900 Eos # (Auto) 200 Baso # (Auto) 100 RBC Morphology See below Poikilocytosis 1+ H Anisocytosis 2+ H PT 74.9 H D 80.1 H D INR 6.4 H* 6.8 H* APTT 48 H ABG Sample Site ABG pH ABG pCO2 ABG pO2 ABG HCO3 ABG Total CO2 ABG O2 Saturation ABG Base Excess FiO2 Sodium 133 L Potassium 4.7 Chloride 99 Carbon Dioxide 20 L BUN 22 H Creatinine 0.67 Estimated GFR > 60 BUN/Creatinine Ratio 32.8 H Glucose 107 Serum Osmolality Cancelled Lactate 2.0 Calcium 10.2 Total Bilirubin 1.2 AST 407 H ALT 242 H Alkaline Phosphatase 111 D Ammonia < 9 L Total Creatine Kinase 60 Troponin I < 0.012 NT-Pro-B Natriuret Pep 4080 H Total Protein 7.5 Albumin 4.0 Globulin 3.5 Albumin/Globulin Ratio 1.1 Lipase 44 Procalcitonin 0.12 TSH 7.26 H Free T4 1.30 Prolactin 10.2 Urine Color Urine Appearance Urine pH Ur Specific [place] Urine Protein Urine Glucose (UA) Urine Ketones Urine Occult Blood Urine Nitrate Urine Bilirubin Urine Urobilinogen Ur Leukocyte Esterase Urine RBC Urine WBC Ur Squamous Epith Cells Urine Bacteria Salicylates < 1.0 U Opiates 300ng/mL cut Ur Oxycodone Screen Urine Methadone Screen Acetaminophen < 10 Ur Barbiturates Screen U Tricyclic Antidepress Ur Phencyclidine Scrn Ur Amphetamines Screen U Methamphetamines Scrn Ur MDMA Scrn (Ecstasy) U Benzodiazepines Scrn Urine Cocaine Screen U Marijuana (THC) Screen Ethyl Alcohol < 10 Chlamy pneumoniae PCR Adenovirus (PCR) B.parapertussis DNA PCR Coronavirus OC43 (PCR) Coronavirus HKU1 (PCR) Coronavirus 229E (PCR) SARS-CoV-2 (PCR) Coronavirus NL63 (PCR) Human Metapneumovir PCR Influenza Type A (PCR) Influenza Type B (PCR) M. pneumoniae (PCR) Parainfluenza 1 (PCR) Parainfluenza 2 (PCR) Parainfluenza 3 (PCR) Parainfluenza 4 (PCR) RSV (PCR) Entero/Rhino (PCR) Assessment & Plan Assessment & Plan narrative: #acute metabolic vs toxic encephalopathy - patient with waxing and waning confusion over the past few days. On discharge the thought was confusion was most likely due to pain medications or hospital delirium and would improve after discharge. However he is worsened today and he appears much more encephalopathic today compared to discharge exam. CT head unremarkable in the ER today. He acts clinically today like someone with hepatic encephalopathy, but ammonia in <9. - Will trial lactulose to see if improvement. - may be due to CHF exacerbation, but etiology is not entirely clear. - Patient PCO2 on ABG is 55, though pH is normal consistent with chronic hypercapnea and doubtful this is the cause. - no supplemental O2 unless oxygenation is persistently below 88% with good waveform. - discontinued opiates at discharge yesterday - add low dose seroquel tonight as well given possible hospital delirium. - continue management of heart failure noted below. - discontinue gabapentin, high dose at 800 mg TID may be contributing as well. - consider MRI if persistently encephalopathic. # acute hypoxic resp failure on chronic hypercapnic respiratory failure - suspect due to CHF exacerbation - diurese with 80 mg furosemide IV BID. - on my exam, when awake patient is >92% on room air. When he falls asleep he desaturates. There is definite component of AGNIESZKA. - Respiratory evaluation ordered - consider [employer] consultation, though aspiration seems less likely with no fever and congestive appearance on imaging. #acute on chronic HFpEF -patient was being diuresed due to hypoxia prior to discharge yesterday to SNF. discharged on 40 mg PO BID, however notable for volume overload on CXR. He was not hypoxic on discharge yesterday. -continue home beta kemi -continue empagaflozin -diurese with 60 mg IV BID, as during prior admission he was being diuresed with 40 mg IV BID. -repeat echo given his heart disease to see if worsening valve status or EF. #transaminase elevations - follow labs and INR - suspect due to hepatic congestion - ordered hepatitis serologies and RUQ US ordered. - also possible is a DILI given mildly cholestatic pattern. Will change antibiotics from cefdinir to augmentin to avoid cephalosporin class to treat E. coli and strep from his recent wound culture. #L knee cellulitis with pre-patellar bursitis, improving - change to augmentin as noted above for another 14 days for possible DILI -continue PT/OT #chronic atrial fibrillation with RVR, with supratherapeutic INR -continue metoprolol -follow INR, resume xarelto when INR <3 -suspect INR elevation due to hepatic congestion. # HLD -hold statin with LFT elevation # GERD -continue PPI # depression -continue cymbalta Code status is Full code. DVT prophylaxis: elevated INR, will resume xarelto when INR improved. Proxy is Dinorah. Dispo: admitted inpatient, his stay is expected to exceed two midnights. Additional history obtained via discussion with the ER provider. I have reviewed patient's labs, documentation, and imaging personally. I have utilized all available immediate resources to obtain, update, or review the patient's current medications.
--- NOTE | 2023-08-02 16:52 | DI.US.S_ITS ---
PROCEDURE: US ABDOMEN LIMITED INDICATIONS: ABNORMAL LIVER ENZYMES TECHNIQUE: Real-time scanning was performed of the abdominal and retroperitoneal organs, with image documentation. COMPARISON: [facility], RG, CTA ABDOMEN PELVIS, 05/20/2018, 14:49. [facility], CT, CT ABDOMEN WWO PELVIS W, 05/01/2022, 13:15. FINDINGS: Liver: Liver is normal in size and homogeneous in echotexture. Gallbladder: Surgically absent. Biliary ducts: Intrahepatic bile ducts are non-dilated. Extrahepatic bile duct caliber measures up to 14 mm. Normal is 6-7 mm or less in diameter, or 10 mm or less post-cholecystectomy. Of note, this is likely unchanged from the comparison CT dated May 20, [address] dated May 01, 2022. Pancreas: Visualized portions of the pancreas are sonographically normal. The tail of the pancreas is not well visualized. Spleen: Spleen is normal in size and homogeneous in echotexture. Miscellaneous: There is trace free perihepatic fluid. IMPRESSION: 1. Ectasia of the common bile duct. This is likely unchanged from prior CTs as above. No intrahepatic biliary ductal dilatation. Choledocholithiasis cannot be excluded, but is considered less likely given the chronicity of this finding. 2. Trace perihepatic free fluid. Dictated by: Faith Larsen M.D. on 08/03/2023 at 8:22 Approved by: Faith Larsen M.D. on 08/03/2023 at 8:27
--- NOTE | 2023-08-02 16:58 | DI.ECHO.S_ITS ---
[facility]---------+ [facility] +---------+ : : [address] : : : : [id number] : : : : Phone: [phone]+ Echocardiogram Report + + :Name: NICKO STERN V Study Date: 08/03/2023 Height: 68 in : :[facility] ReadingLocation: Weight: 200 lb : : Gender: Male BSA: 2.0 m2 : :: 1950 Age: 73 yrs BP: 110/69 mmHg: :Reason For Study: CONGESTIVE HEART FAILURE : :Ordering Physician: GALLO, : :JENNIFER FARRAR Performed By: Sasha Loza : :Referring: JENNIFER HOLDER : + + Interpretation Summary Normal left ventricle size with ejection fraction 55-60%. The interventricular septum is flattened, consistent with a right ventricular pressure/volume condition. Severely dilated right ventricle with normal right ventricular systolic function. The left atrium is moderately dilated. The right atrium is severely dilated. A mitral valve clip is present. The mitral valve mean gradient is 5.1 mmHg. Mild mitral regurgitation. Moderate to severe tricuspid regurgitation. The right ventricular systolic pressure is estimated to be at least 56 mmHg based on an estimated right atrial pressure of 15 mm Hg. Comparison is made with the echocardiogram of 04/04/2016, RV size has increased, pulmonary artery systolic pressure has increased and mitral clip is new. Procedure: A two-dimensional transthoracic echocardiogram with color flow and Doppler was performed. The study quality was technically adequate. Comparison is made with the echocardiogram of 04/04/2016. The heart rate ranged between 72-85 bpm during the study. Left Ventricle: The left ventricle is normal in size and wall thickness. The ejection fraction is estimated to be 55-60%. The interventricular septum is flattened, consistent with a right ventricular pressure/volume condition. There are no other obvious focal wall motion abnormalities. Diastolic function could not be accurately assessed due to unobtainable data. Right Ventricle: The right ventricle is severely dilated. The right ventricular systolic function is normal. Atria: The left atrium is moderately dilated. The right atrium is severely dilated. There is no Doppler evidence for an interatrial shunt. Mitral Valve: The mitral valve leaflets appear mildly thickened, but open well. A mitral valve clip is present. The mitral valve mean gradient is 5.1 mmHg. There is mild mitral regurgitation. Aortic Valve: The aortic valve is trileaflet. The aortic valve opens well. There is no aortic valve stenosis. No aortic regurgitation is present. Tricuspid Valve: The tricuspid valve leaflets are thin and pliable. The tricuspid annulus is dilated. There is moderate to severe tricuspid regurgitation. The right ventricular systolic pressure is estimated to be at least 56 mmHg based on an estimated right atrial pressure of 15 mm Hg. Pulmonic Valve: The pulmonic valve is not well visualized. There is no pulmonic valvular regurgitation. Great Vessels: The aortic root is normal size. The dimensions of the ascending aorta are normal. The IVC is dilated (diameter is greater than 2.1 cm) and it collapses less than 50% with a sniff. This suggests a high right atrial pressure of 15 mm Hg. Pericardium/ Pleura There is no pericardial effusion. There is no pleural effusion. MMode/2D Measurements & Calculations LVIDd: 4.1 cm LVOT diam: 2.0 cm LVIDs: 3.0 cm Ao root diam: 3.1 cm FS: 26.2 % asc Aorta Diam: 3.3 cm IVSd: 0.58 cm Ao Arch Diam (Prox Trans): 2.8 cm LVPWd: 0.97 cm LV mccormick. diameter/BSA (cm/m^2): 2.0 LV sys. diameter/BSA (cm/m^2): 1.5 LA A2 area: 26.4 cm2 RA long axis: 7.7 cm LA A4 area: 28.8 cm2 RA area: 45.9 cm2 LA length (vol): 6.8 cm RA vol: 233.2 ml LA vol: 94.4 ml RA : 114.1 ml/m2 LA vol index: 46.2 ml/m2 IVC diam: 2.3 cm RVD1 (basal): 5.9 cm RVD2 (mid): 4.8 cm TAPSE: 1.7 cm Doppler Measurements & Calculations Ao V2 max: 79.7 cm/sec MV E max swapnil: 154.7 cm/sec Ao V2 mean: 57.8 cm/sec Med Peak E' Swapnil: 9.5 cm/sec Ao max P.7 mmHg E/E' med: 16.3 Ao mean P.6 mmHg Lat Peak E' Swapnil: 9.7 cm/sec Ao V2 VTI: 16.2 cm E/E' lat: 16.0 E/e' average: 16.1 TR max swapnil: 321.5 cm/sec MV V2 mean: 109.1 cm/sec TR max P.3 mmHg MV mean P.1 mmHg PA V2 max: 66.5 cm/sec MV V2 VTI: 44.9 cm PA V2 mean: 46.5 cm/sec PA mean P.97 mmHg PA pr(Accel): 49.9 mmHg Electronically signed by: Libby Caraballo on Reading Physician:08/03/2023 11:21 AM
[2023-08-02 17:42] LABS: MRSA (Nasal) PCR Not Detected (Not Detect)
[2023-08-02] MEDS: AMOXICILLIN/CLAV 875/125 MG 1 TAB PO (20:12)
[2023-08-02] MEDS: QUETIAPINE 25 MG TABLET 12.5 MG PO (20:12)
[2023-08-02] MEDS: LACTULOSE 20 GM/30 ML SOLUTION 10 GM PO (20:12)
[2023-08-02] MEDS: METOPROLOL ER 50 MG TABLET PO (20:13)
[2023-08-02] MEDS: ACETAMINOPHEN 325 MG TABLET 650 MG PO (20:14)
[2023-08-02] MEDS: FUROSEMIDE 60 MG in SODIUM CHLORIDE 0.9% 50 ML 112 MG IV (20:26)
[2023-08-02] MEDS: SODIUM CHLORIDE 0.9% FLUSH 10 ML IV (20:27)
[2023-08-03] VITALS (9 sets, daily range): BP systolic 109–153; BP diastolic 56–86; PULSE 79–95; RESP 16–22; TEMP 36–36.9; O2SAT 92–96
[2023-08-03 04:52] LABS: Add Manual Diff / Slide Review NO; Basophils Absolute Auto 100 /uL (0-100); Basophils Percent Auto 1.4 % (0-2); Eosinophils Absolute Auto 200 /uL (0-450); Eosinophils Percent Auto 2.7 % (2-4); Hematocrit 32.4 % (41-53); Hemoglobin 10.2 g/dL (13.5-17.5); Lymphocytes Absolute Auto 1000 /uL (1100-4500); Lymphocytes Percent Auto 15.9 % (25-40); Mean Corpuscular HGB Conc 31.3 % (30-36); Mean Corpuscular Hemoglobin 25.9 PG (26-34); Mean Corpuscular Volume 82.7 fL (80-100); Monocytes Absolute Auto 600 /uL (0-900); Monocytes Percent Auto 10.5 % (3-14); Neutrophils Absolute Auto 4300 /uL (1500-7000); Neutrophils Percent Auto 69.5 % (50-75); Platelet Count 155 X10^3/uL (150-400); Red Blood Cell Count 3.92 X10^6/uL (4.5-5.9); Red Cell Distribution Width 23.2 % (11.6-14.8); White Blood Cell Count 6.1 X10^3/uL (4.5-11.0)
[2023-08-03 05:23] LABS: Alanine Aminotransferase 198 IU/L (<50); Albumin 3.6 g/dL (3.5-5.0); Albumin Globulin Ratio 1.1 (1.0-2.8); Alkaline Phosphatase 98 U/L (38-126); Aspartate Aminotransferase 257 IU/L (17-59); BUN Creatinine Ratio 30.3 (6-22); Bilirubin Total 1.2 mg/dL (0.2-1.3); Blood Urea Nitrogen 20 mg/dL (9-20); Calcium 9.8 mg/dL (8.4-10.2); Carbon Dioxide 26 mmol/L (22-32); Chloride 101 mmol/L (98-107); Estimated Glomerular Filt Rate > 60 mL/min (>60); Globulin 3.3 g/dL (1.7-4.1); Glucose 94 mg/dL (80-110); HEMOLYSIS < 15 (0-50); Magnesium 1.6 mg/dL (1.6-2.3); Potassium 3.3 mmol/L (3.4-5.1); Sodium 135 mmol/L (137-145); Total Protein 6.9 g/dL (6.3-8.2)
--- NOTE | 2023-08-03 06:20 | PC.NURSE ---
Home Service Technician Note-Patient remains confused with slurred speech, answers appropriately to few simple questions and can assist with turning in bed. Took HS meds including Seroquel without difficulty. Tylenol given for leg pain Used urinal once with assist otherwise incontinent urine and loose stool. A-fib CVR, VSS, on 3L NC to keep sats >90%, has apnea.
[2023-08-03 06:40] LABS: INR 3.9 (0.9-1.3)
[2023-08-03 06:49] LABS: Prothrombin Time 45.7 SECONDS (10.1-12.7)
[2023-08-03 06:58] LABS: Anisocytosis 2+
--- NOTE | 2023-08-03 09:17 | PM.PN.1 ---
Subjective Subjective Interval history: He remains oriented to name only, but appears slightly less encephalopathic this morning. Exam Vital Signs (past 8 hours): - 08/03/23 03:30 08/03/23 08:26 Temperature 97.6 F 98.4 F Pulse Rate 81 79 Respiratory Rate 16 19 Blood Pressure 110/69 124/70 Pulse Oximetry 94 95 Oxygen Flow Rate 0 0 Oxygen Delivery Method Room Air,Nasal Cannula Oxygen Flow Rate 0 Narrative Exam Narrative: General:? Patient is well developed and well nourished, in no distress at this time. HEENT:? Normocephalic, atraumatic, extraocular muscles intact, oral pharynx is clear and mucous membranes are moist. Neck: supple and symmetric, trachea is midline, no cervical adenopathy. Negative for JVD Chest:? Normal AP diameter and contour without kyphoscoliosis, no tachypnea, equal chest rise bilaterally. Lungs:?rales present bilaterally (worsened compared to yesterday), no wheezes, distant breath sounds Cardio:regular rate, irregularly irregular. Abdomen: S NT ND. No CVA tenderness. Musculoskeletal:? Muscle strength and tone are equal within normal limits, no deformity. Extremities: Left patellar wound with no surrounding erythema, mildly swollen, no warmth Extremities with 2 + pitting edema. Skin:? Pale,? Warm to touch,dry and intact without rashes, ulcerations or petechiae except as noted above. Neuro:? Alert and orientated to name, confused,?slightly slurred speech, sensation to touch intact in all extremities, no gross deficits noted of cranial nerves. Psych:? Patient has a well-kept appearance, appropriate affect, mental status attitude thought context and judgment are appropriate for age. Objective Labs 08/03/23 04:15 08/02/23 13:30 Labs: Laboratory Results - last 24 hr 08/02/23 08/02/23 08/02/23 12:45 13:15 13:17 WBC RBC Hgb Hct MCV MCH MCHC RDW Plt Count Neut % (Auto) Lymph % (Auto) [place] % (Auto) Eos % (Auto) Baso % (Auto) Neut # (Auto) Lymph # (Auto) [place] # (Auto) Eos # (Auto) Baso # (Auto) RBC Morphology Poikilocytosis Anisocytosis PT INR APTT ABG Sample Site Right radial ABG pH 7.43 ABG pCO2 30.0 L ABG pO2 55 L ABG HCO3 20 L ABG Total CO2 21 L ABG O2 Saturation 90 L ABG Base Excess -4.0 L FiO2 21 Sodium Potassium Chloride Carbon Dioxide BUN Creatinine Estimated GFR BUN/Creatinine Ratio Glucose Serum Osmolality Lactate Calcium Total Bilirubin AST ALT Alkaline Phosphatase Ammonia Total Creatine Kinase Troponin I NT-Pro-B Natriuret Pep Total Protein Albumin Globulin Albumin/Globulin Ratio Lipase Procalcitonin TSH Free T4 Prolactin Urine Color Yellow Urine Appearance Clear Urine pH 5.5 Ur Specific [place] 1.020 Urine Protein Negative Urine Glucose (UA) Trace H Urine Ketones Negative Urine Occult Blood Negative Urine Nitrate Negative Urine Bilirubin Negative Urine Urobilinogen 0.2 Ur Leukocyte Esterase Negative Urine RBC 0-1/hpf Urine WBC 1-5/hpf Ur Squamous Epith Cells 0-1 /hpf Urine Bacteria Occasional (0-1) Nasal Screen MRSA (PCR) Salicylates U Opiates 300ng/mL cut Negative Ur Oxycodone Screen Positive H Urine Methadone Screen Negative Acetaminophen Ur Barbiturates Screen Negative U Tricyclic Antidepress Negative Ur Phencyclidine Scrn Negative Ur Amphetamines Screen Negative U Methamphetamines Scrn Negative Ur MDMA Scrn (Ecstasy) Negative U Benzodiazepines Scrn Negative Urine Cocaine Screen Negative U Marijuana (THC) Screen Negative Ethyl Alcohol Chlamy pneumoniae PCR Not detected Adenovirus (PCR) Not detected B.parapertussis DNA PCR Not detected Coronavirus OC43 (PCR) Not detected Coronavirus HKU1 (PCR) Not detected Coronavirus 229E (PCR) Not detected SARS-CoV-2 (PCR) Not detected Coronavirus NL63 (PCR) Not detected Human Metapneumovir PCR Not detected Influenza Type A (PCR) Not detected Influenza Type B (PCR) Not detected M. pneumoniae (PCR) Not detected Parainfluenza 1 (PCR) Not detected Parainfluenza 2 (PCR) Not detected Parainfluenza 3 (PCR) Not detected Parainfluenza 4 (PCR) Not detected RSV (PCR) Not detected Entero/Rhino (PCR) Not detected 08/02/23 08/02/23 08/02/23 13:30 14:05 16:22 WBC 7.4 RBC 4.09 L Hgb 10.6 L Hct 33.9 L MCV 82.9 MCH 26.0 MCHC 31.4 RDW 23.3 H Plt Count 188 Neut % (Auto) 69.0 Lymph % (Auto) 15.7 L [place] % (Auto) 12.4 Eos % (Auto) 2.0 Baso % (Auto) 0.9 Neut # (Auto) 5100 Lymph # (Auto) 1200 [place] # (Auto) 900 Eos # (Auto) 200 Baso # (Auto) 100 RBC Morphology See below Poikilocytosis 1+ H Anisocytosis 2+ H PT 74.9 H D 80.1 H D INR 6.4 H* 6.8 H* APTT 48 H ABG Sample Site ABG pH ABG pCO2 ABG pO2 ABG HCO3 ABG Total CO2 ABG O2 Saturation ABG Base Excess FiO2 Sodium 133 L Potassium 4.7 Chloride 99 Carbon Dioxide 20 L BUN 22 H Creatinine 0.67 Estimated GFR > 60 BUN/Creatinine Ratio 32.8 H Glucose 107 Serum Osmolality Cancelled Lactate 2.0 Calcium 10.2 Total Bilirubin 1.2 AST 407 H ALT 242 H Alkaline Phosphatase 111 D Ammonia < 9 L Total Creatine Kinase 60 Troponin I < 0.012 NT-Pro-B Natriuret Pep 4080 H Total Protein 7.5 Albumin 4.0 Globulin 3.5 Albumin/Globulin Ratio 1.1 Lipase 44 Procalcitonin 0.12 TSH 7.26 H Free T4 1.30 Prolactin 10.2 Urine Color Urine Appearance Urine pH Ur Specific [place] Urine Protein Urine Glucose (UA) Urine Ketones Urine Occult Blood Urine Nitrate Urine Bilirubin Urine Urobilinogen Ur Leukocyte Esterase Urine RBC Urine WBC Ur Squamous Epith Cells Urine Bacteria Nasal Screen MRSA (PCR) Not detected Salicylates < 1.0 U Opiates 300ng/mL cut Ur Oxycodone Screen Urine Methadone Screen Acetaminophen < 10 Ur Barbiturates Screen U Tricyclic Antidepress Ur Phencyclidine Scrn Ur Amphetamines Screen U Methamphetamines Scrn Ur MDMA Scrn (Ecstasy) U Benzodiazepines Scrn Urine Cocaine Screen U Marijuana (THC) Screen Ethyl Alcohol < 10 Chlamy pneumoniae PCR Adenovirus (PCR) B.parapertussis DNA PCR Coronavirus OC43 (PCR) Coronavirus HKU1 (PCR) Coronavirus 229E (PCR) SARS-CoV-2 (PCR) Coronavirus NL63 (PCR) Human Metapneumovir PCR Influenza Type A (PCR) Influenza Type B (PCR) M. pneumoniae (PCR) Parainfluenza 1 (PCR) Parainfluenza 2 (PCR) Parainfluenza 3 (PCR) Parainfluenza 4 (PCR) RSV (PCR) Entero/Rhino (PCR) 08/03/23 04:15 WBC 6.1 RBC 3.92 L Hgb 10.2 L Hct 32.4 L MCV 82.7 MCH 25.9 L MCHC 31.3 RDW 23.2 H Plt Count 155 Neut % (Auto) 69.5 Lymph % (Auto) 15.9 L [place] % (Auto) 10.5 Eos % (Auto) 2.7 Baso % (Auto) 1.4 Neut # (Auto) 4300 Lymph # (Auto) 1000 L [place] # (Auto) 600 Eos # (Auto) 200 Baso # (Auto) 100 RBC Morphology See below Poikilocytosis Anisocytosis 2+ H PT 45.7 H D INR 3.9 H APTT ABG Sample Site ABG pH ABG pCO2 ABG pO2 ABG HCO3 ABG Total CO2 ABG O2 Saturation ABG Base Excess FiO2 Sodium Potassium Chloride Carbon Dioxide BUN Creatinine Estimated GFR > 60 BUN/Creatinine Ratio Glucose Serum Osmolality Lactate Calcium Total Bilirubin AST ALT Alkaline Phosphatase Ammonia Total Creatine Kinase Troponin I NT-Pro-B Natriuret Pep Total Protein Albumin Globulin Albumin/Globulin Ratio Lipase Procalcitonin TSH Free T4 Prolactin Urine Color Urine Appearance Urine pH Ur Specific [place] Urine Protein Urine Glucose (UA) Urine Ketones Urine Occult Blood Urine Nitrate Urine Bilirubin Urine Urobilinogen Ur Leukocyte Esterase Urine RBC Urine WBC Ur Squamous Epith Cells Urine Bacteria Nasal Screen MRSA (PCR) Salicylates U Opiates 300ng/mL cut Ur Oxycodone Screen Urine Methadone Screen Acetaminophen Ur Barbiturates Screen U Tricyclic Antidepress Ur Phencyclidine Scrn Ur Amphetamines Screen U Methamphetamines Scrn Ur MDMA Scrn (Ecstasy) U Benzodiazepines Scrn Urine Cocaine Screen U Marijuana (THC) Screen Ethyl Alcohol Chlamy pneumoniae PCR Adenovirus (PCR) B.parapertussis DNA PCR Coronavirus OC43 (PCR) Coronavirus HKU1 (PCR) Coronavirus 229E (PCR) SARS-CoV-2 (PCR) Coronavirus NL63 (PCR) Human Metapneumovir PCR Influenza Type A (PCR) Influenza Type B (PCR) M. pneumoniae (PCR) Parainfluenza 1 (PCR) Parainfluenza 2 (PCR) Parainfluenza 3 (PCR) Parainfluenza 4 (PCR) RSV (PCR) Entero/Rhino (PCR) [facility] Medical History Renal mass Chronic diastolic (congestive) heart failure Alcohol use disorder Anemia Mumps Measles Chicken pox Peripheral arterial disease AAA (abdominal aortic aneurysm) GERD without esophagitis Diabetic toe ulcer Polyneuropathy, unspecified Type 2 diabetes mellitus with polyneuropathy Surgical History S/P mitral valve repair History of cataract removal with insertion of prosthetic lens Social History details: Partner (Yadi Dong) household members: significant other Smoking Status: Current every day smoker alcohol intake: current Assessment & Plan Assessment & Plan narrative: #acute metabolic vs toxic encephalopathy - patient with waxing and waning confusion over the past few days. On discharge the thought was confusion was most likely due to pain medications or hospital delirium and would improve after discharge. However he worsened after discharge. CT head unremarkable in the ER. Some improvement, but acts like hepatic encephalopathy yesterday and this morning. Started some lactulose and maybe some improvement but unclear if helping given broad differential. - may be due to CHF exacerbation, but etiology is not entirely clear. - Patient PCO2 on ABG was 55, though pH is normal consistent with chronic hypercapnea and doubtful this is the cause. - no supplemental O2 unless oxygenation is persistently below 88% with good waveform. - discontinued opiates at discharge yesterday - added low dose seroquel as well given possible hospital delirium. - continue management of heart failure noted below. - discontinued gabapentin, high dose at 800 mg TID may be contributing as well. - consider MRI if persistently encephalopathic over the coming days. # acute hypoxic resp failure on chronic hypercapnic respiratory failure - suspect due to CHF exacerbation - diurese with 60 mg furosemide IV BID. - on my exam, when awake patient is >92% on room air. When he falls asleep he desaturates. There is definite component of AGNIESZKA. - Respiratory evaluation ordered - ordered LEATHER WHITENER evaluation #acute on chronic HFpEF -patient was being diuresed due to hypoxia prior to discharge yesterday to SNF. discharged on 40 mg PO BID, however notable for volume overload on CXR. He was not hypoxic on discharge yesterday. -continue home beta kemi -continue empagaflozin -diurese with 60 mg IV BID, as during prior admission he was being diuresed with 40 mg IV BID. -repeat echo given his heart disease to see if worsening valve status or EF. #transaminase elevations - follow labs and INR - suspect due to hepatic congestion, improving today. - ordered hepatitis serologies and RUQ US ordered. RUQ ultrasound with normal appearing liver, slightly dilated extrahepatic ducts but is s/p cholecystectomy. hepatitis serologies pending. - also possible is a DILI given mildly cholestatic pattern. Possible toxin ingestion of some sort, though nothing in known history? Will change antibiotics from cefdinir to augmentin to avoid cephalosporin class to treat E. coli and strep from his recent wound culture. #L knee cellulitis with pre-patellar bursitis, improving - change to augmentin as noted above for another 14 days for possible DILI -continue PT/OT #chronic atrial fibrillation with RVR, with supratherapeutic INR -continue metoprolol -follow INR, resume xarelto when INR <3. INR is improved today at 3.9 -suspect INR elevation due to hepatic congestion # HLD -hold statin with LFT elevation # GERD -continue PPI # depression -continue cymbalta Code status is Full code. DVT prophylaxis: elevated INR, will resume xarelto when INR improved. Proxy is Dinorah. Dispo: admitted inpatient, his stay is expected to exceed two midnights. Additional history obtained via discussion with the ER provider. I have reviewed patient's labs, documentation, and imaging personally. I have utilized all available immediate resources to obtain, update, or review the patient's current medications. Quality VTE Deep Vein Thrombosis/Pulmonary Embolism Present on Admission: Yes
[2023-08-03] MEDS: SODIUM CHLORIDE 0.9% FLUSH 10 ML IV ×2 (09:21→20:56)
[2023-08-03] MEDS: FUROSEMIDE 60 MG in SODIUM CHLORIDE 0.9% 50 ML 112 MG IV ×2 (09:21→17:40)
[2023-08-03] MEDS: CYANOCOBALAMIN (VITAMIN B-12) 500 MCG TABLET 1000 MCG PO (09:29)
[2023-08-03] MEDS: AMOXICILLIN/CLAV 875/125 MG 1 TAB PO ×2 (09:29→20:54)
[2023-08-03] MEDS: METOPROLOL ER 50 MG TABLET 100 MG PO (09:29)
[2023-08-03] MEDS: DULOXETINE 30 MG CAPSULE 60 MG PO (09:29)
[2023-08-03] MEDS: LACTULOSE 20 GM/30 ML SOLUTION 10 GM PO ×2 (09:30→20:52)
[2023-08-03] MEDS: PANTOPRAZOLE DR 20 MG TABLET PO (09:31)
[2023-08-03] MEDS: POTASSIUM CHLORIDE 20 MEQ TAB 40 MEQ PO ×2 (11:51→17:20)
[2023-08-03] MEDS: FERROUS SULFATE 325 MG TABLET PO (11:51)
[2023-08-03] MEDS: MAGNESIUM CHLORIDE 64 MG TABLET 128 MG PO (11:52)
--- NOTE | 2023-08-03 13:25 | PT.IIE ---
Current Diagnoses Acute on chronic diastolic (congestive) heart failure (08/02/23) Surgical History (Last Reviewed 07/26/23 @ 13:49 by Brenda Yost MD) History of cataract removal with insertion of prosthetic lens S/P mitral valve repair Medical History (Last Reviewed 07/26/23 @ 13:49 by Brenda Yost MD) AAA (abdominal aortic aneurysm) Alcohol use disorder Anemia Chicken pox Chronic diastolic (congestive) heart failure Diabetic toe ulcer GERD without esophagitis Measles Mumps Peripheral arterial disease Polyneuropathy, unspecified Renal mass Type 2 diabetes mellitus with polyneuropathy Physical Therapy Inpatient Evaluation/Re-Eval M1 PT/OT-IP Prior Functional Status Start: 08/03/23 08:02 Freq: NEEDED Status: Active Protocol: Document 08/03/23 14:52 CGR (Rec: 08/03/23 15:16 CGR [id number]) Medical Review Prior Functional Status Medical History Reviewed Yes Communication Pt is limited in his communication at this time. Mobility and Gait IND without AD a few months ago. Pt started using walker d /t falls. Activities of Daily Living and IADL's Pt was IND in ADLs prior to recent medical issues. Pt's partner handles meds, wound care and meals. Social History Household Members significant other Living Arrangements House Number of Floors (Floors) Two Floors Number of Stairs To Enter/Railing? 4 steps to enter with no rail, can stay on the first floor. Home Environment Standard Height Toilet,Walk in Shower,Built-In Shower Seat Home Equipment Front Wheel Walker,Straight Cane,Raised Toilet Seat Without Armrests,Hand Held Shower Employment Status Retired Additional Social History Comment Pt socorro with his partner Priscilla M2 PT-IP Current Condition Start: 08/03/23 08:02 Freq: NEEDED Status: Active Protocol: Document 08/03/23 13:25 AW (Rec: 08/03/23 15:16 AW [id number]) Physical Therapy Current Condition Current Condition Evaluation Date 08/03/23 Treatment Diagnosis acute encephalopathy; impaired mobility and gait Onset Date a week M3 PT-IP Subjective Start: 08/03/23 08:02 Freq: NEEDED Status: Active Protocol: Document 08/03/23 13:25 AW (Rec: 08/03/23 15:16 AW [id number]) Subjective Physical Therapy Visit Type Type Initial Evaluation Visit Start Time 12:49 Visit Stop Time 13:25 Total Visit Minutes 36 Notes Co-assess with OT secondary to anticipated complexity of pt' s mobility needs. Physical Therapy Visit Comments Patient Comments Pt nods consent to PT assessment but is lethargic, has difficulty answering direct questions. Patient Goals Unable to articulate. Pt's spouse hopes to avoid return to SNF, hopes to take pt home at discharge. M4 PT-IP Mobility and Gait Start: 08/03/23 08:02 Freq: NEEDED Status: Active Protocol: Document 08/03/23 13:25 AW (Rec: 08/03/23 15:16 AW [id number]) PT-Bed Mobility Assessment Supine to Sit Supine to Sit Minimal Assistance,Moderate Assistance,1 Person Assistance ,Head of Bed Elevated Scooting Scooting to Edge of Bed Minimal Assistance PT-Transfer Assessment Sit to and From Stand Sit to and from Stand Minimal Assistance,Use of Upper Extremities Equipment Transfer Assistive Device Gait Belt,Front Wheeled Walker Transfers Transfer Destination Chair,Bedside Commode Transfer Technique Stand Step Pivot Transfer Ability Level of Assist Minimal Assistance,1 Person Assistance,Use of Upper Extremities Comments Mobility Comments Pt lying in bed as PT and OT arrived. BP 109/68 HR 79 SpO2 94% on 2.5 L/min. Pt was minimally responsive but alertness did improve somewhat with mobility. He was able to initiate bed mobility with some assist but needed increased time and constant cues to remain on task. Pt sat with fair seated balance but did not demonstrate a functional reach when prompted . Pt was able to stand with min assist to FWW. Pt's bedding was soiled with stood. Called [employer] who assisted with changing bed linens as PT and OT assisted pt to commode with min assist and constant verbal/tactile cues. Pt needed total assist to pull down briefs, to complete pericare, and to don new briefs. He tolerated standing at least three minutes for pericare with mild signs of fatigue but was barely able to keep eyes open. He transferred to chair and was left with OT for further assessment. Gait Assessment Comments Gait Comments Unable to progress to functional gait at this time due to lethargy. PT-Balance Assessment Sitting Balance and Reactions Static Sitting Balance Ability Fair Dynamic Sitting Balance Ability Fair Standing Balance and Reactions Static Standing Balance Ability Fair Dynamic Standing Balance Ability Poor Device Used FWW M5 PT-IP Objective Assessments Start: 08/03/23 08:02 Freq: NEEDED Status: Active Protocol: Document 08/03/23 13:25 AW (Rec: 08/03/23 15:16 AW [id number]) Orientation Orientation/Cognition Level of Alertness Lethargic Orientation Name Comments Oriented to self only. Speech is mumbled (not slurred) and somewhat intelligible. Gross Range of Motion Upper Extremity ROM Assessment Within Functional Limits Lower Extremity ROM Assessment Within Functional Limits Strength Lower Extremity Strength Assessment Bilaterally Impaired Comments Strength Comments Unable to formally assess secondary to cognition. Coordination Assessment Assessment Coordination Comments Unable to assess Sensation Assessment Comments Sensation Comments Unable to assess. Pt tries to respond but responses vary. Muscle Tone Muscle Tone WNL Yes M7 PT-IP Assessment and Plan Start: 08/03/23 08:02 Freq: NEEDED Status: Active Protocol: Document 08/03/23 13:25 AW (Rec: 08/03/23 15:16 AW [id number]) PT Summary Assessment and Plan Potential Rehabilitation Potential Good Status of Condition at Evaluation Evolving Summary Impairments Strength,Balance,Cognition,Bed Mobility,Transfers,Gait Assessment Summary Sushil is a 73 yo man seen for PT evaluation while re- admitted with worsening encephalopathy. He has been in and out of hospitals over the past six months, was last admitted to [facility] -08[facility]01 with pre-patellar bursitis. Pt's spouse reports frequent falls but identifies no cause. Pt's wounds appear to be related to falls. PMH includes but is not limited to atrial fibrillation, chronic heart failure, alcohol use disorder, diabetes with neuropathy, mitral valve insufficiency s/p clip. He discharged from to SNF and returned one day later with worsening confusion and bruises concerning for a new fall. CT head was negative for acute process. MRI may be considered if encephalopathy does not resolve within a day or two, per hospitalist notes. Baseline: Pt's spouse provides details on PLOF including independent mobility up until a few weeks ago but with frequent falls. Pt has been using a FWW in the past few weeks. Current level of function: Pt is oriented only to self and requires min assist for all mobility as pt is not alert enough to meaningfully follow any but the simplest of commands. He is not able to participate in strength or sensation assessment. Cognition is a barrier to participation in rehab activities but is improved since yesterday per spouse and per hospitalist notes. PT anticipates pt will become better able to participate with skilled therapies as he medically clears. However, at this time, PT recommends discharge to SNF for continued rehab to progress pt back toward his functional baseline. Of note, pt's spouse has cancelled her TRISH which was planned for and will be available to care for pt if he does discharge home, though with some degree of impaired mobility herself. Goals Bed Mobility Goal Independent Transfer Goal Independent,Front Wheeled Walker Gait Goal Standby Assistance,Front Wheel Walker Gait Distance 100 Other Goals - Pt climbs 4 steps without rails for safe home access Days to Meet Goals 10 Frequency of Treatment Frequency Of Treatment Once a Day Treatment Plan Physical Therapy Treatment Plan Bed Mobility Training,Transfer Training,Gait Training, Therapeutic Exercise,Balance Retraining,Discharge Planning, Hot or Cold Pack,Neuromuscular Re-ed,Coordination Retraining Precautions Other Precautions frequent falls Recommendations To Nursing Amount of Assist Needed 1 Person Assist,2 Person Assist Discharge Recommendations PT Discharge Recommendations SNF Rehab Transportation Needs at Discharge Wheelchair/Cabulance
--- NOTE | 2023-08-03 13:30 | OT.IP.EVAL ---
Current Diagnoses Acute on chronic diastolic (congestive) heart failure (08/02/23) Past Medical History (Last Reviewed 07/26/23 @ 13:49 by Brenda Yost MD) AAA (abdominal aortic aneurysm) Alcohol use disorder Anemia Chicken pox Chronic diastolic (congestive) heart failure Diabetic toe ulcer GERD without esophagitis Measles Mumps Peripheral arterial disease Polyneuropathy, unspecified Renal mass Type 2 diabetes mellitus with polyneuropathy Surgical History (Last Reviewed 07/26/23 @ 13:49 by Brenda Yost MD) History of cataract removal with insertion of prosthetic lens S/P mitral valve repair Occupational Therapy Inpatient Evaluation/Re-Eval M1 PT/OT-IP Prior Functional Status Start: 08/03/23 08:02 Freq: NEEDED Status: Active Protocol: Document 08/03/23 14:52 CGR (Rec: 08/03/23 15:16 CGR [id number]) Medical Review Prior Functional Status Medical History Reviewed Yes Communication Pt is limited in his communication at this time. Mobility and Gait IND without AD a few months ago. Pt started using walker d /t falls. Activities of Daily Living and IADL's Pt was IND in ADLs prior to recent medical issues. Pt's partner handles meds, wound care and meals. Social History Household Members significant other Living Arrangements House Number of Floors (Floors) Two Floors Number of Stairs To Enter/Railing? 4 steps to enter with no rail, can stay on the first floor. Home Environment Standard Height Toilet,Walk in Shower,Built-In Shower Seat Home Equipment Front Wheel Walker,Straight Cane,Raised Toilet Seat Without Armrests,Hand Held Shower Employment Status Retired Additional Social History Comment Pt socorro with his partner Priscilla M2 OT-IP Current Condition Start: 08/03/23 14:51 Freq: Status: Active Protocol: Document 08/03/23 14:52 CGR (Rec: 08/03/23 15:16 CGR [id number]) Occupational Therapy Current Condition Current Condition Evaluation Date 08/03/23 Treatment Diagnosis hypoxia, acute metabolic encephalopathy Diagnosis Onset Date 08/02/23 M3 OT- IP Subjective and Pain Start: 08/03/23 14:51 Freq: Status: Active Protocol: Document 08/03/23 14:52 CGR (Rec: 08/03/23 15:16 CGR [id number]) OT- Subjective Occupational Therapy Visit Type Type Initial Evaluation Visit Start Time 12:50 Visit Stop Time 13:30 Total Visit Minutes 40 Notes co-eval with P.T. OT Pain Assessment Pain When Pain Assessed At Rest Pain Present Pain Present Denied Pain M4 OT- IP ADL's Start: 08/03/23 14:51 Freq: Status: Active Protocol: Document 08/03/23 14:52 CGR (Rec: 08/03/23 15:16 CGR [id number]) OT FIP-Ambm-Bmtgote General Evaluation Self-Feeding Ability Minimal Assistance Comments OT Self-Feeding Comments Pt ate lunch with VC and some assist PRN OT ADL-Grooming Comments OT Grooming Comments not performed, pt declined OT ADL-Oral Care Comments Oral Care Comments not performed, pt declined OT ADL-Dressing General Eval Lower Body Dressing Ability Total Assistance Areas Needing Assistance Underpants/Brief Comments OT Dressing Comments Pt did not assist with any aspect of dressing OT ADL-Toileting General Evaluation Toileting Ability Total Assistance Areas Needing Assistance Manage Clothing,Perform Perineal Hygiene Comments OT Toileting Comments Pt with soilded brief when OT entered. OT ADL-Bathing Comments OT Bathing Comments not performed M5 OT- IP IADL's Start: 08/03/23 14:51 Freq: Status: Active Protocol: Document 08/03/23 14:52 CGR (Rec: 08/03/23 15:16 CGR [id number]) OT-Instrumental Activities of Daily Living Deficits IADL Deficits Identified Deficits Home Safety Awareness Awareness of Need for Assistance at Home Decreased Awareness Ability to Problem Solve Emergency Unable to Problem Solve Situations Medication Management Medication Management Caregiver Administers Money Management Money Management Caregiver Provides Assistance Meal Preparation Meal Preparation Caregiver Provides Assist Ambulance Officer Ambulance Officer Caregiver Provides Assist Driving Driving Concerns Identified Regarding Safety M6 OT- IP Functional Cognition Start: 08/03/23 14:51 Freq: Status: Active Protocol: Document 08/03/23 14:52 CGR (Rec: 08/03/23 15:16 CGR [id number]) Cognitive Factors Limiting Selfcare Function Cognitive Ability Level of Alertness Alert,Confusional State Patient Orientation Name Attention Span Ability Capable of Focused Attention, Capable of Sustained Attention ,Unable to Focus,Unable to Sustain Attention Cognitive Comments Cognitive Assessment Comments Pt is minimally communicative. Pt may benefit from formal cog assessment as he clears. OT- Vision and Hearing OT- Vision Assessment Vision Assessment Comments unable to assess on this date M7 OT- IP Mobility and Balance Start: 08/03/23 14:51 Freq: Status: Active Protocol: Document 08/03/23 14:52 CGR (Rec: 08/03/23 15:16 CGR [id number]) OT- Bed Mobility Assessment Supine to Sit Supine to Sit Assist Minimal Assistance Scooting Scooting to Edge of Bed Minimal Assistance OT-Transfer Assessment Sit to and From Stand Sit to and from Stand Minimal Assistance Transfers Transfer Ability Minimal Assistance Technique Transfer Destination Bed,Bedside Commode,Chair Transfer Technique Stand Step Pivot Devices Transfer Assistive Devices Gait Belt,Front Wheeled Walker Comments Mobility Comments min a for transfers, pt needs max vc for performing mobility . OT- Balance Assessment Sitting Balance and Reactions Static Sitting Balance Ability Fair Dynamic Sitting Balance Ability Fair M8 OT- IP Objective Assessments Start: 08/03/23 14:51 Freq: Status: Active Protocol: Document 08/03/23 14:52 CGR (Rec: 08/03/23 15:16 CGR [id number]) OT Gross Range of Motion Upper Extremity Range of Motion Assessment Within Functional Limits OT Strength Upper Extremity Strength Assessment Within Functional Limits Shoulder 3+/5 Elbow 4/5 Hand 4/5 OT- Coordination Assessment Comments Coordination Comments unable to perform OT-Muscle Tone Assessment Muscle Tone WNL Yes OT Sensation Assessment Comments Summary Comments tested sensation and pt initally states the sensation is not normal but later says it is normal. Notified MD. Edema Edema Present M9 OT- IP Assessment and Plan Start: 08/03/23 14:51 Freq: Status: Active Protocol: Document 08/03/23 14:52 CGR (Rec: 08/03/23 15:16 CGR [id number]) OT Summary Assessment and Plan Potential Rehabilitation Potential Good Analytic Complexity at Evaluation High Summary OT Impairments Strength,Balance,Coordination, Sensation,Functional Cognition ,Functional Mobility,Grooming, Dressing,Toileting,Bathing, Toilet Transfers,Shower Transfers,Activity Tolerance Progress Towards Goals Slow Progress due to Cognition Assessment Summary Pt presents as a high complexity evaluation s/p admit for metabolic encephalopathy. Pt needs min a for mobility but max vc and is unable to consistently answer questions. Pt will likely be most appropriate for SNF but is currently requesting home with her. Given partners mobility deficits, SNF is highly recommended. Goals Grooming Goal Independent Dressing Goal Independent Toileting Goal Independent Bathing Goal Independent Toilet Transfer Goal Independent Shower Transfer Goal Independent Days to Meet Goals 15 Frequency of Treatment Frequency Of Treatment Once a Day Treatment Plan OT Treatment Plan ADL Training,Functional Cognition Training,Functional Mobility,Patient/Family Education,Discharge Planning Other Treatment Recommendations and Next ADLs standing at sink Treatment Focus Discharge Recommendations OT Discharge Recommendations SNF Rehab Transportation Needs at Discharge Wheelchair/Cabulance
[2023-08-03 15:18] LABS: Hepatitis B Surface Antigen NEGATIVE s/c (NEGATIVE)
[2023-08-03 15:29] LABS: Hep C Virus Ab w/Reflex Quant NEGATIVE s/c (NEGATIVE)
--- NOTE | 2023-08-03 16:23 | CM.DANOTE ---
DCP Assessment Note: Patient is a 73yo M, readmit here from 07/26/23 to 08/01/23. Originally d/c to [facility] on 08/01/23, readmitted for increased confusion. PCP Freeman Chao Payer Medicare and [facility]. CLINICAL QUALITY ASSURANCE ASSOCIATE reviewed EMR. Per previous discharge assessment note from 07.27.23, Patient completes most ADLs independently, he receives assist with meals, AM/PM meds and driving. SO also assists with wound care which is needed 3 days a week. Patient attends wound care outpatient once a week. Per RN, patient and SO Priscilla got in hospital last ? Per Provider, d/c timeline unclear at this time. Labs improving but patient remains confused. CLINICAL QUALITY ASSURANCE ASSOCIATE entered room and introduced self and role. patient sitting in chair and was not oriented to place. Patient reported not wanting to return to [facility], and became confused when CLINICAL QUALITY ASSURANCE ASSOCIATE attempted to discuss other options. Per patient request, CLINICAL QUALITY ASSURANCE ASSOCIATE gave patient list of SNFs in area ordered by star rating. Patient gave this CLINICAL QUALITY ASSURANCE ASSOCIATE permission to speak with [facility] about the discharge plan. CLINICAL QUALITY ASSURANCE ASSOCIATE spoke with Priscilla over the phone. Priscilla reports wanting to take patient home. Priscilla canceled hip surgery and will be able to stay with patient and provide for his needs. Priscilla reports she was there with PT/OT and believes she can care for his needs. Priscilla open to [facility] for PT/OT/nursing needs. Priscilla agreed to meet with this CLINICAL QUALITY ASSURANCE ASSOCIATE to discuss d/c plan tomorrow at 11am in patient's room. Patient gave verbal agreement to this plan. PT/OT continue to recommend SNF at this time. CLINICAL QUALITY ASSURANCE ASSOCIATE spoke with Martha at [facility]. reviewing for nursing/PT/OT care. Plan: Patient and spouse at this time would prefer home with [facility]. CM team will confirm acceptance with [facility] in am. CLINICAL QUALITY ASSURANCE ASSOCIATE will meet with patient and spouse at 11am in room. CM team will continue to follow closely for coordination of DCP. MARCUS Tipton Discharge Planning/Care Management CM Discharge Assessment Start: 08/03/23 16:18 Freq: Status: Active Protocol: Document 08/03/23 16:18 SL (Rec: 08/03/23 16:23 [id number]) Discharge Planning Assessment Assigned Custom Stock Maker MARCUS Bermeo DPOA/Assigned Designee Name Priscilla (significant other) Contact Information [phone] Advance Directives? No Advance Directives on File No History Provided By Patient,Significant Other, Medical Record Prior Living Arrangements House Household Members significant other Type of transporation used prior to Relies on Others admit Independent with ADL's Yes: mod Idep. support from SO Is patient alert and oriented? No: see comment Needs Assistance With Meal Prep,Managing Medications ,Home Chores / Shopping Comment per PN, remains oriented to name only. During assessment, some mild confusion noticed Patient/Family [facility] Comment PT/OT continue to rec SNF. and patient prefer to go home with HH. Comment Patient typically has assistance from his SO Priscilla. Priscilla reports wanting to take him home. Discharge Plan Home with Home Health Transportation Arrangement significant other in POV Referrals Initiated Home Health Additional Comment [facility] per patient preference If patient plan is home with home health No : Has signed face to face form been completed? SNF/HH Preference Prefers to go home with [facility]. Comment [facility] reviewing referral Whiteboard Updated in Patient Room with Yes name and ext. # of Custom Stock Maker Review Status In Process Next Review Type Continued Stay Review
--- NOTE | 2023-08-03 17:07 | ST.IPSLE ---
Visit Care Team Role Provider Type Freeman Chao MD Primary Care Provider Physician Specialty: Internal Medicine Address: [address] [place] [address], [id number] Email: [email or web address] Pablito Hearn MD Family Provider Physician Specialty: Family Practice Address: [address] [place] [address], [id number] Email: [email or web address] Jodi Ignacio DO Emergency Provider Physician Referring Provider Specialty: Emergency Medicine Address: [address] [place] [address], [id number] Email: [email or web address] [email or web address] Provider Physician Attending Provider Specialty: Internal Medicine Address: [address] [place] [address], [address] Email: [email or web address] Diagnoses Acute on chronic diastolic (congestive) heart failure (08/02/23) Past Medical History (Last Reviewed 07/26/23 @ 13:49 by Brenda Yost MD) AAA (abdominal aortic aneurysm) (Medical) Alcohol use disorder (Medical) Anemia (Medical) Chicken pox (Medical) Chronic diastolic (congestive) heart failure (Medical) Diabetic toe ulcer (Medical) GERD without esophagitis (Medical) Measles (Medical) Mumps (Medical) Peripheral arterial disease (Medical) Polyneuropathy, unspecified (Medical) Renal mass (Medical) Type 2 diabetes mellitus with polyneuropathy (Medical) Speech-Language Pathology Speech/Language Eval INTAKE NURSE Adult Cognitive Linguistic Eval Start: 08/03/23 11:32 Freq: Status: Active Protocol: Document 08/03/23 11:33 (Rec: 08/03/23 11:39 [id number]) Adult Cognitive Linguistic Evaluation Session Time Visit Start Time 10:30 Visit Stop Time 11:45 Total Visit Minutes 75 Referral Referring Provider hospitalist Reason for Referral confusion/slurred speech Setting Assessment Location Acute Care Visit Type Note Type Initial evaluation Patient Information Identification Type Name,Date of Patient History 73 M with PMH of afib with difficult to control rate ( previously in the ER and did not require admission for rate control within the last few week per cardiology), CHFpEF ( with mitraclip), chronic toe wounds on the R, alcohol use, DM with neuropathy, HTN, HLD, venous insufficiency, PAD, GERD, AAA, AGNIESZKA who was discharged yesterday to SNF after admission for pre- patellar bursitis. During that admission he had waxing and waning confusion for which hypoxia due to AGNIESZKA, encephalopathy due to pain medication, and hospital delirium were considered. His confused worsened even further according to his spouse today and he was sent to the ER for further evaluation. He was noted to be hypoxic, with worsened edema compared to prior days. His chest xray was consistent with volume overload. He was given 40 mg IV lasix in the ER. Labs were notable for elevated ast/alt and INR. He was re-admitted for acute on chronic diastolic heart failure. Per spouse, pt initially began falling in April, with a fall May 09 resulting in slice wounds on his calves, requiring care at the wound care clinic following acute stay. Noted elevated heart rate lead to the heart clip surgery Jun 29, multiple falls post hospitalization may have reinjured the leg wounds , with the vascular surgeon in [place] stating there was not good artery in the left leg, hindering healing in that leg, which may need surgery once the infection is cleared per . Pt continued w antibiotics and wound care. Knee became hot and sore, leading to ER visit, and diagnosis of acute on chronic diastolic heart failure. Per spouse, many of the falls may have been related to ETOH. Per spouse, pt demonstrated some variable mild confusion during the last year, not comparable to current levels. Hearing Hearing Level Normal Assessment Oral Motor Examination Completed No: attempted, subjectively appears WNL, Informal Assessment Receptive Language Normal No Receptive Language Impairment(s) Comprehension of complex yes/ no questions,Following 2-step commands,Following 3-step commands,Comprehension of conversation Expressive Language Normal No Expressive Language Impairment(s) Confrontation naming,Divergent naming,Expression of basic wants/needs,Expression of complex thoughts/ideas Speech Normal No Speech Impairment(s) Imprecise articulation, Decreased volume/intensity, Poor breath support Cognition Normal No Cognitive Impairment(s) Orientation,Attention,Short- term memory,Long-term memory, Executive functioning,Problem solving,Reasoning,Thought organization,Safety awareness, Impulsivity Formal Assessment Administration Incomplete Results ST administered/attempted sections of the [place] dysarthria assessment, and the Cognitive Communication assessment. Pt currently unable to complete full assessments, subjectively deficits noted in attention, memory, problem solving and executive functioning. Assessment of dysarthria does not indicate nerve or motor function involvement, but appears to be an effect of his encephalophy (slowed, slurred speech, but without paraphasic errors or tremor). Reported previous deficits of some anomia/aphasia and mild confusion. Findings/Results Language Function Moderately-severely impaired Cognitive Function Moderately-severely impaired Findings Patients current cognitive and speech deficits appear to be metabolic in nature, possibly related to variable low/high levels of sodium/potassium, and difficulty with maintaining adequate levels of O2, compounding previous deficits. During eval, pt noted to often breath through his mouth, dropping O2 levels into the low/mid 80's. With mod verbal cues for deep inhales through the nose, pt O2 returned to above 90, but he did not continue to use nasal cannula consistently. Per spouse, pt has been diagnosed w sleep apnea, but declines to use his CPAP. 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 Pt would benefit from ongoing eval from ST to better assess baseline, provide caregiver education and determine appropiate supports. Cognitive Communication Deficits Self-awareness of Cognitive- Limited awareness (minimal Communication Deficits appreciation without specificity) Impact on Functioning Activity Limits/Particip.Rest. Sev: General Tasks and Demands Household Tasks Interpersonal Interactions Community Safety Risks Sev: Being Left Alone at Home Reacting to Emergency Managing Medication Traveling Alone in Community Prognosis Prognosis Guarded Based on Cognitive status,Comorbidities Plan of Care Speech-Language Treatment Yes Frequency 3-5 days/wk Patient/Caregiver Education Family/caregivers expressed understanding of evaluation, Family/caregivers expressed agreement with goals and treatment plan Discharge Recommendations alf facility,Other (comment)
[2023-08-03] MEDS: QUETIAPINE 25 MG TABLET 12.5 MG PO (20:54)
[2023-08-03] MEDS: METOPROLOL ER 50 MG TABLET PO (20:56)
[2023-08-04] VITALS (72 sets, daily range): BP systolic 96–136; BP diastolic 52–74; PULSE 80–108; RESP 14–32; TEMP 36–36.4; O2SAT 88–98
[2023-08-04 05:57] LABS: Alanine Aminotransferase 144 IU/L (<50); Albumin 3.3 g/dL (3.5-5.0); Albumin Globulin Ratio 1.1 (1.0-2.8); Alkaline Phosphatase 96 U/L (38-126); Aspartate Aminotransferase 120 IU/L (17-59); BUN Creatinine Ratio 21.7 (6-22); Blood Urea Nitrogen 15 mg/dL (9-20); Calcium 9.7 mg/dL (8.4-10.2); Carbon Dioxide 33 mmol/L (22-32); Chloride 96 mmol/L (98-107); Estimated Glomerular Filt Rate > 60 mL/min (>60); Globulin 3.1 g/dL (1.7-4.1); Glucose 119 mg/dL (80-110); HEMOLYSIS < 15 (0-50); Magnesium 1.4 mg/dL (1.6-2.3); Potassium 3.8 mmol/L (3.4-5.1); Sodium 137 mmol/L (137-145); Total Protein 6.4 g/dL (6.3-8.2)
[2023-08-04 06:11] LABS: Hepatitis B Core Antibody Negative (Negative)
[2023-08-04 06:46] LABS: Add Manual Diff / Slide Review NO; Basophils Absolute Auto 100 /uL (0-100); Basophils Percent Auto 1.8 % (0-2); Eosinophils Absolute Auto 100 /uL (0-450); Eosinophils Percent Auto 2.1 % (2-4); Hematocrit 32.7 % (41-53); Hemoglobin 10.3 g/dL (13.5-17.5); Lymphocytes Absolute Auto 800 /uL (1100-4500); Lymphocytes Percent Auto 12.8 % (25-40); Mean Corpuscular HGB Conc 31.6 % (30-36); Mean Corpuscular Hemoglobin 25.9 PG (26-34); Mean Corpuscular Volume 82.1 fL (80-100); Monocytes Absolute Auto 600 /uL (0-900); Monocytes Percent Auto 9.5 % (3-14); Neutrophils Absolute Auto 4500 /uL (1500-7000); Neutrophils Percent Auto 73.8 % (50-75); Platelet Count 187 X10^3/uL (150-400); Red Blood Cell Count 3.98 X10^6/uL (4.5-5.9); White Blood Cell Count 6.1 X10^3/uL (4.5-11.0)
[2023-08-04 06:58] LABS: INR 1.9 (0.9-1.3); Prothrombin Time 22.3 SECONDS (10.1-12.7)
[2023-08-04 07:44] LABS: Anisocytosis 2+
[2023-08-04] MEDS: PANTOPRAZOLE DR 20 MG TABLET PO (08:17)
[2023-08-04] MEDS: CYANOCOBALAMIN (VITAMIN B-12) 500 MCG TABLET 1000 MCG PO (08:17)
[2023-08-04] MEDS: METOPROLOL ER 50 MG TABLET 100 MG PO (08:18)
[2023-08-04] MEDS: DULOXETINE 30 MG CAPSULE 60 MG PO (08:18)
[2023-08-04] MEDS: AMOXICILLIN/CLAV 875/125 MG 1 TAB PO ×2 (08:19→20:31)
[2023-08-04] MEDS: SODIUM CHLORIDE 0.9% FLUSH 10 ML IV ×2 (08:19→20:32)
[2023-08-04] MEDS: FUROSEMIDE 60 MG in SODIUM CHLORIDE 0.9% 50 ML 112 MG IV (08:33)
[2023-08-04] MEDS: MAGNESIUM CHLORIDE 64 MG TABLET 128 MG PO (09:01)
--- NOTE | 2023-08-04 09:50 | PT.IPTN ---
Current Diagnoses Acute on chronic diastolic (congestive) heart failure (08/02/23) Physical Therapy Treatment Note M2 PT-IP Current Condition Start: 08/03/23 08:02 Freq: NEEDED Status: Active Protocol: Document 08/03/23 13:25 AW (Rec: 08/03/23 15:16 AW [id number]) Physical Therapy Current Condition Current Condition Evaluation Date 08/03/23 Treatment Diagnosis acute encephalopathy; impaired mobility and gait Onset Date a week M3 PT-IP Subjective Start: 08/03/23 08:02 Freq: NEEDED Status: Active Protocol: Document 08/04/23 10:35 TS (Rec: 08/04/23 10:56 TS [id number]) Subjective Physical Therapy Visit Type Type Treatment Note Visit Start Time 09:50 Visit Stop Time 10:30 Total Visit Minutes 40 Notes Spouse present Number of HIGH DENSITY FINISHING OPERATOR Visits 1 Physical Therapy Visit Comments Patient Comments Pt found resting in chair, reports feeling better and is not lethargic today. He continues to have some confusion, is not aware of what year it is, what hospital or town he is in. Pt agreeable to PT. M4 PT-IP Mobility and Gait Start: 08/03/23 08:02 Freq: NEEDED Status: Active Protocol: Document 08/04/23 10:35 TS (Rec: 08/04/23 10:56 TS [id number]) PT-Transfer Assessment Sit to and From Stand Sit to and from Stand Contact Guard Assistance Equipment Transfer Assistive Device Gait Belt,Front Wheeled Walker Comments Mobility Comments Pt found resting in chair, Spo2 98% on RA, HR high 90's. Sit to stand from chair with FWW CGA with use of BUE support pushing from arms of chair. He ambulated in hallway ~150'CGA/SBA with an unsteady step thru gait, requires cues to stay close to FWW. Pt reports some SOB after ~75' of gait, cues were provided for PLB, could not attain accurate Spo2 reading. Back in room pt sat in chair, Spo2 98% on RA, continues to report some SOB. Hospitalist came to discuss care with pt. Pt then requested to use toilet, pt performed pericare on own with assistance for donning of brief. Pt ambulated back to chair with no AD, is very unsteady with poor balance. Pt was left back in chair, chair alarm on, spouse in room, all needs met. Gait Assessment Gait Gait Assistance Required: Standby Assistance,Contact Guard Assist Distance (Feet) 150 Assistive Devices Assistive Device None,Gait Belt,Front Wheeled Walker Comments Gait Comments Pt ambulated ~5' with no AD. He is very unsteady and has poor balance, will need to continue to use FWW. See mobility comments. Stair Climbing Assessment Comments Stair Climbing Comments He wants to return to SO's house after hospital stay, she does not have stairs. PT-Balance Assessment Sitting Balance and Reactions Static Sitting Balance Ability Good Dynamic Sitting Balance Ability Fair Standing Balance and Reactions Static Standing Balance Ability Fair Dynamic Standing Balance Ability Fair Device Used FWW M5 PT-IP Objective Assessments Start: 08/03/23 08:02 Freq: NEEDED Status: Active Protocol: Document 08/03/23 13:25 AW (Rec: 08/03/23 15:16 AW [id number]) Orientation Orientation/Cognition Level of Alertness Lethargic Orientation Name Comments Oriented to self only. Speech is mumbled (not slurred) and somewhat intelligible. Gross Range of Motion Upper Extremity ROM Assessment Within Functional Limits Lower Extremity ROM Assessment Within Functional Limits Strength Lower Extremity Strength Assessment Bilaterally Impaired Comments Strength Comments Unable to formally assess secondary to cognition. Coordination Assessment Assessment Coordination Comments Unable to assess Sensation Assessment Comments Sensation Comments Unable to assess. Pt tries to respond but responses vary. Muscle Tone Muscle Tone WNL Yes M7 PT-IP Assessment and Plan Start: 08/03/23 08:02 Freq: NEEDED Status: Active Protocol: Document 08/04/23 10:35 TS (Rec: 08/04/23 10:56 TS [id number]) PT Summary Assessment and Plan Potential Rehabilitation Potential Good Summary Impairments Strength,Balance,Cognition,Bed Mobility,Transfers,Gait Progress Towards Goals Progressing Toward Goals Assessment Summary Sushil is making some progress with his mobility. He is CGA for sit to stands with FWW, has fair balance coming into standing with some retroleaning. He progressed his gait to ~150' CGA/SBA w/ FWW, has fair balance in standing and requires cues for staying close to FWW. He lacks good safety awareness with his mobility, he ambulated without FWW when it was not safe to do so. PT is recommending Home 11/05 with HHPT vs SNF. Pt could benefit from rehab to progress strength before d/c home. Pt and spouse do not want him to go back to SNF and plan to d/c to SO's home. Pt remains high falls risk. Goals Bed Mobility Goal Independent Transfer Goal Independent,Front Wheeled Walker Gait Goal Standby Assistance,Front Wheel Walker Gait Distance 100 Other Goals - Pt climbs 4 steps without rails for safe home access Days to Meet Goals 10 Frequency of Treatment Frequency Of Treatment Once a Day Treatment Plan Physical Therapy Treatment Plan Bed Mobility Training,Transfer Training,Gait Training, Therapeutic Exercise,Balance Retraining,Discharge Planning, Hot or Cold Pack,Neuromuscular Re-ed,Coordination Retraining Other Recommendations and Next Treatment Assess ability to perform Focus stairs, increase ambulation distance. Precautions Other Precautions frequent falls Recommendations To Nursing Amount of Assist Needed 1 Person Assist Discharge Recommendations PT Discharge Recommendations Home with 11/05 Assist Available,Home Health,SNF Rehab,Home vs SNF Other Discharge Recommendations Will need to check if pt needs any DME. Transportation Needs at Discharge Wheelchair/Cabulance
--- NOTE | 2023-08-04 11:38 | OT.IP.TRT ---
Current Diagnoses Acute on chronic diastolic (congestive) heart failure (08/02/23) Occupational Therapy Treatment Note M2 OT-IP Current Condition Start: 08/03/23 14:51 Freq: Status: Active Protocol: Document 08/03/23 14:52 CGR (Rec: 08/03/23 15:16 CGR [id number]) Occupational Therapy Current Condition Current Condition Evaluation Date 08/03/23 Treatment Diagnosis hypoxia, acute metabolic encephalopathy Diagnosis Onset Date 08/02/23 M3 OT- IP Subjective and Pain Start: 08/03/23 14:51 Freq: Status: Active Protocol: Document 08/04/23 11:15 CCC (Rec: 08/04/23 13:41 [facility] [id number]) OT- Subjective Occupational Therapy Visit Type Type Treatment Note Visit Start Time 11:15 Visit Stop Time 11:38 Total Visit Minutes 23 Occupational Therapy Visit Comments Patient Comments Pt agreed to get up to use the bathroom. Patient/Caregiver Goals TO go home. OT Pain Assessment Pain When Pain Assessed At Rest Pain Present Pain Present Denied Pain M4 OT- IP ADL's Start: 08/03/23 14:51 Freq: Status: Active Protocol: Document 08/04/23 11:15 [facility] (Rec: 08/04/23 13:41 CCC [id number]) OT [id number] Comments OT Self-Feeding Comments Not at meal time. OT ADL-Grooming Comments OT Grooming Comments Pt able to wash his hands at the sink. OT ADL-Oral Care Comments Oral Care Comments not performed, pt declined OT ADL-Dressing Comments OT Dressing Comments Pt's able to lower and raise up his brief on his own today. OT ADL-Toileting Comments OT Toileting Comments Pt able to do his brief management needs of his own today. OT ADL-Bathing Comments OT Bathing Comments not performed M5 OT- IP IADL's Start: 08/03/23 14:51 Freq: Status: Active Protocol: Document 08/03/23 14:52 CGR (Rec: 08/03/23 15:16 CGR [id number]) OT-Instrumental Activities of Daily Living Deficits IADL Deficits Identified Deficits Home Safety Awareness Awareness of Need for Assistance at Home Decreased Awareness Ability to Problem Solve Emergency Unable to Problem Solve Situations Medication Management Medication Management Caregiver Administers Money Management Money Management Caregiver Provides Assistance Meal Preparation Meal Preparation Caregiver Provides Assist Regulator Pin Inserter Regulator Pin Inserter Caregiver Provides Assist Driving Driving Concerns Identified Regarding Safety M6 OT- IP Functional Cognition Start: 08/03/23 14:51 Freq: Status: Active Protocol: Document 08/04/23 11:15 [facility] (Rec: 08/04/23 13:41 [facility] [id number]) Cognitive Factors Limiting Selfcare Function Cognitive Ability Level of Alertness Alert Patient Orientation Name,Place,Situation Attention Span Ability Capable of Focused Attention, Capable of Sustained Attention Ability to Follow Commands Able to Follow One Step Commands,Able to Follow Multi- Step Commands Safety Awareness Underestimates Need for Assistance Cognitive Comments Cognitive Assessment Comments Pt able to follow commands today, but needing cues for safety to keep the FWW close by. M7 OT- IP Mobility and Balance Start: 08/03/23 14:51 Freq: Status: Active Protocol: Document 08/04/23 11:15 [facility] (Rec: 08/04/23 13:41 [facility] [id number]) OT- Bed Mobility Assessment Sit to Supine Sit to Supine Assist Minimal Assistance OT-Transfer Assessment Sit to and From Stand Sit to and from Stand Standby Assistance Transfers Transfer Ability Standby Assistance Technique Transfer Destination Bed,Chair,Toilet Transfer Technique Stand Step Pivot Devices Transfer Assistive Devices Gait Belt,Front Wheeled Walker OT- Balance Assessment Sitting Balance and Reactions Static Sitting Balance Ability Good Dynamic Sitting Balance Ability Fair Standing Balance and Reactions Static Standing Balance Ability Fair Dynamic Standing Balance Ability Fair M9 OT- IP Assessment and Plan Start: 08/03/23 14:51 Freq: Status: Active Protocol: Document 08/04/23 11:15 [facility] (Rec: 08/04/23 13:41 [facility] [id number]) OT Summary Assessment and Plan Potential Rehabilitation Potential Good Analytic Complexity at Evaluation High Summary OT Impairments Strength,Balance,Coordination, Sensation,Functional Cognition ,Functional Mobility,Grooming, Dressing,Toileting,Bathing, Toilet Transfers,Shower Transfers,Activity Tolerance Progress Towards Goals Progressing Toward Goals Assessment Summary Pt doing much better today and more alert and able to follow commands for ADL and mobility needs. Pt's feels comfortable to be able to take pt home to her place that has no steps to enter and all equipment needs. Pt would benefit from home health and shower aid. Pt's just cancelled her hip surgery so able to take care of the pt. Pt's emphasized that he will not be allowed to drink and to take away the alcohol in the home. Goals Grooming Goal Independent Dressing Goal Independent Toileting Goal Independent Bathing Goal Independent Toilet Transfer Goal Independent Shower Transfer Goal Independent Days to Meet Goals 7 Frequency of Treatment Frequency Of Treatment Once a Day Discharge Recommendations OT Discharge Recommendations Home with 11/05 Assist Available,Home Health Transportation Needs at Discharge Private Vehicle
--- NOTE | 2023-08-04 11:56 | ST.IPTN ---
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 Treatment Note REINFORCED CONCRETE INSPECTOR Treatment Note Start: 08/03/23 11:32 Freq: Status: Active Protocol: Document 08/04/23 11:44 (Rec: 08/04/23 11:56 [id number]) Speech Pathology Treatment Note Session Time Visit Start Time 11:22 Visit Stop Time 11:45 Total Visit Minutes 23 Setting Treatment Setting Acute Care Visit Type Note Type Treatment Note General Information Patient History 73 M with PMH of afib with difficult to control rate ( previously in the ER and did not require admission for rate control within the last few week per cardiology), CHFpEF ( with mitraclip), chronic toe wounds on the R, alcohol use, DM with neuropathy, HTN, HLD, venous insufficiency, PAD, GERD, AAA, AGNIESZKA who was discharged yesterday to SNF after admission for pre- patellar bursitis. During that admission he had waxing and waning confusion for which hypoxia due to AGNIESZKA, encephalopathy due to pain medication, and hospital delirium were considered. His confused worsened even further according to his spouse today and he was sent to the ER for further evaluation. He was noted to be hypoxic, with worsened edema compared to prior days. His chest xray was consistent with volume overload. He was given 40 mg IV lasix in the ER. Labs were notable for elevated ast/alt and INR. He was re-admitted for acute on chronic diastolic heart failure. Per spouse, pt initially began falling in April, with a fall May 09 resulting in slice wounds on his calves, requiring care at the wound care clinic following acute stay. Noted elevated heart rate lead to the heart clip surgery Jun 29, multiple falls post hospitalization may have reinjured the leg wounds , with the vascular surgeon in [place] stating there was not good artery in the left leg, hindering healing in that leg, which may need surgery once the infection is cleared per . Pt continued w antibiotics and wound care. Knee became hot and sore, leading to ER visit, and diagnosis of acute on chronic diastolic heart failure. Per spouse, many of the falls may have been related to ETOH. Per spouse, pt demonstrated some variable mild confusion during the last year, not comparable to current levels. Subjective Observations/Patient Presentation Pt found resting in bed, reports feeling better today. Assessment Progress Towards Goals Appropriate for Discharge Assessment of Overall Progress Improving Assessment of Improvement Pt noted to have cleared speech with no notable dysarthria, he continues to have some confusion, was aware of month and year given processing time, but not date or day. Unsure of location. Pt demonstrated difficulty w recall of medications, stating he didn't take any at first, with questioning recalled that he did take some for heart issues. Mild confusion appears to remain. O2 was 84 on room air. Pt seen just following OT and fell asleep during session. states she manages his medications and believes he is at his previous baseline for cognition. verbalized logical plan for after care, with d/c tomorrow , staying in town for two night just in case, then returning to [place] to a single level house already equipt for handicap use. Further ST likely will not be required. Patient/Caregiver Understanding Good
[2023-08-04] MEDS: FERROUS SULFATE 325 MG TABLET PO (11:59)
--- NOTE | 2023-08-04 12:12 | CM.DPC ---
DCP Continued: ROOF FIXER reviewed EMR. ROOF FIXER entered room and introduced self and role. Patient sitting up in chair and accompanied by spouse Priscilla at bedside. Patient and spouse confirm they want to go home upon d/c. Patient hoping for d/c tomorrow. Patient and spouse stay another two nights at an [facility] before returning to [place]. Patient and spouse confirm they would like [facility] for nursing/PT/OT. Spouse has a vacation home that has been renovated out for someone with limited mobility and they plan on staying there following patient's d.c. Patient and spouse feel confident with ability to manage wound care. ROOF FIXER spoke with Jim at [facility]. They can accept patient. Confirmed address and correct phone number. Plan: patient to d/c with spouse when stable. First to [facility] and then home to [place]. [facility] to follow for PT/OT/nursing. Transport with spouse in [place]. CM team will continue to follow closely. MARCUS Tipton
--- NOTE | 2023-08-04 15:40 | PC.NURSE ---
Addendum entered by Caitlin Chatman R.N. 08/04/23 17:26: Pt refusing furosemide infusion due to side effects of frequent urination. RN explained indications and reasons for furosemide to help patient understand why it is being given. RN notified provider. Original Note: In am, RN assessed pt and pt oriented to name, age, month, birthday and place. When spouse arrived, spouse stated that pt at baseline neurologic level but physically slightly weak. RN spoke with provider and relayed orientation status. RN assessed pt to have diminished lung sounds at posterior bases and +2 pitting edema, spoke with provider and provider said to still give lasix. RN reminded pt to call when pt wanted to get up to go to the bathroom for patient safety throughout the day. Metoprolol increased this am so RN spoke with pt to make slow positional changes and to let the nurse know if pt felt lightheaded or dizzy.
[2023-08-04] MEDS: ACETAMINOPHEN 325 MG TABLET 650 MG PO (17:17)
[2023-08-04] MEDS: RIVAROXABAN 10 MG TABLET 20 MG PO (17:18)
--- NOTE | 2023-08-04 19:06 | PM.PN.1 ---
Subjective Subjective Interval history: He still has significant lower leg swelling. Exam Vital Signs (past 8 hours): - 08/04/23 12:00 08/04/23 15:00 Temperature 97.0 F L 97.5 F L Pulse Rate 89 88 Respiratory Rate 14 20 Blood Pressure 124/70 136/67 Pulse Oximetry 96 98 Oxygen Flow Rate 0 0 Oxygen Delivery Method Room Air,Nasal Cannula Oxygen Flow Rate 0 Narrative Exam Narrative: General:? no acute distress Lungs:?clear bilaterally Cardio:regular rate, irregularly irregular. Objective Labs 08/04/23 05:58 08/04/23 04:50 Labs: Laboratory Results - last 24 hr 08/02/23 08/04/23 08/04/23 14:05 04:50 05:58 WBC 6.1 RBC 3.98 L Hgb 10.3 L Hct 32.7 L MCV 82.1 MCH 25.9 L MCHC 31.6 RDW 23.0 H Plt Count 187 Neut % (Auto) 73.8 Lymph % (Auto) 12.8 L Mckinley % (Auto) 9.5 Eos % (Auto) 2.1 Baso % (Auto) 1.8 Neut # (Auto) 4500 Lymph # (Auto) 800 L Mckinley # (Auto) 600 Eos # (Auto) 100 Baso # (Auto) 100 RBC Morphology See below Anisocytosis 2+ H PT INR Sodium 137 Potassium 3.8 Chloride 96 L Carbon Dioxide 33 H BUN 15 Creatinine 0.69 Estimated GFR > 60 BUN/Creatinine Ratio 21.7 Glucose 119 H Calcium 9.7 Magnesium 1.4 L Total Bilirubin 1.0 AST 120 H ALT 144 H Alkaline Phosphatase 96 Total Protein 6.4 Albumin 3.3 L Globulin 3.1 Albumin/Globulin Ratio 1.1 Hep B Core Total Ab Negative 08/04/23 06:10 WBC RBC Hgb Hct MCV MCH MCHC RDW Plt Count Neut % (Auto) Lymph % (Auto) Mckinley % (Auto) Eos % (Auto) Baso % (Auto) Neut # (Auto) Lymph # (Auto) Mckinley # (Auto) Eos # (Auto) Baso # (Auto) RBC Morphology Anisocytosis PT 22.3 H D INR 1.9 H Sodium Potassium Chloride Carbon Dioxide BUN Creatinine Estimated GFR BUN/Creatinine Ratio Glucose Calcium Magnesium Total Bilirubin AST ALT Alkaline Phosphatase Total Protein Albumin Globulin Albumin/Globulin Ratio Hep B Core Total Ab [facility] Medical History Renal mass Chronic diastolic (congestive) heart failure Alcohol use disorder Anemia Mumps Measles Chicken pox Peripheral arterial disease AAA (abdominal aortic aneurysm) GERD without esophagitis Diabetic toe ulcer Polyneuropathy, unspecified Type 2 diabetes mellitus with polyneuropathy Surgical History S/P mitral valve repair History of cataract removal with insertion of prosthetic lens Social History details: Partner (Yadi Dong) household members: significant other Smoking Status: Current every day smoker alcohol intake: current Assessment & Plan Assessment & Plan narrative: #acute metabolic vs toxic encephalopathy, resolved - patient with waxing and waning confusion over the past few days - likely a combination of medication effect, hospitalization, and acute illness - Patient PCO2 on ABG was 55, though pH is normal consistent with chronic hypercapnea and doubtful this is the cause. - discontinued opiates at discharge yesterday - discontinued gabapentin, high dose at 800 mg TID may be contributing as well. - consider MRI if persistently encephalopathic over the coming days. # acute hypoxic resp failure on chronic hypercapnic respiratory failure - suspect due to CHF exacerbation - diurese with 60 mg furosemide IV BID. - Respiratory evaluation ordered - ordered MANAGER CLINICAL RESEARCH evaluation #acute on chronic HFpEF -patient was being diuresed due to hypoxia prior to discharge yesterday to SNF. discharged on 40 mg PO BID, however notable for volume overload on CXR. He was not hypoxic on discharge yesterday. -continue home beta kemi -continue empagaflozin -diurese with 60 mg IV BID, as during prior admission he was being diuresed with 40 mg IV BID. -repeat echo shows normal EF and dilated right ventricle #transaminase elevations, improving - follow labs and INR - suspect due to hepatic congestion, improving today. - ordered hepatitis serologies and RUQ US ordered. RUQ ultrasound with normal appearing liver, slightly dilated extrahepatic ducts but is s/p cholecystectomy. hepatitis serologies pending. #L knee cellulitis with pre-patellar bursitis, improving -continue antibiotics for possibly another two weeks -continue PT/OT #chronic atrial fibrillation with RVR, with supratherapeutic INR -continue metoprolol -follow INR, resume xarelto when INR <3. INR is improved today at 1.9 -suspect INR elevation due to hepatic congestion # HLD -hold statin with LFT elevation # GERD -continue PPI # depression -continue cymbalta Quality VTE Deep Vein Thrombosis/Pulmonary Embolism Present on Admission: Yes
[2023-08-04] MEDS: METOPROLOL ER 50 MG TABLET PO (20:31)
[2023-08-05] VITALS: BP 113/64; PULSE 92; RESP 19; TEMP 36.2; O2SAT 90
[2023-08-05 04:00] VITALS: BP 134/79; PULSE 87; RESP 16; TEMP 36.3; O2SAT 96
[2023-08-05 05:07] LABS: Add Manual Diff / Slide Review NO; Basophils Absolute Auto 100 /uL (0-100); Basophils Percent Auto 0.8 % (0-2); Eosinophils Absolute Auto 200 /uL (0-450); Eosinophils Percent Auto 2.4 % (2-4); Hematocrit 32.5 % (41-53); Hemoglobin 10.2 g/dL (13.5-17.5); Lymphocytes Absolute Auto 1200 /uL (1100-4500); Lymphocytes Percent Auto 17.5 % (25-40); Mean Corpuscular HGB Conc 31.5 % (30-36); Mean Corpuscular Hemoglobin 25.9 PG (26-34); Mean Corpuscular Volume 82.4 fL (80-100); Monocytes Absolute Auto 600 /uL (0-900); Monocytes Percent Auto 8.3 % (3-14); Neutrophils Absolute Auto 4800 /uL (1500-7000); Platelet Count 198 X10^3/uL (150-400); Red Blood Cell Count 3.95 X10^6/uL (4.5-5.9); Red Cell Distribution Width 22.4 % (11.6-14.8); White Blood Cell Count 6.7 X10^3/uL (4.5-11.0)
[2023-08-05 05:08] LABS: INR 3.1 (0.9-1.3); Prothrombin Time 35.9 SECONDS (10.1-12.7)
[2023-08-05 05:13] LABS: Alanine Aminotransferase 102 IU/L (<50); Albumin 3.7 g/dL (3.5-5.0); Albumin Globulin Ratio 1.1 (1.0-2.8); Alkaline Phosphatase 94 U/L (38-126); Aspartate Aminotransferase 67 IU/L (17-59); BUN Creatinine Ratio 23.3 (6-22); Blood Urea Nitrogen 14 mg/dL (9-20); Calcium 9.9 mg/dL (8.4-10.2); Carbon Dioxide 31 mmol/L (22-32); Chloride 95 mmol/L (98-107); Estimated Glomerular Filt Rate > 60 mL/min (>60); Globulin 3.3 g/dL (1.7-4.1); Glucose 142 mg/dL (80-110); HEMOLYSIS < 15 (0-50); Magnesium 1.5 mg/dL (1.6-2.3); Sodium 136 mmol/L (137-145)
[2023-08-05 05:21] LABS: Anisocytosis 2+
--- NOTE | 2023-08-05 06:26 | PC.NURSE ---
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
[2023-08-05] MEDS: PANTOPRAZOLE DR 20 MG TABLET PO (07:52)
[2023-08-05 07:59] VITALS: BP 139/97; PULSE 91; RESP 20; TEMP 36.4; O2SAT 97
--- NOTE | 2023-08-05 08:07 | PC.NURSE ---
Addendum entered by Caitlin Chatman R.N. 08/05/23 11:41: Mentioned am INR level of 3.9 to provider when reviewing provider's discharge medication instructions to resume xarelto, and restarting postassium since he hadn't had potassium in the past couple days. Provider confirmed that it was ok for patient to restart xarelto as long as he follows up with primary care for INR lab testing. Provider okayed pt taking potassium, as long as he takes furosemide and follows up with primary care for CHF management. During discharge education, emphasized needing to follow up with primary care in the next week, INR testing with primary care, and educated on pt medications xarelto and bleeding risk and furosemide. Emphasized ambulating safely by using a walker multiple times. Discussed stroke s/s, CHF - daily weights, when to call doctor, and measuring BP and HR before taking metoprolol in the morning and evening. Addendum entered by Caitlin Chatman R.N. 08/05/23 10:11: Wound care done on bilat LE wounds per patient request. IVs removed, pt off telemetry, Pt met discharge criteria. Original Note: Pt counseled multiple times on using call leonard and waiting for staff to help assist when getting up, pt is forgetful and does not consistently call before getting up. Pt also not consistently using walker as instructed. Pt also refused am dose of lasix - educated patient on indications. Relayed these concerns to provider along with AM INR of 3.9. Also called pharmacist to inform them of Mg 1.5 and INR level. Assessed pt for signs and symptoms of bleeding and will monitor pt.
[2023-08-05 08:10] VITALS: BP 139/97; PULSE 96
[2023-08-05] MEDS: AMOXICILLIN/CLAV 875/125 MG 1 TAB PO (08:10)
[2023-08-05] MEDS: METOPROLOL ER 50 MG TABLET 100 MG PO (08:10)
[2023-08-05] MEDS: DULOXETINE 30 MG CAPSULE 60 MG PO (08:10)
[2023-08-05] MEDS: CYANOCOBALAMIN (VITAMIN B-12) 500 MCG TABLET 1000 MCG PO (08:10)
[2023-08-05] MEDS: MAGNESIUM CHLORIDE 64 MG TABLET 128 MG PO (08:10)
[2023-08-05] MEDS: SODIUM CHLORIDE 0.9% FLUSH 10 ML IV (08:11)
[2023-08-05] MEDS: FUROSEMIDE 60 MG in SODIUM CHLORIDE 0.9% 50 ML 112 MG IV (09:02)
--- NOTE | 2023-08-05 09:22 | PT-IP ANOTE ---
Pt refused OOB mobility this morning, PT will attempt to see later today if able.
[2023-08-05 09:30] VITALS: BP 115/73; PULSE 100
[2023-08-05 11:00] VITALS: PULSE 90
--- NOTE | 2023-08-05 11:02 | CM.DPC ---
DCP Continued: SUPERVISOR DRYING reviewed EMR. Patient d/c today. CM Pilling Machine Operator Claudia emailed alyse/Bisi at [facility] the face to face and notice of d/c. SUPERVISOR DRYING entered room. Patient accompanied by spouse at bedside. Patient and spouse eager to d/c to [facility] and then home. Report no other needs at this time, Plan: patient to d/c to [facility] in [place] for two days and then home to [place] with significant other. [facility] to follow for wound care/PT/OT. CM team will continue to follow as needed. MARCUS Tipton
--- NOTE | 2023-08-05 21:20 | P.DS_ITS ---
History of Present Illness History of Present Illness Date Patient Seen: 08/02/23 Time Patient Seen: 15:54 Chief complaint: confusion Narrative: Per admitting provider: 73 M with PMH of afib with difficult to control rate (previously in the ER and did not require admission for rate control within the last few week per cardiology), CHFpEF (with mitraclip), chronic toe wounds on the R, alcohol use, DM with neuropathy, HTN, HLD, venous insufficiency, PAD, GERD, AAA, AGNIESZKA who was discharged yesterday to SNF after admission for pre-patellar bursitis. During that admission he had waxing and waning confusion for which hypoxia due to AGNIESZKA, encephalopathy due to pain medication, and hospital delirium were considered. His confused worsened even further according to his spouse today and he was sent to the ER for further evaluation. He was noted to be hypoxic, with worsened edema compared to prior days. His chest xray was consistent with volume overload. He was given 40 mg IV lasix in the ER. Labs were notable for elevated ast/alt and INR. He was re-admitted for acute on chronic diastolic heart failure. Discharge Providers Provider Date of admission: 08/02/23 15:27 Discharge Date: 08/05/23 Primary care physician: Freeman Chao MD Consults: 08/02/23 16:23 Consult to Occupational Therapy Evaluate & Treat Comment: Physician Instructions: Evaluate and treat Consult to Physical Therapy Evaluate & Treat Comment: Physician Instructions: Evaluate and Treat 08/03/23 09:13 Consult to Speech Therapy Evaluate & Treat Comment: ? aspiration Physician Instructions: Evaluate and treat Discharge provider: Dexter Gramajo MD Summary Hospital Course Discharge Diagnosis: 1. Left knee cellulitis and prepatelar bursitis 2. Acute hypoxemic respiratory failure secondary to CHFpEF 3. Acute metabolic encephalopathy 4. Chronic atrial fibrillation 5. Supratherapeutic INR Hospital Course: Mr. Almonte was readmitted with encephalopathy. With holding opiates and with improving his respiratory failure his encephalopathy resolved. He was recommended to have an additional two weeks of antibiotics and was discharged with Augmentin. He was discharged with lasix, but he had repeatedly refused to take it in the hospital, despite being told this is the reason he was volume overloaded. He is at risk of further volume overload with inconsistent use of lasix. His INR resolved and he was restarted on rivaroxaban. He was encouraged to follow up with his PCP within one week. Time Spent with Patient Time spent: Greater than 30 minutes Exam Vital Signs (past 8 hours): Oxygen Delivery Method Room Air Oxygen Flow Rate 0 Narrative Exam Narrative: General:? no acute distress Lungs:?clear bilaterally Cardio:regular rate, irregularly irregular. Objective Labs 08/05/23 04:45 08/05/23 04:45 Labs: Laboratory Results - last 24 hr 08/05/23 04:45 WBC 6.7 RBC 3.95 L Hgb 10.2 L Hct 32.5 L MCV 82.4 MCH 25.9 L MCHC 31.5 RDW 22.4 H Plt Count 198 Neut % (Auto) 71.0 Lymph % (Auto) 17.5 L Beckham % (Auto) 8.3 Eos % (Auto) 2.4 Baso % (Auto) 0.8 Neut # (Auto) 4800 Lymph # (Auto) 1200 Beckham # (Auto) 600 Eos # (Auto) 200 Baso # (Auto) 100 RBC Morphology See below Anisocytosis 2+ H PT 35.9 H D INR 3.1 H Sodium 136 L Potassium 4.0 Chloride 95 L Carbon Dioxide 31 BUN 14 Creatinine 0.60 L Estimated GFR > 60 BUN/Creatinine Ratio 23.3 H Glucose 142 H Calcium 9.9 Magnesium 1.5 L Total Bilirubin 1.0 AST 67 H ALT 102 H Alkaline Phosphatase 94 Total Protein 7.0 Albumin 3.7 Globulin 3.3 Albumin/Globulin Ratio 1.1 [facility] Medical History Renal mass Chronic diastolic (congestive) heart failure Alcohol use disorder Anemia Mumps Measles Chicken pox Peripheral arterial disease AAA (abdominal aortic aneurysm) GERD without esophagitis Diabetic toe ulcer Polyneuropathy, unspecified Type 2 diabetes mellitus with polyneuropathy Surgical History S/P mitral valve repair History of cataract removal with insertion of prosthetic lens Social History details: Partner (Yadi Dong) household members: significant other Smoking Status: Current every day smoker alcohol intake: current Discharge Plan Discharge Plan Patient Disposition: Home Health Service Provider Discharge Comment: Mr. Almonte was admitted with confusion. He also had fluid retention. He improved with treatment. He repeatedly also refused to take lasix which will lead to him retaining fluid and having worse breathing issues. He should complete his antibiotics for the next week. He should follow up with his PCP within one week to make sure his knee is improving, if it is not he may need referral to a surgeon. He should also follow up with his PCP for his heart failure. Discharge orders & Medications Prescriptions: New amoxicillin-pot clavulanate 875-125 mg tablet 1 tab PO BID Qty: 14 0RF Continued duloxetine [Cymbalta] 60 mg capsule,delayed release(DR/EC) 60 mg PO QDAY Qty: 90 3RF Xarelto 20 mg tablet 20 mg PO QDAY Qty: 90 3RF atorvastatin 80 mg tablet 80 mg PO DAILY Qty: 90 3RF cyanocobalamin (vitamin B-12) 1,000 mcg capsule 1,000 mcg PO DAILY potassium chloride 10 mEq tablet extended release 20 meq PO BID ferrous sulfate 325 mg (65 mg iron) Tablet,Delayed Release (Dr/Ec) 325 mg PO DAILY metoprolol succinate 100 mg tablet extended release 24 hr 100 mg PO DAILY polyethylene glycol 3350 17 gram Powder In Packet 17 g PO DAILY PRN (Reason: Constipation) 7 Days Qty: 14 0RF sennosides [senna] 8.6 mg Tablet 8.6 mg PO BID PRN (Reason: Constipation) Qty: 30 0RF acetaminophen 325 mg Tablet 650 mg PO Q6H PRN (Reason: Fever/Mild Pain (1-3)) Qty: 30 0RF metoprolol succinate 50 mg Tablet Extended Release 24 Hr 50 mg PO BEDTIME Qty: 30 0RF pantoprazole 20 mg Tablet,Delayed Release (Dr/Ec) 20 mg PO DAILY Qty: 30 0RF empagliflozin 25 mg tablet 25 mg PO DAILY 30 Days Qty: 30 0RF metformin 1,000 mg tablet 1,000 mg PO BIDWMEAL 30 Days Qty: 60 0RF furosemide 40 mg tablet 40 mg PO BID Qty: 60 0RF Discontinued gabapentin 800 mg tablet 800 mg PO TID Qty: 270 3RF magnesium oxide 400 mg (241.3 mg magnesium) Tablet 400 mg PO 2XD cefdinir 300 mg capsule 300 mg PO BID 15 Days Qty: 30 0RF Follow up/Referrals: Freeman Chao MD [Primary Care Provider] - Diet/Activity/Treatments Diet: Low-sodium Diet comment: 2L IV fluid restriction Visit Report/Discharge Packet Stand Alone Forms: Patient Portal/API, Stroke Signs & Symptoms Discharge Data Primary Care Provider: Freeman Chao V Discharges patient from system. Discharge Date/Time: 08/05/23 11:41 Quality VTE Deep Vein Thrombosis/Pulmonary Embolism Present on Admission: Yes
== END 2023-08-05 11:41 | disposition home or self-care (01) | DRG 291 ==
LOC: ED 15:27 → AC 15:28 → ICU 16:14
PROVIDERS: Admitting Provider Internal Medicine; Emergency Provider Emergency Medicine; Family Provider Family Medicine; PCP Internal Medicine; Referring Provider Emergency Medicine; Visit Provider Internal Medicine
DX: I11.0 Hypertensive heart disease with heart failure (principal); G93.41 Metabolic encephalopathy; I50.33 Acute on chronic diastolic (congestive) heart failure; J96.01 Acute respiratory failure with hypoxia; L03.116 Cellulitis of left lower limb; I48.20 Chronic atrial fibrillation, unspecified; F17.210 Nicotine dependence, cigarettes, uncomplicated; M70.42 Prepatellar bursitis, left knee; R79.1 Abnormal coagulation profile; K21.9 Gastro-esophageal reflux disease without esophagitis; F32.A Depression, unspecified; E78.5 Hyperlipidemia, unspecified; D64.9 Anemia, unspecified; E11.42 Type 2 diabetes mellitus with diabetic polyneuropathy; Z79.84 Long term (current) use of oral hypoglycemic drugs; Z79.01 Long term (current) use of anticoagulants
CPT/HCPCS: 36415; 36600; 70450; 71045; 76705; 80053; 80305; 80320; 80329; 81001; 82140; 82550; 82805; 82962; 83605; 83690; 83735; 83880; 84145; 84146; 84439; 84443; 84484; 85025; 85610; 85730; 86704; 86706; 86803; 87040; 87086; 87340; 87633; 87797; 92507; 92523; 93005; 93010; 93306; 96374; 97116; 97163; 97167; 97530; 97535; 99285; G0480; J1940

== ENCOUNTER → 2023-08-06 09:08 | Outpatient (CLI) | payer MEDICARE, SELFPAY ==
[2023-08-02 16:32] VITALS: BMI 30.4
== END ==
PROVIDERS: Family Provider Family Medicine; PCP Internal Medicine; Referring Provider Surgery; Visit Provider Surgery
DX: E11.621 Type 2 diabetes mellitus with foot ulcer (principal); L97.512 Non-pressure chronic ulcer of other part of right foot with fat layer exposed; S81.012A Laceration without foreign body, left knee, initial encounter; S80.811A Abrasion, right lower leg, initial encounter; E11.51 Type 2 diabetes mellitus with diabetic peripheral angiopathy without gangrene; E11.40 Type 2 diabetes mellitus with diabetic neuropathy, unspecified; R60.0 Localized edema
CPT/HCPCS: 11042

== ENCOUNTER → 2023-08-10 13:32 | Outpatient (CLI) | payer MEDICARE, SELFPAY ==
[2023-08-02 16:32] VITALS: BMI 30.4
== END ==
PROVIDERS: Family Provider Family Medicine; PCP Internal Medicine; Referring Provider Surgery; Visit Provider Surgery
DX: E11.621 Type 2 diabetes mellitus with foot ulcer (principal); E11.628 Type 2 diabetes mellitus with other skin complications; S81.811A Laceration without foreign body, right lower leg, initial encounter; S81.012A Laceration without foreign body, left knee, initial encounter; L97.512 Non-pressure chronic ulcer of other part of right foot with fat layer exposed; S80.811A Abrasion, right lower leg, initial encounter
CPT/HCPCS: 11042; 99213

== ENCOUNTER → 2023-08-18 14:19 | Outpatient (CLI) | payer MEDICARE, SELFPAY ==
[2023-08-02 16:32] VITALS: BMI 30.4
== END ==
PROVIDERS: Family Provider Family Medicine; PCP Internal Medicine; Referring Provider Surgery; Visit Provider Surgery
DX: E11.621 Type 2 diabetes mellitus with foot ulcer (principal); L97.512 Non-pressure chronic ulcer of other part of right foot with fat layer exposed; S81.811A Laceration without foreign body, right lower leg, initial encounter; S81.012A Laceration without foreign body, left knee, initial encounter; S80.811A Abrasion, right lower leg, initial encounter; E11.51 Type 2 diabetes mellitus with diabetic peripheral angiopathy without gangrene; E11.40 Type 2 diabetes mellitus with diabetic neuropathy, unspecified; D62 Acute posthemorrhagic anemia; E11.628 Type 2 diabetes mellitus with other skin complications; L84 Corns and callosities
CPT/HCPCS: 11042; 15271; Q4196

== ENCOUNTER → 2023-08-26 15:03 | Outpatient (CLI) | payer MEDICARE, SELFPAY ==
[2023-08-02 16:32] VITALS: BMI 30.4
== END ==
PROVIDERS: Family Provider Family Medicine; PCP Internal Medicine; Referring Provider Surgery; Visit Provider Surgery
DX: S81.811A Laceration without foreign body, right lower leg, initial encounter (principal); S81.012A Laceration without foreign body, left knee, initial encounter; E11.621 Type 2 diabetes mellitus with foot ulcer; L97.519 Non-pressure chronic ulcer of other part of right foot with unspecified severity; L84 Corns and callosities; E11.51 Type 2 diabetes mellitus with diabetic peripheral angiopathy without gangrene; I70.203 Unspecified atherosclerosis of native arteries of extremities, bilateral legs; E11.42 Type 2 diabetes mellitus with diabetic polyneuropathy; I10 Essential (primary) hypertension; E78.5 Hyperlipidemia, unspecified; I48.91 Unspecified atrial fibrillation; D64.9 Anemia, unspecified; F17.210 Nicotine dependence, cigarettes, uncomplicated
CPT/HCPCS: 11042; 99212

== ENCOUNTER → 2023-09-03 14:01 | Outpatient (CLI) | payer MEDICARE, SELFPAY ==
[2023-08-02 16:32] VITALS: BMI 30.4
== END ==
PROVIDERS: Family Provider Family Medicine; PCP Internal Medicine; Referring Provider Surgery; Visit Provider Surgery
DX: E11.621 Type 2 diabetes mellitus with foot ulcer (principal); L97.511 Non-pressure chronic ulcer of other part of right foot limited to breakdown of skin; L84 Corns and callosities; R60.0 Localized edema; S81.012A Laceration without foreign body, left knee, initial encounter
CPT/HCPCS: 11042

== ENCOUNTER → 2023-09-17 14:59 | Outpatient (CLI) | payer MEDICARE, SELFPAY ==
[2023-08-02 16:32] VITALS: BMI 30.4
== END ==
PROVIDERS: Family Provider Family Medicine; PCP Internal Medicine; Referring Provider Surgery; Visit Provider Surgery
DX: E11.621 Type 2 diabetes mellitus with foot ulcer (principal); S81.801D Unspecified open wound, right lower leg, subsequent encounter; S81.002D Unspecified open wound, left knee, subsequent encounter; I73.9 Peripheral vascular disease, unspecified; D62 Acute posthemorrhagic anemia; S80.811A Abrasion, right lower leg, initial encounter; R60.0 Localized edema
CPT/HCPCS: 11042; 99213; 99214

== ENCOUNTER → 2023-09-23 09:19 | Outpatient (CLI) | payer MEDICARE, SELFPAY ==
[2023-08-02 16:32] VITALS: BMI 30.4
== END ==
PROVIDERS: Family Provider Family Medicine; PCP Internal Medicine; Referring Provider Surgery; Visit Provider Surgery
DX: L97.512 Non-pressure chronic ulcer of other part of right foot with fat layer exposed (principal); E11.621 Type 2 diabetes mellitus with foot ulcer; S81.002A Unspecified open wound, left knee, initial encounter; L84 Corns and callosities; R60.0 Localized edema
CPT/HCPCS: 11042

== ENCOUNTER → 2025-03-20 15:35 | Outpatient (CLI) | payer MEDICARE, SELFPAY ==
[2023-08-02 16:32] VITALS: BMI 30.4
[2025-03-20 16:13] LABS: Hematocrit 29.5 % (41-53); Hemoglobin 9.7 g/dL (13.5-17.5); Mean Corpuscular Hemoglobin 30.9 PG (26-34); Mean Corpuscular Volume 93.9 fL (80-100); Platelet Count 197 X10^3/uL (150-400); Red Blood Cell Count 3.14 X10^6/uL (4.5-5.9); Red Cell Distribution Width 19.6 % (11.6-14.8); White Blood Cell Count 7.8 X10^3/uL (4.5-11.0)
[2025-03-20 16:28] LABS: HEMOLYSIS < 15 (0-50)
[2025-03-20 16:34] LABS: Alanine Aminotransferase 104 IU/L (<50); Albumin 3.8 g/dL (3.5-5.0); Albumin Globulin Ratio 1.1 (1.0-2.8); Alkaline Phosphatase 106 U/L (38-126); Aspartate Aminotransferase 67 IU/L (17-59); BUN Creatinine Ratio 18.8 (6-22); Bilirubin Total 1.6 mg/dL (0.2-1.3); Blood Urea Nitrogen 19 mg/dL (9-20); Calcium 9.7 mg/dL (8.4-10.2); Carbon Dioxide 28 mmol/L (22-32); Chloride 96 mmol/L (98-107); Cholesterol 85 mg/dL (140-199); Estimated Glomerular Filt Rate > 60 mL/min (>60); Globulin 3.6 g/dL (1.7-4.1); Glucose 147 mg/dL (70-99); HDL Cholesterol 22 mg/dL (40-60); LDL Cholesterol Calculated 49 mg/dL (<100); Potassium 4.6 mmol/L (3.4-5.1); Sodium 131 mmol/L (137-145); Total Protein 7.4 g/dL (6.3-8.2); Triglycerides 72 mg/dL (35-150)
[2025-03-20 17:23] LABS: Vitamin B12 Reflex MMA if <400 > 1000 pg/mL (239-931)
[2025-03-20 21:10] LABS: Folate 11.6 ng/mL (2.76-20.0)
== END ==
LOC: LAB 15:36
PROVIDERS: Family Provider Family Medicine; PCP Internal Medicine; Referring Provider Internal Medicine; Visit Provider Internal Medicine
DX: E11.42 Type 2 diabetes mellitus with diabetic polyneuropathy (principal); E78.2 Mixed hyperlipidemia; I50.32 Chronic diastolic (congestive) heart failure; E53.8 Deficiency of other specified B group vitamins
CPT/HCPCS: 36415; 80053; 80061; 82607; 82746; 83036; 84443; 85027

== ENCOUNTER 2025-03-24 15:24 | Emergency (ER) | payer MEDICARE, SELFPAY ==
[2023-08-02 16:32] VITALS: BMI 30.4
[2025-03-24 15:44] VITALS: BP 105/61; PULSE 93; RESP 16; TEMP 36.6; O2SAT 99; BMI 24.0
--- NOTE | 2025-03-24 15:50 | DI.RAD.S_ITS ---
PROCEDURE: XR FINGER RT MIN 2V INDICATIONS: injury TECHNIQUE: AP hand, 2 views of the 1st finger(s) acquired. COMPARISON: None. FINDINGS: Bones: Cortical irregularity involving volar aspect of 1st distal phalangeal base is seen, acute chip fracture in this area cannot be excluded. No other fracture or dislocation. No suspicious bony lesions. Soft tissues: No suspicious soft tissue calcifications. IMPRESSION: Finding may represent acute chip fracture involving volar aspect of 1st distal phalangeal base, suggest clinical correlation for focal pain in this area. No other fracture or dislocation is noted. Dictated by: Adalid Calixto M.D. on 03/24/2025 at 16:22 Approved by: Adalid Calixto M.D. on 03/24/2025 at 16:28
--- NOTE | 2025-03-24 16:55 | ED.UPPEXIN ---
HPI - Extremity Injury (Upper) <Melyssa Jiménez PA-C - Last Filed: 03/24/25 20:04> General Chief Complaint: Extremity Injury, Upper Stated Complaint: right hand dislocated thumb sent by Time Seen by Provider: 03/24/25 15:47 Source: patient Mode of arrival: Wheelchair History of Present Illness HPI narrative: Mr. Almonte is a pleasant 74-year-old male with a past medical history of dementia, AFib and mitral valve repair on Xarelto, AAA, HTN, T2 DM who presents to the emergency department with his after being sent from his PCP on [place] for concern of right thumb dislocation. Patient ambulates with a walker at baseline and has frequent falls. Last night patient was walking from the bedroom to the closet without using his walker when he fell forward hitting his outstretched hand on the open closet door causing the right thumb to hyperextend he then fell forward and his found him lying on the ground. He does not remember if he hit his head or not. There was no LOC. He was able to get up and walk since this occurred and when he went to the clinic on [place] they sent him here for possible right thumb dislocation. Patient has bruising and swelling at the base of the right thumb and on the radial aspect of the wrist. Denies headache, loss of consciousness, nausea or vomiting, visual disturbance, neck pain, chest pain, abdominal pain or lower extremity pain. Related Data Home Medications ?Medication ?Instructions ?Recorded ?Confirmed ferrous sulfate 325 mg (65 mg 325 mg PO DAILY 07/09/23 03/20/25 iron) tablet,delayed release cyanocobalamin (vitamin B-12) 1,000 mcg PO DAILY 07/22/23 03/20/25 1,000 mcg capsule gabapentin 800 mg tablet 800 mg PO 3XD 03/20/25 03/20/25 nortriptyline 10 mg capsule 10 mg PO ONCE PM 03/20/25 03/20/25 spironolactone 50 mg tablet 50 mg PO DAILY 03/20/25 03/20/25 tramadol 200 mg tablet,extended 200 mg PO DAILY 03/20/25 03/20/25 release 24 hr Previous Rx's ?Medication ?Instructions ?Recorded acetaminophen 325 mg tablet 650 mg (2 x 325 mg) PO Q6H PRN 07/31/23 Fever/Mild Pain (1-3) #30 tabs pantoprazole 20 mg tablet,delayed 20 mg PO DAILY #30 tabs 08/01/23 release furosemide 40 mg tablet 40 mg PO BID #60 tabs 08/05/23 atorvastatin 80 mg tablet 80 mg PO DAILY #90 tabs 09/21/23 rivaroxaban 20 mg tablet (Xarelto) 20 mg PO QDAY #90 tabs 09/28/23 dapagliflozin propanediol 10 mg 10 mg PO DAILY #90 tabs 12/29/23 tablet (Farxiga) duloxetine 60 mg capsule,delayed 60 mg PO QDAY #90 caps 07/21/24 release (Cymbalta) metoprolol succinate 100 mg 100 mg PO DAILY #90 tabs 07/21/24 tablet,extended release 24 hr metoprolol succinate 50 mg 50 mg PO BEDTIME #90 tabs 07/21/24 tablet,extended release 24 hr Disabled [place] Permit #1 ea 03/24/25 doxycycline hyclate 100 mg capsule 100 mg PO BID 5 days #10 caps 03/24/25 Allergies Allergy/AdvReac Type Severity Reaction Status Date / Time azithromycin (AZITHROMYCIN) Allergy Mild RASH Verified 03/20/25 15:14 lisinopril (LISINOPRIL) AdvReac Mild COUGH Verified 03/20/25 15:14 simvastatin (SIMVASTATIN) AdvReac Mild MYALGIA Verified 03/20/25 15:14 Review of Systems <Melyssa Jiménez PA-C - Last Filed: 03/24/25 20:04> Review of Systems ROS Unobtainable: All systems reviewed & are unremarkable except as noted in HPI and below Patient History <Melyssa Jiménez PA-C - Last Filed: 03/24/25 20:04> Medical History Dementia Tobacco use disorder Renal mass Chronic diastolic (congestive) heart failure Alcohol use disorder Anemia Mumps Measles Chicken pox Peripheral arterial disease AAA (abdominal aortic aneurysm) GERD without esophagitis Diabetic toe ulcer Polyneuropathy, unspecified Type 2 diabetes mellitus with polyneuropathy Surgical History S/P mitral valve repair History of cataract removal with insertion of prosthetic lens Social History details: Partner (Yadi Dong) household members: significant other Smoking Status: Current every day smoker alcohol intake: current Smoking Status: Current every day smoker tobacco type: cigarettes alcohol intake frequency: a few times a month Exam <Melyssa Jiménez PA-C - Last Filed: 03/24/25 20:04> Narrative Exam Narrative: GENERAL: 74 year old patient appears stated age. Well-developed patient, in no acute distress. HEAD: Atraumatic. Normocephalic. No visible or palpable scalp wounds. EYES: PERRL. Extraocular motions intact. No scleral icterus. No injection or drainage. ENT: Nose without bleeding, purulent drainage. Throat without erythema, tonsillar hypertrophy or exudate. Airway patent. NECK: Trachea midline. Cervical ROM intact. CARDIOVASCULAR: Regular rate and irregular rhythm. RESPIRATORY: ?Nonlabored respirations. ?Speaking in clear, full sentences. ?Clear to auscultation. Slightly diminished BS BL LL. No wheezes, rales, or rhonchi. ? GASTROINTESTINAL: Abdomen soft, non-tender, nondistended. EXTREMITIES: Edema and ecchymosis of right thumb base and hyperextension at the thumb D IP joint. Patient is unable to flex at the thumb the IP joint. He does have tenderness to palpation of the distal phalanx in addition to the MCP joint and the radial aspect of the wrist but no focal snuffbox tenderness. Brisk capillary refill intact and sensation intact to light touch. Strong radial pulse. BACK: No midline spinal tenderness. NEURO: AOx3. ?Clear speech. ?Moves all 4 extremities appropriately. Able to provide his own history however does not remember all details. SKIN: Ecchymosis in various stages of healing on the left lower leg, right upper extremity. No open or bleeding wounds. Initial Vital Signs Initial Vital Signs: Vital Signs Temperature 97.8 F 03/24/25 15:44 Pulse Rate 93 H 03/24/25 15:44 Respiratory Rate 16 03/24/25 15:44 Blood Pressure 105/61 03/24/25 15:44 Pulse Oximetry 99 03/24/25 15:44 Oxygen Delivery Method Room Air 03/24/25 15:44 <Gene Hartman MD - Last Filed: 03/25/25 02:14> Initial Vital Signs Initial Vital Signs: Vital Signs Temperature 97.8 F 03/24/25 15:44 Pulse Rate 93 H 03/24/25 15:44 Respiratory Rate 16 03/24/25 15:44 Blood Pressure 105/61 03/24/25 15:44 Pulse Oximetry 99 03/24/25 15:44 Oxygen Delivery Method Room Air 03/24/25 15:44 Course <Melyssa Jiménez PA-C - Last Filed: 03/24/25 20:04> Orders Ordered: ED Orders 03/24/25 17:59 XR chest 2V Stat Discontinued Medications Acetaminophen (Acetaminophen 325 Mg Tablet) 650 mg PO NOW ONE Stop: 03/24/25 17:09 Last Admin: 03/24/25 17:33 Dose: 650 mg Documented By: RB Doxycycline Hyclate (Doxycycline Hyclate 100 Mg Tablet) 100 mg PO NOW ONE Stop: 03/24/25 19:23 Last Admin: 03/24/25 19:27 Dose: 100 mg Documented By: AB Vital Signs Vital signs: Vital Signs - 8 hr 03/24/25 18:22 Pulse Rate 86 Respiratory Rate 20 Blood Pressure 103/58 L Pulse Oximetry 99 Oxygen Delivery Method Room Air <Gene Hartman MD - Last Filed: 03/25/25 02:14> Orders Ordered: ED Orders 03/24/25 17:59 XR chest 2V Stat Discontinued Medications Acetaminophen (Acetaminophen 325 Mg Tablet) 650 mg PO NOW ONE Stop: 03/24/25 17:09 Last Admin: 03/24/25 17:33 Dose: 650 mg Documented By: RB Doxycycline Hyclate (Doxycycline Hyclate 100 Mg Tablet) 100 mg PO NOW ONE Stop: 03/24/25 19:23 Last Admin: 03/24/25 19:27 Dose: 100 mg Documented By: AB Vital Signs Vital signs: Vital Signs - 8 hr 03/24/25 18:22 Pulse Rate 86 Respiratory Rate 20 Blood Pressure 103/58 L Pulse Oximetry 99 Oxygen Delivery Method Room Air MDM - Extremity Injury (Upper) <Melyssa Jiménez PA-C - Last Filed: 03/24/25 20:04> Medical Records Attestation: I reviewed the patient's medical records. Imaging Data Right Thumb X-Ray: Radiologist's Impression: PROCEDURE: XR FINGER RT MIN 2V INDICATIONS: injury TECHNIQUE: AP hand, 2 views of the 1st finger(s) acquired. COMPARISON: None. FINDINGS: Bones: Cortical irregularity involving volar aspect of 1st distal phalangeal base is seen, acute chip fracture in this area cannot be excluded. No other fracture or dislocation. No suspicious bony lesions. Soft tissues: No suspicious soft tissue calcifications. IMPRESSION: Finding may represent acute chip fracture involving volar aspect of 1st distal phalangeal base, suggest clinical correlation for focal pain in this area. No other fracture or dislocation is noted. Dictated by: Adalid Calixto M.D. on 03/24/2025 at 16:22 Approved by: Adalid Calixto M.D. on 03/24/2025 at 16:28 CT scan - head: Radiologist's Impression: PROCEDURE: CT HEAD/BRAIN WO CON INDICATIONS: fall forward on thinners TECHNIQUE: Noncontrast 4.5 mm thick angled axial sections acquired from the foramen magnum to the vertex, with coronal and sagittal reformats. For radiation dose reduction, the following was used: automated exposure control, adjustment of mA and/or kV according to patient size. COMPARISON: [facility], CT, CT HEAD/BRAIN WO CON, 08/02/2023, 13:53. [facility], CT, CT HEAD/BRAIN WO CON, 07/09/2023, 15:26. FINDINGS: Image quality: Diagnostic. CSF spaces: Basal cisterns are patent. No extra-axial fluid collections. The ventricles are symmetric in size and shape. Brain: No acute intracranial hemorrhage or mass effect. There is cerebral volume loss, with resultant ventricular and sulcal prominence. There are periventricular and deep white matter chronic small vessel ischemic changes. There is intracranial internal carotid artery atherosclerosis. Skull and face: Calvarium and visualized facial bones appear intact, without suspicious lesions. Sinuses: Visualized sinuses and mastoids are clear. IMPRESSION: No acute intracranial pathology. Approved by: Jose Sharif M.D. on 03/24/2025 at 17:48 CT - cervical spine: Radiologist's Impression: PROCEDURE: CT CERVICAL SPINE WO CON INDICATIONS: fall on thinners TECHNIQUE: Noncontrast 3 mm thick sections acquired from the skull base to the T4 level. Sagittal and coronal reformats were then constructed. For radiation dose reduction, the following was used: automated exposure control, adjustment of mA and/or kV according to patient size. COMPARISON: [facility], CT, CT CERVICAL SPINE WO CON, 07/09/2023, 15:26. FINDINGS: Image quality: Excellent. Bones: No acute fractures or dislocations. Visualized superior ribs are intact. Soft tissues: Prevertebral soft tissues are normal in thickness. No paravertebral hematomas. No apical pneumothoraces. Bilateral carotid bifurcation atherosclerotic calcifications. Small left-sided pleural effusion is partially visualized. IMPRESSION: No acute displaced fracture or traumatic subluxation. Small left pleural effusion. Approved by: Jose Sharif M.D. on 03/24/2025 at 17:50 Chest x-ray: Radiologist's Impression: PROCEDURE: XR CHEST 2V INDICATIONS: pleural efusion on cervical ct; fall yesterday TECHNIQUE: 2 views of the chest were acquired. COMPARISON: [facility], CR, XR CHEST 1V, 08/02/2023, 14:12. [facility], CR, XR CHEST 1V, 07/29/2023, 11:19. FINDINGS: Surgical changes and devices: None. Lungs and pleura: Prominence of bronchovascular markings. Septal lines seen in the right mid to lower lung. Increased density in the left total cardiac region, also posteriorly on the lateral view inferiorly. Mediastinum: Stable cardiomegaly Bones and chest wall: No suspicious bony abnormalities. Soft tissues appear unremarkable. IMPRESSION: 1. Increased density in the left lower chest, likely a combination of pleural effusion and consolidation. 2. Cardiomegaly with pulmonary vascular congestion and interstitial edema. Dictated by: Dannie Miranda M.D. on 03/24/2025 at 18:17 Approved by: Dannie Miranda M.D. on 03/24/2025 at 18:20 [facility] Narrative Medical decision making narrative: 74-year-old male with a past medical history of dementia, AFib and mitral valve repair on Xarelto, AAA, HTN, T2 DM who presents to the emergency department with his after being sent from his PCP on [place] for concern of right thumb dislocation. Differential diagnosis includes but is not limited to right thumb fracture, dislocation, wrist fracture, strain, sprain, closed head injury, ICH, etc. On exam patient is in no acute distress, nontoxic appearing, vital signs appropriate. He is chronically in AFib, he is anticoagulated. He had a mechanical fall last night where he hyperextended his right thumb and fell forward, possibly hitting his head. Base of thumb and phalanx with edema and ecchymosis, D IP joint held in hyperextension, unable to flex. Remainder of hand is neurovascularly intact. Thumb x-ray obtained in triage reveals acute chip fracture involving the volar aspect of the 1st distal phalangeal base which is consistent with the patient's physical exam however would like to add on a right wrist x-ray to have a large review of the area of injury. We will also obtain CT imaging of head and neck given the patient's fall on blood thinners. We will treat pain with Tylenol. Wrist x-ray shows acute fracture of the base of the 1st distal phalanx. We will place patient into right wrist thumb spica Velcro splint for support, dorsal aluminum thumb splint was applied for the volar distal fracture. Head CT reveals no acute intracranial pathology. Cervical spine CT reveals no acute displaced fracture or traumatic subluxation however patient does have a small left pleural effusion. Printed discussed also with the patient and his , states that she believes he has had pleural effusions in the past we will obtain chest x-ray, he is not experiencing any shortness of breath or chest pain. Chest x-ray reveals increased density in the left lower chest, likely a combination of pleural effusion and consolidation. Patient denies chest pain, shortness of breath, difficulty breathing, coughing, fevers, chills however adamant abundance of caution we will treat with doxycycline b.i.d. x5 days for potential consolidation which him and his are agreeable to. Recommended prompt follow up with PCP for further evaluation, repeat chest x-ray, discussed strict ED return precautions. Advised follow up with Orthopedics for left thumb fracture, encouraged to continue to wear the dorsal aluminum splint and the thumb spica wrist splint for support. Patient his verbalized understanding of all information and agreed with the plan. He is stable for discharge home. Discharge Plan Departure Patient Disposition: Home Clinical Impression: Ground-level fall, Pleural effusion on left Fracture of thumb Qualifiers: Encounter type: initial encounter Fracture type: closed Phalanx: distal Fracture alignment: nondisplaced Laterality: right Qualified Code(s): S62.524A - Nondisplaced fracture of distal phalanx of right thumb, initial encounter for closed fracture Instructions: DI for Finger Fracture, DI for Pleural Effusion Activity Restrictions/Additional Instructions: Dear Mr. Almonte, Thank you for coming to the emergency department. Today you were evaluated for right thumb injury after a fall. The x-ray of your thumb and wrist reveal that you do have a fracture on the right thumb. I would like you to continue using the aluminum splint and follow up with Orthopedics for further evaluation. Your chest x-ray revealed a left-sided pleural effusion and possible consolidation which is pneumonia. Please complete the full course of antibiotics but follow up promptly with your primary care doctor for further evaluation, repeat chest x-ray and management. If you develop chest pain, difficulty breathing, shortness of breath or other concerns you need to return to ED immediately. Please follow up with your primary care doctor within the next 2-3 days for ER follow-up. (If you do not have a PCP you can call [phone]. ?to schedule an appointment with an [facility] Primary Care Provider) IF YOU DEVELOP ANY NEW OR WORSENING SYMPTOMS, RETURN TO THE ER! Please read the attached instructions, they highlight more specific treatments and interventions for you at home. Thank you for letting me participate in your care, Melyssa Jiménez PA-C Prescriptions: New doxycycline hyclate 100 mg capsule 100 mg PO BID 5 Days Qty: 10 0RF No Action atorvastatin 80 mg tablet 80 mg PO DAILY Qty: 90 3RF Xarelto 20 mg tablet 20 mg PO QDAY Qty: 90 3RF dapagliflozin propanediol [Farxiga] 10 mg tablet 10 mg PO DAILY Qty: 90 3RF metoprolol succinate 50 mg tablet extended release 24 hr 50 mg PO BEDTIME Qty: 90 3RF duloxetine [Cymbalta] 60 mg capsule,delayed release(DR/EC) 60 mg PO QDAY Qty: 90 3RF metoprolol succinate 100 mg tablet extended release 24 hr 100 mg PO DAILY Qty: 90 3RF (DME) Disabled [place] Permit See Rx Instructions .Route .MEDSUPPLY Qty: 1 0RF Rx Instructions: I find this patient to be medically disabled and qualified for disabled parking as indicated, and signed, on the accompanying disabled parking application for individuals. spironolactone 50 mg tablet 50 mg PO DAILY gabapentin 800 mg tablet 800 mg PO 3XD nortriptyline 10 mg capsule 10 mg PO ONCE PM tramadol 200 mg tablet extended release 24 hr 200 mg PO DAILY cyanocobalamin (vitamin B-12) 1,000 mcg capsule 1,000 mcg PO DAILY ferrous sulfate 325 mg (65 mg iron) Tablet,Delayed Release (Dr/Ec) 325 mg PO DAILY acetaminophen 325 mg Tablet 650 mg PO Q6H PRN (Reason: Fever/Mild Pain (1-3)) Qty: 30 0RF pantoprazole 20 mg Tablet,Delayed Release (Dr/Ec) 20 mg PO DAILY Qty: 30 0RF furosemide 40 mg tablet 40 mg PO BID Qty: 60 0RF Referrals: Freeman Chao MD [Primary Care Provider, Internal Medicine] David De Guzman MD [Physician, Orthopedic Surgery] Referral Note: volar thumb fracture, loss of DIP flexion Stand Alone Forms: Patient Portal/API ED Sign-out <Gene Hartman MD - Last Filed: 03/25/25 02:14> Cosign ED Attending Cosignature Attestation: I was immediately available in the department for consultation. This documentation has been reviewed and I agree with assessment and plan. Supervised by Gene Hartman MD
[2025-03-24 17:06] VITALS: PULSE 92
--- NOTE | 2025-03-24 17:07 | DI.RAD.S_ITS ---
PROCEDURE: XR WRIST RT MIN 3V INDICATIONS: base r thumb and wrist pain fall TECHNIQUE: 3 views of the wrist were acquired. COMPARISON: None. FINDINGS: Bones: There is a small osseous fragment arising from the base of the 1st distal phalanx. There is mild to moderate diffuse osteopenia. Soft tissues: No suspicious soft tissue calcifications. IMPRESSION: There is acute fracture of the base of the 1st distal phalanx, follow-up study of the finger may be obtained for better assessment. Dictated by: Dannie Miranda M.D. on 03/24/2025 at 17:26 Approved by: Dannie Miranda M.D. on 03/24/2025 at 17:28
--- NOTE | 2025-03-24 17:07 | DI.CT.S_ITS ---
PROCEDURE: CT CERVICAL SPINE WO CON INDICATIONS: fall on thinners TECHNIQUE: Noncontrast 3 mm thick sections acquired from the skull base to the T4 level. Sagittal and coronal reformats were then constructed. For radiation dose reduction, the following was used: automated exposure control, adjustment of mA and/or kV according to patient size. COMPARISON: [facility], CT, CT CERVICAL SPINE WO CON, 07/09/2023, 15:26. FINDINGS: Image quality: Excellent. Bones: No acute fractures or dislocations. Visualized superior ribs are intact. Soft tissues: Prevertebral soft tissues are normal in thickness. No paravertebral hematomas. No apical pneumothoraces. Bilateral carotid bifurcation atherosclerotic calcifications. Small left-sided pleural effusion is partially visualized. IMPRESSION: No acute displaced fracture or traumatic subluxation. Small left pleural effusion. Approved by: Jose Sharif M.D. on 03/24/2025 at 17:50
--- NOTE | 2025-03-24 17:07 | DI.CT.S_ITS ---
PROCEDURE: CT HEAD/BRAIN WO CON INDICATIONS: fall forward on thinners TECHNIQUE: Noncontrast 4.5 mm thick angled axial sections acquired from the foramen magnum to the vertex, with coronal and sagittal reformats. For radiation dose reduction, the following was used: automated exposure control, adjustment of mA and/or kV according to patient size. COMPARISON: [facility], CT, CT HEAD/BRAIN WO CON, 08/02/2023, 13:53. [facility], CT, CT HEAD/BRAIN WO CON, 07/09/2023, 15:26. FINDINGS: Image quality: Diagnostic. CSF spaces: Basal cisterns are patent. No extra-axial fluid collections. The ventricles are symmetric in size and shape. Brain: No acute intracranial hemorrhage or mass effect. There is cerebral volume loss, with resultant ventricular and sulcal prominence. There are periventricular and deep white matter chronic small vessel ischemic changes. There is intracranial internal carotid artery atherosclerosis. Skull and face: Calvarium and visualized facial bones appear intact, without suspicious lesions. Sinuses: Visualized sinuses and mastoids are clear. IMPRESSION: No acute intracranial pathology. Approved by: Jose Sharif M.D. on 03/24/2025 at 17:48
[2025-03-24] MEDS: ACETAMINOPHEN 325 MG TABLET 650 MG PO (17:33)
--- NOTE | 2025-03-24 17:59 | DI.RAD.S_ITS ---
PROCEDURE: XR CHEST 2V INDICATIONS: pleural efusion on cervical ct; fall yesterday TECHNIQUE: 2 views of the chest were acquired. COMPARISON: [facility], CR, XR CHEST 1V, 08/02/2023, 14:12. [facility], CR, XR CHEST 1V, 07/29/2023, 11:19. FINDINGS: Surgical changes and devices: None. Lungs and pleura: Prominence of bronchovascular markings. Septal lines seen in the right mid to lower lung. Increased density in the left total cardiac region, also posteriorly on the lateral view inferiorly. Mediastinum: Stable cardiomegaly Bones and chest wall: No suspicious bony abnormalities. Soft tissues appear unremarkable. IMPRESSION: 1. Increased density in the left lower chest, likely a combination of pleural effusion and consolidation. 2. Cardiomegaly with pulmonary vascular congestion and interstitial edema. Dictated by: Dannie Miranda M.D. on 03/24/2025 at 18:17 Approved by: Dannie Miranda M.D. on 03/24/2025 at 18:20
[2025-03-24 18:22] VITALS: BP 103/58; PULSE 86; RESP 20; O2SAT 99
[2025-03-24] MEDS: DOXYCYCLINE HYCLATE 100 MG TABLET PO (19:27)
== END 2025-03-24 19:42 | disposition home or self-care (01) ==
PROVIDERS: Emergency Provider Physician Assistant; Family Provider Family Medicine; PCP Internal Medicine
DX: S62.524A Nondisplaced fracture of distal phalanx of right thumb, initial encounter for closed fracture (principal); J90 Pleural effusion, not elsewhere classified; W18.30XA Fall on same level, unspecified, initial encounter; S09.90XA Unspecified injury of head, initial encounter; Z79.01 Long term (current) use of anticoagulants
CPT/HCPCS: 70450; 71046; 72125; 73110; 73140; 99283; 99284

== ENCOUNTER → 2025-07-21 09:12 | Outpatient (CLI) | payer MEDICARE, SELFPAY ==
[2023-08-02 16:32] VITALS: BMI 30.4
== END ==
PROVIDERS: Family Provider Family Medicine; PCP Internal Medicine; Referring Provider Internal Medicine; Visit Provider Physician Assistant
DX: E11.621 Type 2 diabetes mellitus with foot ulcer (principal); L97.512 Non-pressure chronic ulcer of other part of right foot with fat layer exposed; E11.40 Type 2 diabetes mellitus with diabetic neuropathy, unspecified; I73.9 Peripheral vascular disease, unspecified; L84 Corns and callosities; Z72.0 Tobacco use
CPT/HCPCS: 11042; 87070; 87077; 87147; 87186; 87205; 99214

== ENCOUNTER → 2025-07-21 10:46 | Outpatient (CLI) | payer MEDICARE, SELFPAY ==
[2023-08-02 16:32] VITALS: BMI 30.4
--- NOTE | 2025-07-21 10:49 | DI.RAD.S_ITS ---
PROCEDURE: XR TOE RT MIN 2V INDICATIONS: diabetic foot ulcer right great toe TECHNIQUE: 3 views of the right great toe acquired. COMPARISON: Radiographs right foot 05/28/2023. FINDINGS: Bones: Erosive change and lucencies at the medial aspect of the great toe distal phalanx with likely subtle periosteal reaction, strongly suggestive of osteomyelitis. Moderate degenerative changes of the great toe interphalangeal joint, with mildly increased lateral subluxation. Soft tissues: No suspicious soft tissue densities. IMPRESSION: Erosive change and lucencies at the medial aspect of the great toe distal phalanx with likely subtle periosteal reaction, strongly suggestive of osteomyelitis. Dictated by: Raymundo Schneider M.D. on 07/23/2025 at 23:14 Approved by: Raymundo Schneider M.D. on 07/23/2025 at 23:21
== END ==
PROVIDERS: Family Provider Family Medicine; PCP Internal Medicine; Referring Provider Physician Assistant; Visit Provider Physician Assistant
DX: E11.621 Type 2 diabetes mellitus with foot ulcer (principal); L97.519 Non-pressure chronic ulcer of other part of right foot with unspecified severity
CPT/HCPCS: 73660; 87205

== ENCOUNTER → 2025-07-27 09:19 | Outpatient (CLI) | payer MEDICARE, SELFPAY ==
[2023-08-02 16:32] VITALS: BMI 30.4
== END ==
LOC: WC 09:20
PROVIDERS: Family Provider Family Medicine; PCP Internal Medicine; Referring Provider Internal Medicine; Visit Provider Surgery
DX: E11.621 Type 2 diabetes mellitus with foot ulcer (principal); L97.412 Non-pressure chronic ulcer of right heel and midfoot with fat layer exposed; L84 Corns and callosities; E11.40 Type 2 diabetes mellitus with diabetic neuropathy, unspecified; M86.9 Osteomyelitis, unspecified; E11.51 Type 2 diabetes mellitus with diabetic peripheral angiopathy without gangrene; Z72.0 Tobacco use; I48.91 Unspecified atrial fibrillation; Z79.01 Long term (current) use of anticoagulants; F03.90 Unspecified dementia, unspecified severity, without behavioral disturbance, psychotic disturbance, mood disturbance, and anxiety; R26.81 Unsteadiness on feet; Z99.89 Dependence on other enabling machines and devices
CPT/HCPCS: 11042

== ENCOUNTER → 2025-08-02 14:48 | Outpatient (CLI) | payer MEDICARE, SELFPAY ==
[2023-08-02 16:32] VITALS: BMI 30.4
--- NOTE | 2025-08-02 14:49 | DI.US.S_ITS ---
PROCEDURE: US ARTERIAL DUPLEX LE RT INDICATIONS: Eval arterial Status TECHNIQUE: Color and pulse Doppler interrogation was performed of the right lower extremity arterial system, with image documentation. COMPARISON: [facility], US, US ARTERIAL DUPLEX LE , 05/28/2023, 15:45. FINDINGS: Common femoral artery: 179 cm/sec, with monophasic flow. Deep femoral artery: 80 cm/sec, with monophasic flow. Proximal superficial femoral artery: 76 cm/sec, with biphasic flow. Mid superficial femoral artery: 61 cm/sec, with biphasic flow. Distal superficial femoral artery: 63 cm/sec, with biphasic flow. Popliteal artery: 60 cm/sec, with biphasic flow. Posterior tibial artery: 51 cm/sec, with biphasic flow. Anterior tibial artery/dorsalis pedis: Dorsalis pedis has minimal flow with high resistance waveform. Jorgensen-scale imaging description: A patent common femoral with monophasic flow suggest significant inflow iliac stenotic or occlusive disease. There is diffuse popliteal stenotic disease by grayscale. There is significant occlusive disease in the anterior tibial artery distribution. IMPRESSION: 1. Likely inflow hemodynamically significant stenotic or occlusive right iliac disease. 2. Diffuse popliteal stenotic disease. 3. Significant occlusive disease in the anterior tibial artery distribution. Dictated by: Rip Madera M.D. on 08/03/2025 at 13:25 Approved by: Rip Madera M.D. on 08/03/2025 at 13:50
== END ==
PROVIDERS: Family Provider Family Medicine; PCP Internal Medicine; Referring Provider Internal Medicine; Visit Provider Surgery
DX: E11.621 Type 2 diabetes mellitus with foot ulcer (principal); I87.1 Compression of vein; I70.8 Atherosclerosis of other arteries
CPT/HCPCS: 93926

== ENCOUNTER → 2025-08-03 13:41 | Outpatient (CLI) | payer MEDICARE, SELFPAY ==
[2023-08-02 16:32] VITALS: BMI 30.4
== END ==
PROVIDERS: Family Provider Family Medicine; PCP Internal Medicine; Referring Provider Internal Medicine; Visit Provider Physician Assistant
DX: E11.621 Type 2 diabetes mellitus with foot ulcer (principal); L97.512 Non-pressure chronic ulcer of other part of right foot with fat layer exposed; L84 Corns and callosities; I73.9 Peripheral vascular disease, unspecified; M86.9 Osteomyelitis, unspecified; Z79.2 Long term (current) use of antibiotics; Z79.01 Long term (current) use of anticoagulants
CPT/HCPCS: 11042; 99214

== ENCOUNTER → 2025-08-10 11:46 | Outpatient (CLI) | payer MEDICARE, SELFPAY ==
[2023-08-02 16:32] VITALS: BMI 30.4
--- NOTE | 2025-08-10 11:47 | DI.MRI.S_ITS ---
PROCEDURE: MR FOOT RT WO/W CON INDICATIONS: possible osteomylitis TECHNIQUE: Noncontrast coronal T1 spin echo and STIR, sagittal T1 spin echo with fat saturation and STIR, axial T1 spin echo and T2 fast spin echo with fat saturation. After the administration of contrast, axial/sagittal/coronal T1 spin echo with fat saturation through the right foot. COMPARISON: None. FINDINGS: Image quality: Limited evaluation given patient motion.. Bones: Soft tissue edema with suggestion of soft tissue irregularity about the medial aspect of the 1st distal phalanx, raising concern for soft tissue ulceration. There is mild marrow edema about the medial aspect of the 1st interphalangeal joint, without confluent T1 hypointensity, which may represent reactive marrow edema versus degenerative. No osteomyelitis. No acute fracture. Soft tissues: The visualized plantar fascia is unremarkable. Mild tenosynovitis of the flexor tendon at the master knot of [place]. The flexor tendons are otherwise unremarkable. The extensor tendons are unremarkable. Diffuse muscle edema with severe fatty atrophy. The Lisfranc ligament is intact. No drainable fluid collection. IMPRESSION: 1. Limited evaluation given patient motion. 2. Suggestion of soft tissue ulceration about the medial aspect of 1st distal phalanx. Reactive versus degenerative marrow edema about the medial aspect of the 1st interphalangeal joint. No osteomyelitis. 3. No drainable fluid collection. Dictated by: Tiff Chavarria M.D. on 08/10/2025 at 14:45 Approved by: Tiff Chavarria M.D. on 08/10/2025 at 14:54
== END ==
PROVIDERS: Family Provider Family Medicine; PCP Internal Medicine; Referring Provider Physician Assistant; Visit Provider Physician Assistant
DX: E11.621 Type 2 diabetes mellitus with foot ulcer (principal); L97.516 Non-pressure chronic ulcer of other part of right foot with bone involvement without evidence of necrosis; M86.9 Osteomyelitis, unspecified; L84 Corns and callosities; E11.40 Type 2 diabetes mellitus with diabetic neuropathy, unspecified; I73.9 Peripheral vascular disease, unspecified; D64.9 Anemia, unspecified
CPT/HCPCS: 11042; 73720; A9579

== ENCOUNTER → 2025-08-10 15:44 | Outpatient (CLI) | payer MEDICARE, SELFPAY ==
[2023-08-02 16:32] VITALS: BMI 30.4
== END ==
PROVIDERS: Family Provider Family Medicine; PCP Internal Medicine; Referring Provider Internal Medicine; Visit Provider Surgery
DX: E11.621 Type 2 diabetes mellitus with foot ulcer (principal); L97.516 Non-pressure chronic ulcer of other part of right foot with bone involvement without evidence of necrosis; L84 Corns and callosities; E11.40 Type 2 diabetes mellitus with diabetic neuropathy, unspecified; I73.9 Peripheral vascular disease, unspecified; D64.9 Anemia, unspecified; M86.9 Osteomyelitis, unspecified
CPT/HCPCS: 11042

== ENCOUNTER → 2025-08-22 17:09 | Outpatient (CLI) | payer MEDICARE, SELFPAY ==
[2023-08-02 16:32] VITALS: BMI 30.4
[2025-08-22 17:35] LABS: Hematocrit 28.8 % (41-53); Hemoglobin 9.4 g/dL (13.5-17.5); Mean Corpuscular HGB Conc 32.7 % (30-36); Mean Corpuscular Hemoglobin 33.2 PG (26-34); Mean Corpuscular Volume 101.5 fL (80-100); Platelet Count 147 X10^3/uL (150-400)
[2025-08-22 17:48] LABS: Hemoglobin A1C% w Est Avg Glu 5.7 % (4.0-6.0)
[2025-08-22 18:52] LABS: Alanine Aminotransferase 15 IU/L (<50); Albumin 4.5 g/dL (3.5-5.0); Albumin Globulin Ratio 1.4 (1.0-2.8); Alkaline Phosphatase 86 U/L (38-126); Blood Urea Nitrogen 49 mg/dL (9-20); Calcium 9.5 mg/dL (8.4-10.2); Carbon Dioxide 21 mmol/L (22-32); Chloride 93 mmol/L (98-107); Estimated Glomerular Filt Rate 55 mL/min (>60); Globulin 3.2 g/dL (1.7-4.1); Glucose 238 mg/dL (70-99); HEMOLYSIS < 15 (0-50); Potassium 4.5 mmol/L (3.4-5.1); Sodium 128 mmol/L (137-145); Total Protein 7.7 g/dL (6.3-8.2)
[2025-08-24 01:39] LABS: Hepatitis A Antibody IgM Negative (Negative); Hepatitis B Core Antibody IgM Negative (Negative); Hepatitis C Antibody Non Reactive (Non Reactive)
== END ==
PROVIDERS: Family Provider Family Medicine; PCP Internal Medicine; Referring Provider Internal Medicine; Visit Provider Internal Medicine
DX: E11.42 Type 2 diabetes mellitus with diabetic polyneuropathy (principal); R74.8 Abnormal levels of other serum enzymes; I48.20 Chronic atrial fibrillation, unspecified
CPT/HCPCS: 36415; 80053; 80074; 83036; 85027; 85651; 86140

== ENCOUNTER → 2025-08-24 13:06 | Outpatient (CLI) | payer MEDICARE, SELFPAY ==
[2023-08-02 16:32] VITALS: BMI 30.4
== END ==
LOC: WC 13:07
PROVIDERS: Family Provider Family Medicine; PCP Internal Medicine; Referring Provider Internal Medicine; Visit Provider Surgery
DX: E11.621 Type 2 diabetes mellitus with foot ulcer (principal); L97.516 Non-pressure chronic ulcer of other part of right foot with bone involvement without evidence of necrosis; L84 Corns and callosities; E11.40 Type 2 diabetes mellitus with diabetic neuropathy, unspecified; Z72.0 Tobacco use; I73.9 Peripheral vascular disease, unspecified; M86.171 Other acute osteomyelitis, right ankle and foot; F17.200 Nicotine dependence, unspecified, uncomplicated
CPT/HCPCS: 11042; 99213

== ENCOUNTER → 2025-08-31 09:44 | Outpatient (CLI) | payer MEDICARE, SELFPAY ==
[2023-08-02 16:32] VITALS: BMI 30.4
== END ==
LOC: WC 09:45
PROVIDERS: Family Provider Family Medicine; PCP Internal Medicine; Referring Provider Internal Medicine; Visit Provider Surgery
DX: E11.621 Type 2 diabetes mellitus with foot ulcer (principal); L97.516 Non-pressure chronic ulcer of other part of right foot with bone involvement without evidence of necrosis; M86.171 Other acute osteomyelitis, right ankle and foot; E11.40 Type 2 diabetes mellitus with diabetic neuropathy, unspecified; I73.9 Peripheral vascular disease, unspecified; L84 Corns and callosities; Z72.0 Tobacco use
CPT/HCPCS: 11042

== ENCOUNTER → 2025-09-07 14:29 | Outpatient (CLI) | payer MEDICARE, SELFPAY ==
[2023-08-02 16:32] VITALS: BMI 30.4
== END ==
PROVIDERS: Family Provider Family Medicine; PCP Internal Medicine; Referring Provider Internal Medicine; Visit Provider Surgery
DX: E11.621 Type 2 diabetes mellitus with foot ulcer (principal); L97.516 Non-pressure chronic ulcer of other part of right foot with bone involvement without evidence of necrosis; M86.171 Other acute osteomyelitis, right ankle and foot; E11.40 Type 2 diabetes mellitus with diabetic neuropathy, unspecified; I73.9 Peripheral vascular disease, unspecified; L84 Corns and callosities
CPT/HCPCS: 11044

== ENCOUNTER → 2025-09-07 15:02 | Outpatient (CLI) | payer MEDICARE, SELFPAY ==
[2023-08-02 16:32] VITALS: BMI 30.4
[2025-09-07 16:21] LABS: Hematocrit 29.0 % (41-53); Hemoglobin 9.5 g/dL (13.5-17.5); Mean Corpuscular HGB Conc 32.7 % (30-36); Mean Corpuscular Hemoglobin 32.9 PG (26-34); Mean Corpuscular Volume 100.6 fL (80-100); Platelet Count 152 X10^3/uL (150-400)
[2025-09-07 16:50] LABS: Alanine Aminotransferase 18 IU/L (<50); Albumin 4.3 g/dL (3.5-5.0); Albumin Globulin Ratio 1.3 (1.0-2.8); Alkaline Phosphatase 88 U/L (38-126); Blood Urea Nitrogen 42 mg/dL (9-20); Calcium 9.6 mg/dL (8.4-10.2); Carbon Dioxide 17 mmol/L (22-32); Chloride 94 mmol/L (98-107); Estimated Glomerular Filt Rate 53 mL/min (>60); Globulin 3.2 g/dL (1.7-4.1); Glucose 271 mg/dL (70-99); HEMOLYSIS < 15 (0-50); Potassium 4.7 mmol/L (3.4-5.1); Sodium 128 mmol/L (137-145); Total Protein 7.5 g/dL (6.3-8.2)
[2025-09-07 18:25] LABS: Add Manual Diff / Slide Review YES
[2025-09-07 18:31] LABS: Atypical Lymphocytes Percent 1.0 %; Eosinophils Percent Manual 1.0 % (2-4); Lymphocytes Percent Manual 13.0 % (25-45); Metamyelocytes Percent 3.0 % (-0); Monocytes Percent Manual 11.0 % (2-11); Neutrophils Absolute Manual 4331 /uL (3000-5900); Segmented Neutrophils Percent 71.0 % (38-70); Total Cells Counted 100
[2025-09-07 18:33] LABS: Macrocytosis 2+
== END ==
PROVIDERS: Family Provider Family Medicine; PCP Internal Medicine; Referring Provider Internal Medicine; Visit Provider Internal Medicine Infectious Disease
DX: L08.9 Local infection of the skin and subcutaneous tissue, unspecified (principal); T14.8XXA Other injury of unspecified body region, initial encounter
CPT/HCPCS: 36415; 80053; 85007; 85025; 86140

== ENCOUNTER → 2025-09-08 12:51 | Outpatient (CLI) | payer MEDICARE, SELFPAY ==
[2023-08-02 16:32] VITALS: BMI 30.4
== END ==
LOC: WC 12:52
PROVIDERS: Family Provider Family Medicine; PCP Internal Medicine; Referring Provider Internal Medicine; Visit Provider Physician Assistant
DX: L92.8 Other granulomatous disorders of the skin and subcutaneous tissue (principal); E11.621 Type 2 diabetes mellitus with foot ulcer; L97.512 Non-pressure chronic ulcer of other part of right foot with fat layer exposed; L84 Corns and callosities; E11.40 Type 2 diabetes mellitus with diabetic neuropathy, unspecified; Z79.01 Long term (current) use of anticoagulants; F17.200 Nicotine dependence, unspecified, uncomplicated
CPT/HCPCS: 17250; 99212

== ENCOUNTER → 2025-09-13 11:28 | Outpatient (CLI) | payer MEDICARE, SELFPAY ==
[2023-08-02 16:32] VITALS: BMI 30.4
== END ==
LOC: WC 11:30
PROVIDERS: Family Provider Family Medicine; PCP Family Medicine; Referring Provider Family Medicine; Visit Provider Nurse Practitioner Family
DX: E11.621 Type 2 diabetes mellitus with foot ulcer (principal); E11.622 Type 2 diabetes mellitus with other skin ulcer; L97.516 Non-pressure chronic ulcer of other part of right foot with bone involvement without evidence of necrosis; L97.322 Non-pressure chronic ulcer of left ankle with fat layer exposed; E11.40 Type 2 diabetes mellitus with diabetic neuropathy, unspecified; I73.9 Peripheral vascular disease, unspecified; L84 Corns and callosities; Z72.0 Tobacco use; Z79.01 Long term (current) use of anticoagulants
CPT/HCPCS: 11042; 99213

== ENCOUNTER → 2025-09-21 11:02 | Outpatient (CLI) | payer MEDICARE, SELFPAY ==
[2023-08-02 16:32] VITALS: BMI 30.4
== END ==
LOC: WC 11:08
PROVIDERS: Family Provider Family Medicine; PCP Family Medicine; Referring Provider Family Medicine; Visit Provider Surgery
DX: E11.621 Type 2 diabetes mellitus with foot ulcer (principal); L97.516 Non-pressure chronic ulcer of other part of right foot with bone involvement without evidence of necrosis; L97.322 Non-pressure chronic ulcer of left ankle with fat layer exposed; L97.822 Non-pressure chronic ulcer of other part of left lower leg with fat layer exposed; M86.171 Other acute osteomyelitis, right ankle and foot; E11.40 Type 2 diabetes mellitus with diabetic neuropathy, unspecified; I73.9 Peripheral vascular disease, unspecified; L84 Corns and callosities; Z72.0 Tobacco use; R23.4 Changes in skin texture
CPT/HCPCS: 11042; 99213

== ENCOUNTER → 2025-09-28 15:28 | Outpatient (CLI) | payer MEDICARE, SELFPAY ==
[2023-08-02 16:32] VITALS: BMI 30.4
== END ==
PROVIDERS: Family Provider Family Medicine; PCP Family Medicine; Referring Provider Family Medicine; Visit Provider Surgery
DX: E11.621 Type 2 diabetes mellitus with foot ulcer (principal); L97.516 Non-pressure chronic ulcer of other part of right foot with bone involvement without evidence of necrosis; L97.322 Non-pressure chronic ulcer of left ankle with fat layer exposed; L97.822 Non-pressure chronic ulcer of other part of left lower leg with fat layer exposed; S51.011A Laceration without foreign body of right elbow, initial encounter; R60.0 Localized edema; L53.9 Erythematous condition, unspecified; L84 Corns and callosities; Z72.0 Tobacco use; E11.51 Type 2 diabetes mellitus with diabetic peripheral angiopathy without gangrene; D64.9 Anemia, unspecified
CPT/HCPCS: 11042; 11044; 87070; 87075; 87077; 87186; 87205; 99213

== ENCOUNTER → 2025-09-28 16:56 | Outpatient (CLI) | payer MEDICARE, SELFPAY ==
[2023-08-02 16:32] VITALS: BMI 30.4
--- NOTE | 2025-09-28 16:57 | DI.RAD.S_ITS ---
PROCEDURE: XR CHEST 2V INDICATIONS: Eval for hyperbaric oxygen treatment TECHNIQUE: 2 views of the chest were acquired. COMPARISON: [facility], CR, XR CHEST 2V, 03/24/2025, 17:57. [facility], CR, XR CHEST 1V, 08/02/2023, 14:12. FINDINGS: Surgical changes and devices: None. Lungs and pleura: Mild right and moderate left costophrenic angle blunting. Diffuse interstitial prominence is noted. Opacities at the left base obscuring the diaphragm. Mediastinum: Mediastinal contours appear normal. Heart size is normal. Atheromatous plaques are noted in the thoracic aorta. Mitral clips are noted. Bones and chest wall: No suspicious bony abnormalities. Soft tissues appear unremarkable. Multilevel degenerative disc disease noted. IMPRESSION: Probable pulmonary edema with moderate left and small right pleural effusion. Left lower lobe atelectasis likely. Infiltrates not excluded. Dictated by: Aria Pérez M.D. on 10/01/2025 at 18:42 Approved by: Aria Pérez M.D. on 10/01/2025 at 18:43
== END ==
PROVIDERS: Family Provider Family Medicine; PCP Family Medicine; Referring Provider Surgery; Visit Provider Surgery
DX: M86.171 Other acute osteomyelitis, right ankle and foot (principal); J90 Pleural effusion, not elsewhere classified
CPT/HCPCS: 71046; 87070; 87075; 87205

== ENCOUNTER → 2025-10-05 12:03 | Outpatient (CLI) | payer MEDICARE, SELFPAY ==
[2023-08-02 16:32] VITALS: BMI 30.4
== END ==
PROVIDERS: Family Provider Family Medicine; PCP Family Medicine; Referring Provider Family Medicine; Visit Provider Surgery
DX: E11.621 Type 2 diabetes mellitus with foot ulcer (principal); E11.51 Type 2 diabetes mellitus with diabetic peripheral angiopathy without gangrene; E11.40 Type 2 diabetes mellitus with diabetic neuropathy, unspecified; L97.516 Non-pressure chronic ulcer of other part of right foot with bone involvement without evidence of necrosis; L97.322 Non-pressure chronic ulcer of left ankle with fat layer exposed; L97.822 Non-pressure chronic ulcer of other part of left lower leg with fat layer exposed; S51.011A Laceration without foreign body of right elbow, initial encounter; R60.0 Localized edema; L53.9 Erythematous condition, unspecified; M86.9 Osteomyelitis, unspecified; Z72.0 Tobacco use
CPT/HCPCS: 11042

== ENCOUNTER → 2025-10-06 11:37 | Outpatient (CLI) | payer MEDICARE, SELFPAY ==
[2023-08-02 16:32] VITALS: BMI 30.4
== END ==
LOC: WC 11:38
PROVIDERS: Family Provider Family Medicine; PCP Family Medicine; Referring Provider Family Medicine; Visit Provider Physician Assistant
DX: L97.514 Non-pressure chronic ulcer of other part of right foot with necrosis of bone (principal); E11.621 Type 2 diabetes mellitus with foot ulcer; E11.40 Type 2 diabetes mellitus with diabetic neuropathy, unspecified; Z72.0 Tobacco use; I73.9 Peripheral vascular disease, unspecified; M86.171 Other acute osteomyelitis, right ankle and foot; L97.822 Non-pressure chronic ulcer of other part of left lower leg with fat layer exposed; L97.322 Non-pressure chronic ulcer of left ankle with fat layer exposed
CPT/HCPCS: 99183; G0277

== ENCOUNTER → 2025-10-09 13:48 | Outpatient (CLI) | payer MEDICARE, SELFPAY ==
[2023-08-02 16:32] VITALS: BMI 30.4
== END ==
PROVIDERS: Family Provider Family Medicine; PCP Family Medicine; Referring Provider Family Medicine; Visit Provider Surgery
DX: L97.514 Non-pressure chronic ulcer of other part of right foot with necrosis of bone (principal); E11.621 Type 2 diabetes mellitus with foot ulcer; E11.40 Type 2 diabetes mellitus with diabetic neuropathy, unspecified; Z72.0 Tobacco use; I73.9 Peripheral vascular disease, unspecified; M86.171 Other acute osteomyelitis, right ankle and foot; L97.822 Non-pressure chronic ulcer of other part of left lower leg with fat layer exposed; L97.322 Non-pressure chronic ulcer of left ankle with fat layer exposed
CPT/HCPCS: 99183; G0277

== ENCOUNTER → 2025-10-10 11:18 | Outpatient (CLI) | payer MEDICARE, SELFPAY ==
[2023-08-02 16:32] VITALS: BMI 30.4
== END ==
LOC: WC 11:19
PROVIDERS: Family Provider Family Medicine; PCP Family Medicine; Referring Provider Family Medicine; Visit Provider Surgery
DX: L97.514 Non-pressure chronic ulcer of other part of right foot with necrosis of bone (principal); E11.621 Type 2 diabetes mellitus with foot ulcer; E11.40 Type 2 diabetes mellitus with diabetic neuropathy, unspecified; Z72.0 Tobacco use; I73.9 Peripheral vascular disease, unspecified; M86.171 Other acute osteomyelitis, right ankle and foot; L97.822 Non-pressure chronic ulcer of other part of left lower leg with fat layer exposed; L97.322 Non-pressure chronic ulcer of left ankle with fat layer exposed; E11.622 Type 2 diabetes mellitus with other skin ulcer; L97.516 Non-pressure chronic ulcer of other part of right foot with bone involvement without evidence of necrosis; S51.011A Laceration without foreign body of right elbow, initial encounter; L84 Corns and callosities; L53.8 Other specified erythematous conditions
CPT/HCPCS: 11042; 99183; G0277

== ENCOUNTER → 2025-10-13 14:24 | Outpatient (CLI) | payer MEDICARE, SELFPAY ==
[2023-08-02 16:32] VITALS: BMI 30.4
[2025-10-13 15:19] LABS: Add Manual Diff / Slide Review NO; Hematocrit 32.8 % (41-53); Hemoglobin 10.9 g/dL (13.5-17.5); Lymphocytes Absolute Auto 600 /uL (1100-4500); Mean Corpuscular HGB Conc 33.1 % (30-36); Mean Corpuscular Hemoglobin 32.3 PG (26-34); Mean Corpuscular Volume 97.7 fL (80-100); Platelet Count 135 X10^3/uL (150-400)
[2025-10-13 15:23] LABS: Hemoglobin A1C% w Est Avg Glu 6.2 % (4.0-6.0)
[2025-10-13 16:11] LABS: Alanine Aminotransferase 19 IU/L (<50); Albumin 4.6 g/dL (3.5-5.0); Albumin Globulin Ratio 1.4 (1.0-2.8); Alkaline Phosphatase 90 U/L (38-126); Blood Urea Nitrogen 35 mg/dL (9-20); Calcium 10.2 mg/dL (8.4-10.2); Carbon Dioxide 21 mmol/L (22-32); Chloride 98 mmol/L (98-107); Estimated Glomerular Filt Rate > 60 mL/min (>60); Globulin 3.4 g/dL (1.7-4.1); Glucose 138 mg/dL (70-99); HEMOLYSIS < 15 (0-50); Potassium 5.1 mmol/L (3.4-5.1); Sodium 130 mmol/L (137-145); Total Protein 8.0 g/dL (6.3-8.2)
[2025-10-13 16:41] LABS: HEMOLYSIS < 15 (0-50); TSH w/ Reflex to FT4 3.00 uIU/mL (0.47-4.68)
[2025-10-13 16:49] LABS: Iron 122 ug/dL (49-181)
[2025-10-13 16:59] LABS: Percent Iron Saturation 37 % (20-50); Total Iron Binding Capacity 329 ug/dL (261-462); Transferrin 304 mg/dL (206-381)
[2025-10-13 17:01] LABS: Vitamin B12 993 pg/mL (239-931)
== END ==
PROVIDERS: Family Provider Family Medicine; PCP Family Medicine; Referring Provider Internal Medicine Infectious Disease; Visit Provider Internal Medicine Infectious Disease
DX: M86.9 Osteomyelitis, unspecified (principal); L97.518 Non-pressure chronic ulcer of other part of right foot with other specified severity; L97.519 Non-pressure chronic ulcer of other part of right foot with unspecified severity; E11.42 Type 2 diabetes mellitus with diabetic polyneuropathy; E11.621 Type 2 diabetes mellitus with foot ulcer; E11.40 Type 2 diabetes mellitus with diabetic neuropathy, unspecified; D64.9 Anemia, unspecified; F03.B0 Unspecified dementia, moderate, without behavioral disturbance, psychotic disturbance, mood disturbance, and anxiety
CPT/HCPCS: 80053; 82607; 83036; 83540; 83550; 84443; 85025

== ENCOUNTER → 2025-10-16 16:22 | Outpatient (CLI) | payer MEDICARE, SELFPAY ==
[2023-08-02 16:32] VITALS: BMI 30.4
== END ==
LOC: WC 16:23
PROVIDERS: Family Provider Family Medicine; PCP Family Medicine; Referring Provider Family Medicine; Visit Provider Surgery
DX: L97.514 Non-pressure chronic ulcer of other part of right foot with necrosis of bone (principal); E11.621 Type 2 diabetes mellitus with foot ulcer; E11.40 Type 2 diabetes mellitus with diabetic neuropathy, unspecified; Z72.0 Tobacco use; I73.9 Peripheral vascular disease, unspecified; M86.171 Other acute osteomyelitis, right ankle and foot; L97.822 Non-pressure chronic ulcer of other part of left lower leg with fat layer exposed; L97.322 Non-pressure chronic ulcer of left ankle with fat layer exposed
CPT/HCPCS: 99183; G0277

== ENCOUNTER → 2025-10-17 13:30 | Outpatient (CLI) | payer MEDICARE, SELFPAY ==
[2023-08-02 16:32] VITALS: BMI 30.4
== END ==
LOC: WC 10-18 09:13
PROVIDERS: Family Provider Family Medicine; PCP Family Medicine; Referring Provider Family Medicine; Visit Provider Surgery
DX: L97.514 Non-pressure chronic ulcer of other part of right foot with necrosis of bone (principal); E11.621 Type 2 diabetes mellitus with foot ulcer; E11.40 Type 2 diabetes mellitus with diabetic neuropathy, unspecified; Z72.0 Tobacco use; I73.9 Peripheral vascular disease, unspecified; M86.171 Other acute osteomyelitis, right ankle and foot; L97.822 Non-pressure chronic ulcer of other part of left lower leg with fat layer exposed; L97.322 Non-pressure chronic ulcer of left ankle with fat layer exposed
CPT/HCPCS: 99183; G0277

== ENCOUNTER → 2025-10-18 15:59 | Outpatient (CLI) | payer MEDICARE, SELFPAY ==
[2023-08-02 16:32] VITALS: BMI 30.4
== END ==
LOC: WC 16:00
PROVIDERS: Family Provider Family Medicine; PCP Family Medicine; Referring Provider Family Medicine; Visit Provider Surgery
DX: L97.514 Non-pressure chronic ulcer of other part of right foot with necrosis of bone (principal); E11.621 Type 2 diabetes mellitus with foot ulcer; E11.40 Type 2 diabetes mellitus with diabetic neuropathy, unspecified; Z72.0 Tobacco use; I73.9 Peripheral vascular disease, unspecified; M86.171 Other acute osteomyelitis, right ankle and foot; L97.822 Non-pressure chronic ulcer of other part of left lower leg with fat layer exposed; L97.322 Non-pressure chronic ulcer of left ankle with fat layer exposed
CPT/HCPCS: 99183; G0277